=== PATIENT | female | born 1955 | race Caucasian/White ===

== ENCOUNTER 2020-02-08 14:59 | Outpatient (CLI) | payer MEDICARE, SELFPAY ==
--- NOTE | ~2020-02-08 | XR_ITS ---
XR lumbar spine 2-3V 02/08/2020 15:41 Indication: Radiculopathy. Low back pain. Procedure: 3 views lumbar spine Comparison: No prior studies for comparison. Findings: There are facet degenerative changes at L4-5 and L5-S1. There is mild disc narrowing at L5- S1. No acute fracture or traumatic malalignment. There are cholecystectomy clips. Mild osteoarthritis of the hips. Impression: 1: Mild lumbar spondylosis. Reviewed, dictated and finalized at location B. Impression: 1: Mild lumbar spondylosis.
--- NOTE | ~2020-02-08 | XR_ITS ---
EXAMINATION: XR hip RT min 2V DATE: 02/08/2020 15:41 INDICATION: Right hip pain. TECHNIQUE: 3 views of right hip were obtained. COMPARISON: None. FINDINGS: Bone alignment is normal. No fracture. There is mild right hip osteoarthritis. IMPRESSION: 1. Mild right hip osteoarthritis. Reviewed, dictated and finalized at location A.
== END 2020-02-08 15:00 | disposition home or self-care (01) ==
PROVIDERS: PCP Family Medicine; Visit Provider Physician Assistant
DX: M47.26 Other spondylosis with radiculopathy, lumbar region (principal); M16.11 Unilateral primary osteoarthritis, right hip
CPT/HCPCS: 72100; 73502

== ENCOUNTER 2020-02-26 14:51 | Outpatient (CLI) | payer MEDICARE, SELFPAY ==
--- NOTE | ~2020-02-26 | MR_ITS ---
EXAMINATION: MR lumbar spine wo con DATE: 02/26/2020 15:47 INDICATION: Lumbar radiculopathy. TECHNIQUE: Magnetic resonance imaging (MRI) of the lumbar spine was performed without intravenous con trast. Sequences included sagittal T2-weighted FSE, sagittal T2-weighted FS FSE, sagittal T1-weighted FSE, and axial T2-weighted FSE. COMPARISON: Lumbar spine radiographs 02/08/2020 FINDINGS: L5 is a transitional segment. Vertebral body heights are normal. There is a hemangioma in L 4 vertebral body. There is moderately decreased disc height at L4-L5. The distal spinal cord signal i ntensity is normal. The conus medullaris is at T12-L1. The following disc levels are specifically dis cussed: L1-L2: The disc does not extend beyond the endplate margin. There is mild bilateral facet joint osteo arthritis. There is no neural foraminal stenosis. There is no central canal stenosis. L2-L3: The disc does not extend beyond the endplate margin. There is severe right and mild left facet joint osteoarthritis. There is no neural foraminal stenosis. There is no central canal stenosis. L3-L4: The disc does not extend beyond the endplate margin. There is severe bilateral facet joint ost eoarthritis. There is mild bilateral neural foraminal stenosis. There is no central canal stenosis. L4-L5: The disc is bulging. There is moderate right and mild left facet joint osteoarthritis. There i s moderate bilateral neural foraminal stenosis. There is mild central canal stenosis. L5-S1: The disc does not extend beyond the endplate margin. There is mild bilateral facet joint osteo arthritis. There is no neural foraminal stenosis. There is no central canal stenosis. IMPRESSION: 1. Moderate spondylosis at L4-L5 and mild spondylosis at other levels. Reviewed, dictated and finalized at location A.
== END 2020-02-26 14:52 | disposition home or self-care (01) ==
LOC: ANHIMG 14:53
PROVIDERS: PCP Family Medicine; Visit Provider Physician Assistant
DX: M47.26 Other spondylosis with radiculopathy, lumbar region (principal)
CPT/HCPCS: 72148

== ENCOUNTER 2021-10-02 00:43 | Day surgery (SDC) | payer MEDICARE, SELFPAY ==
[2021-09-14 12:01] VITALS: BMI 42.7
[2021-10-02 07:44] VITALS: BP 152/62; PULSE 80; RESP 18; TEMP 36.4; O2SAT 97; BMI 42.1
--- NOTE | 2021-10-02 07:53 | WPDGICN ---
Assessment and Plan Assessment and plan (1) Encounter for screening colonoscopy: Code(s): Z12.11 - Encounter for screening for malignant neoplasm of colon Status: Acute Assessment and Plan: Patient presents today for screening colonoscopy. She appears to be at average risk for colon polyps. Further recommendations will be given after endoscopy. GI Consult Note Consult date/time: 10/02/21 07:53 HPI: Gasper Pierce is a 66 year old female Presents for screening colonoscopy. Patient's current weight appetite and bowel movements are normal. She denies abdominal pain. She has had no bleeding. Family history is noncontributory. Her last colonoscopy tender 15 years ago was unremarkable. She patient does report that her grandmother had colon cancer. There are no first-degree relatives with colon polyps or cancer that she is aware of. Review of Systems Review of Systems: All systems reviewed & are unremarkable except as noted in HPI and below PMFSH Past Medical History Medical History (Updated 10/02/21 @ 07:54 by Matteo Castelan MD) Breast cancer in female Surgical History Surgical History H/O section H/O: hysterectomy History of cholecystectomy History of partial knee replacement Family History Family History Mother Family history of Alzheimer's disease Other Family history of coronary artery disease Family history of gallbladder disease Hypertension Social History Social History Alcohol intake: current Drinks per week: 2 Living arrangements: with family Meds Home Medications and Allergies Home Medications Medication Instructions Recorded Confirmed Type levothyroxine 50 mcg tablet 50 mcg PO DAILY 07/28/19 10/02/21 History cetirizine 10 mg tablet 5 mg PO DAILY 09/23/19 10/02/21 History losartan 100 mg tablet 100 mg PO DAILY #90 tablet 08/09/20 10/02/21 Rx atorvastatin 10 mg tablet 10 mg PO DAILY #90 tablet 08/22/20 10/02/21 Rx montelukast 10 mg tablet See Rx Instructions .ROUTE 06/02/21 10/02/21 Rx .COMPLEX #90 tablet tramadol 50 mg tablet 50 mg PO Q6H PRN 30 Days #60 tablet 06/09/21 10/02/21 Rx hydrochlorothiazide 25 mg tablet See Rx Instructions .ROUTE 06/21/21 10/02/21 Rx .COMPLEX #90 tablet fluoxetine 10 mg capsule See Rx Instructions .ROUTE 06/22/21 10/02/21 Rx .COMPLEX #90 cap omeprazole 40 mg capsule,delayed 40 mg PO DAILY #90 cap 06/22/21 10/02/21 Rx release irbesartan 300 mg tablet 300 mg PO DAILY #90 tablet 06/27/21 10/02/21 Rx duloxetine 60 mg capsule,delayed 60 mg PO DAILY #90 cap 06/28/21 10/02/21 Rx release dulaglutide 3 mg/0.5 mL 3 mg SUBCUT WEEKLY #2 ml 09/05/21 10/02/21 Rx subcutaneous pen injector metformin 500 mg tablet,extended 1,000 mg PO DAILY #180 tablet 09/27/21 10/02/21 Rx release 24 hr Allergies Allergy/AdvReac Type Severity Reaction Status Date / Time No Known Allergies Allergy Verified 10/02/21 07:43 Vital Signs Vital Signs - 24 hr 10/02/21 07:44 Temperature 97.6 F Pulse Rate 80 Respiratory Rate 18 Blood Pressure 152/62 H Pulse Oximetry 97 Exam Narrative: Physical exam reveals patient to be alert. Vital signs stable. HEENT exam is unremarkable. Patient is anicteric. Lungs are clear to auscultation and percussion. Heart is without murmur or extra sounds. Abdominal exam bowel sounds are present soft nontender with no hepatosplenomegaly. Digital external rectal exam is normal.
[2021-10-02] MEDS: LACTATED RINGERS 1,000 ML 150 ML IV CONT (08:02)
[2021-10-02 08:03] LABS: Glucose Point of Care 122 mg/dl (65-105)
--- NOTE | 2021-10-02 08:10 | WPDANESEPPF ---
Anes - Initial Pre Proc Eval Procedure: Operation Date: 10/02/21 08:30 Proposed Procedures p Screening Colonoscopy - Matteo Castelan MD Date/Time: 10/02/21 08:10 Surgeon: Matteo Castelan MD Pre Op Diagnosis: neoplasm screening Patient Data Age: 66 Gender: F Height: 1.63 m Weight: 111.4 kg Last Vital Signs Temp 97.6 F 10/02/21 07:44 Pulse 80 10/02/21 07:44 Resp 18 10/02/21 07:44 BP 152/62 H 10/02/21 07:44 Pulse Ox 97 10/02/21 07:44 Allergies Allergy/AdvReac Type Severity Reaction Status Date / Time No Known Allergies Allergy Verified 10/02/21 07:43 Home Medications Medication Instructions Recorded Confirmed Type levothyroxine 50 mcg tablet 50 mcg PO DAILY 07/28/19 10/02/21 History cetirizine 10 mg tablet 5 mg PO DAILY 09/23/19 10/02/21 History losartan 100 mg tablet 100 mg PO DAILY #90 tablet 08/09/20 10/02/21 Rx atorvastatin 10 mg tablet 10 mg PO DAILY #90 tablet 08/22/20 10/02/21 Rx montelukast 10 mg tablet See Rx Instructions .ROUTE 06/02/21 10/02/21 Rx .COMPLEX #90 tablet tramadol 50 mg tablet 50 mg PO Q6H PRN 30 Days #60 tablet 06/09/21 10/02/21 Rx hydrochlorothiazide 25 mg tablet See Rx Instructions .ROUTE 06/21/21 10/02/21 Rx .COMPLEX #90 tablet fluoxetine 10 mg capsule See Rx Instructions .ROUTE 06/22/21 10/02/21 Rx .COMPLEX #90 cap omeprazole 40 mg capsule,delayed 40 mg PO DAILY #90 cap 06/22/21 10/02/21 Rx release irbesartan 300 mg tablet 300 mg PO DAILY #90 tablet 06/27/21 10/02/21 Rx duloxetine 60 mg capsule,delayed 60 mg PO DAILY #90 cap 06/28/21 10/02/21 Rx release dulaglutide 3 mg/0.5 mL 3 mg SUBCUT WEEKLY #2 ml 09/05/21 10/02/21 Rx subcutaneous pen injector metformin 500 mg tablet,extended 1,000 mg PO DAILY #180 tablet 09/27/21 10/02/21 Rx release 24 hr Laboratory Tests 10/02/21 08:00 POC Capillary Glucose 122 mg/dl H mg/dl (65-105) Patient hx anesthesia problems: none Family hx anesthesia problems: none Results Review: All pre-operative results and documents have been reviewed as part of the pre-operative evaluation. [facility] Past Medical History Medical History (Updated 10/02/21 @ 07:54 by Matteo Castelan MD) Breast cancer in female Surgical History Surgical History H/O section H/O: hysterectomy History of cholecystectomy History of partial knee replacement Family History Family History Mother Family history of Alzheimer's disease Other Family history of coronary artery disease Family history of gallbladder disease Hypertension Social History Social History Alcohol intake: current Drinks per week: 2 Living arrangements: with family Anes - Eval Final PreProcedure Day of Procedure 10/02/21 08:10 Patient weight: morbidly obese Heart: regular rate and rhythm Lungs: clear to auscultation Airway: Mallampati scale class III Neurological: alert and oriented Last oral intake: >/= 8 hours ASA classification: III Emergent: no Anesthetic plan: proceed Anesthesia type and monitoring: general GIVS and standard monitoring Results Review: All pre-operative results and documents have been reviewed as part of the pre-operative evaluation. Informed Consent: The patient's anesthetic plan and its attendant risks and benefits were discussed with the patient/family/POA. Questions were solicited and answers provided to the satisfaction of the patient/family/POA.
[2021-10-02 08:58] VITALS: BP 134/69; PULSE 70; RESP 17; O2SAT 96
[2021-10-02 09:08] VITALS: BP 133/77; PULSE 72; RESP 15; O2SAT 98
[2021-10-02 09:18] VITALS: BP 158/82; PULSE 70; RESP 21; O2SAT 99
== END 2021-10-02 09:30 | disposition home or self-care (01) ==
PROVIDERS: PCP Family Medicine; Visit Provider Internal Medicine Gastroenterology
PROC: 0DJD8ZZ Inspection of Lower Intestinal Tract, Via Natural or Artificial Opening Endoscopic (ICD-10-PCS; CPT 45378; principal; 2021-10-02 08:30)
DX: Z12.11 Encounter for screening for malignant neoplasm of colon (principal); K64.8 Other hemorrhoids; Z80.0 Family history of malignant neoplasm of digestive organs; Z79.899 Other long term (current) drug therapy
CPT/HCPCS: G0105; 82948; J2704; J7120

== ENCOUNTER 2022-03-28 12:18 | Outpatient (CLI) | payer MEDICARE, SELFPAY ==
--- NOTE | ~2022-03-28 | XR_ITS ---
EXAM: XR hand LT 2V, XR hand RT 2V DATE: 03/28/2022 12:37 HISTORY: JOINT PAIN HAND, POSITIVE OLGA LIDIA, SWELLING OF BOTH HANDS . COMPARISON: Left hand x-ray 10/27/2009. FINDINGS: Normal mineralization. No fracture or dislocation. No lytic or blastic lesion. Mild narrow ing and osteophytosis in the DIP joints of multiple fingers in both hands. No erosion or periosteal c hange. Soft tissues within normal limits. IMPRESSION: Mild osteoarthritic change in the fingers bilaterally. Reviewed, dictated and finalized at location K. IMPRESSION: Mild osteoarthritic change in the fingers bilaterally.
== END 2022-03-28 12:19 | disposition home or self-care (01) ==
PROVIDERS: PCP Internal Medicine; Visit Provider Internal Medicine
DX: R76.8 Other specified abnormal immunological findings in serum (principal); M79.89 Other specified soft tissue disorders; M19.042 Primary osteoarthritis, left hand; M19.041 Primary osteoarthritis, right hand
CPT/HCPCS: 73120

== ENCOUNTER 2022-07-10 11:19 | Outpatient (CLI) | payer MEDICARE, SELFPAY ==
--- NOTE | ~2022-07-10 | DEXA_ITS ---
Bone Density Report Name: KLAUDIA VILLAGRAN Age: 67 Sex: Female Ethnicity: White Date of : 1955 Indication: postmenopausal; screening for osteoporosis; cancer; hysterectomy; Referring Provider: THAO CANTOR Study: Bone densitometry was performed. Exam Date: July 10, 2022 Accession number: [id number] Bone Density: Region BMD T-score Z-score Classification AP Spine(L1-L4) 1.052 0.0 2.1 Normal Femoral Neck (Left) 0.745 -0.9 0.8 Normal Total Hip (Left) 1.032 0.7 2.2 Normal Femoral Neck (Right) 0.862 0.1 1.8 Normal Total Hip (Right) 1.089 1.2 2.6 Normal Total Hip Mean 1.061 1.0 2.4 Normal World Health Organization criteria for BMD impression classify patients as: Normal (T-score at or above -1.0), Osteopenia (T-score between -1.0 and -2.5), or Osteoporosis (T-score at or below -2.5). 10-year Fracture Risk: FRAX not reported because: All T-scores for Spine Total, Hip Total, Femoral Neck at or above -1.0 Clinical Information Provided by Patient: Has used the following medications: Vitamin D, Calcium Has the following medical conditions: Cancer, Hysterectomy Patient maximum height was 64 Menopause Age: 36 Drinks caffeinated beverages Onset of menses at age 12 Number of children 3 Impression: The patient has normal bone mass. Discussion: BONE DENSITY IS ABOVE THE MINIMUM DESIRABLE LEVEL AT ALL SKELETAL SITES TESTED. This patient?s bone mineral density is above the minimum desirable level (T-score -1.0 or better) at all sites measured. The patient should follow a healthful lifestyle (good nutrition with adequate calcium and vitamin D, and appropriate weight-bearing exercise). Follow-Up: Consider repeating this study in 5 years or sooner if there is some new clinical indication. Reported by: AISHA on 07/10/2022 11:45:00 AM. Reviewed, dictated and finalized at location AJerry MEDINA
== END 2022-07-10 11:20 | disposition home or self-care (01) ==
LOC: ANHIMG 11:20
PROVIDERS: PCP Internal Medicine; Visit Provider Nurse Practitioner
DX: Z78.0 Asymptomatic menopausal state (principal)
CPT/HCPCS: 77080

== ENCOUNTER 2022-10-05 09:45 | Outpatient (CLI) | payer MEDICARE, SELFPAY ==
[2022-10-05 12:43] LABS: Basophils Percent Auto 0.5 % (0.2-1.2); Eosinophils Absolute Auto 0.2 K/mm3 (0-0.3); Eosinophils Percent Auto 3.2 % (0-4.4); Hematocrit 41.4 % (37.0-47.0); Hemoglobin 13.6 g/dL (12.0-15.0); Immature Granulocyte Absolute 0.01 K/mm3 (0.00-0.031); Immature Granulocyte Percent A 0.2 % (0-0.5); Lymphocytes Absolute Auto 1.64 K/mm3 (0.9-3.2); Lymphocytes Percent Auto 24.7 % (18.3-44.2); Mean Corpuscular HGB Conc 32.9 g/dl (32-36); Mean Corpuscular Volume 85.4 fl (80-100); Mean Platelet Volume 10.5 fl (7.4-10.4); Monocytes Absolute Auto 0.5 K/mm3 (0.1-0.6); Monocytes Percent Auto 6.8 % (2.6-8.5); Neutrophils Absolute Auto 4.3 K/mm3 (1.3-6.7); Neutrophils Percent Auto 64.6 % (45.5-73.1); Platelet Count Result 290 k/mm3 (150-375); Red Blood Count 4.85 M/mm3 (4.2-5.4); White Blood Count 6.7 K/mm3 (4.5-10.0)
[2022-10-05 12:56] LABS: Alanine Aminotransferase 24 U/L (6-35); Albumin Level 4.5 g/dL (3.5-5.1); Alkaline Phosphatase 106 U/L (38-126); Anion Gap 9 mmol/L (8-16); Aspartate Amino Transferase 47 U/L (14-36); Bilirubin,Total 0.5 mg/dL (0.2-1.3); Blood Urea Nitrogen 31 mg/dL (7-17); Calcium 9.4 mg/dL (8.4-10.2); Carbon Dioxide 29 mmol/L (22-30); Chloride 101 mmol/L (98-107); Cholesterol 169 mg/dL (0-200); Estimated Glomerular Filt Rate > 60; Glucose 110 mg/dL (65-110); HDL Direct 79 mg/dL; Potassium 3.8 mmol/L (3.4-5.0); Sodium 139 mmol/L (137-145); Triglycerides 97 mg/dL (<150)
[2022-10-05 13:07] LABS: LDL Cholesterol Direct 60 mg/dL
[2022-10-05 13:10] LABS: Vitamin D 25 Hydroxy 39.1 ng/mL
== END 2022-10-05 09:46 | disposition home or self-care (01) ==
PROVIDERS: PCP Internal Medicine; Visit Provider Nurse Practitioner
DX: E11.9 Type 2 diabetes mellitus without complications (principal); E55.9 Vitamin D deficiency, unspecified
CPT/HCPCS: 36415; 80053; 80061; 82306; 83036; 85025

== ENCOUNTER 2023-04-04 09:06 | Outpatient (CLI) | payer MEDICARE, SELFPAY ==
[2023-04-04 17:01] LABS: Hemoglobin A1C 5.4 % (<5.7)
== END 2023-04-04 09:07 | disposition home or self-care (01) ==
PROVIDERS: PCP Internal Medicine; Visit Provider Nurse Practitioner
DX: E11.9 Type 2 diabetes mellitus without complications (principal)
CPT/HCPCS: 36415; 83036

== ENCOUNTER 2023-08-07 11:36 | Emergency (ER) | payer MEDICARE, SELFPAY ==
--- NOTE | ~2023-08-07 | CT_ITS ---
EXAMINATION: CT brain wo con DATE: 08/07/2023 12:35 INDICATION: Head injury. TECHNIQUE: Computed tomography (CT) of the head was performed without intravenous contrast. The mA wa s adjusted according to patient size. Iterative reconstruction technique was employed. The dose-lengt h product was 756.67 mGy-cm. COMPARISON: Head CT 01/30/2005 FINDINGS: There are scattered areas of low attenuation in the cerebral white matter. There is no intr acranial hemorrhage, acute infarction, or abnormal intracranial mass lesion. The ventricles are cortes l in size. The orbits are normal. There is mild mucosal thickening in the paranasal sinuses. The mast oid air cells are normal. IMPRESSION: 1. Moderate nonspecific cerebral white matter disease, which likely represents chronic small vessel i schemic disease. Reviewed, dictated and finalized at location A. IMPRESSION: 1. Moderate nonspecific cerebral white matter disease, which likely represents chronic small vessel ischemic disease.
--- NOTE | ~2023-08-07 | CT_ITS ---
EXAMINATION: CT cervical spine wo con DATE: 08/07/2023 12:35 INDICATION: Head injury. TECHNIQUE: Computed tomography (CT) of the cervical spine was performed without intravenous contrast. Automated exposure control and iterative reconstruction technique were employed. The dose-length pro duct was 491.35 mGy-cm. COMPARISON: None FINDINGS: There is 10 degrees dextroscoliosis of cervical spine. There is kyphosis of cervical spine. Vertebral body heights are normal. There is mildly decreased disc height at C3-C4, moderately decrea sed disc height at C5-C6, and severely decreased disc height at C6-C7. The following disc levels are specifically discussed: C2-C3: There is no uncovertebral joint osteoarthritis. There is severe right and mild left facet join t osteoarthritis. There is mild right neural foraminal stenosis. There is no central canal stenosis. C3-C4: There is mild bilateral uncovertebral joint osteoarthritis. There is severe right and moderate left facet joint osteoarthritis. There is mild left neural foraminal stenosis. There is mild central canal stenosis. C4-C5: There is mild bilateral uncovertebral joint osteoarthritis. There is severe bilateral facet jean carlos int osteoarthritis. There is mild left neural foraminal stenosis. There is mild central canal stenosi s. C5-C6: There is mild right and severe left uncovertebral joint osteoarthritis. There is mild right an d severe left facet joint osteoarthritis. There is mild left neural foraminal stenosis. There is mild central canal stenosis. C6-C7: There is severe bilateral uncovertebral joint osteoarthritis. There is mild right and moderate left facet joint osteoarthritis. There is mild bilateral neural foraminal stenosis. There is mild ce ntral canal stenosis. C7-T1: There is no uncovertebral joint osteoarthritis. There is mild right and severe left facet join t osteoarthritis. There is mild left neural foraminal stenosis. There is no central canal stenosis. IMPRESSION: 1. No fracture. 2. Severe cervical spondylosis. 3. Cervical dextroscoliosis. Reviewed, dictated and finalized at location A.
--- NOTE | 2023-08-07 11:39 | PC.NURSE ---
Pt placed in C-Collar and wheeled to room
[2023-08-07 11:43] VITALS: BP 152/85; PULSE 87; RESP 18; TEMP 36.5; O2SAT 100
[2023-08-07] MEDS: oxyCODONE HCL (*CRX) 2.5 MG TAB IR PO (12:20)
[2023-08-07] MEDS: TETANUS,DIPHTHERIA,AC PERTUSSIS ADULT (0.5 ML) BOOSTRIX IM (13:06)
--- NOTE | 2023-08-07 13:14 | ED.HEATRA ---
HPI - Head Injury General Chief complaint: Head Injury Stated complaint: head injury Time Seen by Provider: 08/07/23 12:00 History of Present Illness HPI Narrative: Patient here after tripping and falling in the shower. No LOC or n/v, focal numbness or weakness, but feels slightly dazed. Not on blood thinners. Related Data Home Medications Medication Instructions Recorded Confirmed cetirizine 10 mg tablet (Zyrtec) 5 mg PO DAILY 09/23/19 04/11/23 Allergies Allergy/AdvReac Type Severity Reaction Status Date / Time No Known Allergies Allergy Verified 08/07/23 12:55 Review of Systems Review of Systems: CONST: No fever. HEENT: No sore throat C/V: No chest pain RESP: No cough GI: No nausea/vomiting : No dysuria. M/S: No joint pain. SKIN: Some dried blood to back of head NEURO: [No focal numbness or weakness] PSYCH: [No depression] PMFSH Past Medical History Medical History Breast cancer in female Hyperlipidemia Surgical History Surgical History H/O section H/O: hysterectomy History of cholecystectomy History of lumpectomy of right breast (~2006) History of partial knee replacement Family History Family History Mother Family history of Alzheimer's disease Other Family history of coronary artery disease Family history of gallbladder disease Hypertension Social History Social History Smoking status: Former smoker Additional smoking assessment comments: 1/2 pack day for 10 years, stopped when she was 27 years old Alcohol intake: current Drinks per week: 2 Lack of Transportation: No Lack of Food: Never True Current Housing: I Have Housing Concerned About Future Housing: No Difficulty Paying Gas/Electric Bills: No Difficulty Paying for Meds: No Currently Unemployed: No Education: Trade/Vocational Certificate Difficulty w/ Childcare or Family Care: No Living arrangements: with family Exam Narrative: EXAMINATION OF ORGAN SYSTEMS/BODY AREAS: Constitutional: Vital signs per nursing GENERAL: Appears uncomfortable in bed HEAD: Contusion with some dried blood to the back of the head. EYES: EOMI, conjunctiva normal ENT: Hearing grossly intact LUNGS: Nonlabored breathing. HEART: [Regular rate and rhythm] ABD: [Soft], [nontender to palpation] EXT: Normal range of motion SKIN: Contusion with some dried blood to the back of the head. NEURO: [Alert and oriented x 3. No gross focal sensory or strength deficits.] PSYCH: Normal affect Course Vital Signs Vital signs: Vital Signs Temperature 97.7 F 08/07/23 11:43 Pulse Rate 87 08/07/23 11:43 Respiratory Rate 18 08/07/23 11:43 Blood Pressure 152/85 H 08/07/23 11:43 Pulse Oximetry 100 08/07/23 11:43 Oxygen Delivery Room Air 08/07/23 11:43 Temperature 97.7 F 08/07/23 11:43 Pulse Rate 87 08/07/23 11:43 Respiratory Rate 18 08/07/23 11:43 Blood Pressure 152/85 H 08/07/23 11:43 Pulse Oximetry 100 08/07/23 11:43 Oxygen Delivery Room Air 08/07/23 11:43 Procedures Laceration Laceration 1: Date: 08/07/23 Time: 13:34 Site: scalp Side (If applicable): left Size (cm): 3 Description: linear Depth: simple, single layer Local Anesthetic: lidocaine 1% and with epi Amount of anesthesia used (mL): 3 Pre-repair: wound explored and irrigated ====== Skin Level ====== ====== Subcutaneous Layer ====== ====== Muscle Layer ====== ====== Tendon Layer ====== MDM - Head Injury MDM Narrative Medical decision making narrative: 1) Differential diagnosis: fracture, intracranial bleeding 2) Comorbidities: DM, HTN 3) External notes reviewed: PCP notes 4) History sources i
[2023-08-07 13:30] VITALS: BP 150/80; PULSE 80; RESP 16; O2SAT 98
== END 2023-08-07 13:30 | disposition home or self-care (01) ==
PROVIDERS: Emergency Provider Emergency Medicine; PCP Internal Medicine
DX: S01.01XA Laceration without foreign body of scalp, initial encounter (principal); Z23 Encounter for immunization; I10 Essential (primary) hypertension; E11.9 Type 2 diabetes mellitus without complications; E78.5 Hyperlipidemia, unspecified; Z96.659 Presence of unspecified artificial knee joint; Z85.3 Personal history of malignant neoplasm of breast; Z87.891 Personal history of nicotine dependence; Z90.49 Acquired absence of other specified parts of digestive tract; Z90.710 Acquired absence of both cervix and uterus; W18.2XXA Fall in (into) shower or empty bathtub, initial encounter
CPT/HCPCS: 12002; 70450; 72125; 90471; 90715; 99284; A9270

== ENCOUNTER 2023-09-26 09:50 | Outpatient (CLI) | payer MEDICARE, SELFPAY ==
[2023-09-26 19:10] LABS: Alanine Aminotransferase 20 U/L (6-35); Albumin Level 4.8 g/dL (3.5-5.1); Alkaline Phosphatase 106 U/L (38-126); Anion Gap 8 mmol/L (4-12); Aspartate Amino Transferase 36 U/L (14-36); Bilirubin,Total 0.9 mg/dL (0.2-1.3); Blood Urea Nitrogen 34 mg/dL (7-17); Calcium 10.6 mg/dL (8.4-10.2); Carbon Dioxide 29 mmol/L (22-30); Chloride 101 mmol/L (98-107); Cholesterol 176 mg/dL (0-200); Estimated Glomerular Filt Rate 41; Glucose 119 mg/dL (65-110); HDL Direct 82 mg/dL; Potassium 3.5 mmol/L (3.4-5.0); Sodium 138 mmol/L (137-145); Triglycerides 138 mg/dL (<150)
[2023-09-26 19:21] LABS: LDL Cholesterol Direct 71 mg/dL
[2023-09-26 19:26] LABS: Basophils Percent Auto 0.4 % (0.2-1.2); Eosinophils Absolute Auto 0.1 K/mm3 (0-0.3); Eosinophils Percent Auto 1.8 % (0-4.4); Hematocrit 44.1 % (37.0-47.0); Hemoglobin 14.8 g/dL (12.0-15.0); Immature Granulocyte Absolute 0.03 K/mm3 (0.00-0.031); Immature Granulocyte Percent A 0.4 % (0-0.5); Lymphocytes Absolute Auto 2.07 K/mm3 (0.9-3.2); Lymphocytes Percent Auto 29.2 % (18.3-44.2); Mean Corpuscular HGB Conc 33.6 g/dl (32-36); Mean Corpuscular Hemoglobin 29.2 pg (26-34); Mean Platelet Volume 10.8 fl (7.4-10.4); Monocytes Absolute Auto 0.6 K/mm3 (0.1-0.6); Monocytes Percent Auto 8.6 % (2.6-8.5); Neutrophils Absolute Auto 4.2 K/mm3 (1.3-6.7); Neutrophils Percent Auto 59.6 % (45.5-73.1); Platelet Count Result 328 k/mm3 (150-375); Red Blood Count 5.07 M/mm3 (4.2-5.4); Red Cell Distribution Width 13.4 % (11.5-14.5); White Blood Count 7.1 K/mm3 (4.5-10.0)
[2023-09-26 20:33] LABS: Hemoglobin A1C 5.6 % (<5.7)
[2023-10-02 11:13] LABS: Apolipoprotein B 72 mg/dL
== END 2023-09-26 09:51 | disposition home or self-care (01) ==
PROVIDERS: PCP Internal Medicine; Visit Provider Nurse Practitioner
DX: E78.5 Hyperlipidemia, unspecified (principal); E55.9 Vitamin D deficiency, unspecified; E11.69 Type 2 diabetes mellitus with other specified complication
CPT/HCPCS: 36415; 80053; 80061; 82172; 82306; 83036; 84443; 85025

== ENCOUNTER 2024-04-07 09:44 | Outpatient (CLI) | payer MEDICARE, SELFPAY ==
[2024-04-07 15:11] LABS: Alanine Aminotransferase 20 U/L (6-35); Albumin Level 4.3 g/dL (3.5-5.1); Alkaline Phosphatase 108 U/L (38-126); Anion Gap 5 mmol/L (4-12); Aspartate Amino Transferase 34 U/L (14-36); Basophils Percent Auto 0.3 % (0.2-1.2); Bilirubin,Total 0.5 mg/dL (0.2-1.3); Blood Urea Nitrogen 24 mg/dL (7-17); Calcium 9.2 mg/dL (8.4-10.2); Carbon Dioxide 32 mmol/L (22-30); Chloride 101 mmol/L (98-107); Cholesterol 187 mg/dL (0-200); Eosinophils Absolute Auto 0.1 K/mm3 (0-0.3); Eosinophils Percent Auto 2.1 % (0-4.4); Estimated Glomerular Filt Rate 55; Glucose 108 mg/dL (65-110); HDL Direct 69 mg/dL; Hematocrit 41.8 % (37.0-47.0); Hemoglobin 13.9 g/dL (12.0-15.0); Immature Granulocyte Absolute 0.04 K/mm3 (0.00-0.031); Immature Granulocyte Percent A 0.7 % (0-0.5); Lymphocytes Absolute Auto 1.56 K/mm3 (0.9-3.2); Lymphocytes Percent Auto 25.5 % (18.3-44.2); Magnesium 2.1 mg/dL (1.6-2.3); Mean Corpuscular HGB Conc 33.3 g/dl (32-36); Mean Corpuscular Volume 87.3 fl (80-100); Mean Platelet Volume 10.6 fl (7.4-10.4); Monocytes Absolute Auto 0.4 K/mm3 (0.1-0.6); Monocytes Percent Auto 6.5 % (2.6-8.5); Neutrophils Percent Auto 64.9 % (45.5-73.1); Platelet Count Result 275 k/mm3 (150-375); Red Blood Count 4.79 M/mm3 (4.2-5.4); Red Cell Distribution Width 13.1 % (11.5-14.5); Sodium 138 mmol/L (137-145); Triglycerides 127 mg/dL (<150); White Blood Count 6.1 K/mm3 (4.5-10.0)
[2024-04-07 15:13] LABS: LDL Cholesterol Direct 72 mg/dL
[2024-04-07 15:43] LABS: Vitamin D 25 Hydroxy 76.9 ng/mL
== END 2024-04-07 09:45 | disposition home or self-care (01) ==
LOC: ANHGOSHLAB 09:46
PROVIDERS: PCP Internal Medicine; Visit Provider Nurse Practitioner
DX: G89.29 Other chronic pain (principal); I15.2 Hypertension secondary to endocrine disorders; E11.59 Type 2 diabetes mellitus with other circulatory complications; F19.20 Other psychoactive substance dependence, uncomplicated; E11.69 Type 2 diabetes mellitus with other specified complication; E78.5 Hyperlipidemia, unspecified; E55.9 Vitamin D deficiency, unspecified
CPT/HCPCS: 36415; 80053; 80061; 82306; 83036; 83735; 84443; 85025

== ENCOUNTER 2024-05-09 06:13 | Emergency (ER) | payer MEDICARE, SELFPAY ==
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
[2024-05-09] MEDS: HYDROcodone/acetaminophen (*CRX) 5-325 MG TABLET 1 TAB PO (06:47)
--- OUTSIDE RECORDS SUMMARY | 2024-05-12 20:13 | XMS_ITS | Patient Health Record ---
Author Organization [facility] Address [address] [place] [address] Care Team Providers Care Officer Captain Name Role Phone Verito Carter Unavailable [phone] Reason For Referral No Information Plan Of Treatment No Information Insurance Providers Payer Name Payer Address Payer Phone Subscriber Number Group Number Insured Name Patient Relationship to Insured Coverage Start Date Coverage End Date [employer] Attention Claims [address] [facility] [place] [place] [address] [phone] [id number] Gasper Pierce Self - patient is the insured [facility] [address] [address] [place] [address] [id number] Gasper Pierce Self - patient is the insured
--- OUTSIDE RECORDS SUMMARY | 2024-05-12 20:13 | XMS_ITS | Data Portability ---
Author Organization [place] - [facility], Main Office Address [address] [place] [address] Assessment No assessment recorded. Plan of Treatment Reminders Order Date Submit Date Provider Last Modified By Organization Details Last Modified Time Details Appointments None record ed. Lab None record ed. Referral None record ed. Procedures None record ed. Surgeries None record ed. Imaging None record ed. Medication Orders None record ed. Patient TargetsNo targets recorded. Patient Instructions Encounter Date Encounter Id Patient Instructions Last Modified By Organization Details Last Modified Time 04/11/2020 [id number] Lesion resolved. FU 6 mos or before if it comes back. Had been present 6 weeks before last appt. [place] [email or web address] Not available 04/11/2020 10:29:16 Reason for Referral None Reported. Medical Equipment None Reported. Allergies No known drug allergies Medications Name Sig Start Date Stop Date Status Note LastModified by Organization Details LastModified Time prednisone 10 mg tablet active Not Available Not Available Not Available atorvastatin 10 mg tablet TAKE 1 TABLET BY MOUTH EVERY DAY active Not Available Not Available No t Available omeprazole 40 mg capsule,estrella yed release TAKE 1 CAPSULE BY MOUTH DAILY active Not Available Not Available Not Available tramadol 50 mg tablet TAKE 1 TABLET BY MOUTH EVERY 6 HOURS NEEDED FOR PAIN FOR 30 DAYS active Not Available Not Available No t Available triamcinolon e acetonide 0.1 % topical cream APPLY A THIN LAYER AA ON ARM BID. NEVER TO FACE active Not Available Not Available No t Available alprazolam 0.25 mg tablet active Not Available Not Available Not Available dexamethason e 1 mg tablet active Not Available Not Available Not Available baclofen 10 mg tablet active Not Available Not Available No t Available fluoxetine 10 mg capsule TAKE 1 CAPSULE BY MOUTH EVERY DAY active Not Available Not Available No t Available Synthroid 50 mcg tablet TAKE 1 TABLET BY MOUTH EVERY DAY IN THE MORNING active Not Available Not Available No t Available gabapentin 300 mg capsule active Not Available Not Available Not Available montelukast 10 mg tablet TAKE 1 TABLET BY MOUTH DAILY active Not Available Not Available Not Available hydrochlorot hiazide 25 mg tablet TAKE 1 TABLET BY MOUTH DAILY active Not Available Not Available Not Available albuterol sulfate HFA 90 mcg/actuatio n aerosol inhaler INL 2 PFS PO Q 4 H PRN active Not Available Not Available No t Available losartan 100 mg tablet TAKE 1 TABLET BY MOUTH DAILY active Not Available Not Available Not Available metformin ER 500 mg tablet,exten ded release 24 hr TAKE 2 TABLETS BY MOUTH TWICE A DAY WITH MEALS FOR 90 DAYS active Not Available Not Available No t Available naproxen 500 mg tablet active Not Available Not Available No t Available amoxicillin 875 mg-potassium clavulanate 125 mg tablet TAKE 1 TABLET PO Q 12 H active Not Available Not Available No t Available duloxetine 60 mg capsule,estrella yed release TAKE 1 CAPSULE BY MOUTH DAILY active Not Available Not Available Not Available Symbicort 160 mcg-4.5 mcg/actuatio n HFA aerosol inhaler active Not Available Not Available Not Available Novofine 32 32 gauge x 1/4 needle active Not Available Not Available Not Available Trulicity 1.5 mg/0.5 mL subcutaneous pen injector active Not Available Not Available Not Available Trulicity 0.75 mg/0.5 mL subcutaneous pen injector active Not Available Not Available Not Available Incruse Ellipta 62.5 mcg/actuatio n powder for inhalation active Not Available Not Available N ot Available Accu-Chek Guide test strips TEST BID B MEALS active Not Available Not Available No t Available Bydureon BCise 2 mg/0.85 mL subcutaneous auto-injecto r active Not Available Not Available Not Available Accu-Chek Fastclix Lancet Drum USE DIRECTED TO TEST SUGARS TWICE DAILY active Not Available Not Available Not Available ID NOW COVID-19 Test Kit TEST DIRECTED active Not Available Not Available No t Available Trulicity 3 mg/0.5 mL subcutaneous pen injector INJECT 3 MG EVERY WEEK BY SUBCUTANEOU S ROUTE IN THE MORNING FOR 90 DAYS. active Not Available Not Available No t Available Vitals None Recorded Social History None recorded. Functional Status None recorded. Mental Status None recorded. Family History Nothing Reported. Medical History No medical history recorded. Gynecological HistoryNo gynecological history recorded. Obstetrics History GPAL:G 0 P 0 0 0 0 Past Encounters Encounter ID Performer Location Encounter Start Date Encounter Closed Date Diagnosis/Indication Diagnosis SNOMED-CT Code Diagnosis ICD10 Code [id number] Rob Burks MD Main Office [address] [place] [address] 110[address] [id number] 04/11/2020 10:16:11 04/11/2020 10:57:14 Health Concerns Section Related Observation LastModified by Organization Detai ls LastModified Time None Recorded Concern Status LastModified by Organization Details LastModified Time None Recorded Advance Directives Directive None Recorded Payers Encounter Date Sequence Insurance Name Policy Number Policy Wylie Covered Member ID Wylie Member ID Guarantor Name 04/11/2020 1 [place]ICARE [place]: [place] Gasper Pierce [id number] Gasper Pierce 04/11/2020 2 [facility] (MEDICARE SUPPLEMENT) aGsper Pierce [id number] Gasper Pierce OBGyn Episode No OBEpisode recorded.
--- OUTSIDE RECORDS SUMMARY | 2024-05-12 20:13 | XMS_ITS ---
Author Organization Unknown Address [address] [place] [phone] Phone Care Team Providers Care Utility Teller Name Role Phone RIKI Banerjee Attending Unavailable Results RAPID DETECT SARS-CoV-2 - Co llect Date/Time: 04/17/2022 11:25 [facility] ID: [id number] [address] [place] [address], [phone] LOINC: 61340-9 Test Value Unit Reference Range Code Code System Flag RAPID COVID Ag NEGATIVE NORMAL: NEGATIVE FLU A & B;DIRECT OPTICAL+ - Collect Date/Time: 04/17/2022 11:25 [facility] ID: [id number] [address] [place] [address], [phone] LOINC: 49980-9 Test Value Unit Reference Range Code Code System Flag INFLUENZA A NOT DETECTED NORMAL:NOT DETECTED 57088-1 VU NC INFLUENZA B NOT DETECTED NORMAL:NOT DETECTED 34373-5 VU NC SEND TO ? NO STREP A SCREEN - Collect Humphrey e/Time: 04/17/2022 11:25 [facility] ID: [id number] [address] [place] [address], [phone] LOINC: 43194-5 Test Value Unit Reference Range Code Code System Flag STREP A SCREEN NEGATIVE NORMAL: NEGATIVE GROUP A STREP CONFIRMATION C ULTURE - Collect Date/Time: 04/17/2022 11:25 [facility] ID: [id number] [address] [place] [address] [place], [phone] LOINC: 77065-0 Test Value Unit Reference Range Code Code System Flag SEND TO IFC? [place] [address]-0 LOINC SEND TO ? 06502-5 LOINC Beta Strep Gp A Culture Negative 04664-9 LOINC Social History Type Status Start Date End Date Code Code Syst em Smoking History Never smoker (Never Smoked) 562252698 SNOMED CT Sex Female Hospital Discharge Instructions Should you have any questions prior to discharge, please contact a member of your healthcare team. If you have left the hospital and have any questions, please contact your primary care physician. Reason For Referral No Data Found Plan of Treatment No Data Found Encounters Encounter Diagnosis Start Date Code Code Sys tem Acute upper respiratory infection 04/17/2022 6228052 5 SNOMED-CT Personal Care Team Section Performer Name Performer Role Active Date Inactive Da te
--- OUTSIDE RECORDS SUMMARY | 2024-05-12 20:13 | XMS_ITS ---
Author Organization [facility] Address [address] [place] [address] Care Team Providers Care Cable Tool Driller Name Role Phone Verito Carter Unavailable [phone] REASON FOR VISIT BOX FEEDER Asthma Encounters Encounter Location Date Provider Diagnosis [facility] [address] [place] [address] 12/17/2023 Verito Carter Plan Of Treatment No Information Progress Notes * Abigail PIERCEOB:1955 (69 yo F)Acc No.[id number]:12/17/2023 Progress Notes Patient:?Gasper PIERCE Provider:?Verito Carter MD :1955???Age:68 Y???Sex:Female D ate:12/17/2023 Address:[address] [place], [place] [id number] Subjective: * Chief Complaints: * ???1. BOX FEEDER Asthma. * Medical History:? Objective: * Vitals:? Assessment: Plan: * Treatment: * Billing Information: * Visit Code:? * Procedure Codes:? * Electronic signature of Shannon Carter MD on 05/12/2024 at 08:13 PM STORE RECEIVING CLERK Sign off status: Pending * Provider:?Verito Carter MD Date:?11/25 Generated for Eloisa mc/Fadick/eTransmitting on:?05/12/2024 08:13 PM STORE RECEIVING CLERK
--- OUTSIDE RECORDS SUMMARY | 2024-05-12 20:14 | XMS_ITS | Encounter Summary ---
Author Organization [facility] Address [address] [place] [address] Phone Care Team Providers Care Body Mechanic Name Role Phone Kyle Robles MD Primary Care Provider [phone] Encounter Details Date Type Department Care Team (Latest Contact Info) Description 05/02/2020 10:45 AM VARYING EXCEPTIONALITIES TEACHER Telemedicine [facility] Neurosurgery [address] [facility] Advanced Medicine 6th [place] [address] [place] [address] Leonila aWgner, COTY [address] [place] [address] Intervertebral disc disorder with radiculopathy of lumbar region (Primary Dx) Social History Tobacco Use Types Packs/Day Years Used Date Smoking Tobacco: Former Cigarettes 0.3 8 1 972 - 4418 Smokeless Tobacco: Never Alcohol Use Standard Drinks/Week Comments Yes 2 (1 standard drink = 0.6 oz pur e alcohol) Comments No Sex and Gender Information Value Date Recorded Sex Assigned at Not on file Legal Sex Female 1:06 AM VARYING EXCEPTIONALITIES TEACHER Gender Identity Female 01/22/2024 8:47 PM CDT Sexual Orientation Straight 01/22/2024 8: 47 PM CDT documented as of this encounter Progress Notes * Leonila Wagner NP - 05/02/2020 10:45 AM CST Images from the original note were not included. RETURN VISIT Subjective HISTORY OF PRESENT ILLNESS I had the pleasure of speaking with Gasper Pierce for a telemedicine evaluation on May 02, 2020. As you may recall, this is a very pleasant 65-year-old who I saw approximately 8 weeks ago for evaluation of lumbar radiculopathy. She has subsequently undergone 2 steroid injections with our pain management colleagues. She has noted improvement in her pain since undergoing injections. She states that she has been able to walk more. She walked 2 miles yesterday. She has persistent pain in her buttock and numbness in her toes, but feels much better than at our initial visit. VITAL SIGNS LMP (LMP Unknown) ALLERGIES She has No Known Allergies. MEDICATIONS Current Outpatient Medications: ??? Accu-Chek Fastclix Lancet Drum elio, USE DIRECTED TO TEST SUGARS TWICE DAILY, Disp: , Rfl: ??? albuterol sulfate (ProAir RespiClick) 90 mcg/actuation aerosol powdr breath activated, ProAir RespiClick 90 mcg/actuation breath activated, Disp: , Rfl: ??? ALPRAZolam (XANAX) 0.25 mg tablet, TK 1 T PO BID, Disp: , Rfl: ??? atorvastatin (LIPITOR) 10 mg tablet, Take 10 mg by mouth daily , Disp: , Rfl: 1 ??? azelastine (ASTELIN) 137 mcg (0.1 %) nasal spray, , Disp: , Rfl: ??? baclofen (LIORESAL) 10 mg tablet, Take 1 tablet (10 mg total) by mouth 3 (three) times a day, Disp: 90 tablet, Rfl: 2 ??? budesonide-formoteroL (Symbicort) 160-4.5 mcg/actuation inhaler, Symbicort 160 mcg-4.5 mcg/actuation HFA aerosol inhaler, Disp: , Rfl: ??? calcium carbonate/vitamin D3 (CALTRATE 600 PLUS D ORAL), Take 1,000 mg by mouth daily, Disp: , Rfl: ??? cetirizine (ZyrTEC) 10 mg tablet, Take 10 mg by mouth daily, Disp: , Rfl: ??? DULoxetine DR (CYMBALTA) 60 mg capsule, Take 60 mg by mouth daily , Disp: , Rfl: ??? exenatide microspheres (Bydureon BCise) 2 mg/0.85 mL auto-injector, Byjanettrelotus BCise 2 mg/0.85 mLsubcutaneous auto-injector, Disp: , Rfl: ??? FLUoxetine (FLUoxetine) 10 mg tablet/capsule, , Disp: , Rfl: ??? gabapentin (NEURONTIN) 300 mg capsule, Take 1 capsule (300 mg total) by mouth 3 (three) times aday (Patient not taking: Reported on 04/27/2020), Disp: 90 capsule, Rfl: 3 ??? hydroCHLOROthiazide (HYDRODIURIL) 25 mg tablet, Take 25 mg by mouth daily , Disp: , Rfl: ??? lisinopriL (PRINIVIL,ZESTRIL) 20 mg tablet, Take 20 mg by mouth daily, Disp: , Rfl: ??? losartan (COZAAR) 100 mg tablet, Take 100 mg by mouth daily , Disp: , Rfl: ??? losartan-hydrochlorothiazide (HYZAAR) 100-25 mg per tablet, , Disp: , Rfl: ??? metFORMIN (FORTAMET) 1,000 mg 24 hr tablet, Take 1,000 mg by mouth daily with breakfast , Disp:, Rfl: ??? montelukast (SINGULAIR) 10 mg tablet, Take 10 mg by mouth nightly , Disp: , Rfl: ??? multivitamin capsule, Take 1 capsule by mouth daily, Disp: , Rfl: ??? omeprazole (PriLOSEC) 40 mg capsule, Take 40 mg by mouth daily , Disp: , Rfl: ??? pediatric multivitamin-iron tablet,chewable, daily ., Disp: , Rfl: ??? pen needle, diabetic (Novofine 32) 32 gauge x 1/4 needle, Novofine 32 32 gauge x 1/4 needle INJ OZEMPIC ONCE WEEKLY UTD, Disp: , Rfl: ??? semaglutide (Ozempic) 0.25 mg or 0.5 mg(2 mg/1.5 mL) pen injector, 0.5 mg, Disp: , Rfl: ??? SYNTHROID 50 mcg tablet, Take 50 mcg by mouth lead refiner before breakfast , Disp: , Rfl: ??? tamoxifen (NOLVADEX) 10 mg tablet, Take by mouth 2 (two) times a day, Disp: , Rfl: ??? tiotropium bromide (SPIRIVA RESPIMAT) 2.5 mcg/actuation inhaler, Spiriva Respimat 2.5 mcg/actuation solution for inhalation, Disp: , Rfl: ??? traMADoL (ULTRAM) 50 mg tablet, TK 1 T PO Q 6 H FOR 15 DAYS PRF PAIN, Disp: , Rfl: ??? Trulicity 3 mg/0.5 mL pen injector, , Disp: , Rfl: ??? vit B complex 100 combo no.2 100 mg tablet extended release, Take 1 tablet by mouth daily, Disp: , Rfl: Assessment/Plan PLAN I discussed with the patient that as long as she is having improvements in her symptoms with conservative management, I would not recommend any type of surgical intervention. I am hopeful that she will continue to have relief of her symptoms with injections. If she were to have persistent pain despite injections and stretching, then I would be happy to see her back to discuss surgical interventions. She would need to pursue weight loss prior to us discussing surgical options. I discussed with her that for all non emergent lumbar spine surgery require that the BMI be below 40 as it less since the risk of surgery to the patient. At this time, I can plan to see her back on an as-needed basis. I have asked that she call with any questions or concerns I would be happy to discuss further or seeher back at any time. This was a telemedicine visit with Gasper Medrano Stan alone which took place via Telephone. During the visit, I was located in the office and the patient was located at home in the state [facility]. The patient visit started at 10:50 and ended at 10:54. Total encounter time was 10 minutes, which includes time spent today on pre charting, the patient encounter, and post charting. The patient: has been informed that the visit may not be secure and acknowledged the information. The option of participating in a telephone or video visit during the [facility] public health emergencywas explained to them. After being given an opportunity to ask questions about and discuss this type of visit, they verbally consented to proceeding with the telephone/video visit and understand thatthis service replaces an office visit. Leonila Wagner NP ING EXCEPTIONALITIES TEACHER documented in this encounter Plan of Treatment Not on file documented as of this encounter Goals Goal Patient Goal Type Associated Problems Recent Progress Patient-Stated? Author CCM Chronic Pain Care Plan Chronic Care Management No change(04/27 10:31 AM VARYING EXCEPTIONALITIES TEACHER) No Amna Dao RN Note: Problem: Chronic Pain Goals: 1. Minimize further functional decline 2. Maximize quality of life 3. Control pain Strategies: - Activity/exercise program recommendation - Conservative stepwise pain medicine strategy with multi-disciplinary approach - Recommend healthy lifestyle strategies and compensatory methods as needed documented as of this encounter Visit Diagnoses Diagnosis Intervertebral disc disorder with radiculopathy of lumbar region- Primary documented in this encounter Care Teams Body Mechanic Relationship Specialty Start Date End Date Kyle Robles MD [address] [place] [address] PCP - General Family Medicine 07/30/18 03/25/22 documented as of this encounter
--- OUTSIDE RECORDS SUMMARY | 2024-05-12 20:14 | XMS_ITS | Encounter Summary ---
Author Organization [facility] Address [address] [place] [address] Phone Care Team Providers Care Latex Caster Name Role Phone Kyle Robles MD Primary Care Provider [phone] Reason for Visit * Reason Comments Follow-up * Consultation (Routine) - Closed Specialty Diagnoses / Procedures Referred By Trisha corley Referred To Contact Surgical Oncology Diagnoses History of right breast cancer Kyle Robles MD [address] [place] [address] Phone: tel: fax: [facility] (All Locations) Referral ID Status Reason Start Date Expiration Date V isits Requested Visits Authorized [id number] Closed Specialty Services Required 11/14/2021 12/14/2022 1 1 Encounter Details Date Type Department Care Team (Late st Contact Info) Description 12/22/2021 11:15 AM CDT Office Visit [facility] Surgery [address] [facility] Advanced Medicine 5th [place] [address] [place] [address] Kirsty Bal NP [address] [place] [address] History of right breast cancer Social History Tobacco Use Types Packs/Day Years Used Date Smoking Tobacco: Former Cigarettes 0.3 8 1 972 - 1980 Smokeless Tobacco: Never Alcohol Use Standard Drinks/Week Comments Yes 2 (1 standard drink = 0.6 oz pur e alcohol) AUDIT-C Answer Date Recorded Q1: How often do you have a drink containing alc ohol? Never 06/15/2021 Average Number of Drinks Not on file 022 Frequency of Binge Drinking Not on file 05/28 Comments No Sex and Gender Information Value Date Recorded Sex Assigned at Not on file Legal Sex Female 1:06 AM SKIVING MACHINE OPERATOR Gender Identity Female 01/22/2024 8:47 PM CDT Sexual Orientation Straight 01/22/2024 8: 47 PM CDT documented as of this encounter Progress Notes * Kirsty Bal, COTY - 12/22/2021 11:15 AM CDT NAME: Gasper Pierce : 1955 DATE: 12/22/2021 CHIEF COMPLAINT: Follow-up for right breast cancer. HISTORY OF PRESENT ILLNESS: Ms. Pierce is a 66 y.o. woman who had undergone routine imaging in April of 2000 where they noted an abnormality in her right breast. On 05/06/2006 she underwent image guided biopsy demonstrating invasive ductal carcinoma. She was treated with neoadjuvant chemotherapyof FEC followed by Taxotere. 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 She then completed adjuvant radiation therapy and was placed on anastrozole. She had significant side effects and ultimately was converted to tamoxifen. The tamoxifen was then discontinued due to severe hot flashes. She underwent no further treatment. She returns today for her routine visit and states that she is doing well overall. She states that she experiences pain and swelling of both hands as well as hip pain. She states that her primary care physician ordered labs and she was found to have a positive OLGA LIDIA. She has been referred to Dermatology but does not have an appointment until September 2022. However, she is on the waiting list if something sooner opens. She denies any masses in either breast. She denies any change in the appearance of her breasts or the skin of her breasts, outside of that attributed to her previous surgical and radiation therapies. She denies bilateral nippledischarge. She states that she has experienced soreness of the right breast since her treatment. She has no other systemic complaints and otherwise feels well today. Please note that her past medical history, surgical history, medications, allergies, review of systems, family history, and social history were all reviewed with them again today. Past Medical History: Diagnosis Date ??? Asthma ??? Cancer (CMS/HCC) (HCC) ??? Depression ??? Hypertension ??? Hyperthyroidism ??? Infectious viral hepatitis ??? Low back pain ??? Type 2 diabetes mellitus (HCC) Past Surgical History: Procedure Laterality Date ??? BREAST LUMPECTOMY Right Breast Lumpectomy - (Added by TW Conv) ??? SECTION 1980, 1985, 1988 ??? CHOLECYSTECTOMY 2009 ??? HYSTERECTOMY 1989 ??? SD TOTAL ABDOM HYSTERECTOMY Hysterectomy - (Added by DEVORA Conv) ??? REPLACEMENT TOTAL KNEE 2011 Prior to Admission medications Medication Sig Start Date End Date Taking? Authorizing Provider atorvastatin (LIPITOR) 10 mg tablet Take 10 mg by mouth daily 06/25/18 Osmin Atwood MD calcium carbonate/vitamin D3 (CALTRATE 600 PLUS D ORAL) Take 1,000 mg by mouth daily Osmin Atwood MD cetirizine (ZyrTEC) 10 mg tablet Take 10 mg by mouth daily Osmin Atwood MD DULoxetine DR (CYMBALTA) 60 mg capsule Take 60 mg by mouth daily 06/06/18 Osmin Atwood MD FLUoxetine (FLUoxetine) 10 mg tablet/capsule Osmin Atwood MD hydroCHLOROthiazide (HYDRODIURIL) 25 mg tablet Take 25 mg by mouth daily Osmin Atwood MD irbesartan (AVAPRO) 300 mg tablet 12/19/21 Osmin Atwood MD lisinopriL (PRINIVIL,ZESTRIL) 20 mg tablet Take 20 mg by mouth daily Osmin Atwood MD losartan (COZAAR) 100 mg tablet Take 100 mg by mouth daily 06/11/19 Osmin Atwood MD losartan-hydrochlorothiazide (HYZAAR) 100-25 mg per tablet 06/23/18 Osmin Atwood MD metFORMIN (FORTAMET) 1,000 mg 24 hr tablet Take 1,000 mg by mouth daily with breakfast 07/19/18 Osmin Atwood MD montelukast (SINGULAIR) 10 mg tablet Take 10 mg by mouth nightly Osmin Atwood MD omeprazole (PriLOSEC) 40 mg capsule Take 40 mg by mouth daily 07/27/18 Osmin Atwood MD pediatric multivitamin-iron tablet,chewable daily . Osmin Atwood MD SYNTHROID 50 mcg tablet Take 50 mcg by mouth oil extractor before breakfast 06/06/18 Osmin Atwood MD traMADoL (ULTRAM) 50 mg tablet TK 1 T PO Q 6 H FOR 15 DAYS PRF PAIN 04/12/20 Osmin Atwood MD Trulicity 3 mg/0.5 mL pen injector 04/15/20 Osmin Atwood MD vit B complex 100 combo no.2 100 mg tablet extended release Take 1 tablet by mouth daily Osmin Atwood MD No Known Allergies Social History Tobacco Use ??? Smoking status: Former Smoker Packs/day: 0.25 Types: Cigarettes Start date: 1971 Quit date: 1979 Years since quittin.6 ??? Smokeless tobacco: Never Used Substance and Sexual Activity ??? Drug use: Defer ??? Sexual activity: None Alcohol Use: Not At Risk ??? Frequency of Alcohol Consumption: Never ??? Average Number of Drinks: Not on file ??? Frequency of Binge Drinking: Not on file Family History Problem Relation Age of Onset ??? Prostate cancer Father Prostate ca - (Added by TW Conv) ??? Diabetes Father ??? Heart disease Father ??? Hypertension Father ??? Rheumatic fever Father ??? Early Mother ??? Diabetes Brother ??? Heart disease Brother ??? Hypertension Brother ??? Heart disease Maternal Grandfather ??? Hypertension Maternal Grandfather ??? Stroke Maternal Grandfather ??? Heart disease Paternal Grandfather REVIEW OF SYSTEMS: Please see HPI. PHYSICAL EXAMINATION: PHYSICAL EXAMINATION: GENERAL: She is a well-developed, well-nourished woman in no acute distress. HEENT: Within normal limits. NECK: Neck is supple without lymphadenopathy or thyromegaly. LUNGS: Non-labored. HEART: Regular. ABDOMEN: Soft without organomegaly. EXTREMITIES: Warm without edema. NEUROLOGICAL: She is alert and oriented x 3. BREAST EXAMINATION: Bilateral breast examination reveals ptotic breasts bilaterally. The left breast is without any dominant masses, skin changes, nipple discharge, or axillary adenopathy. The right breast has a well-healed incision in the outer quadrant and a well-healed axillary incision. The right breast is without any masses, nodules, skin changes, or evidence of recurrence. There is no rightnipple discharge or right axillary adenopathy. IMAGING: The patient underwent a right screening mammogram today, which I personally reviewed. The final interpretation is pending. IMPRESSION/RECOMMENDATION: Gasper Pierce is a 66 y.o. female with a history of right breast cancertreatment in 2006 who returns today for follow-up. I reassured her that her clinical examination today did not reveal evidence of any recurrent disease or new abnormalities. Today she underwent a bilateral screening mammogram and I will contact her with the imaging results once they are final. She has experienced right breast tenderness since her breast cancer treatment. 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 I encouraged her toresume her breast self examinations on a monthly basis and alert me of any concerns. She plans to co ntinue her yearly screening mammograms at our institution. She will follow-up in our office on an as-needed basis. I answered all of her questions today and she is in agreement with our plan. I encouraged her to contact me in the future if any new questions or concerns arise. Kirsty Bal NP Portions of this note were dictated using [employer]ovari Direct speech recognition software. Please excuse any doper operator errors. documented in this encounter Plan of Treatment Not on file documented as of this encounter Goals Goal Patient Goal Type Associated Problems Recent Progress Patient-Stated? Author CCM Chronic Pain Care Plan Chronic Care Management No change(04/27 10:31 AM SKIVING MACHINE OPERATOR) No Amna Dao RN Note: Problem: Chronic Pain Goals: 1. Minimize further functional decline 2. Maximize quality of life 3. Control pain Strategies: - Activity/exercise program recommendation - Conservative stepwise pain medicine strategy with multi-disciplinary approach - Recommend healthy lifestyle strategies and compensatory methods as needed documented as of this encounter Visit Diagnoses Diagnosis History of right breast cancer documented in this encounter Historical Medications * This list may reflect changes made after this encounter. Medication Sig Dispense Quantity Refills Last Filled Start D ate End Date irbesartan (AVAPRO) 300 mg tablet 12/19/2021 03/26/2022 added in this encounter Orders Outpatient Referral Count Last Ordered Date Fir st Ordered Date AMB REFERRAL TO SURGICAL ONCOLOGY 1 022 documented in this encounter Care Teams Latex Caster Relationship Specialty Start Date End Date Kyle Robles MD [address] [place] [address] PCP - General Family Medicine 07/30/18 03/25/22 documented as of this encounter
--- OUTSIDE RECORDS SUMMARY | 2024-05-12 20:14 | XMS_ITS | Encounter Summary ---
Author Organization [facility] Address [address] [place] [address] Care Team Providers Care Stained Glass Window Designer Name Role Phone Kristopher Pierre DO Primary Care Provider [phone] Encounter Details Date Type Department Care Team (Latest Contact Info) Description 01/21/2024 12:45 PM CDT - 01/21/2024 11:59 PM CDT Hospital Encounter [facility] [address] [place] [address] [place] [address] [place] [address] Mild intermittent asthma, uncomplicated Discharge Disposition: Discharge to home or self care Social History Tobacco Use Types Packs/Day Years Used Date Smoking Tobacco: Former Cigarettes 0.3 8 1 972 - 1980 Smokeless Tobacco: Never Alcohol Use Standard Drinks/Week Comments Yes 2 (1 standard drink = 0.6 oz pur e alcohol) AUDIT-C Answer Date Recorded Q1: How often do you have a drink containing alc ohol? 2-3 times a week 05/01/2022 Q2: How many drinks containi ng alcohol do you have on a typical day when you are drinking? 1 or 2 05/01/2022 Q3: How often do you have si x or more drinks on one occasion? Never 05/01/2022 Comments No Sex and Gender Information Value Date Recorded Sex Assigned at Not on file Legal Sex Female 1:06 AM TRAIN BRAKER Gender Identity Female 01/22/2024 8:47 PM CDT Sexual Orientation Straight 01/22/2024 8: 47 PM CDT documented as of this encounter Medications at Time of Discharge Accu-Chek Fastclix Lancet Drum misc USE STRIP TO CHECK GLUCOSE THREE TIMES DAILY 02/11/2023 Accu-Chek Guide test strips strip USE NEW STRIP ONCE DAILY TO CHECK BLOOD SUGAR 01/04/2023 albuterol HFA (PROVENTIL HFA,VENTOLIN HFA,PROAIR HFA) 90 mcg/actuation inhaler 2 puffs every 4 (four) hours as needed 04/20/2022 atorvastatin (LIPITOR) 10 mg tablet Take 1 tablet (10 mg total) by mouth daily 1 06/25/2018 benzonatate (TESSALON) 200 mg capsule 04/17/2022 calcium carbonate/vitam in D3 (CALTRATE 600 PLUS D ORAL) Take 1,000 mg by mouth daily cetirizine (ZyrTEC) 10 mg tablet Take 1 tablet (10 mg total) by mouth daily DULoxetine DR (CYMBALTA) 60 mg capsule Take 1 capsule (60 mg total) by mouth daily 06/06/2018 FLUoxetine (PROzac) 10 mg tablet/capsule Take 1 tablet/capsule (10 mg total) by mouth daily hydroCHLOROthia zide (HYDRODIURIL) 25 mg tablet Take 1 tablet (25 mg total) by mouth daily Invokana 300 mg tablet 04/30/2022 irbesartan (AVAPRO) 300 mg tablet irbesartan 300 mg tablet TAKE 1 TABLET BY MOUTH DAILY metFORMIN (FORTAMET) 1,000 mg 24 hr tablet Take 1 tablet (1,000 mg total) by mouth daily with breakfast 07/19/2018 Mounjaro 12.5 mg/0.5 mL pen injector INJECT SUBCUTANEOUSLY 12.5 MG WEEKLY 01/22/2023 multivitamin capsule Take 1 capsule by mouth daily omeprazole (PriLOSEC) 40 mg capsule Take 1 capsule (40 mg total) by mouth daily 07/27/2018 SYNTHROID 50 mcg tablet Take 1 tablet (50 mcg total) by mouth national opelint analyst before breakfast 06/06/2018 traMADoL (ULTRAM) 50 mg tablet TK 1 T PO Q 6 H FOR 15 DAYS PRF PAIN 04/12/2020 vit B complex 100 combo no.2 100 mg tablet extended release Take 1 tablet by mouth daily documented as of this encounter Discharge Disposition Disposition Code Departure Means Destination Discharge to home or self care documented in this encounter Plan of Treatment Not on file documented as of this encounter Goals Goal Patient Goal Type Associated Problems Recent Progress Patient-Stated? Author CCM Chronic Pain Care Plan Chronic Care Management No change(04/27 10:31 AM TRAIN BRAKER) No Amna Dao RN Note: Problem: Chronic Pain Goals: 1. Minimize further functional decline 2. Maximize quality of life 3. Control pain Strategies: - Activity/exercise program recommendation - Conservative stepwise pain medicine strategy with multi-disciplinary approach - Recommend healthy lifestyle strategies and compensatory methods as needed documented as of this encounter Procedures Procedure Name Priority Date/Time Associated Diagnosis Comments XR CHEST PA LATERAL 2 VIEWS Schedule Routine, Read Routine (OP Routine) 01/21/2024 1:15 PM CDT Mild intermittent asthma, uncomplicated documented in this encounter Results * XR Chest PA Lateral 2 Views (01/21/2024 1:15 PM CDT) Anatomical Region Laterality Modality Body, Chest N/A Computed Radiogr aphy 01/21/2024 1:17 PM CDT Impressions 01/21/2024 1:17 PM CDT No active disease. Electronically signed by: Madi Chappell M.D. Narrative 01/21/2024 1:17 PM CDT EXAMINATION: XR CHEST PA LATERAL 2 VIEWS HISTORY: The patient is a 69-year-old female who presents with asthma. Comparison made with the previous study dated 12/07/2016. TECHNIQUE: PA and lateral view of the chest. FINDINGS: Lungs clear. ??Cardiovascular structures unremarkable. Procedure Note Madi Chappell MD - 01/21/2024 EXAMINATION: XR CHEST PA LATERAL 2 VIEWS HISTORY: The patient is a 69-year-old female who presents with asthma. Comparison made with the previous study dated 12/07/2016. TECHNIQUE: PA and lateral view of the chest. FINDINGS: Lungs clear. Cardiovascular structures unremarkable. IMPRESSION: No active disease. Electronically signed by: Madi Chappell M.D. Moreno Ramírez MD IMG XR PROCEDURES Final Result documented in this encounter Visit Diagnoses Diagnosis Mild intermittent asthma, uncomplicated documented in this encounter Care Teams Stained Glass Window Designer Relationship Specialty Start Date End Date Kristopher Pierre DO PCP - General Internal Medicine 03/26/22 documented as of this encounter
--- OUTSIDE RECORDS SUMMARY | 2024-05-12 20:14 | XMS_ITS | Clinical Summary ---
Author Organization [facility] Address [address] [place] [address] Care Team Providers Care Medical Office Technology Instructor Name Role Phone Kristopher Pierre DO Primary Care Provider [phone] Allergies No known active allergies Medications atorvastatin (LIPITOR) 10 mg tablet Take 1 tablet (10 mg total) by mouth daily [address] (CYMBALTA) 60 mg capsule Take 1 capsule (60 mg total) by mouth daily 9 Active SYNTHROID 50 mcg tablet Take 1 tablet (50 mcg total) by mouth early childhood services coordinator before breakfast 9 Active metFORMIN (FORTAMET) 1,000 mg 24 hr tablet Take 1 tablet (1,000 mg total) by mouth daily with breakfast 9 Active omeprazole (PriLOSEC) 40 mg capsule Take 1 capsule (40 mg total) by mouth daily 9 Active hydroCHLOROthi azide (HYDRODIURIL) 25 mg tablet Take 1 tablet (25 mg total) by mouth daily Active cetirizine (ZyrTEC) 10 mg tablet Take 1 tablet (10 mg total) by mouth daily Active vit B complex 100 combo no.2 100 mg tablet extended release Take 1 tablet by mouth daily Active calcium carbonate/hilario min D3 (CALTRATE 600 PLUS D ORAL) Take 1,000 mg by mouth daily Active traMADoL (ULTRAM) 50 mg tablet TK 1 T PO Q 6 H FOR 15 DAYS PRF PAIN 0 Active multivitamin capsule Take 1 capsule by mouth daily Active irbesartan (AVAPRO) 300 mg tablet irbesartan 300 mg tablet TAKE 1 TABLET BY MOUTH DAILY Active Invokana 300 mg tablet 2 Active benzonatate (TESSALON) 200 mg capsule 2 Active albuterol HFA (PROVENTIL HFA,VENTOLIN HFA,PROAIR HFA) 90 mcg/actuation inhaler 2 puffs every 4 (four) hours as needed 2 Active FLUoxetine (PROzac) 10 mg tablet/capsule Take 1 tablet/capsule (10 mg total) by mouth daily Active Accu-Chek Guide test strips strip USE NEW STRIP ONCE DAILY TO CHECK BLOOD SUGAR 3 Active Accu-Chek Fastclix Lancet Drum misc USE STRIP TO CHECK GLUCOSE THREE TIMES DAILY 3 Active Mounjaro 12.5 mg/0.5 mL pen injector INJECT SUBCUTANEOUSLY 12.5 MG WEEKLY 3 Active Active Problems Problem Noted Date Diagnosed Date Osteoarthritis of knee 02/19/2023 Seronegative inflammatory arthritis 05/01/2022 Assessment & Plan (05/01/2022 8:56 AM CHILI POWDER MIXER): Patient presents for 1st follow-up of likely new diagnosis of seronegative arthritis. X-rays were completed but results were not received prior to appointment today. We have called [facility] to have records faxed over. We discussed that based on inflammation of fingers, elevated sed rate, we can make a diagnosis of seronegative inflammatory arthritis. We will await x-ray findings for complete diagnosis. We discussed careful monitoring off medication versus initiation of medication like hydroxychloroquine. We discussed hydroxychloroquine in detail. Her preference would be to wait for now. I will let her know once we have her x-ray results. We will follow-up in 4 months for repeat physical exam. Trigger middle finger of right hand 05/01/2022 Assessment & Plan (05/01/2022 8:56 AM CHILI POWDER MIXER): Advised stretching exercises and range of motion of bilateral hands. Elevated sed rate 05/01/2022 Assessment & Plan (05/01/2022 8:56 AM CHILI POWDER MIXER): Suspect related to inflammatory arthritis as above. We will trend this with disease/treatment over time. 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 Fatigue 04/13/2019 Weight gain 04/13/2019 History of right breast cancer 07/30/2018 Encounters Date Type Department Care Team Description 02/18/2024 9:30 PM CDT - 02/18/2024 11:59 PM CDT Hospital Encounter [facility] [address] [place] [address] Obstructive sleep apnea (adult) (pediatric) Discharge Disposition: Discharge to home or self care from Last 3 Months Immunizations Name Administration Dates Next Due Influenza, Quadrivalent, Hig h Dose, Preservative Free, Intrr 04/11/2022,03/10/2021 Influenza, Quadrivalent, Rec ombinant, Egg Free, Preservative Free, Intramuscular 03/14/2020,03/05/2019 Influenza, Quadrivalent, Spl it, Pediatric, Preservative Free, Intramuscular 03/12/2018 Influenza, Trivalent, Preservative Free, Intramu scular 03/15/2016,05/02/2015 Pneumococcal Polysaccharide PPV23 07/31/2019 Tdap 10/20/2018 ZOSTER Recombinant 02/27/2022 Surgical History Surgery Date Site/Laterality Comments BREAST LUMPECTOMY Right Breast Lumpectomy - (Added by TW Conv) NE TOTAL ABDOMINAL HYSTERECT W/WO RMVL TUBE OVARY Hysterectomy - (Added by TW Conv) SECTION 1980, 1985, 1988 HYSTERECTOMY 05/27/1989 - 05/26/1990 CHOLECYSTECTOMY 05/27/2009 - 05/26/2010 REPLACEMENT TOTAL KNEE 05/27/2011 - 05/26/2012 Medical History Medical History Date Comments Asthma Cancer (CMS/HCC) (HCC) Depression Type 2 diabetes mellitus (HCC) Infectious viral hepatitis Hypertension Hyperthyroidism Low back pain Family History Medical History Relation Name Comments Diabetes Brother Heart disease Brother Hypertension Brother Diabetes Father Heart disease Father Hypertension Father Prostate cancer Father Prostate ca - (Added by TW Conv) Rheumatic fever Father Heart disease Maternal Grandfather Hypertension Maternal Grandfather Stroke Maternal Grandfather Early Mother Heart disease Paternal Grandfather Relation Name Status Comments Brother Father Maternal Grandfather Mother Paternal Grandfather Social History Tobacco Use Types Packs/Day Years Used Date Smoking Tobacco: Former Cigarettes 0.3 8 1 972 - 1979 Smokeless Tobacco: Never Tobacco Cessation:Counseling Given: No Alcohol Use Standard Drinks/Week Comments Yes 2 [...] on file Legal Sex Female 1:06 AM CHILI POWDER MIXER Gender Identity Female 01/22/2024 8:47 PM CDT Sexual Orientation Straight 01/22/2024 8: 47 PM CDT Obstetrics History Last Filed Vital Signs Vital Sign Reading Time Taken Comments Blood Pressure 110/68 02/19/2023 4:07 PM CDT Pulse 91 02/19/2023 4:07 PM CDT Temperature 37 ??C (98.6 ??F) 02/19/2023 4:07 PM CDT Respiratory Rate 16 02/19/2023 4:07 PM CDT Oxygen Saturation 97% 02/19/2023 4:07 PM CDT Inhaled Oxygen Concentration - - Weight 103 kg (227 lb) 02/19/2023 4:07 PM CDT Height 162.6 cm (5' 4 ) 02/19/2023 4:07 PM CDT Body Mass Index 38.96 02/19/2023 4:07 PM CDT Plan of Treatment Health Maintenance Due Date Last Done Comments Albumin Creatinine Ratio, Urine 1954 Colon Cancer Screening-Colonoscopy 1954 Depression Screening 1954 Fall Risk Assessment 1954 Hemoglobin A1C 1954 Hepatitis C Screening 1954 Osteoporosis Screening-Bone Density Scan 1954 eGFR 1954 Dilated Eye Exam 1954 Foot Exam 1954 Lipid Panel 1954 Hepatitis B Screening 01/15/1972 Well Visit 65+ 2019 Pneumococcal vaccine 65+ (2 of 2 - PCV) 07/30/2020 07/31/2019 Zoster Vaccine (2 of 2) 04/24/2022 02/27/2022 Covid-19 Vaccine (5 - 2023-2 5 season) 2024 10/09/2021, 04/11/2021, 08/17/2020, Additional history exists Influenza Vaccine (#1) 2024 , 03/10/2021, 03/14/2020, Additional history exists Breast Cancer Screening-Mammogram 07/28/2024 07/29/2023, 12/22/2021, 10/17/2020, Additional history exists DTaP/Tdap/Td Vaccine (2 - Td or Tdap) 10/20/2028 10/20/2018 Goals Goal Patient Goal Type Associated Problems Recent Progress Patient-Stated? Author CCM Chronic Pain Care Plan Chronic Care Management No change(04/27 10:31 AM CHILI POWDER MIXER) No Amna Dao, RN Note: Problem: Chronic Pain Goals: 1. Minimize further functional decline 2. Maximize quality of life 3. Control pain Strategies: - Activity/exercise program recommendation - Conservative stepwise pain medicine strategy with multi-disciplinary approach - Recommend healthy lifestyle strategies and compensatory methods as needed Procedures Procedure Name Priority Date/Time Associated Diagnosis Comments PSG (SIMPLE) Routine 02/18/2024 12:00 AM CDT Obstructive sleep apnea (adult) (pediatric) SCREENING MAMMOGRAM BILATERAL W JAMES Schedule Routine, Read Routine (OP Routine) 07/29/2023 2:06 PM CHILI POWDER MIXER Screening mammogram for breast cancer from Last 3 Months or Most Recently Relevant to Health Maintenance Results * PSG (02/18/2024 12:00 AM CDT) Narrative Procedure Note Moreno Ramírez MD - 02/18/2024 12:00 AM CDT Overnight hardware technician attended polysomnography was carried out utilizingdigital monitoring with the standard physiologic parameters recordedincluding EEG, EOG, EMG, EKG, oronasal airflow (PTAF and Thermistor).Respiratory parameters of chest and abdominal movements were recorded withRIPFLOW BELTS. Oxygen saturation, snoring, body position, limb movement(both leg and arms) were also recorded. Patient was monitored throughvideo for the duration of the night. All data was visually scored andanalyzed by standard criteria. Every epoch was evaluated by thisinterpreting physician. Respiratory events were scored according the AASMscoring manual version 3. Demographics: age: 69, gender: Female, height: 63? , weight: 242 lbs, necksize: 16.5? , BMI: 42.9 Hx: Pt is a 69 yo female with PMH of severe ARA, asthma, Class 3 obesity,and breast cancer(s/p chemoradiation and lumpectomy) who was referred fora in lab split night sleep study for evaluation and treatment of possiblesleep apnea. PSG lab findings: Total recording time: 371.5 min Total sleep time: 242.5 min Sleep latency: 46.2 min REM latency: 121.5 min Sleep efficiency: 58.1% Sleep staging percentage: N1: 47.2% N2: 45.8% N3: 0% REM: 7% Respiratory data including: Diagnostic AHI: 9.5 Obstructive apneas: 0 Central apneas: 0 Mixed apneas: 2 Hypopneas: 15 Whole night including treatment AHI: 15.3 Obstructive apneas: 1 with OAI 0.2 Central apneas: 25 with OMID 6.2 Mixed apneas: 15 with CHARLES 3.7 Hypopneas: 41 with an index 5.2 Lowest desaturation: 81% Amount of time less than 88%: 1.4 min Adequate pressure was achieved with BiPAP IPAP 13 cmH2O and EPAP 9 cmH2O EKG findings: Rhythm: Normal sinus rhythm with rare PACs Max HR: 98 Min HR: 48 EMG findings: Periodic Limb movement index: 81.4 Periodic Limb movement with arousal index: 18.6 EEG findings: Poor sleep stage progression and poor sleep efficiency Impression: Mild obstructive sleep apnea with Treatment Emergent Central Sleep Apnea Poor sleep efficiency Poor sleep stage progression Elevated periodic limb movement index with a significant arousal index Diagnosis: Mild obstructive sleep apnea with treatment emergent central sleep apnea Recommendations: Recommend starting patient on BiPAP with IPAP 13 cmH2O and EPAP 9 cmH2O Recommend monitoring patients symptoms for restfulness. If patient stillhas complaints of having unrestful sleep then patient may have PLMD andwill possibly require medical treatment If patient is CPAP intolerant then patient may need to undergo a fullnight sleep study to evaluate central and mixed apneic events further tosee if patient has a higher severity of sleep apnea and to see if they area candidate for hypoglossal nerve stimulator. Avoid alcohol, sedatives and other OPHTHALMIC NURSE depressants that may worsen sleepapnea and disrupt normal sleep architecture. Sleep hygiene should be reviewed to assess factors that may improve sleepquality. Safe driving precautions must be discussed with the patient. Weight management and regular exercise should be initiated or continued. Job ID/Internal Job ID: [id number] us Moreno Ramírez MD [facility] ORDERABLES Final Result * Screening Mammogram Bilateral W James (07/29/2023 2:06 PM CHILI POWDER MIXER) Anatomical Region Laterality Modality Breast Bilateral Mammography Narrative 07/31/2023 1:11 PM CHILI POWDER MIXER Mammogram Technique: Bilateral Digital Breast Tomosynthesis, Bilateral C-view 2D Screening mammogram. ??Views obtained: ??bilateral craniocaudal and bilateral mediolateral oblique. ??Computer Aided Detection was performed. Mammogram Findings: The present examination has been compared to prior imaging studies performed at [facility] on 08/05/2019, 10/17/2020 and 12/22/2021. There are scattered areas of fibroglandular density. There is no suspicious abnormality in either breast. There are no significant changes from the prior study. Impression: There is no mammographic evidence of malignancy. Annual screening mammography is recommended. OVERALL FINAL ASSESSMENT: BI-RADS CATEGORY 1: ??Negative. Procedure Note Kay Hayward MD - 07/31/2023 Mammogram Technique: Bilateral Digital Breast Tomosynthesis, Bilateral C-view 2D Screening mammogram. Views obtained: bilateral craniocaudal and bilateral mediolateral oblique. Computer Aided Detection was performed. Mammogram Findings: The present examination has been compared to prior imaging studies performed at [facility] on 08/05/2019, 10/17/2020 and 12/22/2021. There are scattered areas of fibroglandular density. There is no suspicious abnormality in either breast. There are no significant changes from the prior study. Impression: There is no mammographic evidence of malignancy. Annual screening mammography is recommended. OVERALL FINAL ASSESSMENT: BI-RADS CATEGORY 1: Negative. us Self Screening Mammogram IMG MAMMO PROCEDURES Fi nal Result from Last 3 Months or Most Recently Relevant to Health Maintenance Insurance MEDICARE COMMERCIAL GENERIC MEDICARE COMMERCIAL GENERIC MEDICARE COMMERCIAL GENERIC Care Teams Medical Office Technology Instructor Relationship Specialty Start Date End Date Kristopher Pierre DO PCP - General Internal Medicine 03/26/22
--- OUTSIDE RECORDS SUMMARY | 2024-05-12 20:14 | XMS_ITS | Encounter Summary ---
Author Organization [facility] Address [address] [place] [address] Phone Care Team Providers Care Audit Analyst Name Role Phone Kyle Robles MD Primary Care Provider [phone] Reason for Visit * Consultation (Routine) - Closed Specialty Diagnoses / Procedures Referred By Trisha corley Referred To Contact Neurosurgery Diagnoses Intervertebral disc disorder with radiculopathy of lumbar region Leonila Wagner NP Phone: tel: fax: [facility] (All Locations) Referral ID Status Reason Start Date Expiration Date V isits Requested Visits Authorized [id number] Closed Specialty Services Required 06/08/2021 07/08/2022 1 1 Encounter Details Date Type Department Care Team (Latest Contact Info) Description 06/15/2021 1:15 PM WAREHOUSE SHIPPING CLERK Office Visit [facility] Neurosurgery [address] [place] [address] [place] [address] Leonila Wagner NP [address] [place] [address] Intervertebral disc disorder with radiculopathy of lumbar region Social History Tobacco Use Types Packs/Day Years Used Date Smoking Tobacco: Former Cigarettes 0.3 8 1 972 - 1980 Smokeless Tobacco: Never Tobacco Cessation:Counseling Given: No [...] on file Legal Sex Female 1:06 AM WAREHOUSE SHIPPING CLERK Gender Identity Female 01/22/2024 8:47 PM CDT Sexual Orientation Straight 01/22/2024 8: 47 PM CDT documented as of this encounter Progress Notes * Leonila Wagner, COTY - 06/15/2021 1:15 PM CST Images from the original note were not included. RETURN VISIT Subjective HISTORY OF PRESENT ILLNESS I had the pleasure of seeing Gasper Pierce in my clinic on June 15, 2021. As you may recall, this is a very pleasant 66-year-old who I saw last year for a disc herniation. She had resolution of her pain with steroid injection. She comes in today to discuss persistent numbness. She notes numbness in the last 3 digits of her foot on the right. This is not improved, but also has not worsened. She will occasionally have a shock-like sensation in her posterior thigh and calf that happens over the course of one second. This is not occurring on a daily or weekly basis. She is not having any significant back or leg pain. She comes in for a routine follow-up evaluation today. VITAL SIGNS LMP (LMP Unknown) ALLERGIES She has No Known Allergies. MEDICATIONS Current Outpatient Medications: ??? atorvastatin (LIPITOR) 10 mg tablet, Take 10 mg by mouth daily , Disp: , Rfl: 1 ??? calcium carbonate/vitamin D3 (CALTRATE 600 PLUS D ORAL), Take 1,000 mg by mouth daily, Disp: , Rfl: ??? cetirizine (ZyrTEC) 10 mg tablet, Take 10 mg by mouth daily, Disp: , Rfl: ??? DULoxetine DR (CYMBALTA) 60 mg capsule, Take 60 mg by mouth daily , Disp: , Rfl: ??? FLUoxetine (FLUoxetine) 10 mg tablet/capsule, , Disp: , Rfl: ??? hydroCHLOROthiazide (HYDRODIURIL) 25 mg tablet, Take [...] mouth nightly , Disp: , Rfl: ??? omeprazole (PriLOSEC) 40 mg capsule, Take 40 mg by mouth daily , Disp: , Rfl: ??? pediatric multivitamin-iron tablet,chewable, daily ., Disp: , Rfl: ??? SYNTHROID 50 mcg tablet, Take 50 mcg by mouth drywall stripper before breakfast , Disp: , Rfl: ??? traMADoL (ULTRAM) 50 mg tablet, TK 1 T PO Q 6 H FOR 15 DAYS PRF PAIN, Disp: , Rfl: ??? Trulicity 3 mg/0.5 mL pen injector, , Disp: , Rfl: ??? vit B complex 100 combo no.2 100 mg tablet extended release, Take 1 tablet by mouth daily, Disp: , Rfl: Objective PHYSICAL EXAM On exam, she is awake, alert, and fully oriented. Cranial nerves 2-12 are intact. She has full strength to her bilateral lower extremities with normal bulk and tone. Straight leg raise is negative bilaterally. She is able to stand on her heels and toes without difficulty. Her gait and station are normal. Assessment/Plan PLAN I discussed with the patient that since her numbness has not progressed and is staying the same I would not recommend any type of further intervention at this time. I do think she should continue with stretching exercises for her back. If she were to have more consistent radiating pain or worseningnumbness I would like for her to follow-up and we can discuss options for management. At this time,I recommended that she continue to monitor her symptoms. She states understanding and agreed with plan that we discussed. I can plan to see her back on an as-needed basis. Leonila Wagner PLUMBING ENGINEERING DRAFTSPERSON HOUSE SHIPPING CLERK documented in this encounter Plan of Treatment Not on file documented as of this encounter Goals Goal Patient Goal Type Associated Problems Recent Progress Patient-Stated? Author CCM Chronic Pain Care Plan Chronic Care Management No change(04/27 10:31 AM WAREHOUSE SHIPPING CLERK) No Amna Dao RN Note: Problem: Chronic Pain Goals: 1. Minimize further functional decline 2. Maximize quality of life 3. Control pain Strategies: - Activity/exercise program recommendation - Conservative stepwise pain medicine strategy with multi-disciplinary approach - Recommend healthy lifestyle strategies and compensatory methods as needed documented as of this encounter Visit Diagnoses Diagnosis Intervertebral disc disorder with radiculopathy of lumbar region documented in this encounter Discontinued Medications Medication Sig Discontinue Reason Start Date End Da te Accu-Chek Fastclix Lancet Drum misc USE DIRECTED TO TEST SUGARS TWICE DAILY 06/10/2019 06/15/2021 albuterol sulfate (ProAir RespiClick) 90 mcg/actuation aerosol powdr breath activated ProAir RespiClick 90 mcg/actuation breath activated 06/15/2021 ALPRAZolam (XANAX) 0.25 mg tablet TK 1 T PO BID 07/16/2019 06/15/2021 azelastine (ASTELIN) 137 mcg (0.1 %) nasal spray 05/21/2018 06/15/2021 baclofen (LIORESAL) 10 mg tablet Take 1 tablet (10 mg total) by mouth 3 (three) times a day 03/24/2020 06/15/2021 budesonide-formoteroL (Symbicort) 160-4.5 mcg/actuation inhaler Symbicort 160 mcg-4.5 mcg/actuation HFA aerosol inhaler 06/15/2021 exenatide microspheres (Bydureon BCise) 2 mg/0.85 mL auto-injector Bydureon BCise 2 mg/0.85 mL subcutaneous auto-injector 06/15/2021 gabapentin (NEURONTIN) 300 mg capsule Take 1 capsule (300 mg total) by mouth 3 (three) times a day 03/07/2020 06/15/2021 multivitamin capsule Take 1 capsule by mouth daily 06/15/2021 naproxen (NAPROSYN) 500 mg tablet naproxen 500 mg tablet 2 pen needle, diabetic (Novofine 32) 32 gauge x 1/4 needle Novofine 32 32 gauge x 1/4 needle INJ OZEMPIC ONCE WEEKLY UTD 06/15/2021 semaglutide (Ozempic) 0.25 mg or 0.5 mg(2 mg/1.5 mL) pen injector 0.5 mg 06/15/2021 tamoxifen (NOLVADEX) 10 mg tablet Take by mouth 2 (two) times a day 06/15/2021 tiotropium bromide (SPIRIVA RESPIMAT) 2.5 mcg/actuation inhaler Spiriva Respimat 2.5 mcg/actuation solution for inhalation 06/15/2021 triamcinolone (KENALOG) 0.1 % cream triamcinolone acetonide 0.1 % topical cream APPLY A THIN LAYER AA ON ARM BID. NEVER TO FACE 06/15/2021 umeclidinium (INCRUSE ELLIPTA) 62.5 mcg/actuation blister with device Incruse Ellipta 62.5 mcg/actuation powder for inhalation 06/15/2021 documented as of this encounter Orders Outpatient Referral Count Last Ordered Date Fir st Ordered Date AMB REFERRAL TO NEUROSURGERY 1 06/15/2021 documented in this encounter Care Teams Audit Analyst Relationship Specialty Start Date End Date Kyle Robles MD [address] [place] [address] PCP - General Family Medicine 07/30/18 03/25/22 documented as of this encounter
--- OUTSIDE RECORDS SUMMARY | 2024-05-12 20:14 | XMS_ITS | Encounter Summary ---
Author Organization [facility] Address [address] [place] [address] Phone Care Team Providers Care Elastic Attacher Overlock Name Role Phone Kyle Robles MD Primary Care Provider [phone] Encounter Details Date Type Department Care Team (Late st Contact Info) Description 08/23/2020 Orders Only [facility] Surgery [address] [facility] [address] [place] [address] [place] [address] Ila Can, [facility] [address] [address] History of right breast cancer (Primary Dx); Encounter for screening mammogram for malignant neoplasm of breast Social History Tobacco Use Types Packs/Day Years Used Date Smoking Tobacco: Former Cigarettes 0.3 8 1 972 - 1980 Smokeless Tobacco: Never Alcohol Use Standard Drinks/Week Comments Yes 2 (1 standard drink = 0.6 oz pur e alcohol) Comments No Sex and Gender Information Value Date Recorded Sex Assigned at Not on file Legal Sex Female 1:06 AM ADMINISTRATIVE TECHNICIAN Gender Identity Female 01/22/2024 8:47 PM CDT Sexual Orientation Straight 01/22/2024 8: 47 PM CDT documented as of this encounter Plan of Treatment Not on file documented as of this encounter Goals Goal Patient Goal Type Associated Problems Recent Progress Patient-Stated? Author CCM Chronic Pain Care Plan Chronic Care Management No change(04/27 10:31 AM ADMINISTRATIVE TECHNICIAN) No Amna Dao, RN Note: Problem: Chronic Pain Goals: 1. Minimize further functional decline 2. Maximize quality of life 3. Control pain Strategies: - Activity/exercise program recommendation - Conservative stepwise pain medicine strategy with multi-disciplinary approach - Recommend healthy lifestyle strategies and compensatory methods as needed documented as of this encounter Visit Diagnoses Diagnosis History of right breast cancer- Primary Encounter for screening mammogram for malignant neoplasm of breast documented in this encounter Care Teams Elastic Attacher Overlock Relationship Specialty Start Date End Date Kyle Robles MD [address] [place] [address] PCP - General Family Medicine 07/30/18 03/25/22 documented as of this encounter
--- OUTSIDE RECORDS SUMMARY | 2024-05-12 20:14 | XMS_ITS | Encounter Summary ---
Author Organization [facility] Address [address] [place] [address] Phone Care Team Providers Care Broadcast Journalist Name Role Phone Kyle Robles MD Primary Care Provider Reason for Referral * Diagnostic Imaging (Routine) - Closed Specialty Diagnoses / Procedures Referred By Trisha corley Referred To Contact Diagnoses History of right breast cancer Encounter for screening mammogram for malignant neoplasm of breast Procedures Screening Mammogram Bilateral W Kirsty Chung NP Phone: tel: fax: [address] [phone] Referral ID Status Reason Start Date Expiration Date Visits Re quested Visits Authorized [id number] Closed 11/14/2021 12/14/2022 1 1 Encounter Details Date Type Department Care Team (Late st Contact Info) Description 11/14/2021 Orders Only [facility] [address] [facility] 5th [place] [address] [place] [address] Kirsty Bal NP [address] [place] [address] History of right breast cancer (Primary Dx); [...] on file Legal Sex Female 1:06 AM [employer] Gender Identity Female 01/22/2024 8:47 PM CDT Sexual Orientation Straight 01/22/2024 8: 47 PM CDT documented as of this encounter Plan of Treatment Not on file documented as of this encounter Goals Goal Patient Goal Type Associated Problems Recent Progress Patient-Stated? Author CCM Chronic Pain Care Plan Chronic Care Management No change(04/27 10:31 AM [employer]) No Amna Dao RN Note: Problem: Chronic Pain Goals: 1. Minimize further functional decline 2. Maximize quality of life 3. Control pain Strategies: - Activity/exercise program recommendation - Conservative stepwise pain medicine strategy with multi-disciplinary approach - Recommend healthy lifestyle strategies and compensatory methods as needed documented as of this encounter Results * Screening Mammogram Bilateral W James (12/22/2021 12:13 PM CDT) Anatomical Region Laterality Modality Breast Bilateral Mammography Narrative 12/25/2021 1:18 PM CDT Mammogram Technique: Bilateral Digital Breast Tomosynthesis, Bilateral C-view 2D Screening mammogram. ??Views obtained: ??bilateral craniocaudal and bilateral mediolateral oblique. ??Computer Aided Detection was performed. Mammogram Findings: The present examination has been compared to prior imaging studies performed at [facility] on 07/30/2018, 08/05/2019 and 10/17/2020. There are scattered areas of fibroglandular density. There are post breast conservation therapy changes in the right breast. There is no suspicious abnormality in the left breast. Impression: Post breast conservation therapy changes in the right breast are benign. Annual screening mammography is recommended. OVERALL FINAL ASSESSMENT: BI-RADS CATEGORY 2: ??Benign. Procedure Note Kay Hayward MD - 12/25/2021 Mammogram Technique: Bilateral Digital Breast Tomosynthesis, Bilateral C-view 2D Screening mammogram. Views obtained: bilateral craniocaudal and bilateral mediolateral oblique. Computer Aided Detection was performed. Mammogram Findings: The present examination has been compared to prior imaging studies performed at [facility] on 07/30/2018, 08/05/2019 and 10/17/2020. There are scattered areas of fibroglandular density. There are post breast conservation therapy changes in the right breast. There is no suspicious abnormality in the left breast. Impression: Post breast conservation therapy changes in the right breast are benign. Annual screening mammography is recommended. OVERALL FINAL ASSESSMENT: BI-RADS CATEGORY 2: Benign. Kirsty Bal NP IMG MAMMO PROCEDURES Fin al Result documented in this encounter Visit Diagnoses Diagnosis History of right breast cancer- Primary Encounter for screening mammogram for malignant neoplasm of breast History of right breast cancer Encounter for screening mammogram for malignant neoplasm of breast documented in this encounter Care Teams Broadcast Journalist Relationship Specialty Start Date End Date Kyle Robles MD [address] [place] [address] PCP - General Family Medicine 07/30/18 03/25/22 documented as of this encounter
--- OUTSIDE RECORDS SUMMARY | 2024-05-12 20:14 | XMS_ITS | Encounter Summary ---
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 Name Role Phone Kyle Robles MD Primary Care Provider [phone] Reason for Referral * Consultation (Routine) - Closed Specialty Diagnoses / Procedures Referred By Contac t Referred To Contact Pain Management Diagnoses Intervertebral disc disorder with radiculopathy of lumbar region Leonila Wagner NP Phone: tel: fax: [address] [phone] Referral ID Status Reason Start Date Expiration Date V isits Requested Visits Authorized [id number] Closed Specialty Services Required 03/07/2020 04/06/2021 1 1 Question Answer Please select the performing region: [facility] [152] # of visits: 1 Comments L4/5 ELVIN Reason for Visit * Reason Comments Back Pain Initial Consult * Consultation (Routine) - Closed Specialty Diagnoses / Procedures Referred By Contac t Referred To Contact Pain Management Diagnoses Intervertebral disc disorder with radiculopathy of lumbar region Leonila Wagner NP Phone: tel: fax: [address] [phone] Referral ID Status Reason Start Date Expiration Date V isits Requested Visits Authorized [id number] Closed Specialty Services Required 03/07/2020 04/06/2021 1 1 Encounter Details Date Type Department Care Team (Late st Contact Info) Description 03/24/2020 7:04 AM CDT - 03/24/2020 8:15 AM CDT Hospital Encounter [facility] at the [facility] Advanced [facility] [address] [facility] [place] [facility] [address] [place] [address] Luda Arevalo MD PhD [address] [place] [address] Lumbar radiculopathy - Right (Primary Dx); Intervertebral disc disorder with radiculopathy of lumbar region; Degenerative disc disease, cervical Discharge Disposition: Discharge to home or self care Social History Tobacco Use Types Packs/Day Years Used Date Smoking Tobacco: Former Cigarettes 0.3 8 1 972 - 1979 Smokeless Tobacco: Never Alcohol Use Standard Drinks/Week Comments Yes 2 (1 standard drink = 0.6 oz pur e alcohol) Comments No Sex and Gender Information Value Date Recorded Sex Assigned at Not on file 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 Gender Identity Female 01/22/2024 8:47 PM CDT Sexual Orientation Straight 01/22/2024 8: 47 PM CDT documented as of this encounter Last Filed Vital Signs Vital Sign Reading Time Taken Comments Blood Pressure 132/64 03/24/2020 3:08 PM CDT Pulse 87 03/24/2020 3:08 PM CDT Temperature 36.7 ??C (98 ??F) 03/24/2020 1:25 PM CDT Respiratory Rate 20 03/24/2020 3:08 PM CDT Oxygen Saturation 94% 03/24/2020 3:08 PM CDT Inhaled Oxygen Concentration - - Weight 113.4 kg (250 lb) 03/24/2020 1:25 PM CDT Height 162.6 cm (5' 4 ) 03/24/2020 1:25 PM CDT Body Mass Index 42.91 03/24/2020 1:25 PM CDT documented in this encounter Discharge Instructions * Discharge Instructions* Halima Rayo RN - 03/24/2020 2:38 PM CDT [facility] PATIENT EDUCATION POST-PROCEDURE INFORMATION SHEET After this procedure you may have: ??? Dizziness ??? Numbness in extremities ??? Weakness in extremities These symptoms generally wear off in 6-8 hours, but are almost always gone by the next morning. ??? A small amount of bruising, bleeding, swelling at the injection site(s). It is recommended you apply ice packs for 20 minutes every 1-2 hours for the first 24 hours. ??? After 24 hours, if you still have discomfort, you may use a heating pad. Do not sit or lie on top of heating pad. Do not leave ice or heat on for more than 20 minutes at a time. ??? Stand up slowly from a sitting or lying position today to prevent feeling dizzy or lightheaded. ??? Limit activity today, which includes no driving. You may resume your normal activity and driving the next day after your procedure. ??? You may take a shower. No tub bath, swimming pool, hot tub, etc., for 24 hours. ??? You have received two (2) medications in your injection today. The first is a numbing medicine. This medicine may give you quick pain relief that may wear off before tomorrow. The second medicine is a steroid which may take 2-7 days to start working. You may also have some extra soreness at the injection site. ??? After the numbing medicine wears off, your pain may return until the steroid starts working. If you have any questions or problems, please call the Pain Management Center at ??? For emergencies after 4:00 p.m., you should call the hospital snack foods mixer operator at and ask to speak with the Pain Service doctor education department registrar. [facility]ENTER ([facility]) DISCHARGE INSTRUCTIONS MEDICATIONS: [] Continue your current home medications Start: Baclofen 10 mg three times daily (end goal). Dosing Schedule For: 1 tablet 3 times a day Week Morning Noon Bedtime 1 1 tablet 2 1 tablet 1 tablet 3 1tablet 1 tablet 1 tablet [] Notify your pharmacy for refill(s) 7 days before you are out of your medication. [] Opioid (Narcotic) Agreement signed and patient received copy. [] Side Effects of Opioid Medications given to patient Resume blood thinner: On Discontinue: PROCEDURE at today's visit: Lumbar Epidural Steroid Injection DIET: [x] Resume normal diet [] See [facility] Post Discharge Procedure Information Sheet ACTIVITY: [] Resume normal activity [x] See [facility] Post Discharge Procedure Information Sheet REFERRALS: Physical Therapy [] [facility] ([phone]) [] [facility]) [] [facility] ([phone]) [] [facility] ([employer]) [] Other: Behavior Medicine [] Pain Psychologist, [facility] Psychology Please call to schedule appointment [phone] or [phone] Diagnostic Test(s): EDUCATION provided on the following: [] Spinal Cord Stimulator Education and DVD. Vendor: FOLLOW UP APPOINTMENTS: [] Return as needed [] Follow up appointment: in 4-6 weeks We will contact you the next business day to obtain: [] An update on your condition [] Your Pain diary scores [x] Procedure at your next visit : Lumbar Epidural Steroid Injection INSTRUCTIONS before your next procedure: [] See [facility] Pre-Procedure Information Sheet [] Do not eat or drink for six (6) hours before the time/date of the procedure. [] Inquire with your prescribing provider if ok to hold blood thinner for ( ) days before procedure. [] Blood work required 2 hours before procedure: [] Real Estate Paralegal needed for next procedure [] Pre Procedure instructions will be sent through [employer]) or by phone two working days prior to procedure. *Need help with [employer])? Call [phone]. Patient provided information and repeated back with understanding. If you need to reach us: For any questions about your procedure, please call the Pain Management Center [phone] (M-F) (8am-4pm) If you need urgent attention after 5 pm and weekends: Call the [facility] Herpetology Teacher at [phone] and ask for the Pain Service doctor education department registrar. documented in this encounter Medications at Time of Discharge atorvastatin (LIPITOR) 10 mg tablet Take 1 tablet (10 mg total) by mouth daily 1 06/25/2018 calcium carbonate/vitamin D3 (CALTRATE 600 PLUS D ORAL) Take 1,000 mg by mouth daily cetirizine (ZyrTEC) 10 mg tablet Take 1 tablet (10 mg total) by mouth daily DULoxetine DR (CYMBALTA) 60 mg capsule Take 1 capsule (60 mg total) by mouth daily 06/06/2018 hydroCHLOROthiazi de (HYDRODIURIL) 25 mg tablet Take 1 tablet (25 mg total) by mouth daily metFORMIN (FORTAMET) 1,000 mg 24 hr tablet Take 1 tablet (1,000 mg total) by mouth daily with breakfast 07/19/2018 omeprazole (PriLOSEC) 40 mg capsule Take 1 capsule (40 mg total) by mouth daily 07/27/2018 SYNTHROID 50 mcg tablet Take 1 tablet (50 mcg total) by mouth manager personal before breakfast 06/06/2018 vit B complex 100 combo no.2 100 mg tablet extended release Take 1 tablet by mouth daily Accu-Chek Fastclix Lancet Drum misc USE DIRECTED TO TEST SUGARS TWICE DAILY 06/10/2019 2 albuterol sulfate (ProAir RespiClick) 90 mcg/actuation aerosol powdr breath activated ProAir RespiClick 90 mcg/actuation breath activated 2 ALPRAZolam (XANAX) 0.25 mg tablet TK 1 T PO BID 07/16/2019 2 azelastine (ASTELIN) 137 mcg (0.1 %) nasal spray 05/21/2018 2 budesonide-formot Mario (Symbicort) 160-4.5 mcg/actuation inhaler Symbicort 160 mcg-4.5 mcg/actuation HFA aerosol inhaler 2 exenatide microspheres (Bydureon BCise) 2 mg/0.85 mL auto-injector Bydureon BCise 2 mg/0.85 mL subcutaneous auto-injector 2 FLUoxetine (FLUoxetine) 10 mg tablet/capsule 02 2 gabapentin (NEURONTIN) 300 mg capsule Take 1 capsule (300 mg total) by mouth 3 (three) times a day 90 capsule 3 03/07/2020 2 lisinopril-hydroC HLOROthiazide (PRINZIDE,ZESTORE TIC) 20-12.5 mg per tablet daily . 0 losartan (COZAAR) 100 mg tablet Take 100 mg by mouth daily 06/11/2019 2 losartan-hydrochl orothiazide (HYZAAR) 100-25 mg per tablet 06/23/2018 2 montelukast (SINGULAIR) 10 mg tablet Take 10 mg by mouth nightly 2 multivitamin capsule Take 1 capsule by mouth daily 2 pediatric multivitamin-iron tablet,chewable daily . 2 pen needle, diabetic (Novofine 32) 32 gauge x 1/4 needle Novofine 32 32 gauge x 1/4 needle INJ OZEMPIC ONCE WEEKLY UTD 2 semaglutide (Ozempic) 0.25 mg or 0.5 mg(2 mg/1.5 mL) pen injector 0.5 mg 2 tamoxifen (NOLVADEX) 10 mg tablet Take by mouth 2 (two) times a day 2 tiotropium bromide (SPIRIVA RESPIMAT) 2.5 mcg/actuation inhaler Spiriva Respimat 2.5 mcg/actuation solution for inhalation 2 Trulicity 1.5 mg/0.5 mL pen injector Inject 1.5 mg under the skin once a week 02/09/2020 0 documented as of this encounter Ordered Prescriptions Prescription Sig Dispense Quantity Refills Last Filled Start Date End Date baclofen (LIORESAL) 10 mg tablet Take 1 tablet (10 mg total) by mouth 3 (three) times a day 90 tablet 2 03/24/2020 06/15/2021 documented in this encounter Discharge Disposition Disposition Code Departure Means Destination Discharge to home or self care documented in this encounter Progress Notes * Luda Arevalo MD PhD - 03/24/2020 1:45 PM CDT Patient Name: Gasper Pierce : 1955 Today's Date: 03/24/2020 PCP: Kyle Robles MD Referring: Leonila Wagner NP CC: low back pain HPI: Ms. Gasper Pierce was referred by Leonila Wagner NP for consultation regarding treatment recommendations for management of low back pain. Ms. Gasper Pierce is a 65 y.o. female with a PMH significant for breast cancer, hysterectomy, cholecystectomy, and L knee replacement who presents with low back paion for the last two months. She states the pain started on 01/21/2020 when she sat down in the car and then endorsed shooting pains down her right leg. She was treated by her PCP, first with naprosyn and then with steroid dose pack. These provided minimal benefit. She was referred to PT and does continue with PT with some benefit. Her buttock and posterior thigh pain has improved significantly. However, her lateral lower leg and foot pain/numbness/tingling and leg weakness has not improved, so she saw neurosurgery for evaluation.She had an MRI which showed disc herniation at L4-L5 with mild canal stenosis, moderate bilateral foraminal stenosis. She also received a gabapentin prescription; it provides some benefit but she is only able to take 300mg BID. She has not tried any muscle relaxers. She was referred to [facility] for evaluation and treatment. Currently, the pain is constant and described as shooting and stabbing. She rates her pain at 3/10 on average, ranging from 2-6/10. The pain increases with walking, bending, and prolonged standing and decreases with rest and medications. She feels numbness/tingling/creepy-crawly feeling in her lateral lower leg. Her leg feels weak and like it might collapse when she is shaving the other leg. She does have pain in her toes that is exacerbated by covers at night badly enough to wake her from sleep. Sometiems she has severe thigh/calf cramping pain. She reports no bowel/bladder incontinence. HerADLs are difficult, but manageable without assistance. Pain Assessment Pain Score: 0 - No pain Pain Location: Back (Lumbar) Pain Radiating Towards: right leg, weakness in right leg Pain Descriptors: Aching, Burning, Cramping, Other (Comment)(gnawing) Pain Frequency: Constant/continuous Therapeutic modalities to date include: Physical therapy: Yes, current - (mild benefit) Home exercise program: Never Injections: Surgery: Other: Current Pain Medications: Pain Medications DULoxetine DR (CYMBALTA) 60 mg capsule Take 60 mg by mouth daily FLUoxetine (FLUoxetine) 10 mg tablet/capsule gabapentin (NEURONTIN) 300 mg capsule Take 1 capsule (300 mg total) by mouth 3 (three) times a day baclofen (LIORESAL) 10 mg tablet Take 1 tablet (10 mg total) by mouth 3 (three) times a day Pain Medication History: Gabapentinoids Y Comments Anticonvulsants Y Comments Opioids Y Comments Gabapentin (Neurontin) [x] over 300mg BID = fatigue, mild benefit Carbamazepine (Tegretol) [] Tramadol (Ultram) [] Pregabalin (Lyrica) [] Oxcarbazepine (Trileptal) [] Tapentadol (Nucynta) [] TCA: Topiramate (Topamax) [] Buprenorphine (Belbuca, Butrans) [] Nortriptyline (Pamelor) [] Lamotrigine (Lamictal) [] Oxycodone/APAP (Percocet) [] Amitriptyline (Elavil) [] Levetiracetam (Keppra) [] Hydrocodone/APAP ([place]) [] Desipramine (Norpramin) [] Valproate (Depakote) [] Codeine/APAP (Tylenol#3/4) [] Imipramine (Tofranil) [] Mexiletine (Mexitil) [] Methadone [] SNRI: Muscle Relaxants: Morphine (MSIR, MSER) [] Duloxetine (Cymbalta) [] Cyclobenzaprine (Flexeril) [] NSAIDS: Venlafaxine (Effexor) [] Methocarbamol (Robaxin) [] Ibuprofen (Advil, Motrin) [] Milnacipran (Savella) [] Tizanidine (Zanaflex) [] Naproxen (Aleve) [x] slight benefit Others: Baclofen (Lioresal) [] Meloxicam (Mobic) [] Acetaminophen (Tylenol) [] Metaxalone (Skelaxin) [] Diclofenac (Voltaren) [] Low-dose naltrexone [] Carisoprodol (Soma) [] Indomethacin (Tivorbex) [] Topical lidocaine [] Diazepam (Valium) [] Nabumetone (Relafen) [] Diclofenac gel (Voltaren) [] Etodolac (Lodine) [] Other [x] dexamethasone some benefit Other [] PAIN MANAGEMENT PROCEDURE HISTORY: N/a IMAGING/RESULTS: 02/2020 - OSH MRI, images and radiologist read personally reviewed today. Shows L4-L5 disc bulge, slightly eccentric to right, with mild-moderate canal stenosis by my read. Per radiology read, mild canal stenosis and moderate bilateral foraminal stenosis. She does have considerable facet arthropathy at L3-4. PAST SURGERIES: Past Surgical History: Procedure Laterality Date ??? BREAST LUMPECTOMY Right Breast Lumpectomy - (Added by TW Conv) ??? SECTION 1980, 1985, 1988 ??? CHOLECYSTECTOMY 2009 ??? HYSTERECTOMY 1989 ??? HI TOTAL ABDOM HYSTERECTOMY Hysterectomy - (Added by TW Conv) ??? REPLACEMENT TOTAL KNEE 2011 Patient's Medications New Prescriptions BACLOFEN (LIORESAL) 10 MG TABLET Take 1 tablet (10 mg total) by mouth 3 (three) times a day Authorizing Provider: Indra Dexter MD Notes: -- Previous Medications ACCU-CHEK FASTCLIX LANCET DRUM MISC USE DIRECTED TO TEST SUGARS TWICE DAILY Authorizing Provider: Osmin Atwood MD Notes: -- ALBUTEROL SULFATE (PROAIR RESPICLICK) 90 MCG/ACTUATION AEROSOL POWDR BREATH ACTIVATED ProAir RespiClick 90 mcg/actuation breath activated Authorizing Provider: Osmin Atwood MD Notes: -- ALPRAZOLAM (XANAX) 0.25 MG TABLET TK 1 T PO BID Authorizing Provider: Osmin Atwood MD Notes: -- ATORVASTATIN (LIPITOR) 10 MG TABLET Take 10 mg by mouth daily Authorizing Provider: Osmin Atwood MD Notes: -- AZELASTINE (ASTELIN) 137 MCG (0.1 %) NASAL SPRAY Authorizing Provider: Osmin Atwood MD Notes: -- BUDESONIDE-FORMOTEROL (SYMBICORT) 160-4.5 MCG/ACTUATION INHALER Symbicort 160 mcg-4.5 mcg/actuationHFA aerosol inhaler Authorizing Provider: Osmin Atwood MD Notes: -- CALCIUM CARBONATE/VITAMIN D3 (CALTRATE 600 PLUS D ORAL) Take 1,000 mg by mouth daily Authorizing Provider: Osmin Atwood MD Notes: -- CETIRIZINE (ZYRTEC) 10 MG TABLET Take 10 mg by mouth daily Authorizing Provider: Osmin Atwood MD Notes: -- DULOXETINE DR (CYMBALTA) 60 MG CAPSULE Take 60 mg by mouth daily Authorizing Provider: Osmin Atwood MD Notes: -- EXENATIDE MICROSPHERES (BYDUREON BCISE) 2 MG/0.85 ML AUTO-INJECTOR Bydureon BCise 2 mg/0.85 mL subcutaneous auto-injector Authorizing Provider: Osmin Atwood MD Notes: -- FLUOXETINE (FLUOXETINE) 10 MG TABLET/CAPSULE Authorizing Provider: Osmin Atwood MD Notes: -- GABAPENTIN (NEURONTIN) 300 MG CAPSULE Take 1 capsule (300 mg total) by mouth 3 (three) times a day Authorizing Provider: Leonila Wagner NP Notes: -- HYDROCHLOROTHIAZIDE (HYDRODIURIL) 25 MG TABLET Take 25 mg by mouth daily Authorizing Provider: Osmin Atwood MD Notes: -- LISINOPRIL-HYDROCHLOROTHIAZIDE (PRINZIDE,ZESTORETIC) 20-12.5 MG PER TABLET daily . Authorizing Provider: Osmin Atwood MD Notes: -- LOSARTAN (COZAAR) 100 MG TABLET Take 100 mg by mouth daily Authorizing Provider: Osmin Atwood MD Notes: -- LOSARTAN-HYDROCHLOROTHIAZIDE (HYZAAR) 100-25 MG PER TABLET Authorizing Provider: Osmin Atwood MD Notes: -- METFORMIN (FORTAMET) 1,000 MG 24 HR TABLET Take 1,000 mg by mouth daily with breakfast Authorizing Provider: Osmin Atwood MD Notes: -- MONTELUKAST (SINGULAIR) 10 MG TABLET Take 10 mg by mouth nightly Authorizing Provider: Osmin Atwood MD Notes: -- MULTIVITAMIN CAPSULE Take 1 capsule by mouth daily Authorizing Provider: Osmin Atwood MD Notes: -- OMEPRAZOLE (PRILOSEC) 40 MG CAPSULE Take 40 mg by mouth daily Authorizing Provider: Osmin Atwood MD Notes: -- PEDIATRIC MULTIVITAMIN-IRON TABLET,CHEWABLE daily . Authorizing Provider: Osmin Atwood MD Notes: -- PEN NEEDLE, DIABETIC (NOVOFINE 32) 32 GAUGE X 1/4 NEEDLE Novofine 32 32 gauge x 1/4 needle INJ OZEMPIC ONCE WEEKLY UTD Authorizing Provider: Osmin Atwood MD Notes: -- SEMAGLUTIDE (OZEMPIC) 0.25 MG OR 0.5 MG(2 MG/1.5 ML) PEN INJECTOR 0.5 mg Authorizing Provider: Osmin Atwood MD Notes: -- SYNTHROID 50 MCG TABLET Take 50 mcg by mouth manager personal before breakfast Authorizing Provider: Osmin Atwood MD Notes: -- TAMOXIFEN (NOLVADEX) 10 MG TABLET Take by mouth 2 (two) times a day Authorizing Provider: sOmin Atwood MD Notes: -- TIOTROPIUM BROMIDE (SPIRIVA RESPIMAT) 2.5 MCG/ACTUATION INHALER Spiriva Respimat 2.5 mcg/actuation solution for inhalation Authorizing Provider: Osmin Atwood MD Notes: -- TRULICITY 1.5 MG/0.5 ML PEN INJECTOR Inject 1.5 mg under the skin once a week Authorizing Provider: Osmin Atwood MD Notes: -- VIT B COMPLEX 100 COMBO NO.2 100 MG TABLET EXTENDED RELEASE Take 1 tablet by mouth daily Authorizing Provider: Osmin Atwood MD Notes: -- Modified Medications No medications on file Discontinued Medications DEXAMETHASONE (DECADRON) 1 MG TABLET dexamethasone 1 mg tablet TK 1 T PO HS FOR 1 DAY PRN Authorizing Provider: Osmin Atwood MD Notes: -- No Known Allergies Past Medical History: Diagnosis Date ??? Asthma ??? Cancer (CMS/HCC) ??? Depression ??? Hypertension ??? Hyperthyroidism ??? Infectious viral hepatitis ??? Low back pain ??? Type 2 diabetes mellitus (CMS/HCC) Family History Problem Relation Age of Onset ??? Prostate cancer Father Prostate ca - (Added by TW Conv) ??? Diabetes Father ??? Heart disease Father ??? Hypertension Father ??? Rheumatic fever Father ??? Early Mother ??? Diabetes Brother ??? Heart disease Brother ??? Hypertension Brother ??? Heart disease Maternal Grandfather ??? Hypertension Maternal Grandfather ??? Stroke Maternal Grandfather ??? Heart disease Paternal Grandfather Social History Socioeconomic History ??? Marital status: Spouse name: Not on file ??? Number of children: Not on file ??? Years of education: Not on file ??? Highest education level: Not on file Occupational History ??? Not on file Social Needs ??? Financial resource strain: Not on file ??? Food insecurity Worry: Not on file Inability: Not on file ??? Transportation needs Medical: Not on file Non-medical: Not on file Tobacco Use ??? Smoking status: Former Smoker Packs/day: 0.25 Types: Cigarettes Start date: 1971 Quit date: 1979 Years since quittin.8 ??? Smokeless tobacco: Never Used Substance and Sexual Activity ??? Alcohol use: Yes Alcohol/week: 2.0 standard drinks Types: 1 Glasses of wine, 1 Cans of beer per week ??? Drug use: Defer ??? Sexual activity: Not on file Lifestyle ??? Physical activity Days per week: Not on file Minutes per session: Not on file ??? Stress: Not on file Relationships ??? Social connections Talks on phone: Not on file Gets together: Not on file Attends restoration service: Not on file Active member of club or organization: Not on file Attends meetings of clubs or organizations: Not on file Relationship status: Not on file ??? Intimate partner violence Fear of current or ex partner: Not on file Emotionally abused: Not on file Physically abused: Not on file Forced sexual activity: Not on file Other Topics Concern ??? Not on file Social History Narrative ??? Not on file REVIEW OF SYSTEMS: Review of Systems Constitutional: Negative. HENT: Negative. Eyes: Negative. Respiratory: Positive for shortness of breath. Cardiovascular: Negative. Gastrointestinal: Negative. Genitourinary: Negative. Musculoskeletal: Positive for back pain and myalgias. Skin: Negative. Neurological: Positive for tingling and weakness. Endo/Heme/Allergies: Negative. Psychiatric/Behavioral: Negative. LABS: Lab Results Component Value Date HGB 12.5 08/28/2012 HCT 36.6 08/28/2012 MCV 85.9 08/28/2012 LABPLAT 184 08/28/2012 Lab Results Component Value Date CREATININE 0.93 08/28/2012 PHYSICAL EXAM: Vitals: 03/24/20 1435 03/24/20 1445 03/24/20 1454 03/24/20 1508 BP: 144/69 151/68 135/73 132/64 Pulse: 91 90 93 87 Resp: 17 17 15 20 Temp: SpO2: 94% 91% 94% 94% Weight: Height: Body mass index is 42.91 kg/m??. CONSTITUTIONAL: General appearance normal, nutrition - obese, no deformities, & good grooming. EYES: Normal conjunctivae/lids NECK:Normal inspection and palpation. CARDIOVASCULAR: No extremity edema or varicosities. RESPIRATORY:Normal effort CHEST:Symmetric. GASTROINTESTINAL: Normal abdomen SKIN: No rashes or lesions in the four extremities and back. PSYCHIATRIC: Oriented X3, memory intact, and alert. Normal mood and affect. Normal insight and judgement. MUSCULOSKELETAL EXAMINATION: Gait: Antalgic Full ROM in b/l UE and LE Paraspinal muscular tenderness: moderate on right at lumbar region. Facet tenderness: absent bilaterally at cervical, thoracic and lumbar region. Facet loading: negative bilaterally at cervical and lumbar region. SLR positive on right SI joint tenderness: absent bilaterally. NEUROLOGIC: CN III-XII intact Upper Ext Power: C5 elbow flex 5/5 bilaterally C6 wrist ext 5/5 bilaterally C7 elbow ext 5/5 bilaterally C8 finger ext 5/5 bilaterally T1 finger abduction 5/5 bilaterally Lower Ext Power: L2 hip flex 5/5 bilaterally L3 knee ext 5/5 bilaterally L4 foot dorsiflex 4+/5 bilaterally L5 hallux dorsiflex 4+/5 bilaterally S1 hallux plantar flex 5/5 bilaterally Sensation to light touch: normal bilaterally ASSESSMENT: The above note documents my personal evaluation of this patient. In addition, I have reviewed and confirmed with the patient and nurse the supportive information documented in today's scanned PatientHealth Questionnaire and Office Note. Encounter Diagnoses Name Primary? Intervertebral disc disorder with radiculopathy of lumbar region ??? Lumbar radiculopathy - Right Yes ??? Degenerative disc disease, cervical PLAN: 1. Interventions: Given signs and symptoms of lumbar radiculopathy, we will do LESI L4-5 at today'isit. 2. Medications: ?? Opioids: Opioids are not indicated ?? Adjuvants: Given the spastic component of the pain, we will start the patient on a titration of baclofen to a goal of 10mg TID. Encouraged her to consider restarting naproxen or other NSAID. 3. Imaging: No further imaging needed at this current time. 4. Referral: No referrals needed at this current time. We encouraged her to continue her current PTand HEP 5. Follow-up: In 4-6 weeks for re-evaluation of the above regimen. Repeat LESI if beneficial but waning. Indra Dexter M.D. Attending Radiologist Luda Arevalo M.D., Ph.D. [facility] Department of Anesthesiology, Division of Pain Management [facility], [facility] 03/24/2020 3:20 PM documented in this encounter Miscellaneous Notes * Op Note - Luda Arevalo MD PhD - 03/24/2020 1:45 PM CDT OPERATIVE NOTE: Name: Gasper Pierce : 1955 Date of Surgery: 03/24/2020 PCP: Kyle Robles MD Attending Surgeon: Luda Arevalo MD PhD Surgical Assistants: Indra Dexter MD Procedure: Lumbar Epidural Steroid Injection at L4-L5, under fluoroscopy. Pre-procedural Diagnosis: Lumbago with right sided sciatica, Lumbar spinal stenosis and Lumbar radiculopathy Post-procedural Diagnosis: Same Indication for Procedure: Same Informed Consent: After reviewing the procedure with the patient, informed consent to proceed with the injection was obtained. A procedural permit was also signed. Description of Procedure: The patient was placed in the prone position, and fluoroscopy was used toidentify the L4-L5. The lumbar area was prepped with chlorhexidine solution and draped with steriledrape (prep and drape materials from the epidural kit). Sterile technique was used throughout. At the needle entry point, the skin and subcutaneous tissues were infiltrated with 1% lidocaine. An 18-gauge Tuohy needle was advanced to the epidural space, using the loss of resistance technique (HALINA at8.5cm). Omnipaque 300 X 1 ml was injected, resulting in distribution of contrast in the epidural space from L4 to S1. No paresthesias were encountered during needle placement. With the needle in the epidural space, aspiration was negative for blood or other fluid. Methylprednisolone, 80 mg., lidocaine, 20 mg., (total volume 4 ml.) were injected through the Tuohy needle. The injected local anesthetic and steroid resulted in dispersion of the previously injected contrast. The procedure was well tolerated, and there were no apparent complications. Dr. Arevalo was present and participated the entire procedure DISPOSITION: Discharged home in stable condition. Operative Findings: None Estimated Blood Loss: None Intraoperative Fluids: None Specimens: None Blood/Blood Products Transfused: None TEACHING ATTESTATION : I was present and directly participated in the entire procedure (including opening and closing). Sonia Arevalo MD PhD 03/24/2020 3:21 PM documented in this encounter Plan of Treatment Pending Results Name Type Priority Associated Diagnoses Date /Time Ambulatory referral to Pain Management Outpatient Referral Routine Intervertebral disc disorder with radiculopathy of lumbar region 03/24/2020 2:57 PM CDT Scheduled Referrals Name Type Priority Associated Diagnoses Orde r Schedule Ambulatory referral to Pain Management Outpatient Referral Routine Intervertebral disc disorder with radiculopathy of lumbar region Once for 1 Occurrences starting 03/24/2020 until 03/24/2020 documented as of this encounter Visit Diagnoses Diagnosis Lumbar radiculopathy - Right- Primary Thoracic or lumbosacral neuritis or radiculitis, unspecified Intervertebral disc disorder with radiculopathy of lumbar region Degenerative disc disease, cervical documented in this encounter Administered Medications Inactive Administered Medications - up to 3 most recent administrations Medication Order MAR Action Action Date Dose Rate Site iohexoL (OMNIPAQUE) 300 mg iodine/mL injection solution As needed, Starting on Steff 03/24/20 at 1455, Intra-Op Given 03/24/2020 2:55 PM CDT 1 mL lidocaine PF (XYLOCAINE) 10 mg/mL (1 %) preservative free injection As needed, Starting on Steff 03/24/20 at 1455, Intra-Op Given 03/24/2020 2:55 PM CDT 5 mL methylPREDNISolone acetate (DEPO-medrol) injection As needed, Starting on Steff 03/24/20 at 1442, Intra-Op Given 03/24/2020 2:42 PM CDT 80 mg sodium chloride 0.9% solution As needed, Starting on Steff 03/24/20 at 1455, Intra-Op Given 03/24/2020 2:55 PM CDT 1 mL documented in this encounter Discontinued Medications Medication Sig Discontinue Reason Start Date End Da te dexAMETHasone (DECADRON) 1 mg tablet dexamethasone 1 mg tablet TK 1 T PO HS FOR 1 DAY PRN Therapy completed 03/24/2020 documented as of this encounter Care Teams [employer] Supervisor Relationship Specialty Start Date End Date Kyle Robles MD [address] [place] [address] PCP - General Family Medicine 07/30/18 03/25/22 documented as of this encounter
--- OUTSIDE RECORDS SUMMARY | 2024-05-12 20:14 | XMS_ITS | Encounter Summary ---
Author Organization [facility] Address [address] [place] [address] Care Team Providers Care Poultry Hanger Name Role Phone Kristopher Pierre DO Primary Care Provider [phone] Reason for Visit * Reason Comments initial consult Other specified abno rmal immunological findings in serum * Consultation (Routine) - Closed Specialty Diagnoses / Procedures Referred By Trisha corley Referred To Contact Rheumatology Diagnoses Other specified abnormal immunological findings in serum Weston Andrews PA [address] [place] [address] Phone: tel: fax: Kay Vargas MD [address] [place] [address] Phone: tel: fax: Referral ID Status Reason Start Date Expiration Date V isits Requested Visits Authorized [id number] Closed Specialty Services Required 12/14/2021 01/13/2023 4 4 Encounter Details Date Type Department Care Team (Late st Contact Info) Description 03/26/2022 2:15 PM CDT Office Visit [facility] at [address] [id number] Ana Gorman DO [address] [place] [address] Positive OLGA LIDIA (antinuclear antibody); Swelling of both hands; History of breast cancer; Other fatigue Social History Tobacco Use Types Packs/Day Years Used Date Smoking Tobacco: Former Cigarettes 0.3 8 1 972 - 1979 Smokeless Tobacco: Never Alcohol Use Standard Drinks/Week Comments Yes 2 (1 standard drink = 0.6 oz pur e alcohol) AUDIT-C Answer Date Recorded Q1: How often do you have a drink containing alc ohol? 2-3 times a week 03/26/2022 Q2: How many drinks containi ng alcohol do you have on a typical day when you are drinking? 1 or 2 03/26/2022 Q3: How often do you have si x or more drinks on one occasion? 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 Gender Identity Female 01/22/2024 8:47 PM CDT Sexual Orientation Straight 01/22/2024 8: 47 PM CDT documented as of this encounter Last Filed Vital Signs Vital Sign Reading Time Taken Comments Blood Pressure 118/82 03/26/2022 1:52 PM CDT Pulse 88 03/26/2022 1:52 PM CDT Temperature 36 ??C (96.8 ??F) 03/26/2022 1:52 PM CDT Respiratory Rate 16 03/26/2022 1:52 PM CDT Oxygen Saturation 96% 03/26/2022 1:52 PM CDT Inhaled Oxygen Concentration - - Weight 117.9 kg (260 lb) 03/26/2022 1:52 PM CDT Height 162.6 cm (5' 4 ) 03/26/2022 1:52 PM CDT Body Mass Index 44.63 03/26/2022 1:52 PM CDT documented in this encounter Progress Notes * Ana Gorman DO - 03/26/2022 2:15 PM CDT Images from the original note were not included. Rheumatology New Patient Clinic Note 03/26/22 Referring Provider: BEAN Olivia PCP: Kristopher Pierre DO CHIEF COMPLAINT: initial consult ( Other specified abnormal immunological findings in serum) HPI: I am seeing this 67 y.o. female patient in consult requested by BEAN Olivia for evaluation of positive OLGA LIDIA, hand pain. Hands are the worst. Index, ring, and 5th digit just ache and are stiff in the morning. Hands do swell, this is new for her. She is stiff in the morning for about 90 minutes. She did try Aleve. She is taking Tramadol at night occasionally. She does feel like it helps with some of the discomfort. Right shoulder has been bothering her more recently. She has not been able to sleep on that side. She has not had any xrays of her hands. Low back bothers her. She gets injections in her back (last one probably last year). It is pretty helpful for her. Breast cancer was diagnosed in 2006. It was ER+. She had right-sided lumpectomy, chemo, radiation. She did take Arimidex (Anastrozole). REVIEW OF SYSTEMS: Review of Systems Constitutional: Positive for diaphoresis and fatigue. Negative for fever and unexpected weight change (30 pound weight loss due to Trulicity). HENT: Positive for voice change. Negative for mouth sores, nosebleeds and sinus pain. + for dry mouth Eyes: Negative for pain and redness. Negative for dry eyes Respiratory: Negative for shortness of breath. Cardiovascular: Negative for chest pain. Gastrointestinal: Negative for abdominal pain. Musculoskeletal: Positive for arthralgias, back pain, joint swelling and myalgias. Skin: Negative for rash. Neurological: Positive for numbness (right foot). Hematological: Negative for adenopathy. MEDICATIONS: Current Outpatient Medications Medication Sig Dispense Refill atorvastatin (LIPITOR) 10 mg tablet Take 10 mg by mouth daily 1 calcium carbonate/vitamin D3 (CALTRATE 600 PLUS D ORAL) Take 1,000 mg by mouth daily cetirizine (ZyrTEC) 10 mg tablet Take 10 mg by mouth daily DULoxetine DR (CYMBALTA) 60 mg capsule Take 60 mg by mouth daily hydroCHLOROthiazide (HYDRODIURIL) 25 mg tablet Take 25 mg by mouth daily metFORMIN (FORTAMET) 1,000 mg 24 hr tablet Take 1,000 mg by mouth daily with breakfast omeprazole (PriLOSEC) 40 mg capsule Take 40 mg by mouth daily SYNTHROID 50 mcg tablet Take 50 mcg by mouth technical programs manager before breakfast traMADoL (ULTRAM) 50 mg tablet TK 1 T PO Q 6 H FOR 15 DAYS PRF PAIN Trulicity 3 mg/0.5 mL pen injector vit B complex 100 combo no.2 100 mg tablet extended release Take 1 tablet by mouth daily irbesartan (AVAPRO) 300 mg tablet irbesartan 300 mg tablet TAKE 1 TABLET BY MOUTH DAILY multivitamin capsule Take 1 capsule by mouth daily No current facility-administered medications for this visit. ALLERGIES: Patient has no known allergies. Past Medical History: Diagnosis Date Asthma Cancer (CMS/HCC) (HCC) Depression Hypertension Hyperthyroidism Infectious viral hepatitis Low back pain Type 2 diabetes mellitus (HCC) Family History Problem Relation Age of Onset Prostate cancer Father Prostate ca - (Added by TW Conv) Diabetes Father Heart disease Father Hypertension Father Rheumatic fever Father Early Mother Diabetes Brother Heart disease Brother Hypertension Brother Heart disease Maternal Grandfather Hypertension Maternal Grandfather Stroke Maternal Grandfather Heart disease Paternal Grandfather Past Surgical History: Procedure Laterality Date BREAST LUMPECTOMY Right Breast Lumpectomy - (Added by TW Conv) SECTION 1980, 1985, 1988 CHOLECYSTECTOMY 2009 HYSTERECTOMY 1989 [place] TOTAL ABDOM HYSTERECTOMY Hysterectomy - (Added by TW Conv) REPLACEMENT TOTAL KNEE 2011 Social History Tobacco Use Smoking status: Former Packs/day: 0.25 Types: Cigarettes Start date: 1971 Quit date: 1979 Years since quittin.8 Smokeless tobacco: Never Substance and Sexual Activity Drug use: Defer Sexual activity: None Alcohol Use: Not At Risk Frequency of Alcohol Consumption: 2-3 times a week Average Number of Drinks: 1 or 2 Frequency of Binge Drinking: Never Vitals BP 118/82 (BP Location: Left arm, Patient Position: Sitting) Pulse 88 Temp 36 ??C (96.8 ??F) (Tympanic) Resp 16 Ht 162.6 cm (5' 4 ) Wt 117.9 kg (260 lb) LMP (LMP Unknown) SpO2 96% BMI 44.63 kg/m?? Body mass index is 44.63 kg/m??. PHYSICAL EXAM: Physical Exam Constitutional: General: She is not in acute distress. Eyes: Conjunctiva/sclera: Conjunctivae normal. Cardiovascular: Rate and Rhythm: Normal rate and regular rhythm. Pulmonary: Effort: Pulmonary effort is normal. Breath sounds: Normal breath sounds. Lymphadenopathy: Cervical: No cervical adenopathy. Skin: Findings: No rash. Neurological: General: No focal deficit present. Musculoskeletal Exam Shoulders Full ROM, no pain through ROM Elbows Full ROM, no swelling, no tenderness Wrists Normal Flexion/Extension, no swelling, no tenderness MCPs No swelling, no tenderness PIPs Swelling of 2nd and 3rd PIPs on right DIPs No deformities, no tenderness Hips Full ROM, no tenderness Knees Full ROM, no swelling, no tenderness Ankles Full ROM, no swelling, no tenderness MTPs No swelling, no tenderness Spine No tenderness on palpation LABS: 10/2021: WBC: 6.5, hemoglobin: 12.8, platelets: 286, CRP: 4, uric acid: 5.6, TSH: 0.84, rheumatoid factor: 10.3 ESR: 22 (personally reviewed and interpreted). IMAGING/PROCEDURES: pertinent imaging reviewed. ASSESSMENT/PLAN: Diagnoses and all orders for this visit: Patient presents for rheumatology evaluation of positive OLGA LIDIA in the setting of joint pains, centered mostly around her hands. Her hands do appear swollen and I am fairly suspicious for an inflammatory arthritis, possibly rheumatoid arthritis, CPPD, or an erosive osteoarthritis. We discussed completing workup for positive OLGA LIDIA as listed below. We discussed that OLGA LIDIA is very nonspecific, and can be related to autoimmune disease, medication, thyroid disease, history of cancer/hormonal blockers used for treatment of breast cancer. We will obtain blood work and x-rays listed below. We will advise further once labs result. Positive OLGA LIDIA (antinuclear antibody) - Ambulatory referral to Rheumatology - OLGA LIDIA reflex to quantitative; Future - Erythrocyte sedimentation rate; Future - Creatine kinase (CK), total; Future - Sjogrens syndrome-B antibody; Future - Sjogrens syndrome-A antibody; Future - CANDY CUTTER MACHINE antibody; Future - Rheumatoid factor; Future - CRP (acute phase); Future - Antiscleroderma-70 Antibodies; Future - dsDNA Antibody by IFA, Crithidia luciliae, with Reflex to Titer - Miscellaneous Test; Future - CCP Antibodies IgG/IgA; Future - XR Hand Left 2 Views; Future - XR Hand Right 2 Views; Future Swelling of both hands - OLGA LIDIA reflex to quantitative; Future - Erythrocyte sedimentation rate; Future - Creatine kinase (CK), total; Future - Sjogrens syndrome-B antibody; Future - Sjogrens syndrome-A antibody; Future - CANDY CUTTER MACHINE antibody; Future - Rheumatoid factor; Future - CRP (acute phase); Future - Antiscleroderma-70 Antibodies; Future - dsDNA Antibody by IFA, Crithidia luciliae, with Reflex to Titer - Miscellaneous Test; Future - CCP Antibodies IgG/IgA; Future - XR Hand Left 2 Views; Future - XR Hand Right 2 Views; Future History of breast cancer - OLGA LIDIA reflex to quantitative; Future - Erythrocyte sedimentation rate; Future - Creatine kinase (CK), total; Future - Sjogrens syndrome-B antibody; Future - Sjogrens syndrome-A antibody; Future - CANDY CUTTER MACHINE antibody; Future - Rheumatoid factor; Future - CRP (acute phase); Future Other fatigue - OLGA LIDIA reflex to quantitative; Future - Erythrocyte sedimentation rate; Future - Creatine kinase (CK), total; Future - Sjogrens syndrome-B antibody; Future - Sjogrens syndrome-A antibody; Future - CANDY CUTTER MACHINE antibody; Future - Rheumatoid factor; Future - CRP (acute phase); Future - Antiscleroderma-70 Antibodies; Future - dsDNA Antibody by IFA, Rowena katz, with Reflex to Titer - Miscellaneous Test; Future - CCP Antibodies IgG/IgA; Future - XR Hand Left 2 Views; Future - XR Hand Right 2 Views; Future Ana Gorman DO [facility] [place] [address] documented in this encounter Plan of Treatment Scheduled Orders Name Type Priority Associated Diagnoses Orde r Schedule Sjogrens syndrome-B antibody Lab Routine Positive OLGA LIDIA (antinuclear antibody) Swelling of both hands History of breast cancer Other fatigue Expected: 03/26/2022, Expires: 03/26/2023 dsDNA Antibody by IFA, Rowena katz, with Reflex to Titer - Miscellaneous Test Lab Routine Positive OLGA LIDIA (antinuclear antibody) Swelling of both hands Other fatigue Expected: 03/26/2022, Expires: 03/26/2023 documented as of this encounter Goals Goal Patient Goal Type Associated Problems Recent Progress Patient-Stated? 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 Minimize further functional decline 2. Maximize quality of life 3. Control pain Strategies: - Activity/exercise program recommendation - Conservative stepwise pain medicine strategy with multi-disciplinary approach - Recommend healthy lifestyle strategies and compensatory methods as needed documented as of this encounter Procedures Procedure Name Priority Date/Time Associated Diagnosis Comments DSDNA ANTIBODY BY IFA, ROWENA KATZ, WITH REF TO TITER Routine 03/28/2022 1:05 PM CDT CANDY CUTTER MACHINE ANTIBODY Routine 03/28/2022 1:05 PM CDT Positive OLGA LIDIA (antinuclear antibody) Swelling of both hands History of breast cancer Other fatigue CCP ANTIBODIES IGG/IGA Routine 1:05 PM CDT Positive OLGA LIDIA (antinuclear antibody) Swelling of both hands Other fatigue ANTISCLERODERMA-70 ANTIBODIES Routine 03/28/2022 1:05 PM CDT Positive OLGA LIDIA (antinuclear antibody) Swelling of both hands Other fatigue OLGA LIDIA REFLEX TO QUANTITATIVE Routine 03/28/2022 1:05 PM CDT Positive OLGA LIDIA (antinuclear antibody) Swelling of both hands History of breast cancer Other fatigue SJOGRENS SYNDROME-A ANTIBODY Routine 03/28/2022 1:05 PM CDT Positive OLGA LIDIA (antinuclear antibody) Swelling of both hands History of breast cancer Other fatigue ERYTHROCYTE SEDIMENTATION RATE Routine 03/28/2022 1:05 PM CDT Positive OLGA LIDIA (antinuclear antibody) Swelling of both hands History of breast cancer Other fatigue RHEUMATOID FACTOR Routine 03/28/2022 1:0 5 PM CDT Positive OLGA LIDIA (antinuclear antibody) Swelling of both hands History of breast cancer Other fatigue CRP (ACUTE PHASE) Routine 03/28/2022 1:0 5 PM CDT Positive OLGA LIDIA (antinuclear antibody) Swelling of both hands History of breast cancer Other fatigue CREATINE KINASE (CK), TOTAL Routine 03/28/2022 1:05 PM CDT Positive OLGA LIDIA (antinuclear antibody) Swelling of both hands History of breast cancer Other fatigue documented in this encounter Results * dsDNA Antibody by IFA, Crithidia luciliae, with Reflex to Titer (03/28/2022 1:05 PM CDT) dsDNA Bisia xine IFA Negative Negative [facility] - 03/28/2022 1:05 PM CDT 03/28/2022 Narrative [facility] - 03/30/2022 9:11 AM CDT Performed at: ??01 - [facility] ??[id number] Certified Flight Instructor: Christopher Leach PhD, Phone: ??[phone] Ana Gorman DO LAB BLOOD ORDERABLES Final Result Performing Organization Address [facility] Co de Phone Number [facility] - 01 * CCP Antibodies IgG/IgA (03/28/2022 1:05 PM CDT) Pathologist [facility] CCP Antibodies IgG/IgA 2 0 - 19 units [facility] - 01 Comment: ?Negative ? <20 ?Weak positive ?20 - 39 ?Moderate positive ??40 - 59 ?Strong positive ?>59 Blood 03/28/2022 1:05 PM CDT 03/28/2022 Narrative [facility] - 03/30/2022 12:06 AM CDT Performed at: ??01 - [facility] ??[id number] Certified Flight Instructor: Gali Carlos MD, Phone: ??[phone] Ana Gorman DO LAB BLOOD ORDERABLES Final Result Performing Organization Address [facility] Co de Phone Number [facility] - 01 * Antiscleroderma-70 Antibodies (03/28/2022 1:05 PM CDT) Antiscleroderma- 70 Antibodies 0.5 0.0 - 0.9 AI [facility] - 01 Blood 03/28/2022 1:05 PM CDT 03/28/2022 Narrative [facility] - 03/29/2022 2:10 PM CDT Performed at: ?? - [facility] ??[id number] Certified Flight Instructor: Christopher Leach PhD, Phone: ??[phone] Ana Gorman DO LAB BLOOD ORDERABLES Final Result Performing Organization Address [facility] de Phone Number [facility] - 01 * CRP (acute phase) (03/28/2022 1:05 PM CDT) Pathologist [facility] CRP 5 0 - 10 mg/L [facility] - 01 Blood 03/28/2022 1:05 PM CDT 03/28/2022 Narrative [facility] - 03/29/2022 7:36 AM CDT Performed at: ?? - [facility] ??[id number] Certified Flight Instructor: Christopher Leach PhD, Phone: ??[phone] Ana Gorman DO LAB BLOOD ORDERABLES Final Result Performing Organization Address [facility] de Phone Number [facility] - 01 * Rheumatoid factor (03/28/2022 1:05 PM CDT) RA Latex Turbid. 11.0 <14.0 IU/mL [facility] - 01 Blood 03/28/2022 1:05 PM CDT 03/28/2022 Narrative [facility] - 03/29/2022 7:36 AM CDT Performed at: ??01 - [facility] [address] ??[id number] Certified Flight Instructor: hCristopher Leach PhD, Phone: ??[phone] Ana Gorman DO LAB BLOOD ORDERABLES Final Result Performing Organization Address [facility] Co de Phone Number [facility] - 01 * CANDY CUTTER MACHINE antibody (03/28/2022 1:05 PM CDT) CANDY CUTTER MACHINE Antibodies 0.2 0.0 - 0.9 [facility] - 01 Blood 03/28/2022 1:05 PM CDT 03/28/2022 Narrative [facility] - 03/29/2022 2:10 PM CDT Performed at: ??01 - [facility] ??[id number] Certified Flight Instructor: Christopher Leach PhD, Phone: ??[phone] us Ana Gorman DO LAB BLOOD ORDERABLES Final Result Performing Organization Address [facility] de Phone Number [facility] - 01 * Sjogrens syndrome-A antibody (03/28/2022 1:05 PM CDT) Sjogren's Anti-SS-A 0.2 0.0 - 0.9 [facility] - 01 Sjogren's Anti-SS-B <0.2 0.0 - 0.9 [facility] - 01 Blood 03/28/2022 1:05 PM CDT 03/28/2022 Narrative [facility] - 03/29/2022 2:10 PM CDT Performed at: ??01 - [facility] ??[id number] Certified Flight Instructor: Christopher Leach PhD, Phone: ??[phone] Ana Gorman DO LAB BLOOD ORDERABLES Final Result Performing Organization Address City/[facility]/ZIP Co de Phone Number [facility] - * Creatine kinase (CK), total (03/28/2022 1:05 PM CDT) CK 66 32 - 182 U/L [facility] - Blood 03/28/2022 1:05 PM CDT 03/28/2022 Narrative [facility] - 03/29/2022 8:13 AM CDT Performed at: ??01 - [facility] ??[id number] Certified Flight Instructor: Christopher Leach PhD, Phone: ??[phone] Ana Gorman DO LAB BLOOD ORDERABLES Final Result Performing Organization Address [facility]/ZIP Co de Phone Number [facility] * (ABNORMAL) Erythrocyte sedimentation rate (03/28/2022 1:05 PM CDT) Pathologist [facility] Erythrocyte sedimentation rate 44(H) 0 - 40 mm/hr [facility] - 01 Blood 03/28/2022 1:05 PM CDT 03/28/2022 Narrative [facility] - 03/29/2022 4:35 AM CDT Performed at: ??[address] ??[id number] Certified Flight Instructor: Christopher Leach PhD, Phone: ??[phone] us Ana Gorman DO LAB BLOOD ORDERABLES Final Result Performing Organization Address City/[facility]/ZIP Co de Phone Number [facility] - * OLGA LIDIA reflex to quantitative (03/28/2022 1:05 PM CDT) Pathologist [facility] OLGA LIDIA, direct Negative Negative [facility] - Blood 03/28/2022 1:05 PM CDT 03/28/2022 Narrative [facility] - 03/29/2022 2:10 PM CDT Performed at: ??[address] ??[id number] Certified Flight Instructor: Christopher Leahc PhD, Phone: ??[phone] Ana Gorman DO LAB BLOOD ORDERABLES Final Result [facility] - 01 documented in this encounter Visit Diagnoses Diagnosis Positive OLGA LIDIA (antinuclear antibody) Other and unspecified nonspecific immunological findings Swelling of both hands History of breast cancer Personal history of malignant neoplasm of breast Other fatigue documented in this encounter Discontinued Medications Medication Sig Discontinue Reason Start Date End Da te losartan (COZAAR) 100 mg tablet Take 100 mg by mouth daily 06/11/2019 03/26/2022 montelukast (SINGULAIR) 10 mg tablet Take 10 mg by mouth nightly 03/26/2022 pediatric multivitamin-iron tablet,chewable daily . 03/26/2022 FLUoxetine (FLUoxetine) 10 mg tablet/capsule 03/26/2022 irbesartan (AVAPRO) 300 mg tablet 12/19/2021 03/26/2022 lisinopriL (PRINIVIL,ZESTRIL) 20 mg tablet Take 20 mg by mouth daily 03/26/2022 losartan-hydrochlorothia zide (HYZAAR) 100-25 mg per tablet 06/23/2018 03/26/2022 documented as of this encounter Historical Medications * This list may reflect changes made after this encounter. irbesartan (AVAPRO) 300 mg tablet irbesartan 300 mg tablet TAKE 1 TABLET BY MOUTH DAILY multivitamin capsule Take 1 capsule by mouth daily added in this encounter Orders Outpatient Referral Count Last Ordered Date Fir st Ordered Date AMB REFERRAL TO RHEUMATOLOGY 1 03/26/2022 documented in this encounter Care Teams Poultry Hanger Relationship Specialty Start Date End Date Kristopher Pierre DO PCP - General Internal Medicine 03/26/22 documented as of this encounter
--- OUTSIDE RECORDS SUMMARY | 2024-05-12 20:14 | XMS_ITS | Encounter Summary ---
Author Organization [facility] Healthcare Address [address] [place] [address] Care Team Providers Care Skip Miner Blasting Name Role Phone Kristopher Pierre DO Primary Care Provider [phone] Reason for Referral * Diagnostic Imaging (Routine) - Closed Specialty Diagnoses / Procedures Referred By Trisha corley Referred To Contact Diagnoses Screening mammogram for breast cancer Procedures Screening Mammogram Bilateral W James Screening Mammogram, Self [address] [address] Referral ID Status Reason Start Date Expiration Date Visits Re quested Visits Authorized [id number] Closed 06/19/2023 07/18/2024 1 1 COLLECTOR Reason for Visit * Diagnostic Imaging (Routine) - Closed Specialty Diagnoses / Procedures Referred By Trisha t Referred To Contact Diagnoses Screening mammogram for breast cancer Procedures Screening Mammogram Bilateral W James Screening Mammogram, Self [address] [address] Referral ID Status Reason Start Date Expiration Date Visits Re quested Visits Authorized [id number] Closed 06/19/2023 07/18/2024 1 1 Encounter Details Date Type Department Care Team (Latest Contact Info) Description 07/29/2023 1:48 PM TOLL COLLECTOR - 07/29/2023 11:59 PM TOLL COLLECTOR Hospital Encounter [facility] [address] [place] [address] Screening mammogram for breast cancer Discharge Disposition: Discharge to home or self [...] on file Legal Sex Female 1:06 AM TOLL COLLECTOR Gender Identity Female 01/22/2024 8:47 PM CDT [...] 1 tablet (50 mcg total) by mouth music intern before breakfast 06/06/2018 traMADoL (ULTRAM) 50 mg [...] Chronic Care Management No change(04/27 10:31 AM TOLL COLLECTOR) No Amna Dao RN Note: Problem: Chronic Pain Goals: 1. Minimize further functional decline 2. Maximize quality of life 3. Control pain Strategies: - Activity/exercise program recommendation - Conservative stepwise pain medicine strategy with multi-disciplinary approach - Recommend healthy lifestyle strategies and compensatory methods as needed documented as of this encounter Procedures Procedure Name Priority Date/Time Associated Diagnosis Comments SCREENING MAMMOGRAM BILATERAL W JAMES Schedule Routine, Read Routine (OP Routine) 07/29/2023 2:06 PM TOLL COLLECTOR Screening mammogram for breast cancer documented in this encounter Results * Screening Mammogram Bilateral W James (07/29/2023 2:06 PM TOLL COLLECTOR) Anatomical Region Laterality Modality Breast Bilateral Mammography Narrative 07/31/2023 1:11 PM TOLL COLLECTOR Mammogram Technique: Bilateral Digital Breast Tomosynthesis, Bilateral C-view 2D Screening mammogram. ??Views obtained: ??bilateral craniocaudal and bilateral mediolateral oblique. ??Computer Aided Detection was performed. Mammogram Findings: The present examination has been compared to prior imaging studies performed at [facility] on 08/05/2019, 10/17/2020 and 12/22/2021. There are [...] compared to prior imaging studies performed at [facility] on 08/05/2019, 10/17/2020 and 12/22/2021. There are scattered areas of fibroglandular density. There is no suspicious abnormality in either breast. There are no significant changes from the prior study. Impression: There is no mammographic evidence of malignancy. Annual screening mammography is recommended. OVERALL FINAL ASSESSMENT: BI-RADS CATEGORY 1: Negative. us Self Screening Mammogram IMG MAMMO PROCEDURES Fi nal Result documented in this encounter Visit Diagnoses Diagnosis Screening mammogram for breast cancer documented in this encounter Care Teams Skip Miner Blasting Relationship Specialty Start Date End Date Kristopher Pierre DO PCP - General Internal Medicine 03/26/22 documented as of this encounter
--- OUTSIDE RECORDS SUMMARY | 2024-05-12 20:14 | XMS_ITS | Encounter Summary ---
Author Organization [facility] Address [address] [place] [address] Care Team Providers Care Delicatessen Goods Stock Clerk Name Role Phone Kyle Robles MD Primary Care Provider [phone] Reason for Referral * Diagnostic Imaging (Routine) - Closed Specialty Diagnoses / Procedures Referred By Contac t Referred To Contact Diagnoses Pain management Procedures FL Fluoroscopy < 1 Hour (Statistical Only) Luda Arevalo MD PhD Phone: tel: fax: [address] [address] Referral ID Status Reason Start Date Expiration Date Visits Re quested Visits Authorized [id number] Closed 04/27/2020 05/27/2021 1 1 NDER MACHINE OPERATOR PULP DRIER Reason for Visit * Diagnostic Imaging (Routine) - Closed Specialty Diagnoses / Procedures Referred By Contac t Referred To Contact Diagnoses Pain management Procedures FL Fluoroscopy < 1 Hour (Statistical Only) Luda Arevalo MD PhD Phone: tel: fax: [address] [address] Referral ID Status Reason Start Date Expiration Date Visits Re quested Visits Authorized [id number] Closed 04/27/2020 05/27/2021 1 1 Encounter Details Date Type Department Care Team (Latest Contact Info) Description 04/27/2020 7:38 AM CYLINDER MACHINE OPERATOR PULP DRIER - 04/27/2020 11:59 PM CYLINDER MACHINE OPERATOR PULP DRIER Hospital Encounter [facility] Pain Management Imaging [facility] ([facility]) [address] [place] [address] Pain management Discharge Disposition: Discharge to home or self [...] on file Legal Sex Female 1:06 AM CYLINDER MACHINE OPERATOR PULP DRIER Gender Identity Female 01/22/2024 8:47 PM CDT [...] 1 tablet (50 mcg total) by mouth capacity planning engineer before breakfast 06/06/2018 traMADoL (ULTRAM) 50 mg [...] mcg (0.1 %) nasal spray 05/21/2018 2 baclofen (LIORESAL) 10 mg tablet Take 1 tablet (10 mg total) by mouth 3 (three) times a day 90 tablet 2 03/24/2020 2 budesonide-formot Mario (Symbicort) 160-4.5 mcg/actuation inhaler Symbicort 160 mcg-4.5 mcg/actuation HFA aerosol inhaler 2 exenatide microspheres (Bydureon BCise) 2 mg/0.85 mL auto-injector Bydureon BCise 2 mg/0.85 mL subcutaneous auto-injector 2 FLUoxetine (FLUoxetine) 10 mg tablet/capsule 02 2 gabapentin (NEURONTIN) 300 mg capsule Take 1 capsule (300 mg total) by mouth 3 (three) times a day 90 capsule 3 03/07/2020 2 lisinopriL (PRINIVIL,ZESTRIL ) 20 mg tablet Take 20 mg by mouth daily 2 losartan (COZAAR) 100 mg tablet Take 100 [...] 2.5 mcg/actuation solution for inhalation 2 Trulicity 3 mg/0.5 mL pen injector 04/15/2020 2 documented as of this encounter Discharge Disposition Disposition Code Departure Means Destination Discharge to home or self care documented in this encounter Plan of Treatment Not on file documented as of this encounter Goals Goal Patient Goal Type Associated Problems Recent Progress Patient-Stated? Author CCM Chronic Pain Care Plan Chronic Care Management No change(04/27 10:31 AM CYLINDER MACHINE OPERATOR PULP DRIER) No Amna Dao RN Note: Problem: Chronic Pain Goals: 1. Minimize further functional decline 2. Maximize quality of life 3. Control pain Strategies: - Activity/exercise program recommendation - Conservative stepwise pain medicine strategy with multi-disciplinary approach - Recommend healthy lifestyle strategies and compensatory methods as needed documented as of this encounter Procedures Procedure Name Priority Date/Time Associated Diagnosis Comments FL FLUOROSCOPY < 1 HOUR (STATISTICAL ONLY) Schedule Routine, Read Routine (OP Routine) 04/27/2020 12:02 PM CYLINDER MACHINE OPERATOR PULP DRIER Pain management documented in this encounter Results * FL Fluoroscopy < 1 Hour (Statistical Only) (04/27/2020 12:02 PM CYLINDER MACHINE OPERATOR PULP DRIER) Narrative [facility] - 04/27/2020 12:03 PM CYLINDER MACHINE OPERATOR PULP DRIER The images from this study are not interpreted by Radiology. ??Please refer to the physician's procedure / OR operative note. us Luda Arevalo MD PhD IMG FLUOROSCOPY PROCED URES Final Result [facility] documented in this encounter Visit Diagnoses Diagnosis Pain management documented in this encounter Care Teams Delicatessen Goods Stock Clerk Relationship Specialty Start Date End Date Kyle Robles MD [address] [place] [address] PCP - General Family Medicine 07/30/18 03/25/22 documented as of this encounter
--- OUTSIDE RECORDS SUMMARY | 2024-05-12 20:14 | XMS_ITS | Encounter Summary ---
Author Organization [facility] Address [address] [place] [address] Phone Care Team Providers Care Inventory Control Specialist Name Role Phone Kyle Robles MD Primary Care Provider [phone] Reason for Visit * Consultation (Routine) - Closed Specialty Diagnoses / Procedures Referred By Trisha corley Referred To Contact Surgical Oncology Diagnoses History of right breast cancer Kyle Robles MD [address] [place] [address] Phone: tel: fax: [facility] (All Locations) Referral ID Status Reason Start Date Expiration Date V isits Requested Visits Authorized [id number] Closed Specialty Services Required 08/18/2020 09/17/2021 1 1 Encounter Details Date Type Department Care Team (Late st Contact Info) Description 10/17/2020 1:10 PM CDT Office Visit [facility] Surgery [address] [facility] [address] [place] [address] [place] [id number] Ila Can, [facility] [address] [id number] History of right breast cancer Social History Tobacco Use Types Packs/Day Years Used Date Smoking Tobacco: Former Cigarettes 0.3 8 1 972 - 1980 Smokeless Tobacco: Never Alcohol Use Standard Drinks/Week Comments Yes 2 (1 standard drink = 0.6 oz pur e alcohol) Comments No Sex and Gender Information Value Date Recorded Sex Assigned at Not on file Legal Sex Female 1:06 AM TURKEY FARMER Gender Identity Female 01/22/2024 8:47 PM CDT Sexual Orientation Straight 01/22/2024 8: 47 PM CDT documented as of this encounter Progress Notes * Ila Can, VEGETABLE INSPECTOR - 10/17/2020 1:10 PM CDT DEPARTMENT OF SURG[facility] [address] [place] [phone] ??(PHONE)???[phone] (FAX) NAME:?Gasper Pierce :?1955 DATE:?10/17/20 ?? CHIEF COMPLAINT: Follow-up for right breast cancer. ?? HISTORY OF ??PRESENT ILLNESS: ??I saw Gasper Pierce for follow-up. She had undergone routine imaging in April of 2000 where they noted an abnormality in her right breast. On 05/06/2006 she underwent image guided biopsy demonstrating invasive ductal carcinoma. She was treated with neoadjuvant chemotherapy of FEC followed by Taxotere. 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 She then completed adjuvant radiation therapy and was placed on anastrozole. She hadsignificant side effects and ultimately was converted to tamoxifen. The tamoxifen was then discontinued due to severe hot flashes. She underwent no further treatment. Currently she is doing well and notes no palpable findings in her breast self-examination. Past Medical History: Diagnosis Date ??? Asthma ??? Cancer (CMS/HCC) ??? Depression ??? Hypertension ??? Hyperthyroidism ??? Infectious viral hepatitis ??? Low back pain ??? Type 2 diabetes mellitus (CMS/HCC) Past Surgical History: Procedure Laterality Date ??? BREAST LUMPECTOMY Right Breast Lumpectomy - (Added by TW Devon) ??? SECTION 1980, 1986, 1989 ??? CHOLECYSTECTOMY 2009 ??? HYSTERECTOMY 1989 ??? NV TOTAL ABDOM HYSTERECTOMY Hysterectomy - (Added by DEVORA Conv) ??? REPLACEMENT TOTAL KNEE 2011 Social History Socioeconomic History ??? Marital status: Spouse name: None ??? Number of children: None ??? Years of education: None ??? Highest education level: None Occupational History ??? None Tobacco Use ??? Smoking status: Former Smoker Packs/day: 0.25 Types: Cigarettes Start date: 1971 Quit date: 1979 Years since quittin.4 ??? Smokeless tobacco: Never Used Substance and Sexual Activity ??? Alcohol use: Yes Alcohol/week: 2.0 standard drinks Types: 1 Glasses of wine, 1 Cans of beer per week ??? Drug use: Defer ??? Sexual activity: None Other Topics Concern ??? None Social History Narrative ??? None Social Determinants of Health Financial Resource Strain: ??? Difficulty of Paying Living Expenses: Food Insecurity: ??? Worried About Running Out of Food in the Last Year: ??? Ran Out of Food in the Last Year: Transportation Needs: ??? Lack of Transportation (Medical): ??? Lack of Transportation (Non-Medical): Physical Activity: ??? Days of Exercise per Week: ??? Minutes of Exercise per Session: Stress: ??? Feeling of Stress : Social Connections: ??? Frequency of Communication with Friends and Family: ??? Frequency of Social Gatherings with Friends and Family: ??? Attends [employer] Services: ??? Active Member of Clubs or Organizations: ??? Attends Club or Organization Meetings: ??? Marital Status: Intimate Partner Violence: ??? Fear of Current or Ex-Partner: ??? Emotionally Abused: ??? Physically Abused: ??? Sexually Abused: Family History Problem Relation Age of Onset ??? Prostate cancer Father Prostate ca - (Added by DEVORA Conv) ??? Diabetes Father ??? Heart disease Father ??? Hypertension Father ??? Rheumatic fever Father ??? Early Mother ??? Diabetes Brother ??? Heart disease Brother ??? Hypertension Brother ??? Heart disease Maternal Grandfather ??? Hypertension Maternal Grandfather ??? Stroke Maternal Grandfather ??? Heart disease Paternal Grandfather Prior to Admission medications Medication Sig Start Date End Date Taking? Authorizing Provider atorvastatin (LIPITOR) 10 mg tablet TK 1 T PO QD 06/25/18 Yes Historical Provider, azelastine (ASTELIN) 137 mcg (0.1 %) nasal spray 05/21/18 Yes Historical Provider, DULoxetine DR (CYMBALTA) 60 mg capsule 06/06/18 Yes Historical Provider, lisinopril-hydroCHLOROthiazide (PRINZIDE,ZESTORETIC) 20-12.5 mg per tablet daily . Yes Historical Provider, losartan-hydrochlorothiazide (HYZAAR) 100-25 mg per tablet 06/23/18 Yes Historical Provider, metFORMIN (FORTAMET) 1,000 mg 24 hr tablet 07/19/18 Yes Historical Provider, montelukast (SINGULAIR) 10 mg tablet Yes Historical Provider, omeprazole (PriLOSEC) 40 mg capsule 07/27/18 Yes Historical Provider, pediatric multivitamin-iron tablet,chewable daily . Yes Historical Provider, SYNTHROID 50 mcg tablet 06/06/18 Yes Historical Provider, No Known Allergies ?? PHYSICAL EXAMINATION: GENERAL: ??Well-developed, well-nourished 65 y.o. female in no apparent distress. EYES: Pupil equal and reactive. ??Sclerae - no jaundice. NOSE AND THROAT: Mucosal membranes pink and intact. SKIN: No concerning lesions ??or skin changes noted on face, neck or trunk. NECK: No palpable neck masses. HEART: Regular rate. No JVD noted. LUNGS: No shortness of breath noted. LYMPHATIC SYSTEM: No concerning cervical, supraclavicular or ??axillary lymphadenopathy. BILATERAL BREAST EXAM: Her left breast has no mass, no nipple discharge, no palpable axillary mass,and no skin changes. She has a well-healed incision in the upper portion of her breast from her prior port. Her right breast has a well-healed incision in the outer quadrant and a well-healed axillary incision. She has no evidence of local recurrence, no mass, and no palpable axillary mass. She hassignificant size asymmetry. MUSCULOSKELETAL: No evidence of rib, long bone, or spine pain. ??No complaints ??of joint pain. EXTREMITIES: Full range of motion in all extremeties. No lymphedema. NEUROLOGICAL: No focal neurologic signs; normal gait. ?? IMAGING: ??She underwent bilateral screening mammograms today, results pending. ?? IMPRESSION/RECOMMENDATIONS: ??I will personally review her bilateral screening mammograms and document the results on the radiology report. The patient will then be notified. She will follow up in 1 year when she is due for screening mammograms. I have encouraged her to continue her breast self-examination to notify us if she identifies any changes or problems. ? Ila Can, JENNIFER, ACNS-BC ? Endocrine &??Oncologic Surgery ? I have reviewed the history, physical, assessment and plan and concur with the findings. ? Scott ??Rosanne Allen M.D. pitching coach Cosigned by Scott Allen MD at 10/20/2020 6:50 AM CDT documented in this encounter Plan of Treatment Not on file documented as of this encounter Goals Goal Patient Goal Type Associated Problems Recent Progress Patient-Stated? Author CCM Chronic Pain Care Plan Chronic Care Management No change(04/27 10:31 AM TURKEY FARMER) No Amna Dao RN Note: Problem: Chronic [...] may reflect changes made after this encounter. umeclidinium (INCRUSE ELLIPTA) 62.5 mcg/actuation blister with device Incruse Ellipta 62.5 mcg/actuation powder for inhalation 2 triamcinolone (KENALOG) 0.1 % cream triamcinolone acetonide 0.1 % topical cream APPLY A THIN LAYER AA ON ARM BID. NEVER TO FACE 2 naproxen (NAPROSYN) 500 mg tablet naproxen 500 mg tablet 2 added in this encounter Orders Outpatient Referral Count Last Ordered Date Fir st Ordered Date AMB REFERRAL TO SURGICAL ONCOLOGY 1 021 documented in this encounter Care Teams Inventory Control Specialist Relationship Specialty Start Date End Date Kyle Robles MD [address] [place] [id number] PCP - General Family Medicine 07/30/18 03/25/22 documented as of this encounter
--- OUTSIDE RECORDS SUMMARY | 2024-05-12 20:14 | XMS_ITS | Encounter Summary ---
Author Organization [facility] Healthcare Address [address] [place] [address] Care Team Providers Care Corporate Buyer Name Role Phone Kyle Robles MD Primary Care Provider [phone] Encounter Details Date Type Department Care Team (Latest Contact Info) Description 03/07/2020 11:22 AM CDT - 03/07/2020 11:59 PM CDT Hospital Encounter [facility] [address] [place] [id number] Discharge Disposition: Discharge to home or self [...] on file Legal Sex Female 1:06 AM OFFICE MACHINES TEACHER Gender Identity Female 01/22/2024 8:47 PM [...] (50 mcg total) by mouth early childhood lead teacher before breakfast 06/06/2018 vit B complex 100 combo no.2 100 mg tablet extended release Take 1 tablet by mouth daily Accu-Chek Fastclix Lancet Drum misc USE DIRECTED TO TEST SUGARS TWICE DAILY 06/10/2019 06/15/19 22 albuterol sulfate (ProAir RespiClick) 90 mcg/actuation aerosol powdr breath activated ProAir RespiClick 90 mcg/actuation breath activated 06/15/19 22 ALPRAZolam (XANAX) 0.25 mg tablet TK 1 T PO BID 07/16/2019 06/15/19 22 azelastine (ASTELIN) 137 mcg (0.1 %) nasal spray 05/21/2018 06/15/19 22 budesonide-formot Mario (Symbicort) 160-4.5 mcg/actuation inhaler Symbicort 160 mcg-4.5 mcg/actuation HFA aerosol inhaler 06/15/19 22 dexAMETHasone (DECADRON) 1 mg tablet dexamethasone 1 mg tablet TK 1 T PO HS FOR 1 DAY PRN 03/24/20 20 exenatide microspheres (Bydureon BCise) 2 mg/0.85 mL auto-injector Bydureon BCise 2 mg/0.85 mL subcutaneous auto-injector 06/15/19 22 FLUoxetine (FLUoxetine) 10 mg tablet/capsule 0 22 gabapentin (NEURONTIN) 300 mg capsule Take 1 capsule (300 mg total) by mouth 3 (three) times a day 90 capsule 3 03/07/2020 06/15/19 22 lisinopril-hydroC HLOROthiazide (PRINZIDE,ZESTORE TIC) 20-12.5 mg per tablet daily . 04/27/20 20 losartan (COZAAR) 100 mg tablet Take 100 mg by mouth daily 06/11/2019 03/26/20 22 losartan-hydrochl orothiazide (HYZAAR) 100-25 mg per tablet 06/23/2018 03/26/20 22 montelukast (SINGULAIR) 10 mg tablet Take 10 mg by mouth nightly 03/26/20 22 multivitamin capsule Take 1 capsule by mouth daily 06/15/19 22 pediatric multivitamin-iron tablet,chewable daily . 03/26/20 22 pen needle, diabetic (Novofine 32) 32 gauge x 1/4 needle Novofine 32 32 gauge x 1/4 needle INJ OZEMPIC ONCE WEEKLY UTD 06/15/19 22 semaglutide (Ozempic) 0.25 mg or 0.5 mg(2 mg/1.5 mL) pen injector 0.5 mg 06/15/19 22 tamoxifen (NOLVADEX) 10 mg tablet Take by mouth 2 (two) times a day 06/15/19 22 tiotropium bromide (SPIRIVA RESPIMAT) 2.5 mcg/actuation inhaler Spiriva Respimat 2.5 mcg/actuation solution for inhalation 06/15/19 22 Trulicity 1.5 mg/0.5 mL pen injector Inject 1.5 mg under the skin once a week 02/09/2020 04/27/20 documented as of this encounter Discharge Disposition Disposition Code Departure Means Destination Discharge to home or self care documented in this encounter Plan of Treatment Not on file documented as of this encounter Procedures Procedure Name Priority Date/Time Associated Diagnosis Comments NEURO CT MR OUTSIDE REFERENCE Routine 03/07/2020 11:22 AM CDT Diagnosis unknown documented in this encounter Results * Neuro CT MR Outside Reference (03/07/2020 11:22 AM CDT) Impressions [facility] - 03/07/2020 11:22 AM CDT These images are for Reference purposes only and have not been reviewed by [facility] Radiology. ??There will be no report generated by a [facility] Radiologist. Narrative [facility] - 03/07/2020 11:22 AM CDT EXAMINATION: ??Images For Reference Purposes Only Link Harley MD IMG CT PROCEDURES Final Re sult [facility] documented in this encounter Visit Diagnoses Not on filedocumented in this encounter Care Teams Corporate Buyer Relationship Specialty Start Date End Date Kyle Robles MD [address] [place] [address] PCP - General Family Medicine 07/30/18 03/25/22 documented as of this encounter
--- OUTSIDE RECORDS SUMMARY | 2024-05-12 20:14 | XMS_ITS | Encounter Summary ---
Author Organization [facility] Address [address] [place] [address] Care Team Providers Care Semiconductor Wafers Saw Operator Name Role Phone Kyle Robles MD Primary Care Provider [phone] Reason for Referral * Diagnostic Imaging (Routine) - Closed Specialty Diagnoses / Procedures Referred By Contac t Referred To Contact Diagnoses Pain management Procedures FL Fluoroscopy < 1 Hour (Statistical Only) Luda Arevalo MD PhD Phone: tel: fax: [address] [phone] Referral ID Status Reason Start Date Expiration Date Visits Re quested Visits Authorized [id number] Closed 03/24/2020 04/23/2021 1 1 Reason for Visit * Diagnostic Imaging (Routine) - Closed Specialty Diagnoses / Procedures Referred By Contac t Referred To Contact Diagnoses Pain management Procedures FL Fluoroscopy < 1 Hour (Statistical Only) Luda Arevalo MD PhD Phone: tel: fax: [address] [phone] Referral ID Status Reason Start Date Expiration Date Visits Re quested Visits Authorized [id number] Closed 03/24/2020 04/23/2021 1 1 Encounter Details Date Type Department Care Team (Latest Contact Info) Description 03/24/2020 8:16 AM CDT - 03/24/2020 11:59 PM CDT Hospital Encounter [facility] [place] [facility] Pain Management Imaging [facility] ([facility]) [address] [place] [address] Pain management Discharge Disposition: Discharge to home [...] on file Legal Sex Female 1:06 AM HUMAN SERVICES MANAGER Gender Identity Female 01/22/2024 8:47 PM [...] 1 tablet (50 mcg total) by mouth loom fixer before breakfast 06/06/2018 vit B complex 100 [...] 02/09/2020 0 documented as of this encounter Discharge Disposition Disposition Code Departure Means Destination Discharge to home or self care documented in this encounter Plan of Treatment Not on file documented as of this encounter Procedures Procedure Name Priority Date/Time Associated Diagnosis Comments FL FLUOROSCOPY < 1 HOUR (STATISTICAL ONLY) Schedule Routine, Read Routine (OP Routine) 03/24/2020 2:58 PM CDT Pain management documented in this encounter Results * FL Fluoroscopy < 1 Hour (Statistical Only) (03/24/2020 2:58 PM CDT) Narrative [facility] - 03/24/2020 2:58 PM CDT The images from this study are not interpreted by Radiology. ??Please refer to the physician's procedure / OR operative note. us Luda Arevalo MD PhD IMG FLUOROSCOPY PROCED URES Final Result [facility] documented in this encounter Visit Diagnoses Diagnosis Pain management documented in this encounter Care Teams Semiconductor Wafers Saw Operator Relationship Specialty Start Date End Date Kyle Robles MD [address] [place] [address] PCP - General Family Medicine 07/30/18 03/25/22 documented as of this encounter
--- OUTSIDE RECORDS SUMMARY | 2024-05-12 20:14 | XMS_ITS | Encounter Summary ---
Author Organization [facility] Address [address] [place] [address] Phone Care Team Providers Care Chief Accountant Name Role Phone Kyle Robles MD Primary Care Provider [phone] Encounter Details Date Type Department Care Team (Late st Contact Info) Description 03/19/2022 Orders Only [facility] [address] [place] [address] Maikel Ball MD [address] [place] [address] Social History Tobacco Use Types Packs/Day Years [...] on file Legal Sex Female 1:06 AM SOURCING ANALYST Gender Identity Female 01/22/2024 8:47 PM CDT Sexual Orientation Straight 01/22/2024 8: 47 PM CDT documented as of this encounter Plan of Treatment Not on file documented as of this encounter Goals Goal Patient Goal Type Associated Problems Recent Progress Patient-Stated? Author CCM Chronic Pain Care Plan Chronic Care Management No change(04/27 10:31 AM SOURCING ANALYST) No Amna Dao RN Note: Problem: Chronic Pain Goals: 1. Minimize further functional decline 2. Maximize quality of life 3. Control pain Strategies: - Activity/exercise program recommendation - Conservative stepwise pain medicine strategy with multi-disciplinary approach - Recommend healthy lifestyle strategies and compensatory methods as needed documented as of this encounter Procedures Procedure Name Priority Date/Time Associated Diagnosis Comments SURGICAL PATHOLOGY Routine 03/19/2022 12 :00 AM CDT documented in this encounter Results * Surgical pathology (03/19/2022 12:00 AM CDT) Skin, shave biopsy 03/19/2022 03/20/2022 6:45 AM CDT Narrative 03/21/2022 2:27 PM CDT EPIC results best viewed via link to PDF [facility] [address] [place], [place] [address] ??[place] [address] ? [email or web address] Note to Patients: ??This report may contain a detailed description of human tissue sent by a health care provider to the laboratory for pathologic evaluation. ??The content of this report is essential for diagnosis and may provide important critical findings. ??This information may be unfamiliar to patients to review without a medical professional present. ?? It is advised that the patient review this report in the presence of a health care provider who can answer questions and explain the details. FINAL REPORT Patient Information: PATIENT NAME: ??KLAUDIA PIERCE ? SEX: ??F ? : ??1955 (Age: 67) ? Specimen Information: COLLECTED: ??03/19/2022 ? RECEIVED: ??03/20/2022 ? REPORTED: ??03/21/2022 ? Submitting Physician Information: Maikel Ball M.D. [facility], [address] [place] [address], [place] ??[address], ? DERMATOPATHOLOGY REPORT RESULTS ?? DIAGNOSIS: SKIN, RIGHT DORSAL NOSE, SHAVE BIOPSY: ? ACTINIC KERATOSIS, EXCORIATED klp/ajrr By this signature, I attest that the above diagnosis is based upon my personal examination of the slides(and/or other material indicated in the diagnosis). Clayton Winslow M.D. ?? Report Electronically Reviewed and Signed Out By ??Clayton Winslow M.D. 03/21/2022 14:27:15 CLINICAL INFORMATION 3 MM PINK THIN PAPULE WITH OVERLYING TELANGIECTASIA; AK VS. BCC. SPECIMEN DATA MICROSCOPIC DESCRIPTION: Buds of atypical keratinocytes emanate from the undersurface of the epidermis. ??There is orthokeratotic and/or parakeratotic scale. (L57.0) GROSS DESCRIPTION: Received in a formalin-containing bottle is a superficial fragment of pale mak, finely scaling and semi-translucent skin measuring 0.4 by 0.3 by 0.1 cm. The surgical margin is inked blue. The specimen is sectioned into 2 pieces and submitted entirely in a single cassette. Due to shrinkage, measurements may be different than those at time of procedure. rnc/dxv Clerical Data A; 56194 The Characteristics of some immunohistochemical and immunofluorescence stains as well as in-situ hybridization tests were determined by the [facility] in ongoing assistant quality manager and in compliance with regulations drawn from the Clinical Laboratory Improvement Act of 1988 (CLIA '88). These tests may rely on the use of analyte specific reagents that are subject to specific labeling requirements by the US FDA, and may only be performed in a facility that is certified by the [facility] as a high-complexity laboratory under CLIA '88. ??These tests are used for clinical purposes and are not investigational. ??For lab developed tests, the validation has been reviewed; the performance is considered acceptable for patient testing. Maikel Ball MD LAB PATHOLOGY ORDERAB LES Final Result documented in this encounter Visit Diagnoses Not on filedocumented in this encounter Care Teams Chief Accountant Relationship Specialty Start Date End Date Kyle Robles MD [address] [place] [address] PCP - General Family Medicine 07/30/18 03/25/22 documented as of this encounter
--- OUTSIDE RECORDS SUMMARY | 2024-05-12 20:14 | XMS_ITS | Encounter Summary ---
Author Organization [facility] Address [address] [place] [address] Care Team Providers Care Bottle Caser Name Role Phone Kristopher Pierre DO Primary Care Provider [phone] Reason for Visit * Reason Comments Positive OLGA LIDIA Encounter Details Date Type Department Care Team (Late st Contact Info) Description 05/01/2022 8:30 AM SUPERVISOR COOLER SERVICE Office Visit [facility] [address] [address] Ana Gorman DO [address] [place] [address] Seronegative inflammatory arthritis (Primary Dx); Trigger middle finger of right hand; Elevated sed rate Social History Tobacco Use Types Packs/Day Years [...] on file Legal Sex Female 1:06 AM SUPERVISOR COOLER SERVICE Gender Identity Female 01/22/2024 8:47 PM CDT Sexual Orientation Straight 01/22/2024 8: 47 PM CDT documented as of this encounter Last Filed Vital Signs Vital Sign Reading Time Taken Comments Blood Pressure 140/76 05/01/2022 8:23 AM SUPERVISOR COOLER SERVICE Pulse 90 05/01/2022 8:23 AM SUPERVISOR COOLER SERVICE Temperature 36.1 ??C (96.9 ??F) 05/01/2022 8:23 AM CS T Respiratory Rate 20 05/01/2022 8:23 AM SUPERVISOR COOLER SERVICE Oxygen Saturation 97% 05/01/2022 8:23 AM SUPERVISOR COOLER SERVICE Inhaled Oxygen Concentration - - Weight 115.6 kg (254 lb 12.8 oz) 05/01/2022 8:23 AM SUPERVISOR COOLER SERVICE Height 162.6 cm (5' 4 ) 05/01/2022 8:23 AM SUPERVISOR COOLER SERVICE Body Mass Index 43.74 05/01/2022 8:23 AM SUPERVISOR COOLER SERVICE documented in this encounter Patient Instructions * Patient Instructions* Ana Gorman DO - 05/01/2022 8:30 AM SUPERVISOR COOLER SERVICE It has been our pleasure to care for you today. We want to provide you EXCELLENT care! Let us know if we can do anything else to make your care excellent! You may reach our office by calling or by using MuteButton. Ana Gorman DO [facility] [place] [address] RVISOR COOLER SERVICE * Attachments The following attachments cannot be sent through Care Everywhere. * Hydroxychloroquine (By mouth) (Senegalese) documented in this encounter Progress Notes * Ana Gorman DO - 05/01/2022 8:30 AM CST Images from the original note were not included. Rheumatology Follow up Clinic Note 05/02/22 PCP: Kristopher Pierre DO CHIEF COMPLAINT: Positive OLGA LIDIA HPI: Patient presents for first follow up of +OLGA LIDIA and hand pain. Since she was last seen, she has been to the ER. She was diagnosed with bronchitis. Flu/COVID/etc was all negative. She took a round of antibiotics and steroids. Joints have been doing okay. Steroids seemed to help some of the triggering. Hands are the most problematic for her. Hips and shoulders will bother her too. Breast cancer was diagnosed in 2006. It was ER+. She had right-sided lumpectomy, chemo, radiation. She did take Arimidex (Anastrozole). She took Tamoxifen for a long time. Past therapies: Aleve MEDICATIONS: Current Outpatient Medications Medication Sig Dispense Refill albuterol HFA (PROVENTIL HFA,VENTOLIN HFA,PROAIR HFA) 90 mcg/actuation inhaler 2 puffs every 4 (four) hours as needed atorvastatin (LIPITOR) 10 mg tablet Take 10 mg by mouth daily 1 benzonatate (TESSALON) 200 mg capsule calcium carbonate/vitamin D3 (CALTRATE 600 PLUS D ORAL) Take 1,000 mg by mouth daily cetirizine (ZyrTEC) 10 mg tablet Take 10 mg by mouth daily DULoxetine DR (CYMBALTA) 60 mg capsule Take 60 mg by mouth daily FLUoxetine (PROzac) 10 mg tablet/capsule Take 10 mg by mouth daily hydroCHLOROthiazide (HYDRODIURIL) 25 mg tablet Take 25 mg by mouth daily Invokana 300 mg tablet irbesartan (AVAPRO) 300 mg tablet irbesartan 300 mg tablet TAKE 1 TABLET BY MOUTH DAILY metFORMIN (FORTAMET) 1,000 mg 24 hr tablet Take 1,000 mg by mouth daily with breakfast multivitamin capsule Take 1 capsule by mouth daily omeprazole (PriLOSEC) 40 mg capsule Take 40 mg by mouth daily SYNTHROID 50 mcg tablet Take 50 mcg by mouth analytical lead before breakfast traMADoL (ULTRAM) 50 mg tablet TK 1 T PO Q 6 H FOR 15 DAYS PRF PAIN vit B complex 100 combo no.2 100 mg tablet extended release Take 1 tablet by mouth daily No current facility-administered medications for this visit. ALLERGIES: Patient has no known allergies. Vitals BP 140/76 (BP Location: Left arm, Patient Position: Sitting) Pulse 90 Temp 36.1 ??C (96.9 ??F) (Tympanic) Resp 20 Ht 162.6 cm (5' 4 ) Wt 115.6 kg (254 lb 12.8 oz) LMP (LMP Unknown) SpO2 97% BMI 43.74 kg/m?? Body mass index is 43.74 kg/m??. PHYSICAL EXAM: Physical Exam Constitutional: General: [...] tenderness Spine No tenderness on palpation LABS: 03/2022: CCP: 2, CRP: 5, RF: 11, CPK: 66, ESR: 44, OLGA LIDIA: neg, OLGA LIDIA profile: negative 10/2021: WBC: 6.5, hemoglobin: 12.8, platelets: 286, CRP: 4, uric acid: 5.6, TSH: 0.84, rheumatoid factor: 10.3 ESR: 22 IMAGING/PROCEDURES: Xray hands 02/2022: Completed. Having records faxed over. ASSESSMENT/PLAN: Diagnoses and all orders for this visit: Seronegative inflammatory arthritis (Primary) Assessment & Plan: Patient presents for 1st follow-up of likely new diagnosis of seronegative arthritis. X-rays were completed but results were not received prior to appointment today. We have called [facility] to have records faxed over. We discussed [...] exam. Trigger middle finger of right hand Assessment & Plan: Advised stretching exercises and range of motion of bilateral hands. Elevated sed rate Assessment & Plan: Suspect related to inflammatory arthritis as above. We will trend this with disease/treatment over time. Ana Gorman, DO [facility] [place] [address] RVISOR COOLER SERVICE RVISOR COOLER SERVICE documented in this encounter Miscellaneous Notes * Assessment & Plan Note - Ana Gorman DO - 05/01/2022 8:56 AM SUPERVISOR COOLER SERVICE Associated Problem(s): Elevated sed rate Suspect related to inflammatory arthritis as above. We will trend this with disease/treatment over time. RVISOR COOLER SERVICE * Assessment & Plan Note - Ana Gorman DO - 05/01/2022 8:56 AM SUPERVISOR COOLER SERVICE Associated Problem(s): Trigger middle finger of right hand Advised stretching exercises and range of motion of bilateral hands. RVISOR COOLER SERVICE * Assessment & Plan Note - Ana Gorman DO - 05/01/2022 8:55 AM SUPERVISOR COOLER SERVICE Associated Problem(s): Seronegative inflammatory arthritis Patient presents for 1st follow-up of likely new diagnosis of seronegative arthritis. X-rays were completed but results were not received prior to appointment today. We have called [facility] to have records faxed over. We discussed [...] in 4 months for repeat physical exam. RVISOR COOLER SERVICE documented in this encounter Plan of Treatment Not on file documented as of this encounter Goals Goal Patient Goal Type Associated Problems Recent Progress Patient-Stated? Author CCM Chronic Pain Care Plan Chronic Care Management No change(04/27 10:31 AM SUPERVISOR COOLER SERVICE) No Amna Dao, RN Note: Problem: Chronic Pain Goals: 1. Minimize further functional decline 2. Maximize quality of life 3. Control pain Strategies: - Activity/exercise program recommendation - Conservative stepwise pain medicine strategy with multi-disciplinary approach - Recommend healthy lifestyle strategies and compensatory methods as needed documented as of this encounter Visit Diagnoses Diagnosis Seronegative inflammatory arthritis- Primary Trigger middle finger of right hand Elevated sed rate Elevated sedimentation rate documented in this encounter Discontinued Medications Medication Sig Discontinue Reason Start Date End Da te Trulicity 3 mg/0.5 mL pen injector 04/15/2020 05/01/2022 documented as of this encounter Historical Medications * This list may reflect changes made after this encounter. FLUoxetine (PROzac) 10 mg tablet/capsule Take 1 tablet/capsul e (10 mg total) by mouth daily albuterol HFA (PROVENTIL HFA,VENTOLIN HFA,PROAIR HFA) 90 mcg/actuation inhaler 2 puffs every 4 (four) hours as needed 04/20/2022 benzonatate (TESSALON) 200 mg capsule 04/17/2022 Invokana 300 mg tablet 04/30/2022 added in this encounter Care Teams Bottle Caser Relationship Specialty Start Date End Date Kristopher Pierre DO PCP - General Internal Medicine 03/26/22 documented as of this encounter
--- OUTSIDE RECORDS SUMMARY | 2024-05-12 20:14 | XMS_ITS | Encounter Summary ---
Author Organization [facility] Address [address] [place] [address] Phone Care Team Providers Care Wetlands Conservation Laborer Name Role Phone Kyle Robles MD Primary Care Provider [phone] Encounter Details Date Type Department Care Team (Late st Contact Info) Description 04/29/2020 Telephone [facility] Neurosurgery [address] [facility] 6th [place] [address] [place] [address] Leonila Wagner, COTY [address] [place] [address] Social History Tobacco Use Types Packs/Day Years Used Date Smoking Tobacco: Former Cigarettes 0.3 8 1 972 - 1980 Smokeless Tobacco: Never Alcohol Use Standard Drinks/Week Comments Yes 2 (1 standard drink = 0.6 oz pur e alcohol) Comments No Sex and Gender Information Value Date Recorded Sex Assigned at Not on file Legal Sex Female 1:06 AM SUPERVISOR PRODUCTION MANAGING Gender Identity Female 01/22/2024 8:47 PM CDT Sexual Orientation Straight 01/22/2024 8: 47 PM CDT documented as of this encounter Miscellaneous Notes * Telephone Encounter - Olga Imelda Cathy, A - 04/29/2020 1:43 PM CST Called patient because per automated reminder system she wanted to cancel apt on Saturday. Spoke withher and she just had injections with Dr Morales and is feeling better. She states she slept through the night. Patient requested apt be telemed since she has no complaints. Apt was changed accordingly. RVISOR PRODUCTION MANAGING documented in this encounter Plan of Treatment Not on file documented as of this encounter Goals Goal Patient Goal Type Associated Problems Recent Progress Patient-Stated? Author CCM Chronic Pain Care Plan Chronic Care Management No change(04/27 10:31 AM SUPERVISOR PRODUCTION MANAGING) No Amna Dao RN Note: Problem: Chronic Pain Goals: 1. Minimize further functional decline 2. Maximize quality of life 3. Control pain Strategies: - Activity/exercise program recommendation - Conservative stepwise pain medicine strategy with multi-disciplinary approach - Recommend healthy lifestyle strategies and compensatory methods as needed documented as of this encounter Visit Diagnoses Not on filedocumented in this encounter Care Teams Wetlands Conservation Laborer Relationship Specialty Start Date End Date Kyle Robles MD [address] [place] [address] PCP - General Family Medicine 07/30/18 03/25/22 documented as of this encounter
--- OUTSIDE RECORDS SUMMARY | 2024-05-12 20:14 | XMS_ITS | Encounter Summary ---
Author Organization [facility] Address [address] [place] [address] Phone Care Team Providers Care Human Resources Manager Manufacturing Name Role Phone Kyle Robles MD Primary Care Provider [phone] Reason for Referral * Diagnostic Imaging (Routine) - Closed Specialty Diagnoses / Procedures Referred By Trisha corley Referred To Contact Diagnoses History of right breast cancer Encounter for screening mammogram for malignant neoplasm of breast Procedures Screening Mammogram Bilateral W Ila Araujo CNS Phone: tel: fax: [address] [address] Referral ID Status Reason Start Date Expiration Date Visits Re quested Visits Authorized [id number] Closed 10/11/2020 11/10/2021 1 1 Encounter Details Date Type Department Care Team (Late st Contact Info) Description 10/11/2020 Orders Only [facility] Surgery [facility] 5th [place] [address] [place] [address] Ila Can CNS [facility] [address] [id number] History of right breast cancer (Primary Dx); [...] on file Legal Sex Female 1:06 AM FIGHTING VEHICLE SYSTEMS MAINTAINER Gender Identity Female 01/22/2024 8:47 PM CDT Sexual Orientation Straight 01/22/2024 8: 47 PM CDT documented as of this encounter Plan of Treatment Not on file documented as of this encounter Goals Goal Patient Goal Type Associated Problems Recent Progress Patient-Stated? Author CCM Chronic Pain Care Plan Chronic Care Management No change(04/27 10:31 AM FIGHTING VEHICLE SYSTEMS MAINTAINER) No Amna Dao RN Note: Problem: Chronic Pain Goals: 1. Minimize further functional decline 2. Maximize quality of life 3. Control pain Strategies: - Activity/exercise program recommendation - Conservative stepwise pain medicine strategy with multi-disciplinary approach - Recommend healthy lifestyle strategies and compensatory methods as needed documented as of this encounter Results * Screening Mammogram Bilateral W James (10/17/2020 1:50 PM CDT) Anatomical Region Laterality Modality Breast Bilateral Mammography Narrative 10/18/2020 8:46 AM CDT Mammogram Technique: Bilateral Digital Breast Tomosynthesis, Bilateral C-view 2D Screening mammogram. ??Views obtained: ??bilateral craniocaudal and bilateral mediolateral oblique. ??Computer Aided Detection was performed. Mammogram Findings: The present examination has been compared to prior imaging studies performed at [facility] on 07/04/2017, 07/30/2018 and 08/05/2019. There are scattered areas of fibroglandular density. There are post breast conservation therapy changes in the right breast. There is no suspicious abnormality in the left breast. Impression: Post breast conservation therapy changes in the right breast are benign. Annual screening mammography is recommended. OVERALL FINAL ASSESSMENT: BI-RADS CATEGORY 2: ??Benign. Procedure Note Alma Cesar MD - 10/18/2020 Mammogram Technique: Bilateral Digital Breast Tomosynthesis, Bilateral C-view 2D Screening mammogram. Views obtained: bilateral craniocaudal and bilateral mediolateral oblique. Computer Aided Detection was performed. Mammogram Findings: The present examination has been compared to prior imaging studies performed at [facility] on 07/04/2017, 07/30/2018 and 08/05/2019. There are scattered areas of fibroglandular density. There are post breast conservation therapy changes in the right breast. There is no suspicious abnormality in the left breast. Impression: Post breast conservation therapy changes in the right breast are benign. Annual screening mammography is recommended. OVERALL FINAL ASSESSMENT: BI-RADS CATEGORY 2: Benign. us Ila Can TUBULAR SPLITTING MACHINE TENDER IMG MAMMO PROCEDURES Final R esult documented in this encounter Visit Diagnoses Diagnosis History of right breast cancer- Primary Encounter for screening mammogram for malignant neoplasm of breast History of right breast cancer Encounter for screening mammogram for malignant neoplasm of breast documented in this encounter Care Teams Human Resources Manager Manufacturing Relationship Specialty Start Date End Date Kyle Robles MD [address] [place] [address] PCP - General Family Medicine 07/30/18 03/25/22 documented as of this encounter
--- OUTSIDE RECORDS SUMMARY | 2024-05-12 20:14 | XMS_ITS | Encounter Summary ---
Author Organization [facility] Address [address] [address] Care Team Providers Care Sample Maker Name Role Phone Kristopher Pierer DO Primary Care Provider [phone] Reason for Visit * Diagnostic Imaging (Routine) - Closed Specialty Diagnoses / Procedures Referred By Trisha corley Referred To Contact Diagnoses Pain in finger of left hand Procedures XR Finger 4Th Ring Left Tone Calderón, COTY [address] [place] [address] Phone: tel: fax: [facility] Referral ID Status Reason Start Date Expiration Date Visits Re quested Visits Authorized [id number] Closed 02/19/2023 03/20/2024 1 1 Encounter Details Date Type Department Care Team (Latest Contact Info) Description 02/19/2023 4:20 PM CDT Ancillary Procedure [facility] Imaging at [address] [id number] Pain in finger of left hand Social History Tobacco Use Types Packs/Day Years [...] on file Legal Sex Female 1:06 AM ELECTRONICS SCALE TESTER Gender Identity Female 01/22/2024 8:47 PM CDT Sexual Orientation Straight 01/22/2024 8: 47 PM CDT documented as of this encounter Plan of Treatment Not on file documented as of this encounter Goals Goal Patient Goal Type Associated Problems Recent Progress Patient-Stated? Author CCM Chronic Pain Care Plan Chronic Care Management No change(04/27 10:31 AM ELECTRONICS SCALE TESTER) No Amna Dao RN Note: Problem: Chronic Pain Goals: 1. Minimize further functional decline 2. Maximize quality of life 3. Control pain Strategies: - Activity/exercise program recommendation - Conservative stepwise pain medicine strategy with multi-disciplinary approach - Recommend healthy lifestyle strategies and compensatory methods as needed documented as of this encounter Procedures Procedure Name Priority Date/Time Associated Diagnosis Comments XR FINGER 4TH RING LEFT Schedule RANDELL, Read RANDELL (Appt Today, Awaiting Results) 02/19/2023 4:18 PM CDT Pain in finger of left hand documented in this encounter Results * XR Finger 4Th Ring Left (02/19/2023 4:18 PM CDT) Anatomical Region Laterality Modality Upper Extremities, Hand, Fingers Left Digital Radiography 02/19/2023 6:32 PM CDT Narrative 02/19/2023 6:35 PM CDT EXAM DESCRIPTION: XR FINGER 4TH RING LEFT REASON FOR STUDY: Other (type), smashed last night with 15 lb weight. ?? Pt dropped heavy weight on ring finger x 1 day ago. Pain swelling and bruising to distal phalanx. ? TECHNIQUE: Frontal view of the left hand, coned-down lateral and oblique views of the 4th digit were obtained. ?? COMPARISON: None available. FINDINGS: Nondisplaced fracture about the apical tuft of 4th digit. ??There is soft tissue swelling. ??There are scattered degenerative changes throughout the left hand. IMPRESSION: Nondisplaced 4th apical tuft fracture. THIS IS AN ELECTRONICALLY VERIFIED FINAL REPORT 02/19/2023 6:35 PM - Electronically signed by ??Sandoval Simpson D.O. Sandoval Simpson D.O. AP D: ??02/19/2023 6:35 PM T: Report ID: [id number] Reading Location: ??[id number] Procedure Note Sandoval Simpson DO - 02/19/2023 EXAM DESCRIPTION: XR FINGER 4TH RING LEFT REASON FOR STUDY: Other (type), smashed last night with 15 lb weight. Pt dropped heavy weight on ring finger x 1 day ago. Pain swelling andbruising to distal phalanx. TECHNIQUE: Frontal view of the left hand, coned-down lateral and obliqueviews of the 4th digit were obtained. COMPARISON: None available. FINDINGS: Nondisplaced fracture about the apical tuft of 4th digit. Thereis soft tissue swelling. There are scattered degenerative changes throughoutthe left hand. IMPRESSION: Nondisplaced 4th apical tuft fracture. THIS IS AN ELECTRONICALLY VERIFIED FINAL REPORT 02/19/2023 6:35 PM - Electronically signed by Sandoval Simpson D.O. AP T: Report ID: [id number] Reading Location: [id number] Tone Calderón PILE DRIVING SUPERINTENDENT IMG XR PROCEDURES Final Result documented in this encounter Visit Diagnoses Diagnosis Pain in finger of left hand Pain in soft tissues of limb documented in this encounter Care Teams Sample Maker Relationship Specialty Start Date End Date Kristopher Pierre DO PCP - General Internal Medicine 03/26/22 documented as of this encounter
--- OUTSIDE RECORDS SUMMARY | 2024-05-12 20:14 | XMS_ITS | Encounter Summary ---
Author Organization [facility] Address [address] [place] [address] Care Team Providers Care Boatswain Mate Name Role Phone Kyle Robles MD Primary Care Provider [phone] Reason for Referral * Diagnostic Imaging (Routine) - Closed Specialty Diagnoses / Procedures Referred By Trisha corley Referred To Contact Diagnoses History of right breast cancer Encounter for screening mammogram for malignant neoplasm of breast Procedures Screening Mammogram Bilateral W Kirsty Chung NP Phone: tel: fax: [address] [phone] Referral ID Status Reason Start Date Expiration Date Visits Re quested Visits Authorized [id number] Closed 11/14/2021 12/14/2022 1 1 Reason for Visit * Diagnostic Imaging (Routine) - Closed Specialty Diagnoses / Procedures Referred By Trisha corley Referred To Contact Diagnoses History of right breast cancer Encounter for screening mammogram for malignant neoplasm of breast Procedures Screening Mammogram Bilateral W Kirsty Chung NP Phone: tel: fax: [address] [phone] Referral ID Status Reason Start Date Expiration Date Visits Re quested Visits Authorized [id number] Closed 11/14/2021 12/14/2022 1 1 Encounter Details Date Type Department Care Team (Latest Contact Info) Description 12/22/2021 11:34 AM CDT - 12/22/2021 11:59 PM CDT Hospital Encounter [facility] Breast Imaging [facility] [address] [place] [address] History of right breast cancer; Encounter for screening mammogram for malignant neoplasm of breast Discharge Disposition: Discharge to home or self [...] on file 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 Gender Identity Female 01/22/2024 8:47 PM CDT Sexual Orientation Straight 01/22/2024 8: 47 PM CDT documented as of this encounter Medications at Time of Discharge atorvastatin (LIPITOR) 10 mg tablet Take 1 tablet (10 mg total) by mouth daily 1 06/25/2018 calcium carbonate/vitami n D3 (CALTRATE 600 PLUS D ORAL) Take 1,000 mg by mouth daily cetirizine (ZyrTEC) 10 mg tablet Take 1 tablet (10 mg total) by mouth daily DULoxetine DR (CYMBALTA) 60 mg capsule Take 1 capsule (60 mg total) by mouth daily 06/06/2018 hydroCHLOROthiaz richard (HYDRODIURIL) 25 mg tablet Take 1 tablet (25 mg total) by mouth daily metFORMIN (FORTAMET) 1,000 mg 24 hr tablet Take 1 tablet (1,000 mg total) by mouth daily with breakfast 07/19/2018 omeprazole (PriLOSEC) 40 mg capsule Take 1 capsule (40 mg total) by mouth daily 07/27/2018 SYNTHROID 50 mcg tablet Take 1 tablet (50 mcg total) by mouth adjunct professor of 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 before breakfast 06/06/2018 traMADoL (ULTRAM) 50 mg tablet TK 1 T PO Q 6 H FOR 15 DAYS PRF PAIN 04/12/2020 vit B complex 100 combo no.2 100 mg tablet extended release Take 1 tablet by mouth daily FLUoxetine (FLUoxetine) 10 mg tablet/capsule 2 irbesartan (AVAPRO) 300 mg tablet 12/19/2021 2 lisinopriL (PRINIVIL,ZESTRI L) 20 mg tablet Take 20 mg by mouth daily 2 losartan (COZAAR) 100 mg tablet Take 100 mg by mouth daily 06/11/2019 2 losartan-hydroch lorothiazide (HYZAAR) 100-25 mg per tablet 06/23/2018 2 montelukast (SINGULAIR) 10 mg tablet Take 10 mg by mouth nightly 2 pediatric multivitamin-iro n tablet,chewable daily . 2 Trulicity 3 mg/0.5 mL pen injector [...] Chronic Care Management No change(04/27 10:31 AM MEAL TEMPERER) No Amna Dao, RN Note: Problem: Chronic [...] JAMES Schedule Routine, Read Routine (OP Routine) 12/22/2021 12:13 PM CDT History of right breast cancer Encounter for screening mammogram for malignant neoplasm of breast documented in this encounter Results * Screening [...] compared to prior imaging studies performed at [facility] on 07/30/2018, 08/05/2019 and 10/17/2020. There are [...] compared to prior imaging studies performed at [facility] on 07/30/2018, 08/05/2019 and 10/17/2020. There are scattered areas of fibroglandular density. There are post breast conservation therapy changes in the right breast. There is no suspicious abnormality in the left breast. Impression: Post breast conservation therapy changes in the right breast are benign. Annual screening mammography is recommended. OVERALL FINAL ASSESSMENT: BI-RADS CATEGORY 2: Benign. Kirsty Bal PREPARATORY TECHNICIAN IMG MAMMO PROCEDURES Fin al Result documented in this encounter Visit Diagnoses Diagnosis History of right breast cancer Encounter for screening mammogram for malignant neoplasm of breast documented in this encounter Care Teams Boatswain Mate Relationship Specialty Start Date End Date Kyle Robles MD [address] [place] [address] PCP - General Family Medicine 07/30/18 03/25/22 documented as of this encounter
--- OUTSIDE RECORDS SUMMARY | 2024-05-12 20:14 | XMS_ITS | Encounter Summary ---
Author Organization [facility] Address [address] [place] [address] Care Team Providers Care Wood Heel Attacher Name Role Phone Kristopher Pierre DO Primary Care Provider [phone] Reason for Referral * Sleep Medicine (Routine) - Closed Specialty Diagnoses / Procedures Referred By Trisha t Referred To Contact Diagnoses Obstructive sleep apnea (adult) (pediatric) Procedures PSG Moreno Ramírez [place] [id number] [place] [address] Phone: tel: fax: [address] [phone] Referral ID Status Reason Start Date Expiration Date Visits Re quested Visits Authorized [id number] Closed 01/23/2024 02/21/2025 1 1 Reason for Visit * Sleep Medicine (Routine) - Closed Specialty Diagnoses / Procedures Referred By Contac t Referred To Contact Diagnoses Obstructive sleep apnea (adult) (pediatric) Procedures PSG Moreno Ramírez MD [id number] [place], [place] [id number] Phone: tel: fax: [address] [phone] Referral ID Status Reason Start Date Expiration Date Visits Re quested Visits Authorized [id number] Closed 01/23/2024 02/21/2025 1 1 Encounter Details Date Type Department Care Team (Latest Contact Info) Description 02/18/2024 9:30 PM CDT - 02/18/2024 11:59 PM CDT Hospital Encounter [facility] [address] [place] [phone] Obstructive sleep apnea (adult) (pediatric) Discharge Disposition: Discharge to home or self care Social History Tobacco Use Types Packs/Day Years Used Date Smoking Tobacco: Former Cigarettes 0.3 8 1 092 - 2429 Smokeless Tobacco: Never Alcohol Use Standard Drinks/Week [...] on file 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 Gender Identity Female 01/22/2024 8:47 PM CDT [...] 1 tablet (50 mcg total) by mouth car repossessor before breakfast 06/06/2018 traMADoL (ULTRAM) 50 mg tablet TK 1 T PO Q 6 H FOR 15 DAYS PRF PAIN 04/12/2020 vit B complex 100 combo no.2 100 mg tablet extended release Take 1 tablet by mouth daily documented as of this encounter Discharge Disposition Disposition Code Departure Means Destination Discharge to home or self care documented in this encounter Procedure Notes * Moreno Ramírez MD - 02/18/2024 12:00 AM CDTAssociated Order(s): PSG Overnight cardiac cath technician attended polysomnography was carried out utilizing digital monitoring with thestandard physiologic parameters recorded including EEG, EOG, EMG, EKG, oronasal airflow (PTAF and Thermistor). Respiratory parameters of chest and abdominal movements were recorded with RIPFLOW BELTS. Oxygen saturation, snoring, body position, limb movement (both leg and arms) were also recorded. Patient was monitored through video for the duration of the night. All data was visually scored and analyzed by standard criteria. Every epoch was evaluated by this interpreting physician. Respiratory events were scored according the AASM scoring manual version 3. Demographics: age: 69, gender: Female, height: 63?? , weight: 242 lbs, neck size: 16.5?? , BMI: 42.9 Hx: Pt is a 69 yo female with PMH of severe ARA, asthma, Class 3 obesity, and breast cancer(s/p chemoradiation and lumpectomy) who was referred for a in lab split night sleep study for evaluation andtreatment of possible sleep apnea. PSG lab findings: Total recording time: [...] monitoring patients symptoms for restfulness. If patient still has complaints of having unrestful sleep then patient may have PLMD and will possibly require medical treatment If patient is CPAP intolerant then patient may need to undergo a full night sleep study to evaluatecentral and mixed apneic events further to see if patient has a higher severity of sleep apnea and to see if they are a candidate for hypoglossal nerve stimulator. Avoid alcohol, sedatives and other ROAD GRADER depressants that may worsen sleep apnea and disrupt normal sleep architecture. Sleep hygiene should be reviewed to assess factors that may improve sleep quality. Safe driving precautions must be discussed with the patient. Weight management and regular exercise should be initiated or continued. Job ID/Internal Job ID: [id number] documented in this encounter Plan of Treatment Not on file documented as of this encounter Goals Goal Patient Goal Type Associated Problems Recent Progress Patient-Stated? Author CCM Chronic Pain Care Plan Chronic Care Management No change(04/27 10:31 AM MECHANICAL EQUIPMENT SALES ENGINEER) No Amna Dao RN Note: Problem: Chronic [...] AM CDT Obstructive sleep apnea (adult) (pediatric) documented in this encounter Results * PSG (02/18/2024 12:00 AM CDT) Narrative Procedure Note Moreno Ramírez MD - 02/18/2024 12:00 AM CDT Overnight cardiac cath technician attended polysomnography was carried out utilizingdigital [...] nerve stimulator. Avoid alcohol, sedatives and other ROAD GRADER depressants that may worsen sleepapnea and disrupt normal sleep architecture. Sleep hygiene should be reviewed to assess factors that may improve sleepquality. Safe driving precautions must be discussed with the patient. Weight management and regular exercise should be initiated or continued. Job ID/Internal Job ID: [id number] Moreno Ramírez MD [facility] ORDERABLES Final Result documented in this encounter Visit Diagnoses Diagnosis Obstructive sleep apnea (adult) (pediatric) documented in this encounter Care Teams Wood Heel Attacher Relationship Specialty Start Date End Date Kristopher Pierre DO PCP - General Internal Medicine 03/26/22 documented as of this encounter
--- OUTSIDE RECORDS SUMMARY | 2024-05-12 20:14 | XMS_ITS | Encounter Summary ---
Author Organization [facility] Address [address] [id number] Care Team Providers Care Orthopaedic Technologist Name Role Phone Kristopher Pierre DO Primary Care Provider [phone]- [phone] Reason for Referral * Procedure (Routine) - Closed Specialty Diagnoses / Procedures Referred By Contac t Referred To Contact Diagnoses Pain in finger of left hand Procedures Splint Application Isaura Calderón NP [address] [facility] [address] [place] [address] Phone: tel: fax: [facility] Referral ID Status Reason Start Date Expiration Date Visits Re quested Visits Authorized [id number] Closed 02/19/2023 03/20/2024 1 1 * Diagnostic Imaging (Routine) - Closed Specialty Diagnoses / Procedures Referred By Contac t Referred To Contact Diagnoses Pain in finger of left hand Procedures XR Finger 4Th Ring Left Isaura Calderón NP [address] [facility] [address] [place] [address] Phone: tel: fax: [facility] Referral ID Status Reason Start Date Expiration Date Visits Re quested Visits Authorized [id number] Closed 02/19/2023 03/20/2024 1 1 Reason for Visit * Reason Comments Hand Pain Pt c/o smashed ring finger on left hand. Bruising, swelling, throbbing pain (located on finger).Pt states last night they were lifting weights and the bar (15lbs) landed on finger. Pt has self medicated with allve for pain. And has used some ice for swelling. Encounter Details Date Type Department Care Team (Late st Contact Info) Description 02/19/2023 4:00 PM CDT Office Visit [facility] [address] [address] Isaura Calderón NP [address] 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 I strive to provide you with EXCELLENT service. You may receive a survey after your visit today. If you cannot rate your experience as EXCELLENT, please let us know how we can improve and better meet your needs. Thank you for choosing [facility]! It was my pleasure to see you today, I hope you feel better soon! Isaura Calderón FAMILY PRACTITIONER * Attachments The following attachments cannot be sent through Care Everywhere. * Finger Sprain (AfterCare(R) Instructions(ER/ED)) (Belizean) documented in this encounter Progress Notes * Isaura Calderón NP - 02/19/2023 4:00 PM CDTAssociated Order(s): Splint Application Post-Procedure Diagnose(s): Pain in finger of left hand Images from the original note were not included. Subjective/Objective Patient ID: Gasper Pierce is a 68 y.o. female. Chief Complaint Hand Pain (Pt c/o smashed ring finger on left hand. Bruising, swelling, throbbing pain (located on finger)./Pt states last night they were lifting weights and the bar (15lbs) landed on finger. /Pt has self medicated with allve for pain. And has used some ice for swelling.) Pt presents to [facility] The incident occurred 12 to 24 hours ago. The incident occurred at the gym. The injury mechanism was a direct blow (dropped 15 lbs weight on finger last night). The pain is present in the left fingers. The quality of the pain is described as aching. The pain does not radiate. The pain is moderate. The pain has been Fluctuating since the incident. Pertinent negatives include no chest pain, muscle weakness, numbness or tingling. The symptoms are aggravated by movement and palpation. She has triedNSAIDs for the symptoms. The treatment provided moderate relief. Review of Systems Constitutional: Negative for chills, diaphoresis, fatigue and fever. Respiratory: Negative. Negative for cough and shortness of breath. Cardiovascular: Negative. Negative for chest pain. Gastrointestinal: Negative for vomiting. Musculoskeletal: Left ring finger Skin: Positive for color change. Negative for pallor, rash and wound. Neurological: Negative for dizziness, tingling, numbness and headaches. Psychiatric/Behavioral: Negative for self-injury. Physical Exam Vitals and nursing note reviewed. Constitutional: General: She is not in acute distress. Appearance: Normal appearance. She is not ill-appearing. Cardiovascular: Rate and Rhythm: Normal rate. Pulses: Normal pulses. Pulmonary: Effort: Pulmonary effort is normal. Musculoskeletal: Left hand: Swelling (4th (ring) finger), tenderness and bony tenderness (DIP joint to distal 4th finger) present. No deformity or lacerations. Normal range of motion (pain with ROM). Normal sensation. Normal pulse. Skin: General: Skin is warm and dry. Capillary Refill: Capillary refill takes less than 2 seconds. Neurological: Mental Status: She is alert and oriented to person, place, and time. Splint Application Date/Time: 02/19/2023 4:42 PM Performed by: Isaura Calderón NP Authorized by: Isaura Calderón NP Consent given by: patient Site marked: site marked Injury Location details: left ring finger Dislocation type: distal interphalangeal finger dislocation Fracture type: distal phalanx fracture Pre-procedure assessment Distal perfusion: normal Distal sensation: normal Range of motion: normal Procedure Manipulation performed? no manipulation performed Immobilization: splint Supplies used: aluminum splint Post-procedure assessment Distal perfusion: normal Distal sensation: normal Range of motion: unchanged Patient tolerance: patient tolerated the procedure well with no immediate complications Vitals: 02/19/23 1607 BP: 110/68 BP Location: Left arm Patient Position: Sitting Pulse: 91 Resp: 16 Temp: 37 ??C (98.6 ??F) TempSrc: Oral SpO2: 97% Weight: 103 kg (227 lb) Height: 162.6 cm (5' 4 ) No results found. Past Medical History: Diagnosis Date Asthma Cancer (CMS/HCC) (HCC) Depression Hypertension Hyperthyroidism Infectious viral hepatitis Low back pain Type 2 diabetes mellitus (HCC) Current Outpatient Medications: Accu-Chek Fastclix Lancet Drum [facility] [place], USE STRIP TO CHECK GLUCOSE THREE TIMES DAILY, Disp: , Rfl: Accu-Chek Guide test strips strip, USE NEW STRIP ONCE DAILY TO CHECK BLOOD SUGAR, Disp: , Rfl: albuterol HFA (PROVENTIL HFA,VENTOLIN HFA,PROAIR HFA) 90 mcg/actuation inhaler, 2 puffs every 4 (four) hours as needed, Disp: , Rfl: atorvastatin (LIPITOR) 10 mg tablet, Take 1 tablet (10 mg total) by mouth daily, Disp: , Rfl: 1 calcium carbonate/vitamin D3 (CALTRATE 600 PLUS D ORAL), Take 1,000 mg by mouth daily, Disp: , Rfl: cetirizine (ZyrTEC) 10 mg tablet, Take 1 tablet (10 mg total) by mouth daily, Disp: , Rfl: DULoxetine DR (CYMBALTA) 60 mg capsule, Take 1 capsule (60 mg total) by mouth daily, Disp: , Rfl: FLUoxetine (PROzac) 10 mg tablet/capsule, Take 1 tablet/capsule (10 mg total) by mouth daily, Disp:, Rfl: hydroCHLOROthiazide (HYDRODIURIL) 25 mg tablet, Take 1 tablet (25 mg total) by mouth daily, Disp: ,Rfl: irbesartan (AVAPRO) 300 mg tablet, irbesartan 300 mg tablet TAKE 1 TABLET BY MOUTH DAILY, Disp: , Rfl: metFORMIN (FORTAMET) 1,000 mg 24 hr tablet, Take 1 tablet (1,000 mg total) by mouth daily with breakfast, Disp: , Rfl: Mounjaro 12.5 mg/0.5 mL pen injector, INJECT SUBCUTANEOUSLY 12.5 MG WEEKLY, Disp: , Rfl: multivitamin capsule, Take 1 capsule by mouth daily, Disp: , Rfl: omeprazole (PriLOSEC) 40 mg capsule, Take 1 capsule (40 mg total) by mouth daily, Disp: , Rfl: SYNTHROID 50 mcg tablet, Take 1 tablet (50 mcg total) by mouth tour consultant before breakfast, Disp: , Rfl: traMADoL (ULTRAM) 50 mg tablet, TK 1 T PO Q 6 H FOR 15 DAYS PRF PAIN, Disp: , Rfl: vit B complex 100 combo no.2 100 mg tablet extended release, Take 1 tablet by mouth daily, Disp: , Rfl: benzonatate (TESSALON) 200 mg capsule, , Disp: , Rfl: Invokana 300 mg tablet, , Disp: , Rfl: No Known Allergies Social History Tobacco Use Smoking status: Former Packs/day: .25 Types: Cigarettes Start date: 1971 Quit date: 1979 Years since quittin.7 Smokeless tobacco: Never Substance and Sexual Activity Drug use: Never Sexual activity: Defer Alcohol Use: Not At Risk (05/01/2022) AUDIT-C Frequency of Alcohol Consumption: 2-3 times a week Average Number of Drinks: 1 or 2 Frequency of Binge Drinking: Never Past Surgical History: Procedure Laterality Date BREAST LUMPECTOMY Right Breast Lumpectomy - (Added by TW Conv) SECTION 1980, 1985, 1988 CHOLECYSTECTOMY 2009 HYSTERECTOMY 1989 AR TOTAL ABDOMINAL HYSTERECT W/WO RMVL TUBE OVARY Hysterectomy - (Added by TW Conv) REPLACEMENT TOTAL KNEE 2011 Assessment/Plan Diagnoses and all orders for this visit: Pain in finger of left hand (Primary) - XR Finger 4Th Ring Left; Future - Splint Application - Ambulatory referral to Orthopedic Hand; Future IMPRESSION: Nondisplaced 4th apical tuft fracture. Patient Education: -you may take Tylenol or ibuprofen as needed for pain per package directions -RICE -splint until follow up with orthopedics Disposition Treatment plan including expectations, follow up, and return precautions discussed with patient/parent, verbalizes understanding. Medication dosage, use, and potential adverse reactions discussed with patient/parent. Advised to follow up with PCP if symptoms do not resolve as expected or sooner if condition worsens. Signs/symptoms warranting ER evaluation reviewed. Patient and/or guardian was given an opportunity to ask questions, questions answered. Isaura Calderón NP This office note has been partially dictated using Jumbas software, and as a result portions of the record may have been created with this software. Occasional wrong-word or '[id number]' substitutions may have occurred due to the inherent limitations of voice recognition software. Read the chartcarefully and recognize, using context, where substitutions have occurred. Cosigned by Kristopher Marmolejo MD at 02/19/2023 9:43 PM CDT documented in this encounter Miscellaneous Notes * Addendum Note - Isaura Calderón NP - 02/19/2023 4:00 PM CDTAddended by: ISAURA CALDERÓN on: 02/19/2023 06:56 PM Modules accepted: Orders documented in this encounter Plan of Treatment Not on file documented as of this encounter Goals Goal Patient Goal Type Associated Problems Recent Progress Patient-Stated? Author CCM Chronic Pain Care Plan Chronic Care Management No change(04/27 10:31 AM CABLE OPERATOR) No Amna Dao RN Note: Problem: Chronic Pain Goals: 1. Minimize further functional decline 2. Maximize quality of life 3. Control pain Strategies: - Activity/exercise program recommendation - Conservative stepwise pain medicine strategy with multi-disciplinary approach - Recommend healthy lifestyle strategies and compensatory methods as needed documented as of this encounter Procedures Procedure Name Priority Date/Time Associated Diagnosis Comments AR CLTX DSTL PHLNGL FX FNGR/THMB W/O MANJ EA Routine 02/19/2023 4:42 PM CDT Pain in finger of left hand AR APPLICATION FINGER SPLINT STATIC Routine 02/19/2023 4:42 PM CDT Pain in finger of left hand documented in this encounter Results * AR APPLICATION FINGER SPLINT STATIC, AR CLTX DSTL PHLNGL FX FNGR/THMB W/O MANJ EA (02/19/2023 4:42 PM CDT) Narrative Kristopher Marmolejo MD - 02/19/2023 4:42 PM CDT Isaura Calderón NP ? 02/19/2023 ??4:55 PM Splint Application Date/Time: 02/19/2023 4:42 PM Performed by: Isaura Calderón NP Authorized by: Isaura Calderón NP Consent given by: patient Site marked: site marked Injury Location details: left ring finger Dislocation type: distal interphalangeal finger dislocation ?? Fracture type: distal phalanx fracture ?? Pre-procedure assessment Distal perfusion: normal ?? Distal sensation: normal ?? Range of motion: normal ?? Procedure Manipulation performed? no manipulation performed Immobilization: splint Supplies used: aluminum splint Post-procedure assessment Distal perfusion: normal Distal sensation: normal Range of motion: unchanged Patient tolerance: patient tolerated the procedure well with no immediate complications us Isaura Calderón NP IN CLINIC/BEDSIDE ORDERABLES Fi nal Result * XR Finger 4Th Ring Left (02/19/2023 [...] - Electronically signed by ??Sandoval Simpson D.O. AP D: ??02/19/2023 6:35 PM T: Report ID: [id number] Reading Location: ??[id number] Procedure Note Sandoval Simpson, DO - 02/19/2023 EXAM DESCRIPTION: XR FINGER [...] 6:35 PM - Electronically signed by Sandoval PARIS T: Report ID: [id number] Reading Location: [place] [address] Isaura Calderón FLASH WELDING MACHINE OPERATOR IMG XR PROCEDURES Final Result documented in this encounter Visit Diagnoses Diagnosis Pain in finger of left hand- Primary Pain in soft tissues of limb Pain in finger of left hand Pain in soft tissues of limb documented in this encounter Historical Medications * This list may reflect changes made after this encounter. Mounjaro 12.5 mg/0.5 mL pen injector INJECT SUBCUTANEOUSLY 12.5 MG WEEKLY 01/22/2023 Accu-Chek Fastclix Lancet Drum misc USE STRIP TO CHECK GLUCOSE THREE TIMES DAILY 02/11/2023 Accu-Chek Guide test strips strip USE NEW STRIP ONCE DAILY TO CHECK BLOOD SUGAR 01/04/2023 added in this encounter Care Teams Orthopaedic Technologist Relationship Specialty Start Date End Date Kristopehr Pierre DO PCP - General Internal Medicine 03/26/22 documented as of this encounter
--- OUTSIDE RECORDS SUMMARY | 2024-05-12 20:14 | XMS_ITS | Referral Summary ---
Author Organization [facility] Address [address] [place] [id number] Care Team Providers Care Legal Consultant Name Role Phone Kristopher Pierre DO Primary Care Provider [phone]- [phone] Encounters Date Type Department Care Team Description 02/18/2024 9:30 PM CDT - 02/18/2024 11:59 PM CDT Hospital Encounter [facility] [address] [place] [id number] Obstructive sleep apnea (adult) (pediatric) Discharge Disposition: Discharge to home or self care from Last 3 Months Allergies No known active allergies Medications atorvastatin (LIPITOR) 10 mg tablet Take 1 tablet (10 mg total) by mouth daily [address] (CYMBALTA) 60 mg capsule Take 1 capsule (60 mg total) by mouth daily 9 Active SYNTHROID 50 mcg tablet Take 1 tablet (50 mcg total) 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 X-rays were completed but results were not received prior to appointment today. We have called [facility] to have records faxed over. We discussed [...] 05/01/2022 Assessment & Plan (05/01/2022 8:56 AM SPLIT LEATHER MOSSER): Advised stretching exercises and range of motion of bilateral hands. Elevated sed rate 05/01/2022 Assessment & Plan (05/01/2022 8:56 AM SPLIT LEATHER MOSSER): Suspect related to inflammatory arthritis as above. We will trend this with disease/treatment over time. 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 Fatigue 04/13/2019 Weight gain 04/13/2019 History of right breast cancer 07/30/2018 Immunizations Name Administration Dates Next Due Influenza, Quadrivalent, Hig h Dose, Preservative Free, Intrr 04/11/2022,03/10/2021 Influenza, Quadrivalent, Rec ombinant, Egg Free, Preservative Free, Intramuscular 03/14/2020,03/05/2019 Influenza, Quadrivalent, Spl it, Pediatric, Preservative Free, Intramuscular 03/12/2018 Influenza, Trivalent, Preservative Free, Intramu scular 03/15/2016,05/02/2015 Pneumococcal Polysaccharide PPV23 07/31/2019 Tdap 10/20/2018 ZOSTER Recombinant 02/27/2022 Social History Tobacco Use Types Packs/Day Years [...] on file Legal Sex Female 1:06 AM SPLIT LEATHER MOSSER Gender Identity Female 01/22/2024 8:47 PM CDT Sexual Orientation Straight 01/22/2024 8: 47 PM CDT Last Filed Vital Signs Vital Sign Reading [...] 02/19/2023 4:07 PM CDT Plan of Treatment Not on file Goals Goal Patient Goal Type Associated Problems Recent Progress Patient-Stated? Author CCM Chronic Pain Care Plan Chronic Care Management No change(04/27 10:31 AM SPLIT LEATHER MOSSER) No Amna Dao RN Note: Problem: Chronic [...] Read Routine (OP Routine) 07/29/2023 2:06 PM SPLIT LEATHER MOSSER Screening mammogram for breast cancer from Last 3 Months or Most Recently Relevant to Health Maintenance Results * PSG (02/18/2024 12:00 AM CDT) Narrative Procedure Note Moreno Ramírez MD - 02/18/2024 12:00 AM CDT Overnight broadcast technician attended polysomnography was carried out utilizingdigital [...] nerve stimulator. Avoid alcohol, sedatives and other CLINICAL ACCOUNT SPECIALIST depressants that may worsen sleepapnea and disrupt normal sleep architecture. Sleep hygiene should be reviewed to assess factors that may improve sleepquality. Safe driving precautions must be discussed with the patient. Weight management and regular exercise should be initiated or continued. Job ID/Internal Job ID: [id number] us Moreno Ramírez MD [facility] ORDERABLES Final Result * Screening Mammogram Bilateral W James (07/29/2023 2:06 PM SPLIT LEATHER MOSSER) Anatomical Region Laterality Modality Breast Bilateral Mammography Narrative 07/31/2023 1:11 PM SPLIT LEATHER MOSSER Mammogram Technique: Bilateral Digital Breast Tomosynthesis, Bilateral C-view 2D Screening mammogram. ??Views obtained: ??bilateral craniocaudal and bilateral mediolateral oblique. ??Computer Aided Detection was performed. Mammogram Findings: The present examination has been compared to prior imaging studies performed at [facility] on 08/05/2019, 10/17/2020 and 12/22/2021. There are [...] compared to prior imaging studies performed at [facility] on 08/05/2019, 10/17/2020 and 12/22/2021. There are [...] COMMERCIAL GENERIC MEDICARE COMMERCIAL GENERIC Care Teams Legal Consultant Relationship Specialty Start Date End Date Kristopher Pierre DO PCP - General Internal Medicine 03/26/22
--- OUTSIDE RECORDS SUMMARY | 2024-05-12 20:14 | XMS_ITS | Encounter Summary ---
Author Organization [facility] Address [address] [facility] [place] [address] Care Team Providers Care Tool Pusher Name Role Phone Kristopher Pierre DO Primary Care Provider +1- [phone] Encounter Details Date Type Department Care Team (Late st Contact Info) Description 03/28/2022 Orders Only [facility] Health Information Management [address] [place] [address] Ana Gorman DO [address] [place] [address] Social History Tobacco Use Types Packs/Day Years [...] on file Legal Sex Female 1:06 AM PHARMACY ANALYST Gender Identity Female 01/22/2024 8:47 PM CDT Sexual Orientation Straight 01/22/2024 8: 47 PM CDT documented as of this encounter Plan of Treatment Not on file documented as of this encounter Goals Goal Patient Goal Type Associated Problems Recent Progress Patient-Stated? Author CCM Chronic Pain Care Plan Chronic Care Management No change(04/27 10:31 AM PHARMACY ANALYST) No Amna Dao RN Note: Problem: Chronic Pain Goals: 1. Minimize further functional decline 2. Maximize quality of life 3. Control pain Strategies: - Activity/exercise program recommendation - Conservative stepwise pain medicine strategy with multi-disciplinary approach - Recommend healthy lifestyle strategies and compensatory methods as needed documented as of this encounter Procedures Procedure Name Priority Date/Time Associated Diagnosis Comments SCAN - RADIOLOGY/IMAGING 03/28/2022 documented in this encounter Results * SCAN - RADIOLOGY/IMAGING (03/28/2022) Anatomical Region Laterality Modality Other Ana Gorman DO Final Resul t documented in this encounter Visit Diagnoses Not on filedocumented in this encounter Care Teams Tool Pusher Relationship Specialty Start Date End Date Kristopher Pierre DO PCP - General Internal Medicine 03/26/22 documented as of this encounter
--- OUTSIDE RECORDS SUMMARY | 2024-05-12 20:14 | XMS_ITS | Encounter Summary ---
Author Organization [facility] Address [address] [place] [address] Phone Care Team Providers Care Peoplesoft Taleo Manager Name Role Phone Kyle Robles MD Primary Care Provider Encounter Details Date Type Department Care Team (Late st Contact Info) Description 10/17/2020 Orders Only [facility] [address] [facility] Advanced Medicine 5th [place] [address] [place] [address] Ila Can, [facility] [address] [address] History of right breast cancer (Primary Dx); [...] on file Legal Sex Female 1:06 AM RN X RAY Gender Identity Female 01/22/2024 8:47 PM CDT Sexual Orientation Straight 01/22/2024 8: 47 PM CDT documented as of this encounter Plan of Treatment Not on file documented as of this encounter Goals Goal Patient Goal Type Associated Problems Recent Progress Patient-Stated? Author CCM Chronic Pain Care Plan Chronic Care Management No change(04/27 10:31 AM RN X RAY) No Amna Dao, RN Note: Problem: Chronic [...] breast documented in this encounter Care Teams Peoplesoft Taleo Manager Relationship Specialty Start Date End Date Kyle Robles MD [address] [place] [address] PCP - General Family Medicine 07/30/18 03/25/22 documented as of this encounter
--- OUTSIDE RECORDS SUMMARY | 2024-05-12 20:14 | XMS_ITS | Encounter Summary ---
Author Organization [facility] Healthcare Address [address] [place] [address] Care Team Providers Care Sports Leadership Instructor Name Role Phone Kyle Robles MD Primary Care Provider [phone] Reason for Visit * Reason Comments Back Pain Encounter Details Date Type Department Care Team (Late st Contact Info) Description 04/27/2020 6:57 AM SLIDE MAKER - 04/27/2020 7:37 AM SLIDE MAKER Hospital Encounter [facility] [address] [place] [address] Luda Arevalo MD PhD [address] [facility] [address] [place], [place] [id number] Lumbar radiculopathy - Right (Primary Dx); Sciatica of right side Discharge Disposition: Discharge to home or self [...] on file Legal Sex Female 1:06 AM SLIDE MAKER Gender Identity Female 01/22/2024 8:47 PM CDT Sexual Orientation Straight 01/22/2024 8: 47 PM CDT documented as of this encounter Last Filed Vital Signs Vital Sign Reading Time Taken Comments Blood Pressure 155/88 04/27/2020 12:22 PM SLIDE MAKER Pulse 103 04/27/2020 12:22 PM SLIDE MAKER Temperature 36 ??C (96.8 ??F) 04/27/2020 10:38 AM SLIDE MAKER Respiratory Rate 16 04/27/2020 12:22 PM SLIDE MAKER Oxygen Saturation 86% 04/27/2020 11:57 AM SLIDE MAKER Inhaled Oxygen Concentration - - Weight 113.4 kg (250 lb) 04/27/2020 10:38 AM SLIDE MAKER Height 162.6 cm (5' 4 ) 04/27/2020 10:38 AM SLIDE MAKER Body Mass Index 42.91 04/27/2020 10:38 AM SLIDE MAKER documented in this encounter Discharge Instructions * Discharge Instructions* Amna Dao RN - 04/27/2020 11:28 AM SLIDE MAKER [facility] PATIENT EDUCATION POST-PROCEDURE INFORMATION [...] 4:00 p.m., you should call the hospital clicker operator at and ask to speak with the Pain Service doctor personal lines insurance agent. [facility] ([facility]) DISCHARGE INSTRUCTIONS MEDICATIONS: [x] Continue your current home medications Start: [x] Notify your pharmacy for refill(s) 7 days before you are out of your medication. [] Opioid (Narcotic) Agreement signed and patient received copy. [] Side Effects of Opioid Medications given to patient Resume blood thinner: On Discontinue: PROCEDURE at today's visit: Lumbar select nerve root injection DIET: [x] Resume normal diet [] See [facility] Post Discharge Procedure Information Sheet ACTIVITY: [] Resume normal activity [x] See [facility] Post Discharge Procedure Information Sheet REFERRALS: Physical Therapy [] [facility] ([phone]) [] [facility] ([employer]) [] [facility] ([phone]) [] [facility] ([employer]) [] Other: Behavior Medicine [] Pain Psychologist, [facility] Please call to schedule appointment [phone] or [phone] Diagnostic Test(s): EDUCATION provided on the following: [] Spinal Cord Stimulator Education and DVD. Vendor: FOLLOW UP APPOINTMENTS: [] Return as needed [x] Follow up appointment: 3 months We will contact you the next business day to obtain: [] An update on your condition [] Your Pain diary scores [x] Procedure at your next visit : right L4-L5 & L5 -S1 LSNR INSTRUCTIONS before your next procedure: [] See [facility] Pre-Procedure Information Sheet [] Do not eat or drink for six (6) hours before the time/date of the procedure. [] Inquire with your prescribing provider if ok to hold blood thinner for ( ) days before procedure. 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 *Need help with Wikidata? Call [phone]. Patient provided information and repeated back with understanding. If you need to reach us: For any questions about your procedure, please call the Pain Management Center [phone] (M-F) (8am-4pm) If you need urgent attention after 5 pm and weekends: Call the [facility] Short Order Cook at [phone] and ask for the Pain Service doctor personal lines insurance agent. E MAKER documented in this encounter Medications at Time [...] 1 tablet (50 mcg total) by mouth honest john rocket crew member before breakfast 06/06/2018 traMADoL (ULTRAM) 50 mg [...] a day 90 capsule 3 03/07/2020 2 losartan (COZAAR) 100 mg tablet Take [...] documented in this encounter Progress Notes * Rosemarie Almonte, DO - 04/27/2020 10:15 AM CST Patient Name: Gasper Pierce : 1955 Today's Date: 04/27/2020 PCP: Kyle Robles MD Referring: No ref. provider found HPI Ms. Gasper Pierce was referred by Leonila Wagner NP for consultation regarding treatment recommendations for management of low back pain. ?? Ms. Gasper Pierce is a 65 y.o. [...] any muscle relaxers. She was referred to [facility] for evaluation and treatment. ?? Currently, the pain is constant and described [...] incontinence. HerADLs are difficult, but manageable without assistance INTERVAL HISTORY (04/27/2020): Ms. Gasper Pierce returns to care for her lower back pain. Last visit (03/24): L4-5 LESI - Procedures: L4-5 LESI - Medications: Baclofen 10mg TID, Naproxen PRN - Imaging: none - Referrals: none Since the last visit, the pain is unchanged. She is taking Baclofen 10mg QHS instead of TID (sedation). The pain is constant and described as intermittent, sharp and shooting down posterior thigh to right dorsum of foot. She rates her pain at 6/10 at present, 5/10 on average, ranging from 6-8/10. The pain increases with lying flat and ambulation and decreases with sitting. She reports no new numbness, weakness, bowel/bladder incontinence. Her ADLs are difficult, but manageable without assistance. Pain Assessment Pain Score: 1 Pain Location: Back (Lumbar) Pain Radiating Towards: right thigh, calf, toes Pain Descriptors: Aching, Burning, Numbness Pain Frequency: With movement/cough Pain Onset: Ongoing Current Pain Medications: Pain Medications baclofen (LIORESAL) 10 mg tablet Take 1 tablet (10 mg total) by mouth 3 (three) times a day DULoxetine DR (CYMBALTA) 60 mg capsule Take 60 mg by mouth daily FLUoxetine (FLUoxetine) 10 mg tablet/capsule traMADoL (ULTRAM) 50 mg tablet TK 1 T PO Q 6 H FOR 15 DAYS PRF PAIN gabapentin (NEURONTIN) 300 mg capsule Take 1 capsule (300 mg total) by mouth 3 (three) times a day Pain Medication History: Gabapentinoids Y Comments Anticonvulsants Y Comments Opioids Y Comments Gabapentin (Neurontin) [] Carbamazepine (Tegretol) [] Tramadol (Ultram) [] Pregabalin (Lyrica) [] Oxcarbazepine (Trileptal) [] Tapentadol (Nucynta) [] TCA: Topiramate (Topamax) [] Buprenorphine (Belbuca, Butrans) [] Nortriptyline (Pamelor) [] Lamotrigine (Lamictal) [] Oxycodone/APAP (Percocet) [] Amitriptyline (Elavil) [] Levetiracetam (Keppra) [] Hydrocodone/APAP ([place]) [] Desipramine (Norpramin) [] Valproate (Depakote) [] Codeine/APAP (Tylenol#3/4) [] Imipramine (Tofranil) [] Mexiletine (Mexitil) [] Methadone [] SNRI: Muscle Relaxants: Fentanyl Patch (Duragesic) [] Duloxetine (Cymbalta) [] Cyclobenzaprine (Flexeril) [] NSAIDS: Venlafaxine (Effexor) [] Methocarbamol (Robaxin) [] Ibuprofen (Advil, Motrin) [] Milnacipran (Savella) [] Tizanidine (Zanaflex) [] Naproxen (Aleve) [] Others: Baclofen (Lioresal) [x] 10mg TID Meloxicam (Mobic) [] Acetaminophen (Tylenol) [] Metaxalone (Skelaxin) [] Diclofenac (Voltaren) [] Low-dose naltrexone [] Carisoprodol (Soma) [] Indomethacin (Tivorbex) [] Topical lidocaine [] Diazepam (Valium) [] Celebrex (Celecoxib) [] Diclofenac gel (Voltaren) [] Nabumetone (Relafen) [] Other [] Etodolac (Lodine) [] PROCEDURE HISTORY: 03/24 L4-L5 LESI REVIEW OF SYSTEMS: ROS Patient's Medications New Prescriptions No medications on file Previous Medications ACCU-CHEK FASTCLIX LANCET DRUM MISC [...] Authorizing Provider: Osmin Atwood MD Notes: -- BACLOFEN (LIORESAL) 10 MG TABLET Take 1 tablet (10 mg total) by mouth 3 (three) times a day Authorizing Provider: Indra Dexter MD Notes: -- BUDESONIDE-FORMOTEROL (SYMBICORT) 160-4.5 MCG/ACTUATION [...] Authorizing Provider: Osmin Atwood MD Notes: -- LISINOPRIL (PRINIVIL,ZESTRIL) 20 MG TABLET Take 20 mg by mouth daily Authorizing Provider: Osmin [...] MCG TABLET Take 50 mcg by mouth honest john rocket crew member before breakfast Authorizing Provider: Osmin Atwood MD Notes: -- TAMOXIFEN (NOLVADEX) 10 MG TABLET Take by mouth 2 (two) times a day Authorizing Provider: Osmin Atwood MD Notes: -- TIOTROPIUM BROMIDE (SPIRIVA RESPIMAT) 2.5 MCG/ACTUATION INHALER Spiriva Respimat 2.5 mcg/actuation solution for inhalation Authorizing Provider: Osmin Atwood MD Notes: -- TRAMADOL (ULTRAM) 50 MG TABLET TK 1 T PO Q 6 H FOR 15 DAYS PRF PAIN Authorizing Provider: Osmin Atwood MD Notes: -- TRULICITY 3 MG/0.5 ML PEN INJECTOR Authorizing Provider: Osmin Atwood MD Notes: -- VIT B COMPLEX 100 COMBO NO.2 100 MG TABLET EXTENDED RELEASE Take 1 tablet by mouth daily Authorizing Provider: Osmin Atwood MD Notes: -- Modified Medications No medications on file Discontinued Medications LISINOPRIL-HYDROCHLOROTHIAZIDE (PRINZIDE,ZESTORETIC) 20-12.5 MG PER TABLET daily . Authorizing Provider: Osmin Atwood MD Notes: -- TRULICITY 1.5 MG/0.5 ML PEN INJECTOR Inject 1.5 mg under the skin once a week Authorizing Provider: Osmin Atwood MD Notes: -- No Known Allergies PHYSICAL EXAM: Vitals: 04/27/20 1142 04/27/20 1152 04/27/20 1157 04/27/20 1222 BP: 168/98 (!) 166/101 163/99 155/88 BP Location: Right arm Right arm Right arm Patient Position: Standing Pulse: 91 87 87 103 Resp: 19 23 19 16 Temp: SpO2: 93% 92% (!) 86% Weight: Height: Body mass index is 42.91 kg/m??. CONSTITUTIONAL: General appearance normal, nutrition - obese, no deformities, & good grooming. EYES: Normal conjunctivae/lids NECK:Normal inspection and palpation. CARDIOVASCULAR: No extremity edema or varicosities. RESPIRATORY:Normal effort CHEST:Symmetric. SKIN: No rashes or lesions in the four extremities and back. PSYCHIATRIC: Oriented X 3. MUSCULOSKELETAL EXAMINATION: Gait: Normal Limited ROM of RLE internal rotation at hip compared to LLE SLR positive on right SI joint tenderness: moderate on right. SEAN test: positive on right Gaenslen's test: positive on right Irina finger sign positive right NEUROLOGIC: Lower Ext Power: L2 hip flex 5/5 bilaterally L3 knee ext 5/5 bilaterally L4 foot dorsiflex 5/5 bilaterally L5 hallux dorsiflex 4/5 on RLE, 5/5 LLE S1 hallux plantar flex 5/5 bilaterally ASSESSMENT: The above note documents my personal evaluation of this patient. In addition, I have reviewed and confirmed with the patient and nurse the supportive information documented in today's scanned PatientHealth Questionnaire and Office Note. Encounter Diagnoses Name Primary? Lumbar radiculopathy - Right Yes ??? Sciatica of right side PLAN: 1. Interventions: Given signs and symptoms of lumbar radiculopathy, we will proceed with right L4-5and L5-S1 transfemoral epidural steroid injection at today's visit. 2. Medications: ?? Opioids: Opioids are not indicated ?? Adjuvants: No changes to regimen listed above. 3. Imaging: No further imaging needed at this current time. 4. Referral: No referrals needed at this current time. 5. Follow-up: In 3 months for re-evaluation of the above regimen and repeat of above procedure if beneficial. Luda Arevalo M.D., Ph.D. Ferry Engineer Department of Anesthesiology, Division of Pain Management [facility], [facility] 04/27/2020 4:21 PM Cosigned by Luda Arevalo MD PhD at 04/27/2020 6:08 PM SLIDE MAKER E MAKER Associated attestation - Luda Arevalo MD PhD - 04/27/2020 6:08 PM SLIDE MAKER I have seen and examined the patient on 04/27/20. I agree with the findings and plan of care as documented in the resident's/fellow's note.. documented in this encounter Miscellaneous Notes * Op Note - Luda Arevalo MD PhD - 04/27/2020 10:15 AM CST Procedure Note: Patient Name: Gasper Pierce : 1955 DOS: 04/27/2020 SURGEON: Luda Arevalo MD PhD BUTTER WRAPPER SURGEON: Rosemarie Almonte DO NAME OF PROCEDURE: Lumbar Transforaminal Epidural Steroid Injection (Selective Nerve Root Injection) at Right L4-5 and L5-S1 PREPROCEDURAL DIAGNOSES: Other Chronic Pain. Lumbago Lumbar stenosis Lumbar radiculopathy POSTPROCEDURAL DIAGNOSES: Other Chronic Pain. Lumbago Lumbar stenosis Lumbar radiculopathy INDICATION FOR PROCEDURE: Low back pain radiating to the right LE. INFORMED CONSENT: After reviewing the procedure with the patient, informed consent to proceed with the injection was obtained. A procedural permit was also signed. DESCRIPTION OF PROCEDURE: The patient was placed in the prone position on the fluoroscopy table. Fluoroscopy was used to identify the right L4-5 level. The lumbar area was prepped with chlorhexidine solution and draped with sterile towels. Sterile technique was used throughout. At the needle entry point for the injection at lumbar level left L4-5, the skin and subcutaneous tissues were infiltrated with 1% lidocaine. 22-gauge B - bevel spinal needle was introduced and positioned with fluoroscopic imaging. The needle was advanced to the posterior margin of the neural foramen. Needle positioning was verified with AP and lateral fluoroscopic images under live fluoroscopy. Radiographic contrast (Omnipaque 300) was injected via extension tubing (volume 0.5 ml.), with injected contrast being spread in the anticipated path of the nerve root. There was no spread of contrast into the spinal canal. There was no intra-vascular spread of contrast. Radiographic contrast was seen to spread into theepidural space. Bupivacaine, 2.5 mg., with dexamethasone, 2 mg, (for a total volume of 2 ml) were injected, resulting in dispersion of the previously injected contrast. No paresthesias were encountered during needleplacement or injection of the solution. After completing the procedure at right L4-5, attention was turned to the right L5-S1. Similar technique was used to bring the needle down to the posterior margin of the right L5-S1 neural foramen. Needle positioning was verified with AP and lateral fluoroscopic images under live fluoroscopy. Radiographic contrast was injected via extension tubing (volume 0.5 ml.) with injected contrast being spread in the anticipated path of the nerve root. There was no spread of contrast into the spinal canal. There was no intra-vascular spread of contrast. Radiographic contrast was seen to spread into the epidural space. Bupivacaine, 2.5 mg., with dexamethasone, 2 mg., (total volume 2 ml.) were injected, with dispersion of the previously injected contrast. No paresthesias were encountered during needle placement or injection of the solution. Dr. Arevalo was present for, and participated in, the entire procedure. Operative Findings: None Estimated Blood Loss: None Intraoperative Fluids: None Specimens: None Blood/Blood Products Transfused: None Complications: None DISPOSITION: Patient was discharged home in stable condition. TEACHING ATTESTATION : I was present and directly participated in the entire procedure (including opening and closing). Sonia Arevalo MD PhD 04/27/2020 11:19 AM E MAKER documented in this encounter Plan of Treatment Not on file documented as of this encounter Goals Goal Patient Goal Type Associated Problems Recent Progress Patient-Stated? Author CCM Chronic Pain Care Plan Chronic Care Management No change(04/27 10:31 AM SLIDE MAKER) No Amna Dao RN Note: Problem: [...] Thoracic or lumbosacral neuritis or radiculitis, unspecified Sciatica of right side documented in this encounter Administered Medications Inactive Administered Medications - up to 3 most recent administrations Medication Order MAR Action Action Date Dose Rate Site bupivacaine (MARCAINE) 0.25 % (2.5 mg/mL) preservative free injection As needed, Starting on Sat04/27/20 at 1157, Intra-Op Given 04/27/2020 11:57 AM SLIDE MAKER 4 mL dexAMETHasone (DECADRON) 4 mg/mL injection Administer over 2 Minutes, As needed, Starting on Sat04/27/20 at 1135, Intra-Op Given 04/27/2020 11:35 AM SLIDE MAKER 8 mg iohexoL (OMNIPAQUE) 300 mg iodine/mL injection solution As needed, Starting on Sat04/27/20 at 1157, Intra-Op Given 04/27/2020 11:57 AM SLIDE MAKER 2.5 mL lidocaine PF (XYLOCAINE) 10 mg/mL (1 %) preservative free injection As needed, Starting on Sat04/27/20 at 1157, Intra-Op Given 04/27/2020 11:57 AM SLIDE MAKER 14 mL documented in this encounter Discontinued Medications Medication Sig Discontinue Reason Start Date End Da te Trulicity 1.5 mg/0.5 mL pen injector Inject 1.5 mg under the skin once a week Duplicate order 02/09/2020 04/27/2020 lisinopril-hydroCHLOROth iazide (PRINZIDE,ZESTORETIC) 20-12.5 mg per tablet daily . Alternate therapy 04/27/20 documented as of this encounter Historical Medications * This list may reflect changes made after this encounter. traMADoL (ULTRAM) 50 mg tablet TK 1 T PO Q 6 H FOR 15 DAYS PRF PAIN 04/12/2020 lisinopriL (PRINIVIL,ZESTRIL ) 20 mg tablet Take 20 mg by mouth daily 03/26/2022 Trulicity 3 mg/0.5 mL pen injector 04/15/2020 05/01/2022 added in this encounter Care Teams Sports Leadership Instructor Relationship Specialty Start Date End Date Kyle Robles MD [address] [place] [address] PCP - General Family Medicine 07/30/18 03/25/22 documented as of this encounter
--- OUTSIDE RECORDS SUMMARY | 2024-05-12 20:14 | XMS_ITS | Encounter Summary ---
Author Organization [facility] Address [address] [place] [address] Phone Care Team Providers Care Resaw Machine Operator Name Role Phone Kyle Robles MD Primary Care Provider [phone] Encounter Details Date Type Department Care Team (Late st Contact Info) Description 06/08/2021 Telephone [facility] Scheduling [address] [place] [address] Leonila Wagner, COTY [address] [place] [address] Social History Tobacco Use Types Packs/Day Years [...] on file Legal Sex Female 1:06 AM SCHOOL COORDINATOR Gender Identity Female 01/22/2024 8:47 PM CDT Sexual Orientation Straight 01/22/2024 8 :47 PM CDT documented as of this encounter Miscellaneous Notes * Telephone Encounter - Brett Atkinson BS - 06/08/2021 12:43 PM SCHOOL COORDINATOR Previous EC pt calling to make return, last EC notes states pt can come back cartridge filler. Pt stating her neuropathy is getting worse and she would like to have another discussion. Scheduled with EC on 06/15, will arrive early in case xrays are needed. OL COORDINATOR documented in this encounter Plan of Treatment Not on file documented as of this encounter Goals Goal Patient Goal Type Associated Problems Recent Progress Patient-Stated? Author CCM Chronic Pain Care Plan Chronic Care Management No change(04/27 10:31 AM SCHOOL COORDINATOR) No Amna Dao RN Note: Problem: Chronic Pain Goals: 1. Minimize further functional decline 2. Maximize quality of life 3. Control pain Strategies: - Activity/exercise program recommendation - Conservative stepwise pain medicine strategy with multi-disciplinary approach - Recommend healthy lifestyle strategies and compensatory methods as needed documented as of this encounter Visit Diagnoses Not on filedocumented in this encounter Care Teams Resaw Machine Operator Relationship Specialty Start Date End Date Kyle Robles MD [address] [place] [address] PCP - General Family Medicine 07/30/18 03/25/22 documented as of this encounter
--- OUTSIDE RECORDS SUMMARY | 2024-05-12 20:14 | XMS_ITS | Encounter Summary ---
Author Organization [facility] Address [address] [place] [address] Care Team Providers Care Die Stamper Name Role Phone Kyle Robles MD Primary Care Provider [phone] Reason for Referral * Diagnostic Imaging (Routine) - Closed Specialty Diagnoses / Procedures Referred By Trisha corley Referred To Contact Diagnoses History of right breast cancer Encounter for screening mammogram for malignant neoplasm of breast Procedures Screening Mammogram Bilateral W Ila Araujo CNS Phone: tel: fax: [address] [address] Referral ID Status Reason Start Date Expiration Date Visits Re quested Visits Authorized [id number] Closed 10/11/2020 11/10/2021 1 1 Reason for Visit * Diagnostic Imaging (Routine) - Closed Specialty Diagnoses / Procedures Referred By Trisha corley Referred To Contact Diagnoses History of right breast cancer Encounter for screening mammogram for malignant neoplasm of breast Procedures Screening Mammogram Bilateral W Ila Araujo CNS Phone: tel: fax: [address] [address] Referral ID Status Reason Start Date Expiration Date Visits Re quested Visits Authorized [id number] Closed 10/11/2020 11/10/2021 1 1 Encounter Details Date Type Department Care Team (Latest Contact Info) Description 10/17/2020 1:15 PM CDT - 10/17/2020 11:59 PM CDT Hospital Encounter [facility] [address] [place] [address] Linda, Imelda Bennett MD PhD [address] [place] [address] Ila Can CNS [address] [address] History of right breast cancer; Encounter for screening mammogram for malignant neoplasm of breast Discharge Disposition: Discharge to home or self care Social History Tobacco Use Types Packs/Day Years Used Date Smoking Tobacco: Former Cigarettes 0.3 8 1 882 - 8247 Smokeless Tobacco: Never Alcohol Use Standard Drinks/Week Comments Yes 2 (1 standard drink = 0.6 oz pur e alcohol) Comments No Sex and Gender Information Value Date Recorded Sex Assigned at Not on file Legal Sex Female 1:06 AM DIRECTORY OPERATOR Gender Identity Female 01/22/2024 8:47 PM [...] 1 tablet (50 mcg total) by mouth library consultant before breakfast 06/06/2018 traMADoL (ULTRAM) 50 mg [...] (0.1 %) nasal spray 05/21/2018 06/15/19 22 baclofen (LIORESAL) 10 mg tablet Take 1 tablet (10 mg total) by mouth 3 (three) times a day 90 tablet 2 03/24/2020 06/15/19 22 budesonide-formot Mario (Symbicort) 160-4.5 mcg/actuation inhaler Symbicort 160 mcg-4.5 mcg/actuation HFA aerosol inhaler 06/15/19 22 exenatide microspheres (Bydureon BCise) 2 mg/0.85 mL auto-injector Bydureon BCise 2 mg/0.85 mL subcutaneous auto-injector 06/15/19 22 FLUoxetine (FLUoxetine) 10 mg tablet/capsule 0 22 gabapentin (NEURONTIN) 300 mg capsule Take 1 capsule (300 mg total) by mouth 3 (three) times a day 90 capsule 3 03/07/2020 06/15/19 22 lisinopriL (PRINIVIL,ZESTRIL ) 20 mg tablet Take 20 mg by mouth daily 03/26/20 22 losartan (COZAAR) 100 mg tablet Take 100 mg by mouth daily 06/11/2019 03/26/20 22 losartan-hydrochl orothiazide (HYZAAR) 100-25 mg per tablet 06/23/2018 03/26/20 22 montelukast (SINGULAIR) 10 mg tablet Take 10 mg by mouth nightly 03/26/20 multivitamin capsule Take 1 capsule by mouth daily 06/15/19 22 naproxen (NAPROSYN) 500 mg tablet naproxen 500 mg tablet 06/15/19 22 pediatric multivitamin-iron tablet,chewable daily . 03/26/20 22 pen needle, diabetic (Novofine 32) 32 gauge x 1/4 needle Novofine 32 32 gauge x 1/4 needle INJ OZEMPIC ONCE WEEKLY UTD 06/15/19 22 semaglutide (Ozempic) 0.25 mg or 0.5 mg(2 mg/1.5 mL) pen injector 0.5 mg 06/15/19 tamoxifen (NOLVADEX) 10 mg tablet Take by mouth 2 (two) times a day 06/15/19 22 tiotropium bromide (SPIRIVA RESPIMAT) 2.5 mcg/actuation inhaler Spiriva Respimat 2.5 mcg/actuation solution for inhalation 06/15/19 22 triamcinolone (KENALOG) 0.1 % cream triamcinolone acetonide 0.1 % topical cream APPLY A THIN LAYER AA ON ARM BID. NEVER TO FACE 06/15/19 22 Trulicity 3 mg/0.5 mL pen injector 04/15/2020 05/01/20 umeclidinium (INCRUSE ELLIPTA) 62.5 mcg/actuation blister with device Incruse Ellipta 62.5 mcg/actuation powder for inhalation 06/15/19 22 documented as of this encounter Discharge Disposition Disposition Code Departure Means Destination Discharge to home or self care documented in this encounter Plan of Treatment Not on file documented as of this encounter Goals Goal Patient Goal Type Associated Problems Recent Progress Patient-Stated? Author CCM Chronic Pain Care Plan Chronic Care Management No change(04/27 10:31 AM DIRECTORY OPERATOR) No Amna Dao RN Note: Problem: [...] JAMES Schedule Routine, Read Routine (OP Routine) 10/17/2020 1:50 PM CDT History of right breast cancer [...] to prior imaging studies performed at [facility] on 07/04/2017, 07/30/2018 and 08/05/2019. [...] to prior imaging studies performed at [facility] on 07/04/2017, 07/30/2018 and 08/05/2019. There are scattered areas of fibroglandular density. There are post breast conservation therapy changes in the right breast. There is no suspicious abnormality in the left breast. Impression: Post breast conservation therapy changes in the right breast are benign. Annual screening mammography is recommended. OVERALL FINAL ASSESSMENT: BI-RADS CATEGORY 2: Benign. Ila Can CONSTRUCTION SITE CROSSING GUARD IMG MAMMO PROCEDURES Final R esult documented in this encounter Visit Diagnoses Diagnosis History of right breast cancer Encounter for screening mammogram for malignant neoplasm of breast documented in this encounter Care Teams Die Stamper Relationship Specialty Start Date End Date Kyle Robles MD [address] [place] [address] PCP - General Family Medicine 07/30/18 03/25/22 documented as of this encounter
--- OUTSIDE RECORDS SUMMARY | 2024-05-12 20:14 | XMS_ITS | Encounter Summary ---
Author Organization [facility] Address [address] [place] [address] Care Team Providers Care Access Control Officer Name Role Phone Kristopher Pierre DO Primary Care Provider [phone] Reason for Visit * Reason Onset Date Comments Xrays of hands 05/01/2022 Encounter Details Date Type Department Care Team (Late st Contact Info) Description 05/01/2022 Telephone [facility] at [address] [address] Ana Gorman DO [address] [place] [address] Xrays of hands Social History Tobacco Use Types Packs/Day Years [...] on file Legal Sex Female 1:06 AM MARKETING INTERN Gender Identity Female 01/22/2024 8:47 PM CDT Sexual Orientation Straight 01/22/2024 8: 47 PM CDT documented as of this encounter Miscellaneous Notes * Telephone Encounter - Angela Tolbert MA - 05/01/2022 8:51 AM CST Received staff message from Dr. Gorman to get xrays that she ordered on the pt. Called [facility] and spoke with Myra in HIM. Will be faxing over RANDELL ETING INTERN documented in this encounter Plan of Treatment Not on file documented as of this encounter Goals Goal Patient Goal Type Associated Problems Recent Progress Patient-Stated? Author CCM Chronic Pain Care Plan Chronic Care Management No change(04/27 10:31 AM MARKETING INTERN) No Amna Dao RN Note: Problem: Chronic Pain Goals: 1. Minimize further functional decline 2. Maximize quality of life 3. Control pain Strategies: - Activity/exercise program recommendation - Conservative stepwise pain medicine strategy with multi-disciplinary approach - Recommend healthy lifestyle strategies and compensatory methods as needed documented as of this encounter Visit Diagnoses Not on filedocumented in this encounter Care Teams Access Control Officer Relationship Specialty Start Date End Date Kristopher Pierre DO PCP - General Internal Medicine 03/26/22 documented as of this encounter
--- OUTSIDE RECORDS SUMMARY | 2024-05-12 20:15 | XMS_ITS | Encounter Summary ---
Author Organization [facility] Facility Care Team Providers Care Business Banking Sales Assistant Name Role Phone Unavailable Primary Care Provider Unavailabl e Encounter Details Date Type Department Care Team (Late st Contact Info) Description 05/23/2010 - 05/23/2010 11:59 PM CRM CONSULTANT Hospital Encounter [facility] Lucas Dumont MD [address] [place] [address] Ila Can CNS [address] [address] Personal history of malignant neoplasm of breast Social History Tobacco Use Types Packs/Day Years Used Date Smoking Tobacco: Never Assessed Comments Unknown Sex and Gender Information Value Date Recorded Sex Assigned at Not on file Legal Sex Female 1:06 AM CRM CONSULTANT Gender Identity Female 01/22/2024 8:47 PM CDT Sexual Orientation Straight 01/22/2024 8: 47 PM CDT documented as of this encounter Plan of Treatment Not on file documented as of this encounter Visit Diagnoses Diagnosis Personal history of malignant neoplasm of breast documented in this encounter
--- OUTSIDE RECORDS SUMMARY | 2024-05-12 20:15 | XMS_ITS | Encounter Summary ---
Author Organization [facility] Address [address] [place] [address] Phone Care Team Providers Care Cardiovascular Surgeon Name Role Phone Kyle Robles MD Primary Care Provider [phone] Reason for Referral * Diagnostic Imaging (Routine) - Closed Specialty Diagnoses / Procedures Referred By Trisha corley Referred To Contact Diagnoses History of right breast cancer Procedures Screening Mammogram Bilateral W Ila Araujo CNS Phone: tel: fax: [address] [address] Referral ID Status Reason Start Date Expiration Date Visits Re quested Visits Authorized [id number] Closed 03/31/2018 10/10/2019 1 1 CTOR VALIDATION Reason for Visit * Reason Comments Follow-up yearly visit Encounter Details Date Type Department Care Team (Late st Contact Info) Description 07/30/2018 10:30 AM DIRECTOR VALIDATION Office Visit [facility] Advanced Medicine 5th [place] [address] [place] [id number] Ila Can CNS [address] [place] [phone] History of right breast cancer (Primary Dx) Social History Tobacco Use Types Packs/Day Years Used Date Smoking Tobacco: Former Comments No Sex and Gender Information Value Date Recorded Sex Assigned at Not on file Legal Sex Female 1:06 AM DIRECTOR VALIDATION Gender Identity Female 01/22/2024 8:47 PM CDT Sexual Orientation Straight 01/22/2024 8: 47 PM CDT documented as of this encounter Last Filed Vital Signs Vital Sign Reading Time Taken Comments Blood Pressure - - Pulse - - Temperature - - Respiratory Rate - - Oxygen Saturation - - Inhaled Oxygen Concentration - - Weight 119.7 kg (264 lb) 07/30/2018 10:32 AM DIRECTOR VALIDATION Height 162.6 cm (5' 4 ) 07/30/2018 10:32 AM DIRECTOR VALIDATION Body Mass Index 45.32 07/30/2018 10:32 AM DIRECTOR VALIDATION documented in this encounter Progress Notes * Ila Can, HIM MANAGER - 07/30/2018 10:30 AM CST DEPARTMENT OF [facility] [address] [place] [address] ??(PHONE)???[phone] (FAX) NAME:?Gasper Pierce :?1955 DATE:?07/30/18 ?? CHIEF COMPLAINT: Follow-up for right breast cancer. ?? HISTORY OF ??PRESENT ILLNESS: ??I saw Gapser Pierce in the [facility] today. She had been diagnosed with a locally advanced right breast cancer and underwent neoadjuvant chemotherapy of FEC followed by Taxotere. 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 She then completed adjuvant radiation therapy was placed on anastrozole and ultimately was convertedto tamoxifen. The tamoxifen was then discontinued due to severe hot flashes. Currently she notes nopalpable findings in her breast self-examination. History reviewed. No pertinent past medical history. Past Surgical History: Procedure Laterality Date ??? BREAST LUMPECTOMY Right Breast Lumpectomy - (Added by TW Conv) ??? NE TOTAL ABDOM HYSTERECTOMY Hysterectomy - (Added by TW Conv) Social History Socioeconomic History ??? Marital status: Spouse name: None ??? Number of children: None ??? Years of education: None ??? Highest education level: None Occupational History ??? None Social Needs ??? Financial resource strain: None ??? Food insecurity: Worry: None Inability: None ??? Transportation needs: Medical: None Non-medical: None Tobacco Use ??? Smoking status: Former Smoker Substance and Sexual Activity ??? Alcohol use: None ??? Drug use: None ??? Sexual activity: None Lifestyle ??? Physical activity: Days per week: None Minutes per session: None ??? Stress: None Relationships ??? Social connections: Talks on phone: None Gets together: None Attends rastafarian service: None Active member of club or organization: None Attends meetings of clubs or organizations: None Relationship status: None ??? Intimate partner violence: Fear of current or ex partner: None Emotionally abused: None Physically abused: None Forced sexual activity: None Other Topics Concern ??? None Social History Narrative ??? None Family History Problem Relation Age of Onset ??? Prostate cancer Father Prostate ca - (Added by Conv) Prior to Admission medications Medication Sig Start [...] Allergies ?? PHYSICAL EXAMINATION: GENERAL: ??Well-developed, well-nourished 63 y.o. female in no apparent distress. EYES: [...] no mass, and no palpable axillary mass. MUSCULOSKELETAL: No evidence of rib, long bone, [...] she identifies any changes or problems. ? JENNIFER Lopez, ACNS-BC ? Endocrine &??Oncologic Surgery ? I have reviewed the history, physical, assessment and plan and concur with the findings. ? Scott ??Rosanne Allen M.D. patent searcher Cosigned by Scott Allen MD at 07/31/2018 11:31 AM DIRECTOR VALIDATION CTOR VALIDATION CTOR VALIDATION documented in this encounter Plan of Treatment Not on file documented as of this encounter Results * Screening Mammogram Bilateral W James (07/30/2018 11:24 AM DIRECTOR VALIDATION) Anatomical Region Laterality Modality Breast Bilateral Mammography Narrative 07/31/2018 9:39 AM DIRECTOR VALIDATION Mammogram Technique: Bilateral Digital Breast Tomosynthesis, Bilateral C-view 2D Screening mammogram. ??Views obtained: ??bilateral craniocaudal and bilateral mediolateral oblique. ??Computer Aided Detection was performed. Mammogram Findings: The present examination has been compared to prior imaging studies performed at [facility] on 06/16/2015, 06/28/2016 and 07/04/2017. There are scattered areas of fibroglandular density. There is no suspicious abnormality in either breast. Findings compatible with prior right breast conservation therapy are noted. Impression: Annual screening mammography is recommended. OVERALL FINAL ASSESSMENT: BI-RADS CATEGORY 1: ??Negative. Procedure Note Kay Hayward MD - 07/31/2018 Mammogram Technique: Bilateral Digital Breast Tomosynthesis, Bilateral C-view 2D Screening mammogram. Views obtained: bilateral craniocaudal and bilateral mediolateral oblique. Computer Aided Detection was performed. Mammogram Findings: The present examination has been compared to prior imaging studies performed at [facility] on 06/16/2015, 06/28/2016 and 07/04/2017. There are scattered areas of fibroglandular density. There is no suspicious abnormality in either breast. Findings compatible with prior right breast conservation therapy arenoted. Impression: Annual screening mammography is recommended. OVERALL FINAL ASSESSMENT: BI-RADS CATEGORY 1: Negative. Ila Can HIM MANAGER IMG MAMMO PROCEDURES Final R esult documented in this encounter Visit Diagnoses Diagnosis History of right breast cancer- Primary History of right breast cancer documented in this encounter Historical Medications * This list may reflect changes made after this encounter. omeprazole (PriLOSEC) 40 mg capsule Take 1 capsule (40 mg total) by mouth daily 07/27/2018 metFORMIN (FORTAMET) 1,000 mg 24 hr tablet Take 1 tablet (1,000 mg total) by mouth daily with breakfast 07/19/2018 SYNTHROID 50 mcg tablet Take 1 tablet (50 mcg total) by mouth research worker encyclopedia before breakfast 06/06/[address] (CYMBALTA) 60 mg capsule Take 1 capsule (60 mg total) by mouth daily 06/06/2018 atorvastatin (LIPITOR) 10 mg tablet Take 1 tablet (10 mg total) by mouth daily 1 06/25/2018 montelukast (SINGULAIR) 10 mg tablet Take 10 mg by mouth nightly 2 losartan-hydroch lorothiazide (HYZAAR) 100-25 mg per tablet 06/23/2018 2 lisinopril-hydro CHLOROthiazide (PRINZIDE,ZESTOR ETIC) 20-12.5 mg per tablet daily . 0 azelastine (ASTELIN) 137 mcg (0.1 %) nasal spray 05/21/2018 2 pediatric multivitamin-iro n tablet,chewable daily . 2 added in this encounter Care Teams Cardiovascular Surgeon Relationship Specialty Start Date End Date Kyle Robles MD [address] [place] [address] PCP - General Family Medicine 07/30/18 03/25/22 documented as of this encounter
--- OUTSIDE RECORDS SUMMARY | 2024-05-12 20:15 | XMS_ITS | Encounter Summary ---
Author Organization [facility] Facility Care Team Providers Care President Commercial Bank Name Role Phone Kyle Robles MD Primary Care Provider [phone] Encounter Details Date Type Department Care Team (Latest Contact Info) Description 08/05/2019 Travel Social History Tobacco Use Types Packs/Day Years Used Date Smoking Tobacco: Former Comments No Sex and Gender Information Value Date Recorded Sex Assigned at Not on file Legal Sex Female 1:06 AM BOAT CARPENTER Gender Identity Female 01/22/2024 8:47 PM CDT Sexual Orientation Straight 01/22/2024 8: 47 PM CDT documented as of this encounter Plan of Treatment Not on file documented as of this encounter Visit Diagnoses Not on filedocumented in this encounter Care Teams President Commercial Bank Relationship Specialty Start Date End Date Kyle Robles MD [address] [place] [address] PCP - General Family Medicine 07/30/18 03/25/22 documented as of this encounter
--- OUTSIDE RECORDS SUMMARY | 2024-05-12 20:15 | XMS_ITS | Encounter Summary ---
Author Organization [facility] Facility Care Team Providers Care Security Public Safety Officer Name Role Phone Unavailable Primary Care Provider Unavailabl e Encounter Details Date Type Department Care Team (Late st Contact Info) Description 05/08/2012 - 05/08/2012 11:59 PM TELEVISION MAINTENANCE WORKER Hospital Encounter [facility] Social History Tobacco Use Types Packs/Day Years Used Date Smoking Tobacco: Never Assessed Comments Unknown Sex and Gender Information Value Date Recorded Sex Assigned at Not on file Legal Sex Female 1:06 AM TELEVISION MAINTENANCE WORKER Gender Identity Female 01/22/2024 8:47 PM CDT Sexual Orientation Straight 01/22/2024 8: 47 PM CDT documented as of this encounter Plan of Treatment Not on file documented as of this encounter Visit Diagnoses Not on filedocumented in this encounter
--- OUTSIDE RECORDS SUMMARY | 2024-05-12 20:15 | XMS_ITS | Encounter Summary ---
Author Organization [facility] Address [address] [place] [address] Care Team Providers Care Fruit Grader Name Role Phone Ila Can Primary Care Provider [phone] Encounter Details Date Type Department Care Team (Latest Contact Info) Description 12/07/2016 9:08 AM CDT - 12/07/2016 11:59 PM CDT Hospital Encounter [place] [address] [facility] [address] [place], [place] [id number] Discharge Disposition: Discharge to home or self care Social History Tobacco Use Types Packs/Day Years Used Date Smoking Tobacco: Former Comments Unknown Sex and Gender Information Value Date Recorded Sex Assigned at Not on file Legal Sex Female 1:06 AM CLOTH NEUTRALIZER Gender Identity Female 01/22/2024 8:47 PM CDT Sexual Orientation Straight 01/22/2024 8: 47 PM CDT documented as of this encounter Discharge Disposition Disposition Code Departure Means Destination Discharge to home or self care documented in this encounter Plan of Treatment Not on file documented as of this encounter Procedures Procedure Name Priority Date/Time Associated Diagnosis Comments XR CHEST PA LATERAL 2 VIEWS Routine 12/07/2016 3:10 PM CDT TRANSTHORACIC ECHO (TTE) COMPLETE W DOPPLER/CF WO CONTRAST 12/07/2016 12:00 AM CDT documented in this encounter Results * XR Chest Pa Lateral 2 Views (12/07/2016 3:10 PM CDT) Anatomical Region Laterality Modality Body, Chest N/A Radiographic Dea ging 12/07/2016 3:10 PM CDT Narrative 12/07/2016 3:10 PM CDT DATE OF EXAM: ??Dec 07 2016 10:10AM Acc#: ??[id number] ??EDX [id number] - XR Chest 2 Views ?? DIAGNOSIS: ??MILD INTERMITTENT ASTHMA, UNCOMPLICATED CLINICAL HISTORY: ?? DYSPNEA RESULT: EXAMINATION: XR Chest 2 Views HISTORY: Dyspnea. FINDINGS: Lungs are well expanded and clear. No pleural effusion or pneumothorax. The heart size and mediastinal contour are normal. Surgical clips project over the right axillary region, and right lower chest wall. IMPRESSION: No acute findings. Electronically signed by: Nahid Sousa M.D. ? JOURNEYMAN ELECTRICIAN PV INSTALLER: ??PSC TRANSCRIBE DATE/TIME: ??Dec 07 2016 10:17A RADIOLOGIST: ??NAHID SOUSA M.D. ??READ ON: ??Dec 07 2016 10:21A ORDERING DR: VELMA ROLLINS ([facility]) Kayla ? THIS DOCUMENT HAS BEEN ELECTRONICALLY SIGNED BY: ??JENNIFFER Garza, NAHID ??ON: ??Dec 07 2016 10:17A Attending: ??AYO ([facility]), ??VELMA Requesting: ??AYO ([facility]), ??VELMA Requesting Fax: ??[phone] Attending Fax: ??[phone] Attending ID: ??[id number] Requesting ID: ??[id number] Report To 1 ID: ?? Report To 1 Name: ??, ?? Report To 1 FAX: ??-- Report To 2 ID: ?? Report To 2 Name: ??, ?? Report To 2 FAX: ??-- NextGen Order #: ?? Procedure Note Miscellaneous, Not In File / Provider, MD Osmin - 12/07/2016 DATE OF EXAM: Dec 07 2016 10:10AM Acc#: [id number] EDX [id number] - XR Chest 2 Views DIAGNOSIS: MILD INTERMITTENT ASTHMA, UNCOMPLICATED CLINICAL HISTORY: DYSPNEA RESULT: EXAMINATION: XR Chest 2 Views HISTORY: Dyspnea. FINDINGS: Lungs are well expanded and clear. No pleural effusion or pneumothorax. The heart size and mediastinal contour are normal. Surgical clips project over the right axillary region, and right lower chest wall. IMPRESSION: No acute findings. Electronically signed by: Nahid Sousa M.D. JOURNEYMAN ELECTRICIAN PV INSTALLER: MARTIN TRANSCRIBE DATE/TIME: Dec 07 2016 10:17A RADIOLOGIST: NAHID SOUSA M.D. READ ON: Dec 07 2016 10:21A ORDERING DR: VELMA ROLLINS ([facility]) Kayla THIS DOCUMENT HAS BEEN ELECTRONICALLY SIGNED BY: NAHID SOUSA M.D. ON: Dec 07 2016 10:17A Attending: AYO ([facility])VELMA Requesting: AYO ([facility])VELMA Requesting Attending Attending ID: [id number] Requesting ID: [id number] Report To 1 ID: Report To 1 Name: , Report To 1 FAX: -- Report To 2 ID: Report To 2 Name: , Report To 2 FAX: -- NextGen Order #: us Velma Rollins MD IMG XR PROCEDURES Final Resul t * Transthoracic Echo Complete W Doppler/CF WO Contrast (12/07/2016 12:00 AM CDT) Anatomical Region Laterality Modality Ultrasound us Provider Scanning CV ECHO PROCEDURES Edited Resu lt - Final documented in this encounter Visit Diagnoses Not on filedocumented in this encounter Care Teams Fruit Grader Relationship Specialty Start Date End Date Ila Can CNS PCP - General 11/22/16 07/03/17 documented as of this encounter
--- OUTSIDE RECORDS SUMMARY | 2024-05-12 20:15 | XMS_ITS | Encounter Summary ---
Author Organization [facility] Facility Care Team Providers Care Statuary Painter Name Role Phone Unavailable Primary Care Provider Unavailabl e Encounter Details Date Type Department Care Team (Late st Contact Info) Description 06/03/2014 - 06/03/2014 11:59 PM RASCHEL KNITTING MACHINE OPERATOR Hospital Encounter [facility] CLINCONV Ila Can, [facility] [address] [address] Personal history of malignant neoplasm of breast Social History Tobacco Use Types Packs/Day Years Used Date Smoking Tobacco: Former Comments Unknown Sex and Gender Information Value Date Recorded Sex Assigned at Not on file Legal Sex Female 1:06 AM RASCHEL KNITTING MACHINE OPERATOR Gender Identity Female 01/22/2024 8:47 PM CDT Sexual Orientation Straight 01/22/2024 8: 47 PM CDT documented as of this encounter Plan of Treatment Not on file documented as of this encounter Procedures Procedure Name Priority Date/Time Associated Diagnosis Comments DIAGNOSTIC MAMMOGRAM BILATERAL W JAMES Routine 06/03/2014 11:46 AM RASCHEL KNITTING MACHINE OPERATOR DIAGNOSTIC MAMMOGRAM 2D BILATERAL Routine 06/03/2014 11:46 AM RASCHEL KNITTING MACHINE OPERATOR documented in this encounter Results * DIAGNOSTIC MAMMOGRAM BILATERAL W JAMES (06/03/2014 11:46 AM RASCHEL KNITTING MACHINE OPERATOR) Anatomical Region Laterality Modality Breast Bilateral Mammography 06/03/2014 11:4 6 AM RASCHEL KNITTING MACHINE OPERATOR Narrative 06/03/2014 12:40 PM RASCHEL KNITTING MACHINE OPERATOR ARYAN FRANCISCO M.D. IRASEMA OHARA, FINAL REPORT The radiology attending physician has personally reviewed this study, and has reviewed and/or edited this written report and agrees with it. ACC# ??Date Time ??Exam [id number] Jun 03, 2014 11:46:00 [facility] [address] Diag Mammogram Bilateral ?? Technologist(s): Mago Moore; ; [id number] Jun 03, 2014 11:46:00 [facility] [address] Dig Breast James Zay EXAMINATION: ?? BILATERAL FULL FIELD DIGITAL DIAGNOSTIC MAMMOGRAM WITH CAD AND BILATERAL DIGITAL BREAST TOMOSYNTHESIS HISTORY: Personal history of right breast cancer with prior breast conservation therapy. TECHNIQUE: Full field digital craniocaudal and mediolateral oblique views of both breasts were obtained. Computer Aided Detection was performed with [employer]3 version 9.3. ??Bilateral digital breast tomosynthesis was also performed and reviewed as a part of this examination. COMPARISON: 06/02/2013, 05/29/2012, 05/29/2011, 05/23/2010, and 05/12/2009 BREAST PARENCHYMAL COMPOSITION: ??There are scattered areas of fibroglandular density. FINDINGS: Findings compatible with prior right breast conservation therapy are noted. No new suspicious abnormality is identified within either breast. IMPRESSION: ?? OVERALL FINAL ASSESSMENT: ??BI-RADS Category 2: Benign finding. RECOMMENDATION: ??Bilateral diagnostic mammogram is recommended in one year. Requested By: Dictated By: ?? IRASEMA OHARA, ?? on May ??2014 12:00P This document has been electronically signed by: ARYAN FRANCISCO M.D. on May ??2014 12:40P Procedure Note Provider, MD Osmin - 09/25/2016 ARYAN FRANCISCO M.D. IRASEMA OHARA, FINAL REPORT The radiology attending physician has personally reviewed this study, and has reviewed and/or edited this written report and agrees with it. ACC# Date Time Exam [id number] Jun 03, 2014 11:46:00 [facility] [address] Diag Mammogram Bilateral Technologist(s): Mago Moore; ; [id number] Jun 03, 2014 11:46:00 [facility] [address] Dig Breast James Zay EXAMINATION: BILATERAL FULL FIELD DIGITAL DIAGNOSTIC MAMMOGRAM WITH CAD AND BILATERAL DIGITAL BREAST TOMOSYNTHESIS HISTORY: Personal history of right breast cancer with prior breast conservation therapy. TECHNIQUE: Full field digital craniocaudal and mediolateral oblique views of both breasts were obtained. Computer Aided Detection was performed with VTM[employer]3 version 9.3. Bilateral digital breast tomosynthesis was also performed and reviewed as a part of this examination. COMPARISON: 06/02/2013, 05/29/2012, 05/29/2011, 05/23/2010, and 05/12/2009 BREAST PARENCHYMAL COMPOSITION: There are scattered areas of fibroglandular density. FINDINGS: Findings compatible with prior right breast conservation therapy are noted. No new suspicious abnormality is identified within either breast. IMPRESSION: OVERALL FINAL ASSESSMENT: BI-RADS Category 2: Benign finding. RECOMMENDATION: Bilateral diagnostic mammogram is recommended in one year. Requested By: Dictated By: IRASEMA OHARA, on Jun 03 2014 12:00P This document has been electronically signed by: ARYAN FRANCISCO M.D. on Jun 03 2014 12:40P [facility] Provider MD PIERCE MAMMO PROCEDURES Kemi l Result * DIAGNOSTIC MAMMOGRAM 2D BILATERAL (06/03/2014 11:46 AM RASCHEL KNITTING MACHINE OPERATOR) Anatomical Region Laterality Modality Breast Bilateral Mammography 06/03/2014 11:4 6 AM RASCHEL KNITTING MACHINE OPERATOR Narrative 06/03/2014 12:40 PM RASCHEL KNITTING MACHINE OPERATOR ARYAN FRANCISCO M.D. IRASEMA OHARA, FINAL REPORT The radiology attending physician has personally reviewed this study, and has reviewed and/or edited this written report and agrees with it. ACC# ??Date Time ??Exam [id number] Jun 03, 2014 11:46:00 [facility] [address] Diag Mammogram Bilateral ?? Technologist(s): Mago Moore; ; [id number] Jun 03, 2014 11:46:00 [facility] [address] Dig Breast James Zay EXAMINATION: ?? BILATERAL FULL FIELD DIGITAL DIAGNOSTIC MAMMOGRAM WITH CAD AND BILATERAL DIGITAL BREAST TOMOSYNTHESIS HISTORY: Personal history of right breast cancer with prior breast conservation therapy. TECHNIQUE: Full field digital craniocaudal and mediolateral oblique views of both breasts were obtained. Computer Aided Detection was performed with [employer]Context 1.3 version 9.3. ??Bilateral digital breast tomosynthesis was also performed and reviewed as a part of this examination. COMPARISON: 06/02/2013, 05/29/2012, 05/29/2011, 05/23/2010, and 05/12/2009 BREAST PARENCHYMAL COMPOSITION: ??There are scattered areas of fibroglandular density. FINDINGS: Findings compatible with prior right breast conservation therapy are noted. No new suspicious abnormality is identified within either breast. IMPRESSION: ?? OVERALL FINAL ASSESSMENT: ??BI-RADS Category 2: Benign finding. RECOMMENDATION: ??Bilateral diagnostic mammogram is recommended in one year. Requested By: Dictated By: ?? IRASEMA OHARA, ?? on May ??2014 12:00P This document has been electronically signed by: ARYAN FRANCISCO M.D. on May ??2014 12:40P Procedure Note Provider, MD Osmin - 09/25/2016 ARYAN FRANCISCO M.D. IRASEMA OHARA, FINAL REPORT The radiology attending physician has personally reviewed this study, and has reviewed and/or edited this written report and agrees with it. ACC# Date Time Exam [id number] Jun 03, 2014 11:46:00 [facility] [address] Diag Mammogram Bilateral Technologist(s): Mago Moore; ; [id number] Jun 03, 2014 11:46:00 [facility] [address] Dig Breast James Zay EXAMINATION: BILATERAL FULL FIELD DIGITAL DIAGNOSTIC MAMMOGRAM WITH CAD AND BILATERAL DIGITAL BREAST TOMOSYNTHESIS HISTORY: Personal history of right breast cancer with prior breast conservation therapy. TECHNIQUE: Full field digital craniocaudal and mediolateral oblique views of both breasts were obtained. Computer Aided Detection was performed with VTM.3 version 9.3. Bilateral digital breast tomosynthesis was also performed and reviewed as a part of this examination. COMPARISON: 06/02/2013, 05/29/2012, 05/29/2011, 05/23/2010, and 05/12/2009 BREAST PARENCHYMAL COMPOSITION: There are scattered areas of fibroglandular density. FINDINGS: Findings compatible with prior right breast conservation therapy are noted. No new suspicious abnormality is identified within either breast. IMPRESSION: OVERALL FINAL ASSESSMENT: BI-RADS Category 2: Benign finding. RECOMMENDATION: Bilateral diagnostic mammogram is recommended in one year. Requested By: Dictated By: IRASEMA OHARA on Jun 03 2014 12:00P This document has been electronically signed by: ARYAN FRANCISCO M.D. on Jun 03 2014 12:40P us Historical Provider MD PIERCE MAMMO PROCEDURES Kemi l Result documented in this encounter Visit Diagnoses Diagnosis Personal history of malignant neoplasm of breast documented in this encounter
--- OUTSIDE RECORDS SUMMARY | 2024-05-12 20:15 | XMS_ITS | Encounter Summary ---
Author Organization 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 AND SERVICE CLERKS Gender Identity Female 01/22/2024 8:47 PM CDT Sexual Orientation Straight 01/22/2024 8: 47 PM CDT documented as of this encounter Medications at Time of Discharge atorvastatin (LIPITOR) 10 mg tablet Take 1 tablet (10 mg total) by mouth daily 1 06/25/[address] (CYMBALTA) 60 mg capsule Take [...] 1 tablet (50 mcg total) by mouth magnetic grinder operator before breakfast 06/06/2018 Accu-Chek Fastclix Lancet Drum misc USE DIRECTED [...] FLUoxetine (FLUoxetine) 10 mg tablet/capsule 0 22 lisinopril-hydroC HLOROthiazide (PRINZIDE,ZESTORE TIC) 20-12.5 mg per tablet daily . 04/27/20 20 losartan (COZAAR) 100 mg tablet Take 100 mg by mouth daily 06/11/2019 03/26/20 22 losartan-hydrochl orothiazide (HYZAAR) 100-25 mg per tablet 06/23/2018 03/26/20 22 montelukast (SINGULAIR) 10 mg tablet Take 10 mg by mouth nightly 03/26/20 22 pediatric multivitamin-iron tablet,chewable daily . 03/26/20 22 pen needle, diabetic (Novofine 32) 32 gauge x 1/4 needle Novofine 32 32 gauge x 1/4 needle INJ OZEMPIC ONCE WEEKLY UTD 06/15/19 semaglutide (Ozempic) 0.25 mg or 0.5 mg(2 mg/1.5 mL) pen injector 0.5 mg 06/15/19 tamoxifen (NOLVADEX) 10 mg tablet Take by mouth 2 (two) times a day 06/15/19 tiotropium bromide (SPIRIVA RESPIMAT) 2.5 mcg/actuation inhaler Spiriva Respimat 2.5 mcg/actuation solution for inhalation 06/15/19 Trulicity 1.5 mg/0.5 mL pen injector Inject 1.5 mg under the skin once a week 02/09/2020 04/27/20 documented as of this encounter Discharge Disposition Disposition Code Departure Means Destination Discharge to home or self care documented in this encounter Plan of Treatment Not on file documented as of this encounter Procedures Procedure Name Priority Date/Time Associated Diagnosis Comments XR TRANSFER OF OUTSIDE FILMS Routine 03/07/2020 11:20 AM CDT Diagnosis unknown documented in this encounter Results * XR Outside Reference (03/07/2020 11:20 AM CDT) Impressions [facility] - 03/07/2020 11:20 AM CDT These images are for Reference purposes only and have not been reviewed by [facility] Radiology. ??There will be no report generated by a [facility] Radiologist. Narrative [facility] - 03/07/2020 11:20 AM CDT EXAMINATION: ??Images For Reference Purposes Only Link Harley MD IMG XR PROCEDURES Final Re sult [facility] documented in this encounter Visit Diagnoses Not on filedocumented in this encounter Care Teams Comb Setter Relationship Specialty Start Date End Date Kyle Robles MD [address] [place] [address] PCP - General Family Medicine 07/30/18 03/25/22 documented as of this encounter
--- OUTSIDE RECORDS SUMMARY | 2024-05-12 20:15 | XMS_ITS | Encounter Summary ---
Author Organization [facility] Address [address] [place] [address] Care Team Providers Care Retail Account Specialist Name Role Phone Kyle Robles MD Primary Care Provider [phone] Reason for Referral * Diagnostic Imaging (Routine) - Closed Specialty Diagnoses / Procedures Referred By Contac t Referred To Contact Diagnoses Low back pain, non-specific Procedures XR Scoliosis 6 or More Views Leonila Wagner NP Phone: tel: fax: [address] [phone] Referral ID Status Reason Start Date Expiration Date Visits Re quested Visits Authorized [id number] Closed 03/03/2020 04/02/2021 1 1 Reason for Visit * Diagnostic Imaging (Routine) - Closed Specialty Diagnoses / Procedures Referred By Contac t Referred To Contact Diagnoses Low back pain, non-specific Procedures XR Scoliosis 6 or More Views Leonila Wagner NP Phone: tel: fax: [address] [phone] Referral ID Status Reason Start Date Expiration Date Visits Re quested Visits Authorized [id number] Closed 03/03/2020 04/02/2021 1 1 Encounter Details Date Type Department Care Team (Latest Contact Info) Description 03/07/2020 10:36 AM CDT - 03/07/2020 11:19 AM CDT Hospital Encounter [facility] Radiology [facility] [address] [place] [address] Kyle Robles MD [address] [place] [address] Leonila Wagner, COTY [address] [place] [address] Low back pain, non-specific Discharge Disposition: Discharge to home or self [...] on file Legal Sex Female 1:06 AM CRUMB PACKER Gender Identity Female 01/22/2024 8:47 PM CDT [...] 1 tablet (50 mcg total) by mouth associate professor of biblical studies before breakfast 06/06/2018 Accu-Chek Fastclix Lancet Drum [...] PO HS FOR 1 DAY PRN 03/24/20 exenatide microspheres (Bydureon BCise) 2 mg/0.85 mL [...] the skin once a week 02/09/2020 04/27/20 20 documented as of this encounter Discharge Disposition Disposition Code Departure Means Destination Discharge to home or self care documented in this encounter Plan of Treatment Not on file documented as of this encounter Procedures Procedure Name Priority Date/Time Associated Diagnosis Comments XR SCOLIOSIS 6 OR MORE VIEWS Schedule Routine, Read Routine (OP Routine) 03/07/2020 10:51 AM CDT Low back pain, non-specific documented in this encounter Results * XR Scoliosis 6 or More Views (03/07/2020 10:51 AM CDT) Anatomical Region Laterality Modality Spine N/A Computed Radiogr aphy 03/07/2020 11:1 9 AM CDT Impressions 03/07/2020 11:19 AM CDT 1. No scoliosis. Normal truncal balance. 2. Mild T11-T12 and L4-L5 degenerative disc disease. Electronically signed by: Keyur Spence M.D. Narrative 03/07/2020 11:19 AM CDT EXAMINATION: XR SCOLIOSIS ??6 OR MORE VIEWS HISTORY: Low back pain FINDINGS: Standing, digitally acquired AP and lateral views of the entire spine and lower extremities and 4 dedicated views of the lumbar spine are submitted without comparison radiographs. Coronal alignment is normal. There is no scoliosis. There is mild retrolisthesis of L4 on L5 which does not change with bending. No lumbar compression fracture. There is mild T11-T12 and L4-L5 degenerative disc disease. Cholecystectomy clips are noted. There is normal truncal balance. No pelvic obliquity. Procedure Note Keyur Spence MD - 03/07/2020 EXAMINATION: XR SCOLIOSIS 6 OR MORE VIEWS HISTORY: Low back pain FINDINGS: Standing, digitally acquired AP and lateral views of the entire spine and lower extremities and 4 dedicated views of the lumbar spine are submitted without comparison radiographs. Coronal alignment is normal. There is no scoliosis. There is mild retrolisthesis of L4 on L5 which does not change with bending. No lumbar compression fracture. There is mild T11-T12 and L4-L5 degenerative disc disease. Cholecystectomy clips are noted. There is normal truncal balance. No pelvic obliquity. IMPRESSION: 1. No scoliosis. Normal truncal balance. 2. Mild T11-T12 and L4-L5 degenerative disc disease. Electronically signed by: Keyur Spence M.D. Leonila Wagner PADDER CUSHION IMG XR PROCEDURES Final Result documented in this encounter Visit Diagnoses Diagnosis Low back pain, non-specific documented in this encounter Care Teams Retail Account Specialist Relationship Specialty Start Date End Date Kyle Robles MD [address] [place] [address] PCP - General Family Medicine 07/30/18 03/25/22 documented as of this encounter
--- OUTSIDE RECORDS SUMMARY | 2024-05-12 20:15 | XMS_ITS | Encounter Summary ---
Author Organization [facility] Facility Care Team Providers Care Project Admin Name Role Phone Unavailable Primary Care Provider Unavailabl e Encounter Details Date Type Department Care Team (Late st Contact Info) Description 08/29/2011 - 05/26/2012 11:59 PM REGULATORY PROCESS MANAGER Hospital Encounter [facility] Kei Pedraza MD [address] [address] Malignant neoplasm of other specified sites of female breast Social History Tobacco Use Types Packs/Day Years Used Date Smoking Tobacco: Never Assessed Comments Unknown Sex and Gender Information Value Date Recorded Sex Assigned at Not on file Legal Sex Female 1:06 AM REGULATORY PROCESS MANAGER Gender Identity Female 01/22/2024 8:47 PM CDT Sexual Orientation Straight 01/22/2024 8: 47 PM CDT documented as of this encounter Plan of Treatment Not on file documented as of this encounter Visit Diagnoses Diagnosis Malignant neoplasm of other specified sites of female breast documented in this encounter
--- OUTSIDE RECORDS SUMMARY | 2024-05-12 20:15 | XMS_ITS | Encounter Summary ---
Author Organization [facility] Facility Care Team Providers Care Mask Layout Designer Name Role Phone Unavailable Primary Care Provider Unavailabl e Encounter Details Date Type Department Care Team (Late st Contact Info) Description 05/29/2011 - 05/29/2011 11:59 PM ENGINE ROOM HELPER Hospital Encounter [facility] Lucas Dumont MD [address] [place] [address] Ila Can CNS [address] [address] Other follow-up examination; Personal history of malignant neoplasm of breast Social History Tobacco Use Types Packs/Day Years Used Date Smoking Tobacco: Never Assessed Comments Unknown Sex and Gender Information Value Date Recorded Sex Assigned at Not on file Legal Sex Female 1:06 AM ENGINE ROOM HELPER Gender Identity Female 01/22/2024 8:47 PM CDT Sexual Orientation Straight 01/22/2024 8: 47 PM CDT documented as of this encounter Plan of Treatment Not on file documented as of this encounter Visit Diagnoses Diagnosis Other follow-up examination Personal history of malignant neoplasm of breast documented in this encounter
--- OUTSIDE RECORDS SUMMARY | 2024-05-12 20:15 | XMS_ITS | Encounter Summary ---
Author Organization [facility] Address [address] [place] [address] Phone Care Team Providers Care Boiler House Supervisor Name Role Phone Kyle Robles MD Primary Care Provider [phone] Encounter Details Date Type Department Care Team (Late st Contact Info) Description 03/01/2020 Telephone [facility] Care Scheduling [address] [place] [address] Lilliam Bliss BS Social History Tobacco Use Types Packs/Day Years Used Date Smoking Tobacco: Former Comments No Sex and Gender Information Value Date Recorded Sex Assigned at Not on file Legal Sex Female 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 Reg/intake updated. Apt 03/07 pt to bring cd and arrive 45 mins early * Telephone Encounter - Lilliam Bliss BS - 03/01/2020 3:31 PM CDT Department of Neurological Surgery at [facility] Care Spine Intake 03/01/20 Gasper Pierce 1955 [id number] Kyle Robles MD Referring physician PCP Caller Name: PATIENT Referred to: First Available: Assigned to: First Available: Consult: Yes Second Opinion: No Diagnosis: Spondylosis, Spondylolithesis Requested Timeframe: NA Location (Spinal Area): Lumbar Incontinence: No Weakness: Yes right leg Numbness: Yes right leg/toes Pain: Yes low back down right hip Duration of symptoms: 5 weeks HT: 5'4 WT: 250 BMI: 42.91 Prior spine surgery: NO Physical therapy YES Injections NO Are you a current smoker: No Other surgeons seen: No Litigation: No MVA: No W/C: No Insurance: MEDICARE Imaging Done: Yes MRI: 02/26/2020 Imaging Location: [facility] Does the patient have any metal in their body? Yes KNEE Comments: NA Appointment scheduled: Yes Appointment Date & Time: PT TO BRING CD AND ARRIVE 45 MINS EARLY * Telephone Encounter - Lisseth Peña - 03/01/2020 2:26 PM CDT [facility] records received from 03/01/20 In media tab. * Telephone Encounter - Lilliam Bliss BS - 03/01/2020 1:18 PM CDT PCP ref to [facility] for [facility]. -they will fax records. Patient phone : [phone]. documented in this encounter Plan of Treatment Not on file documented as of this encounter Visit Diagnoses Not on filedocumented in this encounter Care Teams Boiler House Supervisor Relationship Specialty Start Date End Date Kyle Robles MD [address] [place] [address] PCP - General Family Medicine 07/30/18 03/25/22 documented as of this encounter
--- OUTSIDE RECORDS SUMMARY | 2024-05-12 20:15 | XMS_ITS | Encounter Summary ---
Author Organization [facility] Facility Care Team Providers Care Prize Fighter Name Role Phone Unavailable Primary Care Provider Unavailabl e Encounter Details Date Type Department Care Team (Latest Contact Info) Description 06/28/2016 10:30 AM INTAKE SPECIALIST - 06/28/2016 11:59 PM INTAKE SPECIALIST Hospital Encounter [facility] Val Rice MD [address] [place], [place] [id number] Encounter for screening mammogram for malignant neoplasm of breast; Other specified postprocedural states Social History Tobacco Use Types Packs/Day Years Used Date Smoking Tobacco: Former Comments Unknown Sex and Gender Information Value Date Recorded Sex Assigned at Not on file Legal Sex Female 1:06 AM INTAKE SPECIALIST Gender Identity Female 01/22/2024 8:47 PM CDT Sexual Orientation Straight 01/22/2024 8: 47 PM CDT documented as of this encounter Plan of Treatment Not on file documented as of this encounter Procedures Procedure Name Priority Date/Time Associated Diagnosis Comments SCREENING MAMMOGRAM Routine 06/28/2016 1 1:21 AM INTAKE SPECIALIST documented in this encounter Results * Screening Mammogram (06/28/2016 11:21 AM INTAKE SPECIALIST) Anatomical Region Laterality Modality Breast N/A Mammography 06/28/2016 11:2 1 AM INTAKE SPECIALIST Narrative 06/28/2016 11:43 AM INTAKE SPECIALIST CHRISTINE LOPEZ M.D. FINAL REPORT ACC# ??Date Time ??Exam [id number] Jun 28, 2016 11:21:00 [facility] [id number] Scr Mamm yane 2v w/MICHELLE ?? Technologist(s): Mago Moore; ; EXAMINATION: ??Mammogram Technique: Bilateral Digital Breast Tomosynthesis, Bilateral C-view 2D Screening mammogram. ??Views obtained: ??bilateral craniocaudal and bilateral mediolateral oblique. ??Computer Aided Detection was performed. Mammogram Findings: The present examination has been compared to prior imaging studies performed at [facility] on 06/03/2014 and 06/16/2015. There are scattered areas of fibroglandular density. There is no suspicious abnormality in either breast. There are no significant changes from the prior study. Findings compatible with prior right breast conservation therapy are noted. IMPRESSION: ??Finding is benign. Annual screening mammography is recommended. OVERALL FINAL ASSESSMENT: BI-RADS CATEGORY 2: ??Benign. Requested By: Dictated By: ?? CHRISTINE LOPEZ M.D. ??on Jun ??2016 11:43A This document has been electronically signed by: CHRISTINE LOPEZ M.D. on Jun ??2016 11:43A [id number] Procedure Note Provider, MD Osmin - 10/01/2016 CHRISTINE LOPEZ M.D. FINAL REPORT ACC# Date Time Exam [id number] Jun 28, 2016 11:21:00 [facility] [id number] [facility] Mamm yane 2v w/MICHELLE Technologist(s): Mago Moore; ; EXAMINATION: Mammogram Technique: Bilateral Digital Breast Tomosynthesis, Bilateral C-view 2D Screening mammogram. Views obtained: bilateral craniocaudal and bilateral mediolateral oblique. Computer Aided Detection was performed. Mammogram Findings: The present examination has been compared to prior imaging studies performed at [facility] on 06/03/2014 and 06/16/2015. There are scattered areas of fibroglandular density. There is no suspicious abnormality in either breast. There are no significant changes from the prior study. Findings compatible with prior right breast conservation therapy are noted. IMPRESSION: Finding is benign. Annual screening mammography is recommended. OVERALL FINAL ASSESSMENT: BI-RADS CATEGORY 2: Benign. Requested By: Dictated By: CHRISTINE LOPEZ M.D. on Jun 28 2016 11:43A This document has been electronically signed by: CHRISTINE LOPEZ M.D. on Jun 28 2016 11:43A [id number] Historical Provider MD [facility] MAMMO PROCEDURES Kemi l Result documented in this encounter Visit Diagnoses Diagnosis Encounter for screening mammogram for malignant neoplasm of breast Other specified postprocedural states documented in this encounter
--- OUTSIDE RECORDS SUMMARY | 2024-05-12 20:15 | XMS_ITS | Encounter Summary ---
Author Organization [facility] Facility Care Team Providers Care Clinical Dietetic Technician Name Role Phone Unavailable Primary Care Provider Unavailabl e Encounter Details Date Type Department Care Team (Late st Contact Info) Description 05/12/2009 6:00 PM SHAPE HAND - 05/12/2009 11:59 PM SHAPE HAND Hospital Encounter [facility] Scott Allen MD [address] [place] [address] Personal history of malignant neoplasm of breast Social History Tobacco Use Types Packs/Day Years Used Date Smoking Tobacco: Never Assessed Comments Unknown Sex and Gender Information Value Date Recorded Sex Assigned at Not on file Legal Sex Female 1:06 AM SHAPE HAND Gender Identity Female 01/22/2024 8:47 PM CDT Sexual Orientation Straight 01/22/2024 8: 47 PM CDT documented as of this encounter Plan of Treatment Not on file documented as of this encounter Visit Diagnoses Diagnosis Personal history of malignant neoplasm of breast documented in this encounter
--- OUTSIDE RECORDS SUMMARY | 2024-05-12 20:15 | XMS_ITS | Encounter Summary ---
Author Organization [facility] Facility Care Team Providers Care 8Th Grade Teacher Name Role Phone Unavailable Primary Care Provider Unavailabl e Encounter Details Date Type Department Care Team (Late st Contact Info) Description 05/29/2012 - 05/29/2012 11:59 PM LASER BEAM COLOR SCANNER OPERATOR Hospital Encounter [facility] Ila Can, [facility] [address] [address] Personal history of malignant neoplasm of breast Social History Tobacco Use Types Packs/Day Years Used Date Smoking Tobacco: Never Assessed Comments Unknown Sex and Gender Information Value Date Recorded Sex Assigned at Not on file Legal Sex Female 1:06 AM LASER BEAM COLOR SCANNER OPERATOR Gender Identity Female 01/22/2024 8:47 PM CDT Sexual Orientation Straight 01/22/2024 8: 47 PM CDT documented as of this encounter Plan of Treatment Not on file documented as of this encounter Procedures Procedure Name Priority Date/Time Associated Diagnosis Comments DIAGNOSTIC MAMMOGRAM 2D BILATERAL Routine 05/29/2012 10:46 AM LASER BEAM COLOR SCANNER OPERATOR documented in this encounter Results * DIAGNOSTIC MAMMOGRAM 2D BILATERAL (05/29/2012 10:46 AM LASER BEAM COLOR SCANNER OPERATOR) Anatomical Region Laterality Modality Breast Bilateral Mammography 05/29/2012 10:4 6 AM LASER BEAM COLOR SCANNER OPERATOR Narrative 05/29/2012 2:18 PM LASER BEAM COLOR SCANNER OPERATOR ARYAN FRANCISCO M.D. IRASEMA OHARA, FINAL REPORT The radiology attending physician has personally reviewed this study, and has reviewed and/or edited this written report and agrees with it. ACC# ??Date Time ??Exam [id number] May 29, 2012 10:46:00 [facility] [id number] Diag Mammogram Bilateral ?? Technologist(s): Viv Ramos; ; EXAMINATION: ?? BILATERAL FULL FIELD DIGITAL DIAGNOSTIC MAMMOGRAM WITH CAD HISTORY: Personal history of right breast cancer with prior breast conservation therapy. TECHNIQUE: Full field digital craniocaudal and mediolateral oblique views of both breasts were obtained. Computer Aided Detection was performed with R2, version 9.2. COMPARISON: 05/29/2011, 05/23/2010 and 05/12/2009, 05/11/2008, 05/08/2007, and 10/03/2006. BREAST PARENCHYMAL COMPOSITION: ??There are scattered fibroglandular densities. FINDINGS: Findings compatible with prior right breast conservation therapy are noted. No new suspicious abnormality is identified within either breast. ?? IMPRESSION: OVERALL FINAL ASSESSMENT: ??BI-RADS Category 2: Benign finding. RECOMMENDATION: ??Bilateral diagnostic mammogram is recommended in one year. ?? Requested By: Ila Can ??ASSISTANT FINANCE DIRECTOR Dictated By: ?? IRASEMA OHARA, ?? on May ??2012 11:15A This document has been electronically signed by: ARYAN FRANCISCO M.D. on May ??2012 ??2:18P Procedure Note Provider, MD Osmin - 09/25/2016 ARYAN FRANCISCO M.D. IRASEMA OHARA, FINAL REPORT The radiology attending physician has personally reviewed this study, and has reviewed and/or edited this written report and agrees with it. ACC# Date Time Exam [id number] May 29, 2012 10:46:00 [facility] [id number] Diag Mammogram Bilateral Technologist(s): Viv Ramos; ; EXAMINATION: BILATERAL FULL FIELD DIGITAL DIAGNOSTIC MAMMOGRAM WITHCAD HISTORY: Personal history of right breast cancer with prior breast conservation therapy. TECHNIQUE: Full field digital craniocaudal and mediolateral oblique views of both breasts were obtained. Computer Aided Detection was performed with R2, version 9.2. COMPARISON: 05/29/2011, 05/23/2010 and 05/12/2009, 05/11/2008, 05/08/2007, and 10/03/2006. BREAST PARENCHYMAL COMPOSITION: There are scattered fibroglandular densities. FINDINGS: Findings compatible with prior right breast conservation therapy are noted. No new suspicious abnormality is identified within either breast. IMPRESSION: OVERALL FINAL ASSESSMENT: BI-RADS Category 2: Benign finding. RECOMMENDATION: Bilateral diagnostic mammogram is recommended in one year. Requested By: Ila Can [facility] Dictated By: IRASEMA OHARA on May 29 2012 11:15A This document has been electronically signed by: ARYAN FRANCISCO M.D. on May 29 2012 2:18P us Historical Provider MD [facility]ER[facility] MAMMO PROCEDURES Kemi l Result documented in this encounter Visit Diagnoses Diagnosis Personal history of malignant neoplasm of breast documented in this encounter
--- OUTSIDE RECORDS SUMMARY | 2024-05-12 20:15 | XMS_ITS | Encounter Summary ---
Author Organization [facility] Address [address] [place] [address] Phone Care Team Providers Care Bituminous Distributor Operator Name Role Phone Kyle Robles MD Primary Care Provider [phone] Reason for Referral * Diagnostic Imaging (Routine) - Closed Specialty Diagnoses / Procedures Referred By Trisha corley Referred To Contact Diagnoses Low back pain, non-specific Procedures XR Scoliosis 6 or More Views Leonila Wagner NP Phone: tel: fax: [address] [address] Referral ID Status Reason Start Date Expiration Date Visits Re quested Visits Authorized [id number] Closed 03/03/2020 04/02/2021 1 1 Encounter Details Date Type Department Care Team (Late st Contact Info) Description 03/03/2020 Orders Only [facility] Neurosurgery [address] [facility] [address]th [place] [address] [place] [address] Leonila Wagner NP [address] [place] [address] Low back pain, non-specific (Primary Dx) Social History Tobacco Use Types Packs/Day Years Used Date Smoking Tobacco: Former Comments No Sex and Gender Information Value Date Recorded Sex Assigned at Not on file Legal Sex Female 1:06 AM ENVIRONMENTAL SERVICES PROJECT MANAGER Gender Identity Female 01/22/2024 8:47 PM CDT Sexual Orientation Straight 01/22/2024 8: 47 PM CDT documented as of this encounter Plan of Treatment Not on file documented as of this encounter Results * XR Scoliosis 6 [...] signed by: Keyur Spence M.D. Leonila Wagner AUTO RESEARCH ENGINEER IMG XR PROCEDURES Final Result documented in this encounter Visit Diagnoses Diagnosis Low back pain, non-specific- Primary Low back pain, non-specific documented in this encounter Care Teams Bituminous Distributor Operator Relationship Specialty Start Date End Date Kyle Robles MD [address] [place] [address] PCP - General Family Medicine 07/30/18 03/25/22 documented as of this encounter
--- OUTSIDE RECORDS SUMMARY | 2024-05-12 20:15 | XMS_ITS | Encounter Summary ---
Author Organization [facility] Healthcare Address [address] [place] [address] Care Team Providers Care Hot Air Furnace Installer Repairer Name Role Phone Kei Ortega MD Primary Care Provider [phone] Encounter Details Date Type Department Care Team (Latest Contact Info) Description 07/04/2017 9:55 AM AT RISK PARAPROFESSIONAL - 07/04/2017 11:59 PM AT RISK PARAPROFESSIONAL Hospital Encounter [facility] [phone] Chandrakant Can, [facility] [address] [address] Discharge Disposition: Discharge to home or self care Social History Tobacco Use Types Packs/Day Years Used Date Smoking Tobacco: Former Comments Unknown Sex and Gender Information Value Date Recorded Sex Assigned at Not on file Legal Sex Female 1:06 AM AT RISK PARAPROFESSIONAL Gender Identity Female 01/22/2024 8:47 PM CDT Sexual Orientation Straight 01/22/2024 8: 47 PM CDT documented as of this encounter Discharge Disposition Disposition Code Departure Means Destination Discharge to home or self care documented in this encounter Plan of Treatment Not on file documented as of this encounter Procedures Procedure Name Priority Date/Time Associated Diagnosis Comments MAMMOGRAPHY, TOMOGRAPHY, BILATERAL Routine 07/04/2017 4:39 PM AT RISK PARAPROFESSIONAL documented in this encounter Results * MAMMOGRAPHY, TOMOGRAPHY, BILATERAL (07/04/2017 4:39 PM AT RISK PARAPROFESSIONAL) Anatomical Region Laterality Modality Breast Bilateral Mammography 07/04/2017 4:39 PM AT RISK PARAPROFESSIONAL Narrative 07/04/2017 4:46 PM AT RISK PARAPROFESSIONAL OZZIE VARGAS M.D. FINAL REPORT ACC# ??Date Time ??Exam [id number] Jul 04, 2017 10:39:00 [facility] [id number] Scr Mamm yane 2v w/MICHELLE ?? Technologist(s): Malinda Yost; ; EXAMINATION: ??Mammogram Technique: Bilateral Digital Breast Tomosynthesis, Bilateral C-view 2D Screening mammogram. ??Views obtained: ??bilateral craniocaudal and bilateral mediolateral oblique. ??Computer Aided Detection was performed. Mammogram Findings: The present examination has been compared to prior imaging studies performed at [facility] on 06/16/2015 and 06/28/2016. There are scattered areas of fibroglandular density. There is no suspicious abnormality in either breast. Findings compatible with prior right breast conservation therapy are noted. IMPRESSION: ??Annual screening mammography is recommended. OVERALL FINAL ASSESSMENT: BI-RADS CATEGORY 1: ??Negative. Requested By: Chandrakant Can ??POWER SAW OPERATOR ? Dictated By: ?? OZZIE VARGAS M.D. ??on Jun ??2017 10:46A This document has been electronically signed by: OZZIE VARGAS M.D. on Jun ??2017 10:46A [id number] VARGAS M.D. FINAL REPORT Attending: ??PAMELLA, ??CHANDRAKANT Requesting: ??Pamella, ??Chandrakant Requesting Fax: ?? Attending Fax: ?? Attending ID: ??[id number] Requesting ID: ??[id number] Report To 1 ID: ??[id number] ? Report To 1 Name: ??, ?? Report To 1 FAX: ?? NextGen Order #: ?? Procedure Note Miscellaneous, Not In File - 07/04/2017 OZZIE VARGAS M.D. FINAL REPORT ACC# Date Time Exam [id number] Jul 04, 2017 10:39:00 [facility] [id number] Scr Mamm yane 2v w/MICHELLE Technologist(s): Malinda Yost; ; EXAMINATION: Mammogram Technique: Bilateral Digital Breast Tomosynthesis, Bilateral C-view 2D Screening mammogram. Views obtained: bilateral craniocaudal and bilateral mediolateral oblique. Computer Aided Detection was performed. Mammogram Findings: The present examination has been compared to prior imaging studies performed at [facility] on 06/16/2015 and 06/28/2016. There are scattered areas of fibroglandular density. There is no suspicious abnormality in either breast. Findings compatible with prior right breast conservation therapy are noted. IMPRESSION: Annual screening mammography is recommended. OVERALL FINAL ASSESSMENT: BI-RADS CATEGORY 1: Negative. Requested By: Chandrakant Can Dictated By: OZZIE VARGAS M.D. on Jul 04 2017 10:46A This document has been electronically signed by: OZZIE VARGAS M.D. on Jul 04 2017 10:46A [id number] VARGAS M.D. FINAL REPORT Attending: CHANDRAKANT CAN Requesting: Chandrakant Can Requesting Fax: Attending Fax: Attending ID: [id number] Requesting ID: [id number] Report To 1 ID: [id number] Report To 1 Name: , Report To 1 FAX: NextGen Order #: [id number] MAJANO IMG MAMMO PROCEDURES Final R esult documented in this encounter Visit Diagnoses Not on filedocumented in this encounter Care Teams Hot Air Furnace Installer Repairer Relationship Specialty Start Date End Date Kei Ortega MD [address] [place] [address] [place] [address] PCP - General 07/04/17 07/29/18 documented as of this encounter
--- OUTSIDE RECORDS SUMMARY | 2024-05-12 20:15 | XMS_ITS | Encounter Summary ---
Author Organization [facility] Healthcare Address [address] [place] [address] Care Team Providers Care Keel Press Operator Name Role Phone Kyle Robles MD Primary Care Provider Reason for Referral * Diagnostic Imaging (Routine) - Closed Specialty Diagnoses / Procedures Referred By Trisha corley Referred To Contact Diagnoses Encounter for screening mammogram for malignant neoplasm of breast History of breast cancer Procedures Screening Mammogram Bilateral W Ila Araujo CNS Phone: tel: fax: [address] [phone] Referral ID Status Reason Start Date Expiration Date Visits Re quested Visits Authorized [id number] Closed 07/27/2019 02/04/2021 1 1 Reason for Visit * Diagnostic Imaging (Routine) - Closed Specialty Diagnoses / Procedures Referred By Trisha corley Referred To Contact Diagnoses Encounter for screening mammogram for malignant neoplasm of breast History of breast cancer Procedures Screening Mammogram Bilateral W Ila Araujo CNS Phone: tel: fax: [address] [address] Referral ID Status Reason Start Date Expiration Date Visits Re quested Visits Authorized [id number] Closed 07/27/2019 02/04/2021 1 1 Encounter Details Date Type Department Care Team (Latest Contact Info) Description 08/05/2019 11:00 AM CDT - 08/05/2019 11:59 PM CDT Hospital Encounter [facility] [address] [place] [address] [address], Imelda Bennett MD PhD [address] [place] [address] Ila Can CNS [address] [address] Encounter for screening mammogram for malignant neoplasm of breast ; History of breast cancer Discharge Disposition: Discharge to home or self care Social History Tobacco Use Types Packs/Day Years Used Date Smoking Tobacco: Former Comments No Sex and Gender Information Value Date Recorded Sex Assigned at Not on file Legal Sex Female 1: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 WASHING MACHINE 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 Gender Identity Female 01/22/2024 8:47 PM CDT [...] 1 tablet (50 mcg total) by mouth cigarette packing machine operator before breakfast 06/06/2018 Accu-Chek Fastclix Lancet [...] BCise 2 mg/0.85 mL subcutaneous auto-injector 06/15/19 FLUoxetine (FLUoxetine) 10 mg tablet/capsule 0 22 [...] Respimat 2.5 mcg/actuation solution for inhalation 06/15/19 documented as of this encounter Discharge Disposition Disposition Code Departure Means Destination Discharge to home or self care documented in this encounter Miscellaneous Notes * Result Encounter Note - Ila Can CNS - 08/05/2019 11:59 PM CDT I personally reviewed her bilateral screening mammograms read as benign by Dr. Goldstein. She will follow up in 1 year when she is due for screening mammograms. documented in this encounter Plan of Treatment Not on file documented as of this encounter Procedures Procedure Name Priority Date/Time Associated Diagnosis Comments SCREENING MAMMOGRAM BILATERAL W JAMES Schedule Routine, Read Routine (OP Routine) 08/05/2019 11:24 AM CDT Encounter for screening mammogram for malignant neoplasm of breast History of breast cancer documented in this encounter Results * Screening Mammogram Bilateral W James (08/05/2019 11:24 AM CDT) Anatomical Region Laterality Modality Breast Bilateral Mammography Narrative 08/06/2019 2:45 PM CDT Mammogram Technique: Bilateral Digital Breast Tomosynthesis, Bilateral C-view 2D Screening mammogram. ??Views obtained: ??bilateral craniocaudal and bilateral mediolateral oblique. ??Computer Aided Detection was performed. Mammogram Findings: The present examination has been compared to prior imaging studies performed at [facility] on 06/28/2016, 07/04/2017 and 07/30/2018. There are scattered areas of fibroglandular density. There is no suspicious abnormality in either breast. Findings compatible with prior right breast conservation therapy are noted. Impression: Finding is benign. Annual screening mammography is recommended. OVERALL FINAL ASSESSMENT: BI-RADS CATEGORY 2: ??Benign. Procedure Note Lula Goldstein MD - 08/06/2019 Mammogram Technique: Bilateral Digital Breast Tomosynthesis, Bilateral C-view 2D Screening mammogram. Views obtained: bilateral craniocaudal and bilateral mediolateral oblique. Computer Aided Detection was performed. Mammogram Findings: The present examination has been compared to prior imaging studies performed at [facility] on 06/28/2016, 07/04/2017 and 07/30/2018. There are scattered areas of fibroglandular density. There is no suspicious abnormality in either breast. Findings compatible with prior right breast conservation therapy arenoted. Impression: Finding is benign. Annual screening mammography is recommended. OVERALL FINAL ASSESSMENT: BI-RADS CATEGORY 2: Benign. us Ila Can HOSPICE SOCIAL WORKER IMG MAMMO PROCEDURES Final R esult documented in this encounter Visit Diagnoses Diagnosis Encounter for screening mammogram for malignant neoplasm of breast History of breast cancer Personal history of malignant neoplasm of breast documented in this encounter Care Teams Keel Press Operator Relationship Specialty Start Date End Date Kyle Robles MD [address] [place] [address] PCP - General Family Medicine 07/30/18 03/25/22 documented as of this encounter
--- OUTSIDE RECORDS SUMMARY | 2024-05-12 20:15 | XMS_ITS | Encounter Summary ---
Author Organization [facility] Facility Care Team Providers Care Manager Wind Name Role Phone Kyle Robles MD Primary Care Provider [phone] Encounter Details Date Type Department Care Team (Latest Contact Info) Description 07/30/2018 Travel Social History Tobacco Use Types Packs/Day Years Used Date Smoking Tobacco: Former Comments No Sex and Gender Information Value Date Recorded Sex Assigned at Not on file Legal Sex Female 1:06 AM MEDICAL RECORD SPECIALIST Gender Identity Female 01/22/2024 8:47 PM CDT Sexual Orientation Straight 01/22/2024 8: 47 PM CDT documented as of this encounter Plan of Treatment Not on file documented as of this encounter Visit Diagnoses Not on filedocumented in this encounter Care Teams Manager Wind Relationship Specialty Start Date End Date Kyle Robles MD [address] [place] [address] PCP - General Family Medicine 07/30/18 03/25/22 documented as of this encounter
--- OUTSIDE RECORDS SUMMARY | 2024-05-12 20:15 | XMS_ITS | Encounter Summary ---
Author Organization [facility] Facility Care Team Providers Care Animal Cytologist Name Role Phone Unavailable Primary Care Provider Unavailabl e Encounter Details Date Type Department Care Team (Late st Contact Info) Description 06/16/2015 - 06/16/2015 11:59 PM DIRECT MARKETING REPRESENTATIVE Hospital Encounter [facility] Lucas Dumont MD [facility] [place] [address] Encounter for screening mammogram for malignant neoplasm of breast Social History Tobacco Use Types Packs/Day Years Used Date Smoking Tobacco: Former Comments Unknown Sex and Gender Information Value Date Recorded Sex Assigned at Not on file Legal Sex Female 1:06 AM DIRECT MARKETING REPRESENTATIVE Gender Identity Female 01/22/2024 8:47 PM CDT Sexual Orientation Straight 01/22/2024 8: 47 PM CDT documented as of this encounter Plan of Treatment Not on file documented as of this encounter Procedures Procedure Name Priority Date/Time Associated Diagnosis Comments SCREENING MAMMOGRAM W JAMES Routine 06/16/2015 10:48 AM DIRECT MARKETING REPRESENTATIVE documented in this encounter Results * Screening Mammogram W James (06/16/2015 10:48 AM DIRECT MARKETING REPRESENTATIVE) Anatomical Region Laterality Modality Breast N/A Mammography 06/16/2015 10:4 8 AM DIRECT MARKETING REPRESENTATIVE Narrative 06/16/2015 10:55 AM DIRECT MARKETING REPRESENTATIVE NAEEM WALTERS M.D. FINAL REPORT ACC# ??Date Time ??Exam [id number] Jun 16, 2015 10:48:00 [facility] [id number] Bilateral screen w james ?? Technologist(s): Theresa Duncan; ; EXAMINATION: ??Mammogram Technique: Bilateral Full-Field Digital Screening Mammogram and Digital Breast Tomosynthesis were performed. ??Views obtained: ??bilateral craniocaudal and bilateral mediolateral oblique. ??Computer Aided Detection of the 2D images was performed with [employer]3 version 9.3. Mammogram Findings: The present examination has been compared to prior imaging studies performed at [facility] on 06/03/2014 and 06/02/2013. The breasts are heterogeneously dense, which may obscure small masses. There is no suspicious abnormality in either breast. Findings compatible with prior right breast conservation therapy are noted. IMPRESSION: ??Annual screening mammography is recommended. OVERALL FINAL ASSESSMENT: BI-RADS CATEGORY 1: ??Negative. Requested By: Dictated By: ?? NAEEM WALTERS M.D. ??on Jun 16 2015 10:55A This document has been electronically signed by: NAEEM WALTERS M.D. on Jun 16 2015 10:54A [id number] Procedure Note Provider, MD Osmin - 09/25/2016 NAEEM WALTERS M.D. FINAL REPORT ACC# Date Time Exam [id number] Jun 16, 2015 10:48:00 [facility] [id number] Bilateral screen w james Technologist(s): Theresa Duncan; ; EXAMINATION: Mammogram Technique: Bilateral Full-Field Digital Screening Mammogram and Digital Breast Tomosynthesis were performed. Views obtained: bilateral craniocaudaland bilateral mediolateral oblique. Computer Aided Detection of the 2Dimages was performed with [employer] 1.3 version 9.3. Mammogram Findings: The present examination has been compared to prior imaging studies performed at [facility] on 06/03/2014 and 06/02/2013. The breasts are heterogeneously dense, which may obscure small masses. There is no suspicious abnormality in either breast. Findings compatible with prior right breast conservation therapy are noted. IMPRESSION: Annual screening mammography is recommended. OVERALL FINAL ASSESSMENT: BI-RADS CATEGORY 1: Negative. Requested By: Dictated By: NAEEM WALTERS M.D. on Jun 16 2015 10:55A This document has been electronically signed by: NAEEM WALTERS M.D. on Jun 16 2015 10:54A [id number] Historical Provider MD [facility] MAMMO PROCEDURES Kemi l Result documented in this encounter Visit Diagnoses Diagnosis Encounter for screening mammogram for malignant neoplasm of breast documented in this encounter
--- OUTSIDE RECORDS SUMMARY | 2024-05-12 20:15 | XMS_ITS | Encounter Summary ---
Author Organization [facility] Facility Care Team Providers Care Returned Goods Inspector Name Role Phone Unavailable Primary Care Provider Unavailabl e Encounter Details Date Type Department Care Team (Late st Contact Info) Description 06/02/2013 - 06/02/2013 11:59 PM PRIVACY ATTORNEY Hospital [facility] [address] [address] Scott Allen MD [address] [address] Other screening mammogram Social History Tobacco Use Types Packs/Day Years Used Date Smoking Tobacco: Former Comments Unknown Sex and Gender Information Value Date Recorded Sex Assigned at Not on file Legal Sex Female 1:06 AM PRIVACY ATTORNEY Gender Identity Female 01/22/2024 8:47 PM CDT Sexual Orientation Straight 01/22/2024 8: 47 PM CDT documented as of this encounter Plan of Treatment Not on file documented as of this encounter Procedures Procedure Name Priority Date/Time Associated Diagnosis Comments SCREENING MAMMOGRAM W JAMES Routine 06/02/2013 11:35 AM PRIVACY ATTORNEY DIAGNOSTIC MAMMOGRAM 2D BILATERAL Routine 06/02/2013 11:35 AM PRIVACY ATTORNEY documented in this encounter Results * DIAGNOSTIC MAMMOGRAM 2D BILATERAL (06/02/2013 11:35 AM PRIVACY ATTORNEY) Anatomical Region Laterality Modality Breast Bilateral Mammography 06/02/2013 11:3 5 AM PRIVACY ATTORNEY Narrative 06/02/2013 12:27 PM PRIVACY ATTORNEY EDDIE GUZMÁN M.D. DONNA FALL M.D. FINAL REPORT The radiology attending physician has personally reviewed this study, and has reviewed and/or edited this written report and agrees with it. ACC# ??Date Time ??Exam [id number] Jun 02, 2013 11:35:00 [facility] [id number] Diag Mammogram Bilateral ?? Technologist(s): Lilly Lin; ; [id number] Jun 02, 2013 11:35:00 [facility] [id number] Bilateral Tomosynthesis ?? Technologist(s): Lilly Lin; ; EXAMINATION: ?? BILATERAL FULL FIELD DIGITAL DIAGNOSTIC MAMMOGRAM WITH CAD AND BILATERAL DIGITAL BREAST TOMOSYNTHESIS HISTORY: Personal history of right breast cancer with prior breast conservation therapy. TECHNIQUE: Full field digital craniocaudal and mediolateral oblique views of both breasts were obtained. Computer Aided Detection was performed with [employer]3 version 9.3. ??Bilateral digital breast tomosynthesis was also performed and reviewed as a part of this examination. COMPARISON: 05/29/2012, 05/29/2011, 05/23/2010. BREAST PARENCHYMAL COMPOSITION: ??There are scattered fibroglandular densities. FINDINGS: Findings compatible with prior right breast conservation therapy are noted. No new suspicious abnormality is identified within either breast. ?? IMPRESSION: OVERALL FINAL ASSESSMENT: ??BI-RADS Category 2: Benign finding. RECOMMENDATION: ??Bilateral diagnostic mammogram is recommended in one year. ?? Requested By: Ila Can ??CAD DESIGNER DRAFTER Dictated By: ?? DONNA FALL M.D. ??on May?2013 12:08P This document has been electronically signed by: EDDIE GUZMÁN M.D. on May 12:27P Procedure Note Provider, MD Osmin - 09/25/2016 EDDIE GUZMÁN M.D. DONNA FALL M.D. FINAL REPORT The radiology attending physician has personally reviewed this study, and has reviewed and/or edited this written report and agrees with it. ACC# Date Time Exam [id number] Jun 02, 2013 11:35:00 [facility] [id number] Diag Mammogram Bilateral Technologist(s): Lilly Lin; ; [id number] Jun 02, 2013 11:35:00 [facility] [id number] Bilateral Tomosynthesis Technologist(s): Lilly Lin; ; EXAMINATION: BILATERAL FULL FIELD DIGITAL DIAGNOSTIC MAMMOGRAM WITH CAD AND BILATERAL DIGITAL BREAST TOMOSYNTHESIS HISTORY: Personal history of right breast cancer with prior breast conservation therapy. TECHNIQUE: Full field digital craniocaudal and mediolateral oblique views of both breasts were obtained. Computer Aided Detection was performed with [employer]3 version 9.3. Bilateral digital breast tomosynthesis was also performed and reviewed as a part of this examination. COMPARISON: 05/29/2012, 05/29/2011, 05/23/2010. BREAST PARENCHYMAL COMPOSITION: There are scattered fibroglandular densities. FINDINGS: Findings compatible with prior right breast conservation therapy are noted. No new suspicious abnormality is identified within either breast. IMPRESSION: OVERALL FINAL ASSESSMENT: BI-RADS Category 2: Benign finding. RECOMMENDATION: Bilateral diagnostic mammogram is recommended in one year. Requested By: Ila Can CAD DESIGNER DRAFTER Dictated By: DONNA FALL M.D. on Jun 02 2013 12:08P This document has been electronically signed by: EDDIE GUZMÁN M.D. on Jun 02 2013 12:27P us Historical Provider [facility] MAMMO PROCEDURES Kemi l Result * Screening Mammogram W James (06/02/2013 11:35 AM PRIVACY ATTORNEY) Anatomical Region Laterality Modality Breast N/A Mammography 06/02/2013 11:3 5 AM PRIVACY ATTORNEY Narrative 06/02/2013 12:27 PM PRIVACY ATTORNEY Kayla ALBERTS M.D. FINAL REPORT The radiology attending physician has personally reviewed this study, and has reviewed and/or edited this written report and agrees with it. ACC# ??Date Time ??Exam [id number] Jun 02, 2013 11:35:00 [facility] [id number] Diag Mammogram Bilateral ?? Technologist(s): Lilly Lin; ; [id number] Jun 02, 2013 11:35:00 [facility] [id number] Bilateral Tomosynthesis ?? Technologist(s): Lilly Lin; ; EXAMINATION: ?? BILATERAL FULL FIELD DIGITAL DIAGNOSTIC MAMMOGRAM WITH CAD AND BILATERAL DIGITAL BREAST TOMOSYNTHESIS HISTORY: Personal history of right breast cancer with prior breast conservation therapy. TECHNIQUE: Full field digital craniocaudal and mediolateral oblique views of both breasts were obtained. Computer Aided Detection was performed with [employer] version 9.3. ??Bilateral digital breast tomosynthesis was also performed and reviewed as a part of this examination. COMPARISON: 05/29/2012, 05/29/2011, 05/23/2010. BREAST PARENCHYMAL COMPOSITION: ??There are scattered fibroglandular densities. FINDINGS: Findings compatible with prior right breast conservation therapy are noted. No new suspicious abnormality is identified within either breast. ?? IMPRESSION: OVERALL FINAL ASSESSMENT: ??BI-RADS Category 2: Benign finding. RECOMMENDATION: ??Bilateral diagnostic mammogram is recommended in one year. ?? Requested By: Ila Can ??CAD DESIGNER DRAFTER Dictated By: ?? DONNA FALL M.D. ??on May?2013 12:08P This document has been electronically signed by: EDDIE GUZMÁN M.D. on May ??2013 12:27P Procedure Note Provider, MD Osmin - 09/25/2016 EDDIE GUZMÁN M.D. DONNA FALL M.D. FINAL REPORT The radiology attending physician has personally reviewed this study, and has reviewed and/or edited this written report and agrees with it. ACC# Date Time Exam [id number] Jun 02, 2013 11:35:00 [facility] [id number] Diag Mammogram Bilateral Technologist(s): Lilly Lni; ; [id number] Jun 02, 2013 11:35:00 [facility] [id number] Bilateral Tomosynthesis Technologist(s): Lilly Lin; ; EXAMINATION: BILATERAL FULL FIELD DIGITAL DIAGNOSTIC MAMMOGRAM WITH CAD AND BILATERAL DIGITAL BREAST TOMOSYNTHESIS HISTORY: Personal history of right breast cancer with prior breast conservation therapy. TECHNIQUE: Full field digital craniocaudal and mediolateral oblique views of both breasts were obtained. Computer Aided Detection was performed with [employer]3 version 9.3. Bilateral digital breast tomosynthesis was also performed and reviewed as a part of this examination. COMPARISON: 05/29/2012, 05/29/2011, 05/23/2010. BREAST PARENCHYMAL COMPOSITION: There are scattered fibroglandular densities. FINDINGS: Findings compatible with prior right breast conservation therapy are noted. No new suspicious abnormality is identified within either breast. IMPRESSION: OVERALL FINAL ASSESSMENT: BI-RADS Category 2: Benign finding. RECOMMENDATION: Bilateral diagnostic mammogram is recommended in one year. Requested By: Ila Can [facility] Dictated By: DONNA FALL M.D. on Jun 02 2013 12:08P This document has been electronically signed by: EDDIE GUZMÁN M.D. on Jun 02 2013 12:27P us Historical Provider MD [facility] MAMMO PROCEDURES Kemi l Result documented in this encounter Visit Diagnoses Diagnosis Other screening mammogram documented in this encounter
--- OUTSIDE RECORDS SUMMARY | 2024-05-12 20:15 | XMS_ITS | Encounter Summary ---
Author Organization [facility] Facility Care Team Providers Care Supervisor Lathing Name Role Phone Unavailable Primary Care Provider Unavailabl e Encounter Details Date Type Department Care Team (Late st Contact Info) Description 10/24/2009 - 05/26/2010 11:59 PM SPEEDOMETER MECHANIC Hospital Encounter [facility] Kei Pedraza MD [address] [place] [address] Malignant neoplasm of other specified sites of female breast Social History Tobacco Use Types Packs/Day Years Used Date Smoking Tobacco: Never Assessed Comments Unknown Sex and Gender Information Value Date Recorded Sex Assigned at Not on file Legal Sex Female 1:06 AM SPEEDOMETER MECHANIC Gender Identity Female 01/22/2024 8:47 PM CDT Sexual Orientation Straight 01/22/2024 8: 47 PM CDT documented as of this encounter Plan of Treatment Not on file documented as of this encounter Visit Diagnoses Diagnosis Malignant neoplasm of other specified sites of female breast documented in this encounter
--- OUTSIDE RECORDS SUMMARY | 2024-05-12 20:15 | XMS_ITS | Encounter Summary ---
Author Organization [facility] Facility Care Team Providers Care Traditional Chinese Herbalist Name Role Phone Unavailable Primary Care Provider Unavailabl e Encounter Details Date Type Department Care Team (Late st Contact Info) Description 08/26/2013 - 05/26/2014 11:59 PM FINANCIAL PLANNING ADVISOR Hospital Encounter [facility] Kei Pedraza MD [address] [address] Social History Tobacco Use Types Packs/Day Years Used Date Smoking Tobacco: Former Comments Unknown Sex and Gender Information Value Date Recorded Sex Assigned at Not on file Legal Sex Female 1:06 AM FINANCIAL PLANNING ADVISOR Gender Identity Female 01/22/2024 8:47 PM CDT Sexual Orientation Straight 01/22/2024 8: 47 PM CDT documented as of this encounter Plan of Treatment Not on file documented as of this encounter Visit Diagnoses Not on filedocumented in this encounter
--- OUTSIDE RECORDS SUMMARY | 2024-05-12 20:15 | XMS_ITS | Encounter Summary ---
Author Organization [facility] Address [address] [place] [address] Care Team Providers Care Preschool Special Education Teacher Name Role Phone Kyle Robles MD Primary Care Provider [phone] Reason for Referral * Diagnostic Imaging (Routine) - Closed Specialty Diagnoses / Procedures Referred By Trisha corley Referred To Contact Diagnoses History of right breast cancer Procedures Screening Mammogram Bilateral W Ila Araujo CNS Phone: tel: fax: [address] [phone] Referral ID Status Reason Start Date Expiration Date Visits Re quested Visits Authorized [id number] Closed 03/31/2018 10/10/2019 1 1 LATORY LEADER Reason for Visit * Diagnostic Imaging (Routine) - Closed Specialty Diagnoses / Procedures Referred By Trisha corley Referred To Contact Diagnoses History of right breast cancer Procedures Screening Mammogram Bilateral W Ila Araujo CNS Phone: tel: fax: [address] [phone] Referral ID Status Reason Start Date Expiration Date Visits Re quested Visits Authorized [id number] Closed 03/31/2018 10/10/2019 1 1 Encounter Details Date Type Department Care Team (Latest Contact Info) Description 07/30/2018 10:52 AM REGULATORY LEADER - 07/30/2018 11:59 PM REGULATORY LEADER Hospital Encounter [facility] [address] [place] [address] Ila Can, [facility] [address] [address] History of right breast cancer Discharge Disposition: Discharge to home or self care Social History Tobacco Use Types Packs/Day Years Used Date Smoking Tobacco: Former Comments No Sex and Gender Information Value Date Recorded Sex Assigned at Not on file Legal Sex Female 1:06 AM REGULATORY LEADER Gender Identity Female 01/22/2024 8:47 PM CDT Sexual Orientation Straight 01/22/2024 8: 47 PM CDT documented as of this encounter Medications at Time of Discharge atorvastatin (LIPITOR) 10 mg tablet Take 1 tablet (10 mg total) by mouth daily 1 06/25/[address] (CYMBALTA) 60 mg capsule Take 1 capsule (60 mg total) by mouth daily 06/06/2018 metFORMIN (FORTAMET) 1,000 mg 24 hr tablet Take 1 tablet (1,000 mg total) by mouth daily with breakfast 07/19/2018 omeprazole (PriLOSEC) 40 mg capsule Take 1 capsule (40 mg total) by mouth daily 07/27/2018 SYNTHROID 50 mcg tablet Take 1 tablet (50 mcg total) by mouth malt house operator before breakfast 06/06/2018 azelastine (ASTELIN) 137 mcg (0.1 %) nasal spray 05/21/2018 2 lisinopril-hydro CHLOROthiazide (PRINZIDE,ZESTOR ETIC) 20-12.5 mg per tablet daily . 0 losartan-hydroch lorothiazide (HYZAAR) 100-25 mg per tablet 06/23/2018 2 montelukast (SINGULAIR) 10 mg tablet Take 10 mg by mouth nightly 2 pediatric multivitamin-iro n tablet,chewable daily . 2 documented as of this encounter Discharge Disposition Disposition Code Departure Means Destination Discharge to home or self care documented in this encounter Progress Notes * Ila Can CNS - 07/30/2018 11:59 PM CST I personally reviewed her bilateral screening mammograms read as negative by Dr. Hayward. She will follow up in 1 year when she is due for screening mammograms. LATORY LEADER documented in this encounter Plan of Treatment Not on file documented as of this encounter Procedures Procedure Name Priority Date/Time Associated Diagnosis Comments SCREENING MAMMOGRAM BILATERAL W JAMES Schedule Routine, Read Routine (OP Routine) 07/30/2018 11:24 AM REGULATORY LEADER History of right breast cancer documented in this encounter Results * Screening Mammogram Bilateral W James (07/30/2018 11:24 AM REGULATORY LEADER) Anatomical Region Laterality Modality Breast Bilateral Mammography Narrative 07/31/2018 9:39 AM REGULATORY LEADER Mammogram Technique: Bilateral Digital Breast Tomosynthesis, Bilateral C-view 2D Screening mammogram. ??Views obtained: ??bilateral craniocaudal and bilateral mediolateral oblique. ??Computer Aided Detection was performed. Mammogram Findings: The present examination has been compared to prior imaging studies performed at [facility] on 06/16/2015, 06/28/2016 and [...] compared to prior imaging studies performed at [facility] on 06/16/2015, 06/28/2016 and 07/04/2017. There are scattered areas of fibroglandular density. There is no suspicious abnormality in either breast. Findings compatible with prior right breast conservation therapy arenoted. Impression: Annual screening mammography is recommended. OVERALL FINAL ASSESSMENT: BI-RADS CATEGORY 1: Negative. us Ila Can FELT PAD CUTTER IMG MAMMO PROCEDURES Final R esult documented in this encounter Visit Diagnoses Diagnosis History of right breast cancer documented in this encounter Care Teams Preschool Special Education Teacher Relationship Specialty Start Date End Date Kyle Robles MD [address] [place] [address] PCP - General Family Medicine 07/30/18 03/25/22 documented as of this encounter
--- OUTSIDE RECORDS SUMMARY | 2024-05-12 20:15 | XMS_ITS | Encounter Summary ---
Author Organization [facility] Address [address] [place] [address] Phone Care Team Providers Care Montessori Toddler Teacher Name Role Phone Kyle Robles MD Primary Care Provider [phone] Reason for Referral * Diagnostic Imaging (Routine) - Closed Specialty Diagnoses / Procedures Referred By Trisha corley Referred To Contact Diagnoses Encounter for screening mammogram for malignant neoplasm of breast History of breast cancer Procedures Screening Mammogram Bilateral W Ila Araujo CNS Phone: tel: fax: [address] [phone] Referral ID Status Reason Start Date Expiration Date Visits Re quested Visits Authorized [id number] Closed 07/27/2019 02/04/2021 1 1 D CARE CENTER ADMINISTRATOR Encounter Details Date Type Department Care Team (Late st Contact Info) Description 07/27/2019 Orders Only [facility] [address] [facility] 5[address] [place] [address] [place] [id number] Ila Can CNS [address] [id number] History of breast cancer (Primary Dx); Encounter for screening mammogram for malignant neoplasm of breast Social History Tobacco Use Types Packs/Day Years Used Date Smoking Tobacco: Former Comments No Sex and Gender Information Value Date Recorded Sex Assigned at Not on file Legal Sex Female 1:06 AM CHILD CARE CENTER ADMINISTRATOR Gender Identity Female 01/22/2024 8:47 PM CDT [...] compared to prior imaging studies performed at [facility] on 06/28/2016, 07/04/2017 and 07/30/2018. [...] compared to prior imaging studies performed at [facility] on 06/28/2016, 07/04/2017 and 07/30/2018. There are scattered areas of fibroglandular density. There is no suspicious abnormality in either breast. Findings compatible with prior right breast conservation therapy arenoted. Impression: Finding is benign. Annual screening mammography is recommended. OVERALL FINAL ASSESSMENT: BI-RADS CATEGORY 2: Benign. us Ila Can CENTRAL SUPPLY MANAGER IMG MAMMO PROCEDURES Final R esult documented in this encounter Visit Diagnoses Diagnosis History of breast cancer- Primary Personal history of malignant neoplasm of breast Encounter for screening mammogram for malignant neoplasm of breast Encounter for screening mammogram for malignant neoplasm of breast History of breast cancer Personal history of malignant neoplasm of breast documented in this encounter Care Teams Montessori Toddler Teacher Relationship Specialty Start Date End Date Kyle Robles MD [address] [place] [address] PCP - General Family Medicine 07/30/18 03/25/22 documented as of this encounter
--- OUTSIDE RECORDS SUMMARY | 2024-05-12 20:15 | XMS_ITS | Encounter Summary ---
Author Organization [facility] Facility Care Team Providers Care Strategic Debriefing Specialist Name Role Phone Unavailable Primary Care Provider Unavailabl e Encounter Details Date Type Department Care Team (Late st Contact Info) Description 10/15/2007 - 05/26/2008 11:59 PM GEOPHYSICAL PROSPECTING SURVEYOR Hospital Encounter [facility] Kei Pedraza MD [address] [place] [address] [address] Malignant neoplasm of other specified sites of female breast Social History Tobacco Use Types Packs/Day Years Used Date Smoking Tobacco: Never Assessed Comments Unknown Sex and Gender Information Value Date Recorded Sex Assigned at Not on file Legal Sex Female 1:06 AM GEOPHYSICAL PROSPECTING SURVEYOR Gender Identity Female 01/22/2024 8:47 PM CDT Sexual Orientation Straight 01/22/2024 8: 47 PM CDT documented as of this encounter Plan of Treatment Not on file documented as of this encounter Visit Diagnoses Diagnosis Malignant neoplasm of other specified sites of female breast documented in this encounter
--- OUTSIDE RECORDS SUMMARY | 2024-05-12 20:15 | XMS_ITS | Encounter Summary ---
Author Organization [facility] Care Team Providers Care Fagoter Name Role Phone Unavailable Primary Care Provider Unavailabl e Encounter Details Date Type Department Care Team (Late st Contact Info) Description 03/01/2009 - 05/26/2009 11:59 PM DRUM PULLER Hospital Encounter [facility] Naida Barrow MD [address] [facility] [address] [place] [address] Social History Tobacco Use Types Packs/Day Years Used Date Smoking Tobacco: Never Assessed Comments Unknown Sex and Gender Information Value Date Recorded Sex Assigned at Not on file Legal Sex Female 1:06 AM DRUM PULLER Gender Identity Female 01/22/2024 8:47 PM CDT Sexual Orientation Straight 01/22/2024 8: 47 PM CDT documented as of this encounter Plan of Treatment Not on file documented as of this encounter Visit Diagnoses Not on filedocumented in this encounter
--- OUTSIDE RECORDS SUMMARY | 2024-05-12 20:15 | XMS_ITS | Encounter Summary ---
Author Organization [facility] Address [address] [place] [address] Phone Care Team Providers Care Pediatrics Teacher Name Role Phone Kyle Robles MD Primary Care Provider Encounter Details Date Type Department Care Team (Late st Contact Info) Description 08/05/2019 Orders Only [facility] Surgery [address] [facility] 5th [place] [address] [place] [address] Ila Can, 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
--- OUTSIDE RECORDS SUMMARY | 2024-05-12 20:15 | XMS_ITS | Encounter Summary ---
Author Organization [facility] Address [address] [place] [address] Phone Care Team Providers Care Alteration Worker Name Role Phone Kyle Robles MD Primary Care Provider [phone] Reason for Referral * Consultation (Routine) - Closed Specialty Diagnoses / Procedures Referred By Trisha corley Referred To Contact Pain Management Diagnoses Intervertebral disc disorder with radiculopathy of lumbar region Leonila Wagner NP Phone: tel: fax: [address] [address] Referral ID Status Reason Start Date Expiration Date V isits Requested Visits Authorized [id number] Closed Specialty Services Required 03/07/2020 04/06/2021 1 1 Question Answer Please select the performing region: [facility] [152] # of visits: 1 Comments L4/5 ELVIN Encounter Details Date Type Department Care Team (Latest Contact Info) Description 03/07/2020 11:15 AM CDT Office Visit [facility] Neurosurgery [address] 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 Gender Identity Female 01/22/2024 8:47 PM CDT Sexual Orientation Straight 01/22/2024 8: 47 PM CDT documented as of this encounter Last Filed Vital Signs Vital Sign Reading Time Taken Comments Blood Pressure 153/89 03/07/2020 11:13 AM CDT Pulse 82 03/07/2020 11:13 AM CDT Temperature - - Respiratory Rate - - Oxygen Saturation - - Inhaled Oxygen Concentration - - Weight 113.4 kg (250 lb) 03/07/2020 11:13 AM CDT Height 162.6 cm (5' 4 ) 03/07/2020 11:13 AM CDT Body Mass Index 42.91 03/07/2020 11:13 AM CDT documented in this encounter Ordered Prescriptions Prescription Sig Dispense Quantity Refills Last Filled Start Date End Date gabapentin (NEURONTIN) 300 mg capsule Take 1 capsule (300 mg total) by mouth 3 (three) times a day 90 capsule 3 03/07/2020 2 documented in this encounter Progress Notes * Leonila Wagner, COTY - 03/07/2020 11:15 AM CDT Images from the original note were not included. NEW PATIENT VISIT CHIEF COMPLAINT Right-sided low back pain, sciatica, numbness in foot and calf HISTORY OF PRESENT ILLINESS I had the pleasure of seeing Gasper Pierce in my clinic on March 07, 2020. As you may recall, this is a very pleasant 65 y[address] referred by Dr. Margaret Che for evaluation of lumbar radiculopathy. She states that 6 weeks ago she sat in her 's car which rides lower than her car. She had sudden onset shooting radiating pain into her right buttock and down the posterior aspect of her leg to thelateral aspect of her calf and into the 1st 3 digits. The pain is worse with sitting and walking. The pain wakes her up at night. She describes burning, numbness, and tingling. It improves with use of ice and naproxen. She denies any significant back pain. She underwent 2 weeks of physical therapy without any significant improvement. She then underwent an MRI and presents today for further evaluation and management. Her SELENA today is 13. PAST MEDICAL HISTORY She has no past medical history on file. PAST SURGICAL HISTORY She has a past surgical history that includes Breast lumpectomy and pr total abdom hysterectomy. FAMILY HISTORY Her family history includes Prostate cancer in her father. MEDICATIONS Current Outpatient Medications: ??? Accu-Chek Fastclix Lancet [facility] [place] [place], USE DIRECTED TO TEST SUGARS TWICE DAILY, Disp: , Rfl: ??? albuterol sulfate (ProAir RespiClick) 90 mcg/actuation aerosol powdr breath activated, ProAir RespiClick 90 mcg/actuation breath activated, Disp: , Rfl: ??? ALPRAZolam (XANAX) 0.25 mg tablet, TK 1 T PO BID, Disp: , Rfl: ??? atorvastatin (LIPITOR) 10 mg tablet, TK 1 T PO QD, Disp: , Rfl: 1 ??? azelastine (ASTELIN) 137 mcg (0.1 %) nasal spray, , Disp: , Rfl: ??? budesonide-formoteroL (Symbicort) 160-4.5 mcg/actuation inhaler, Symbicort 160 mcg-4.5 mcg/actuation HFA aerosol inhaler, Disp: , Rfl: ??? dexAMETHasone (DECADRON) 1 mg tablet, dexamethasone 1 mg tablet TK 1 T PO HS FOR 1 DAY PRN, Disp: , Rfl: ??? DULoxetine DR (CYMBALTA) 60 mg capsule, , Disp: , Rfl: ??? exenatide microspheres (Bydureon BCise) 2 mg/0.85 mL auto-injector, Bydureon BCise 2 mg/0.85 mLsubcutaneous auto-injector, Disp: , Rfl: ??? FLUoxetine (FLUoxetine) 10 mg tablet/capsule, fluoxetine 10 mg capsule TK 1 C PO D, Disp: , Rfl: ??? gabapentin (NEURONTIN) 300 mg capsule, Take 1 capsule (300 mg total) by mouth 3 (three) times aday, Disp: 90 capsule, Rfl: 3 ??? hydroCHLOROthiazide (HYDRODIURIL) 25 mg tablet, hydrochlorothiazide 25 mg tablet TK 1 T PO D, Disp: , Rfl: ??? lisinopril-hydroCHLOROthiazide (PRINZIDE,ZESTORETIC) 20-12.5 mg per tablet, daily ., Disp: , Rfl: ??? losartan (COZAAR) 100 mg tablet, TK 1 T PO D, Disp: , Rfl: ??? losartan-hydrochlorothiazide (HYZAAR) 100-25 mg per tablet, , Disp: , Rfl: ??? metFORMIN (FORTAMET) 1,000 mg 24 hr tablet, , Disp: , Rfl: ??? montelukast (SINGULAIR) 10 mg tablet, , Disp: , Rfl: ??? omeprazole (PriLOSEC) 40 mg capsule, , Disp: , Rfl: ??? pediatric multivitamin-iron tablet,chewable, daily ., Disp: , Rfl: ??? pen needle, diabetic (Novofine 32) 32 gauge x 1/4 needle, Novofine 32 32 gauge x 1/4 needle INJ OZEMPIC ONCE WEEKLY UTD, Disp: , Rfl: ??? semaglutide (Ozempic) 0.25 mg or 0.5 mg(2 mg/1.5 mL) pen injector, 0.5 mg, Disp: , Rfl: ??? SYNTHROID 50 mcg tablet, , Disp: , Rfl: ??? tamoxifen (NOLVADEX) 10 mg tablet, Take by mouth 2 (two) times a day, Disp: , Rfl: ??? tiotropium bromide (SPIRIVA RESPIMAT) 2.5 mcg/actuation inhaler, Spiriva Respimat 2.5 mcg/actuation solution for inhalation, Disp: , Rfl: ALLERGIES She has No Known Allergies. SOCIAL HISTORY She reports that she has quit smoking. Her smoking use included cigarettes. She has never used smokeless tobacco. REVIEW OF SYSTEMS ROS Overall, she states she feels healthy. Her review of systems is positive for dental problems, hearing loss, heat intolerance, back pain, environmental allergies, and depression. A 10 point review of systems was completed and is otherwise negative. Objective VITAL SIGNS BP 153/89 Pulse 82 Ht 162.6 cm (5' 4 ) Wt 113.4 kg (250 lb) LMP (LMP Unknown) BMI 42.91 kg/m?? PHYSICAL EXAM On exam, she is awake, alert, and fully oriented. Cranial nerves 2-12 are intact. She has full strength to her bilateral lower extremities with normal bulk and tone. His reflexes are 2+ and symmetricin her bilateral lower extremities. Straight leg raise is negative bilaterally. Her gait and station are normal. She has a little stand on her heels and toes without difficulty. REVIEW OF IMAGES Her x-rays performed today demonstrate mild T11-12 and mild L4-5 degenerative disc disease. Her lumbar spine MRI without contrast performed on February 26, 2020 demonstrates a disc herniation at L4-5 eccentric to the right that abuts the L5 nerve root. Plan I reviewed the x-rays and MRI with the patient today. She appears to have a new disc herniation at L4-5. Her lumbar spine MRI is otherwise within normal limits. We discussed that in most cases symptoms will resolve without surgical intervention. I would recommend that she undergo a steroid injection at L4-5. I will plan to refer her to our pain management group. I also have sent in a prescriptionfor gabapentin to help with her radiating pain. One she has had some improvement in her pain with the gabapentin or injection, I would like for her restart physical therapy for 6-8 weeks. I will planto see her back in a week's time for a routine follow-up evaluation to ensure that she is having improvement in her symptoms. She stated understanding and agreed with the plan that we discussed. Cosigned by Dorian Cavanaugh MD at 03/08/2020 1:16 PM CDT documented in this encounter Plan of Treatment Pending Results Name Type Priority Associated Diagnoses Date /Time Ambulatory referral to Pain Management Outpatient Referral Routine Intervertebral disc disorder with radiculopathy of lumbar region 03/24/2020 2:57 PM CDT Scheduled Referrals Name Type Priority Associated Diagnoses Orde r Schedule Ambulatory referral to Pain Management Outpatient Referral Routine Intervertebral disc disorder with radiculopathy of lumbar region Expected: 03/21/2020 (Approximate), Expires: 03/07/2021 documented as of this encounter Visit Diagnoses Diagnosis Intervertebral disc disorder with radiculopathy of lumbar region- Primary documented in this encounter Historical Medications * This list may reflect changes made after this encounter. calcium carbonate/vitamin D3 (CALTRATE 600 PLUS D ORAL) Take 1,000 mg by mouth daily vit B complex 100 combo no.2 100 mg tablet extended release Take 1 tablet by mouth daily cetirizine (ZyrTEC) 10 mg tablet Take 1 tablet (10 mg total) by mouth daily multivitamin capsule Take 1 capsule by mouth daily 06/15/2021 Trulicity 1.5 mg/0.5 mL pen injector Inject 1.5 mg under the skin once a week 02/09/2020 04/27/2020 added in this encounter Care Teams Alteration Worker Relationship Specialty Start Date End Date Kyle Robles MD [address] [place] [address] PCP - General Family Medicine 07/30/18 03/25/22 documented as of this encounter
--- OUTSIDE RECORDS SUMMARY | 2024-05-12 20:15 | XMS_ITS | Encounter Summary ---
Author Organization [facility] Address [address] [place] [address] Care Team Providers Care Senior Clinical Data Analyst Name Role Phone Kyle Robles MD Primary Care Provider [phone] Reason for Visit * Cardiology (Routine) - Closed Specialty Diagnoses / Procedures Referred By Contac t Referred To Contact Cardiology Imaging Diagnoses Shortness of breath Procedures Transthoracic Echo Complete W Doppler/CF Kyle Robles MD [address] [place] [address] Phone: tel: fax: [facility] Medical [facility] [address] [place] [address] [place] [phone] Phone: tel: fax: Referral ID Status Reason Start Date Expiration Date Visits Re quested Visits Authorized [id number] Closed 09/23/2019 04/03/2021 1 1 Encounter Details Date Type Department Care Team (Latest Contact Info) Description 09/28/2019 3:00 PM CDT Ancillary Procedure [facility] Medical [facility]iology [address] [place] [address] [place] [phone] Shortness of breath Social History Tobacco Use Types Packs/Day Years Used Date Smoking Tobacco: Former Comments No Sex and Gender Information Value Date Recorded Sex Assigned at Not on file 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 Gender Identity Female 01/22/2024 8:47 PM CDT Sexual Orientation Straight 01/22/2024 8: 47 PM CDT documented as of this encounter Plan of Treatment Not on file documented as of this encounter Procedures Procedure Name Priority Date/Time Associated Diagnosis Comments TRANSTHORACIC ECHO (TTE) COMPLETE W DOPPLER/CF Routine 09/28/2019 1:31 PM CDT Shortness of breath documented in this encounter Results * Transthoracic Echo Complete W Doppler/CF (09/28/2019 1:31 PM CDT) Anatomical Region Laterality Modality Ultrasound 09/28/2019 1:31 PM CDT Narrative 09/28/2019 5:45 PM CDT [facility] Cardiology [address] [facility] [address], [place] [address] [address] [facility] [address], [place] [address] P:[phone] P:[phone] Echocardiographic Report Patient Name: KLAUDIA PIERCE L : 1955 Study Date: 09/28/2019 1:31:52 PM Gender: F Tech: Location: [place] Ref.Provider: SOURAV Height(Cm): 163 BSA: 2.2 Weight(Kg): 119.75 Heart Rate: 73 BP: 141/78 Quality: Good Order Provider: Kyle ROBLES Procedures: Echocardiographic Report: Transthoracic echocardiogram with complete 2D, M-Mode, and color Doppler examination. Indications: Shortness of breath. Measurements: 2D/M Mode Doppler Measurement Value Normal Range Measurement Value Normal Range EF Mod 71 ??AV Mean PG 4 mmHg EF MM 54 [ 55 - 70 ] % AV Peak Alex 1.38 m/s LVIDd MM 4.35 [ 3.90 - 5.30 ] cm AV Peak PG 8 mmHg LVIDs MM 3.15 [ 2.30 - 3.90 ] cm AV VTI 0.27 cm LVPWd MM 1.20 [ 0.60 - 1.00 ] cm LVOT Peak Alex 0.80 [ 0.70 - 1.10 ] m/s IVSd MM 1.20 [ 0.60 - 0.90 ] cm LVOT VTI 0.21 cm LA Dimension MM 4.05 [ 2.70 - 3.80 ] cm MV E Peak Alex 0.70 [ 0.60 - 1.30 ] m/s AoR Diam MM 3.30 [ 2.60 - 3.70 ] cm MV A Peak Alex 0.84 [ 0.40 - 0.80 ] m/s LA Volume Index 18.00 [ 16.00 - 28.00 ] cc/m2 MV Decel Time 225 [ 150 - 200 ] msec ACS MM 1.65 cm PV Peak Alex 0.96 [ 0.40 - 0.80 ] m/s TR Peak Alex 2.31 [ 0.40 - 0.80 ] m/s TR Peak PG 21 mmHg RVSP 29.00 mmHg E' 0.10 E/E' 7 Findings: Interpretation Site: Exam was interpreted at [facility]. Left Ventricle: Normal left ventricular systolic function. No focal wall motion abnormalities. Normal left ventricular size. Mild concentric left ventricular hypertrophy. Normal left ventricular size. Normal global left ventricular systolic function. Normal left ventricular diastolic function. Ejection fraction is measured at 71 %. Right Ventricle: Normal right ventricular size. Normal right ventricular systolic function. Left Atrium: The left atrium is normal in size. Normal left atrial pressure based on pulmonary vein inflow. Right Atrium: The right atrium is normal in size. Atrial Septum: Normal atrial septum. Mitral Valve: Trivial regurgitation of the mitral valve. Aortic Valve: Normal appearance of the aortic valve. Tricuspid Valve: Normal right ventricular systolic pressure. Estimated peak RVSP is 29 mmHg. Trivial regurgitation in the tricuspid valve. Pulmonic Valve: Normal appearance of the pulmonic valve. Pericardium: Normal pericardium with no significant pericardial effusion. Aorta: Normal aortic root. Sinus of Valsalva is normal. Sinotubular junction is normal. Ascending aorta is normal. Aortic arch is normal. Descending aorta is normal. IVC: Normal size and normal respiratory collapse consistent with normal right atrial pressure (<5 mmHg). Pulmonary Artery: Normal pulmonary artery size. Conclusions: Normal global left ventricular systolic function. No focal wall motion abnormalities. Normal left ventricular size. Mild concentric left ventricular hypertrophy. Normal left ventricular diastolic function. Ejection fraction is measured at 71 %. No significant valve disease. Normal estimated pulmonary pressure. Normal sinus rhythm. Electronically Signed By: Alix Nava MD, [facility] 2019-09-28 17:45:49 CDT Procedure Note Alix Nava MD - 09/28/2019 [facility] Cardiology [address], [place] [address] [address] [facility] [address], [place] [address] P:[phone] P:[phone] Echocardiographic Report Patient Name: KLAUDIA PIERCE L : 1955 Study Date: 09/28/2019 1:31:52 PM Gender: F Tech: Location: [place] Ref.Provider: SOURAV Height(Cm): 163 BSA: 2.2 Weight(Kg): 119.75 Heart Rate: 73 BP: 141/78 Quality: Good Order Provider: Kyle ROBLES Procedures: Echocardiographic Report: Transthoracic echocardiogram with complete 2D, M-Mode, and color Dopplerexamination. Indications: Shortness of breath. Measurements: 2D/M Mode Doppler Measurement Value Normal Range Measurement Value Normal Range EF Mod 71 AV Mean PG 4 mmHg EF MM 54 [ 55 - 70 ] % AV Peak Alex 1.38 m/s LVIDd MM 4.35 [ 3.90 - 5.30 ] cm AV Peak PG 8 mmHg LVIDs MM 3.15 [ 2.30 - 3.90 ] cm AV VTI 0.27 cm LVPWd MM 1.20 [ 0.60 - 1.00 ] cm LVOT Peak Alex 0.80 [ 0.70 - 1.10 ] m/s IVSd MM 1.20 [ 0.60 - 0.90 ] cm LVOT VTI 0.21 cm LA Dimension MM 4.05 [ 2.70 - 3.80 ] cm MV E Peak Alex 0.70 [ 0.60 - 1.30 ]m/s AoR Diam MM 3.30 [ 2.60 - 3.70 ] cm MV A Peak Alex 0.84 [ 0.40 - 0.80 ]m/s LA Volume Index 18.00 [ 16.00 - 28.00 ] cc/m2 MV Decel Time 225 [ 150 -200 ] msec ACS MM 1.65 cm PV Peak Alex 0.96 [ 0.40 - 0.80 ] m/s TR Peak Alex 2.31 [ 0.40 - 0.80 ] m/s TR Peak PG 21 mmHg RVSP 29.00 mmHg E' 0.10 E/E' 7 Findings: Interpretation Site: Exam was interpreted at [facility] [place]. Left Ventricle: Normal left ventricular systolic function. No focal wall motionabnormalities. Normal left ventricular size. Mild concentric left ventricular hypertrophy.Normal left ventricular size. Normal global left ventricular systolic function. Normalleft ventricular diastolic function. Ejection fraction is measured at 71 %. Right Ventricle: Normal right ventricular size. Normal right ventricular systolicfunction. Left Atrium: The left atrium is normal in size. Normal left atrial pressure based onpulmonary vein inflow. Right Atrium: The right atrium is normal in size. Atrial Septum: Normal atrial septum. Mitral Valve: Trivial regurgitation of the mitral valve. Aortic Valve: Normal appearance of the aortic valve. Tricuspid Valve: Normal right ventricular systolic pressure. Estimated peak RVSP is 29mmHg. Trivial regurgitation in the tricuspid valve. Pulmonic Valve: Normal appearance of the pulmonic valve. Pericardium: Normal pericardium with no significant pericardial effusion. Aorta: Normal aortic root. Sinus of Valsalva is normal. Sinotubular junction isnormal. Ascending aorta is normal. Aortic arch is normal. Descending aorta isnormal. IVC: Normal size and normal respiratory collapse consistent with normal rightatrial pressure (<5 mmHg). Pulmonary Artery: Normal pulmonary artery size. Conclusions: Normal global left ventricular systolic function. No focal wall motionabnormalities. Normal left ventricular size. Mild concentric left ventricularhypertrophy. Normal left ventricular diastolic function. Ejection fraction is measured at 71 %. No significant valve disease. Normal estimated pulmonary pressure. Normal sinus rhythm. Electronically Signed By: Alix Nava MD, [facility] 2019-09-28 17:45:49 CDT Kyle Robles MD CV ECHO PROCEDURES Final Result documented in this encounter Visit Diagnoses Diagnosis Shortness of breath documented in this encounter Care Teams Senior Clinical Data Analyst Relationship Specialty Start Date End Date Kyle Robles MD [address] [place] [address] PCP - General Family Medicine 07/30/18 03/25/22 documented as of this encounter
--- OUTSIDE RECORDS SUMMARY | 2024-05-12 20:15 | XMS_ITS | Encounter Summary ---
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 ??There will be no report generated by a [facility] Radiologist. Narrative [facility] - 03/07/2020 11:21 AM CDT EXAMINATION: ??Images For Reference Purposes Only Link Harley MD IMG XR PROCEDURES Final Re sult [facility] documented in this encounter Visit Diagnoses Not on filedocumented in this encounter Care Teams Dope Firer Relationship Specialty Start Date End Date Kyle Robles MD [address] [place] [address] PCP - General Family Medicine 07/30/18 03/25/22 documented as of this encounter
--- OUTSIDE RECORDS SUMMARY | 2024-05-12 20:15 | XMS_ITS | Encounter Summary ---
Author Organization [facility] Address [address] [facility] [address] [place] [address] Care Team Providers Care Magician/Illusionist Name Role Phone Kyle Robles MD Primary Care Provider [phone] Reason for Visit * Cardiology (Routine) - Closed Specialty Diagnoses / Procedures Referred By Contac t Referred To Contact Diagnoses Shortness of breath Procedures Echo Exercise Stress Test Only Kyle Robles MD [address] [place] [address] Phone: tel: fax: [facility] Referral ID Status Reason Start Date Expiration Date Visits Re quested Visits Authorized [id number] Closed 09/23/2019 04/03/2021 1 1 Encounter Details Date Type Department Care Team (Latest Contact Info) Description 10/22/2019 10:15 AM CDT Ancillary Procedure [facility] [address] [place] [address] Shortness of breath Social History Tobacco Use Types Packs/Day Years Used Date Smoking Tobacco: Former Comments No Sex and Gender Information Value Date Recorded Sex Assigned at Not on file Legal Sex Female 1:06 AM TREE KILLER Gender Identity Female 01/22/2024 8:47 PM CDT Sexual Orientation Straight 01/22/2024 8: 47 PM CDT documented as of this encounter Last Filed Vital Signs Vital Sign Reading Time Taken Comments Blood Pressure - - Pulse - - Temperature 36.4 ??C (97.5 ??F) 10/22/2019 10:26 AM C DT Respiratory Rate - - Oxygen Saturation - - Inhaled Oxygen Concentration - - Weight - - Height - - Body Mass Index - - documented in this encounter Plan of Treatment Not on file documented as of this encounter Procedures Procedure Name Priority Date/Time Associated Diagnosis Comments STRESS ECHO EXERCISE WO DOPPLER/CF W CONTRAST Routine 10/22/2019 12:20 PM CDT Shortness of breath documented in this encounter Results * STRESS ECHO EXERCISE WO DOPPLER/CF W CONTRAST (10/22/2019 12:20 PM CDT) Anatomical Region Laterality Modality Ultrasound 10/22/2019 10:2 1 AM CDT Narrative 10/22/2019 12:24 PM CDT [facility] Cardiology [address] [facility] [address], [place] [address] [address] [facility] [address], [place] [address] P:[phone] P:[phone] Echocardiographic Report Patient Name: KLAUDIA PIERCE : 1955 Study Date: 10/22/2019 10:21:01 AM Gender: F Tech: Location: [place] Ref.Provider: SOURAV Height(Cm): 163 BSA: 2.2 Weight(Kg): 119.75 Heart Rate: 96 BP: 124/74 Quality: Definity contrast agent used to enhance endocardial border definition Order Provider: Kyle ROBLES Procedures: Stress Echo Report: Treadmill stress echocardiogram with Definity contrast. Indications: Shortness of breath, Medications: Losartan, Singular, Omeprazole, Synthroid, Cymbalta, Lipitor, Metformin, Prozac, Zyrtec, and Stress test monitored by: Poly Malcolm RN, BSN. Findings: Stress Echo: Protocol - Migue Protocol. Exercise Time - 3.35 min. Baseline Heart Rate - 96. Peak Heart Rate - 149. Predicted Maximal Heart Rate - 155. 85% MPHR - 132. Baseline BP - 124/74. Peak BP - 168/72. Rate Pressure Product - 68080. METS Achieved - 4.60. Percent Predicted Maximal HR Achieved - 96 %. Interpretation Site: Exam was interpreted at [facility]. Performance: Below average exercise functional capacity. Hemodynamic Response: Normal blood pressure response. Arrhythmia: No exercise induced arrhythmias. Termination: Fatigue. Resting ECG: Normal EKG. Exercise ECG: Non-diagnostic ST-T wave changes with exercise. Resting LV Function: Normal left ventricular size, normal systolic function, normal wall thickness with no segmental wall motion abnormalities at rest. Definity contrast agent used to visually enhance endocardial wall motion and contractility. Lot Number [id number]. Post Stress LV Function: Post exercise left ventricular global systolic contractility is hyperdynamic, no segmental wall motion abnormalities, and chamber size is smaller. Definity contrast agent used to visually enhance endocardial wall motion and contractility. Conclusions: Protocol - Migue Protocol. Exercise Time - 3.35 min. Baseline Heart Rate - 96. Peak Heart Rate - 149. Predicted Maximal Heart Rate - 155. 85% MPHR - 132. Baseline BP - 124/74. Peak BP - 168/72. Rate Pressure Product - 74536. METS Achieved - 4.60. Percent Predicted Maximal HR Achieved - 96 %. Normal EKG. Non-diagnostic ST-T wave changes with exercise. Normal left ventricular size, normal systolic function, normal wall thickness with no segmental wall motion abnormalities at rest. Definity contrast agent used to visually enhance endocardial wall motion and contractility. Lot Number [id number]. Post exercise left ventricular global systolic contractility is hyperdynamic, no segmental wall motion abnormalities, and chamber size is smaller. Definity contrast agent used to visually enhance endocardial wall motion and contractility. Stress echocardiogram negative for inducible ischemia at MPHR: 149 %. Electronically Signed By: Kei Black MD, [facility] 2019-10-22 12:24:27 CDT Procedure Note Kei Black MD - 10/22/2019 [facility] Cardiology [address] [facility] [address], [place] [address] [address] [facility] [address], [place] [address] P:[phone] P:[phone] Echocardiographic Report Patient Name: KLAUDIA PIERCE : 1955 Study Date: 10/22/2019 10:21:01 AM Gender: F Tech: Location: [place] Ref.Provider: SOURAV Height(Cm): 163 BSA: 2.2 Weight(Kg): 119.75 Heart Rate: 96 BP: 124/74 Quality: Definity contrast agent used to enhance endocardial borderdefinition Order Provider: Kyle ROBLES Procedures: Stress Echo Report: Treadmill stress echocardiogram with Definity contrast. Indications: Shortness of breath, Medications: Losartan, Singular, Omeprazole,Synthroid, Cymbalta, Lipitor, Metformin, Prozac, Zyrtec, and Stress test monitored by: Charna RN, BSN. Findings: Stress Echo: Protocol - Migue Protocol. Exercise Time - 3.35 min. Baseline Heart Rate -96. Peak Heart Rate - 149. Predicted Maximal Heart Rate - 155. 85% MPHR - 132. BaselineBP - 124/74. Peak BP - 168/72. Rate Pressure Product - 11460. METS Achieved - 4.60.Percent Predicted Maximal HR Achieved - 96 %. Interpretation Site: Exam was interpreted at [facility]. Performance: Below average exercise functional capacity. Hemodynamic Response: Normal blood pressure response. Arrhythmia: No exercise induced arrhythmias. Termination: Fatigue. Resting ECG: Normal EKG. Exercise ECG: Non-diagnostic ST-T wave changes with exercise. Resting LV Function: Normal left ventricular size, normal systolic function, normal wallthickness with no segmental wall motion abnormalities at rest. Definity contrast agent usedto visually enhance endocardial wall motion and contractility. Lot Number [id number]. Post Stress LV Function: Post exercise left ventricular global systolic contractility ishyperdynamic, no segmental wall motion abnormalities, and chamber size is smaller. Definitycontrast agent used to visually enhance endocardial wall motion and contractility. Conclusions: Protocol - Migue Protocol. Exercise Time - 3.35 min. Baseline Heart Rate -96. Peak Heart Rate - 149. Predicted Maximal Heart Rate - 155. 85% MPHR - 132. BaselineBP - 124/74. Peak BP - 168/72. Rate Pressure Product - 23647. METS Achieved - 4.60.Percent Predicted Maximal HR Achieved - 96 %. Normal EKG. Non-diagnostic ST-T wave changes with exercise. Normal left ventricular size, normal systolic function, normal wallthickness with no segmental wall motion abnormalities at rest. Definity contrast agent usedto visually enhance endocardial wall motion and contractility. Lot Number [id number]. Post exercise left ventricular global systolic contractility ishyperdynamic, no segmental wall motion abnormalities, and chamber size is smaller. Definitycontrast agent used to visually enhance endocardial wall motion and contractility. Stress echocardiogram negative for inducible ischemia at MPHR: 149 %. Electronically Signed By: Kei Black MD, [facility] 2019-10-22 12:24:27 CDT Kyle Robles MD CV ECHO PROCEDURES Final Result documented in this encounter Visit Diagnoses Diagnosis Shortness of breath documented in this encounter Administered Medications Inactive Administered Medications - up to 3 most recent administrations Medication Order MAR Action Action Date Dose Rate Site perflutren lipid (DEFINITY) 1.5 mL in sodium chloride 0.9% 10 mL syringe 1-10 mL, intravenous, Once in imaging, contrast, Starting on Steff 10/22/19 at 1038, For 1 dose Given 10/22/2019 11:57 AM CDT 2 mL documented in this encounter Orders Medications Ordered That Giovani ht Not Have Been Administered Count Last Ordered Date First Ordered Date perflutren lipid (DEFINITY) 1.5 mL in sodium chloride 0.9% 10 mL syringe 1 10/22/2019 documented in this encounter Care Teams Magician/Illusionist Relationship Specialty Start Date End Date Kyle Robles MD [address] [place] [address] PCP - General Family Medicine 07/30/18 03/25/22 documented as of this encounter
--- OUTSIDE RECORDS SUMMARY | 2024-05-12 20:15 | XMS_ITS | Encounter Summary ---
Author Organization [facility] Facility Care Team Providers Care Calendering Machine Operator Name Role Phone Unavailable Primary Care Provider Unavailabl e Encounter Details Date Type Department Care Team (Late st Contact Info) Description 09/27/2010 - 05/26/2011 11:59 PM SPORTS MARKETING COORDINATOR Hospital Encounter [facility] Kei Pedraza MD [address] [address] Malignant neoplasm of upper-outer quadrant of female breast (HCC) Social History Tobacco Use Types Packs/Day Years Used Date Smoking Tobacco: Never Assessed Comments Unknown Sex and Gender Information Value Date Recorded Sex Assigned at Not on file Legal Sex Female 1:06 AM SPORTS MARKETING COORDINATOR Gender Identity Female 01/22/2024 8:47 PM CDT Sexual Orientation Straight 01/22/2024 8: 47 PM CDT documented as of this encounter Plan of Treatment Not on file documented as of this encounter Visit Diagnoses Diagnosis Malignant neoplasm of upper-outer quadrant of female breast (HCC) Malignant neoplasm of upper-outer quadrant of female breast documented in this encounter
--- OUTSIDE RECORDS SUMMARY | 2024-05-12 20:15 | XMS_ITS | Encounter Summary ---
Author Organization [facility] Facility Care Team Providers Care Newspaper Distributor Supervisor Name Role Phone Unavailable Primary Care Provider Unavailabl e Encounter Details Date Type Department Care Team (Late st Contact Info) Description 06/20/2010 - 05/26/2011 11:59 PM BOARD MILL SUPERVISOR Hospital Encounter [facility] Naida Barrow MD [address] [facility] [address] [place] [address] Social History Tobacco Use Types Packs/Day Years Used Date Smoking Tobacco: Never Assessed Comments Unknown Sex and Gender Information Value Date Recorded Sex Assigned at Not on file Legal Sex Female 1:06 AM BOARD MILL SUPERVISOR Gender Identity Female 01/22/2024 8:47 PM CDT Sexual Orientation Straight 01/22/2024 8: 47 PM CDT documented as of this encounter Plan of Treatment Not on file documented as of this encounter Visit Diagnoses Not on filedocumented in this encounter
--- OUTSIDE RECORDS SUMMARY | 2024-05-12 20:15 | XMS_ITS | Encounter Summary ---
Author Organization [facility] Facility Care Team Providers Care Windows Systems Admin Name Role Phone Unavailable Primary Care Provider Unavailabl e Encounter Details Date Type Department Care Team (Late st Contact Info) Description 08/27/2012 - 05/26/2013 11:59 PM GANG LEADER Hospital Encounter [facility] Kei Pedraza MD [address] [place] [address] Malignant neoplasm of other specified sites of female breast Social History Tobacco Use Types Packs/Day Years Used Date Smoking Tobacco: Former Comments Unknown Sex and Gender Information Value Date Recorded Sex Assigned at Not on file Legal Sex Female 1:06 AM GANG LEADER Gender Identity Female 01/22/2024 8:47 PM CDT Sexual Orientation Straight 01/22/2024 8: 47 PM CDT documented as of this encounter Plan of Treatment Not on file documented as of this encounter Procedures Procedure Name Priority Date/Time Associated Diagnosis Comments DISCHARGE LABORATORY CUMULATIVE REPORT Routine 05/27/2013 12:00 AM GANG LEADER BLOOD CELL COUNT Routine 08/28/2012 10:0 6 AM CDT SERUM CA 15-3 AG Routine 08/28/2012 10:0 5 AM CDT PLASMA COMPREHENSIVE METABOLIC PANEL Routine 08/28/2012 10:05 AM CDT documented in this encounter Results * Discharge Laboratory Cumulative Report (05/27/2013 12:00 AM GANG LEADER) 05/27/2013 Narrative HISTORICAL RESULTS - 08/28/2012 3:30 PM CDT ?[facility] ?Department of Laboratories ? [address] [facility] [place] ?[place], [place] [address] Patient Name: ?KLAUDIA PIERCE Med Rec Number: ??[id number] Fin Number: ?[id number] Date: ?1955 Sex/Age: ? Female 57 years Admit Date: ?08/27/2012 Discharge Date: ??05/27/2013 Doctor: ?Kei Ortega Facility: ?[facility] Location: ?BCC Chart Printed: ?? 08/28/2012 ??15:30 ?* Abnormal ?? C Critical ?? f Footnote ?? ^ Corrected ?? L Low ?? H High ?i Interp Data ?? @ Reference Lab ? Chart Type: Periodic ? CHEMISTRY ?Other Chemistry ?Test: ? CA 15-3 ?Reference: ??[0.0-32.0] ?Units: ?units/mL 08/28/2012 ??10:05:00 ?12.0 Historical Provider LAB BLOOD ORDERABLES Kemi schneider Result HISTORICAL RESULTS * (ABNORMAL) Blood cell count [CBC] panel, 7 CAM (08/28/2012 10:06 AM CDT) WBC 5.5 3.8 - 9.8 K/cumm HISTORICAL RESULTS RBC 4.26 3.90 - 5.00 M/cumm HISTORICAL RESULTS Hgb 12.5 12.1 - 15.1 g/dl HISTORICAL RESULTS Hct 36.6 36.1 - 44.3 % HISTORICAL RESULTS MCV 85.9 80.0 - 97.6 fl HISTORICAL RESULTS MCH 29.4 26.7 - 33.7 pg HISTORICAL RESULTS MCHC 34.2 32.7 - 35.5 g/dl HISTORICAL RESULTS Rdw 15.2(H) 11.8 - 14.6 SD HISTORICAL RESULTS Platelets 184 140 - 440 K/cumm HISTORICAL RESULTS MPV 7.7 6.8 - 10.4 fl HISTORICAL RESULTS Neutrophils 56.9 38.7 - 74.5 % HISTORICAL RESULTS Lymphocytes 28.2 20.0 - 54.3 % HISTORICAL RESULTS Monos 6.9 4.3 - 13.5 % HISTORICAL RESULTS Eosinophils 7.6(H) 0.0 - 6.0 % HISTORICAL RESULTS Basophils 0.4 0.0 - 3.0 % HISTORICAL RESULTS Neutrophils, abs 3.1 1.8 - 6.6 K/cumm HISTORICAL RESULTS Lymphocytes, abs 1.5 1.2 - 3.3 K/cumm HISTORICAL RESULTS Monocytes, absolute 0.4 0.2 - 1.2 K/cumm HISTORICAL RESULTS Eosinophils, abs 0.4 0.0 - 0.5 K/cumm HISTORICAL RESULTS Basophils, abs 0.0 0.0 - 0.2 K/cumm HISTORICAL RESULTS Blood specimen (specimen) 08/28/2012 10:06 AM CDT Kei Ortega MD LAB BLOOD ORDERABLES Kemi l Result Performing Organization Address City/[facility] Co de Phone Number HISTORICAL RESULTS * Serum CA 15-3 ag (08/28/2012 10:05 AM CDT) CA 15-3 ag 12.0 0.0 - 32.0 Units/ml HISTORICAL RESULTS Serum 08/28/2012 10:0 5 AM CDT Kei Ortega MD LAB BLOOD ORDERABLES Kemi l Result Performing Organization Address [facility] de Phone Number HISTORICAL RESULTS * (ABNORMAL) Plasma comprehensive metabolic panel (08/28/2012 10:05 AM CDT) Sodium 144 135 - 145 mmol/L HISTORICAL RESULTS K, pl 4.0 3.3 - 4.9 mmol/L HISTORICAL RESULTS Chloride 106 97 - 110 mmol/L HISTORICAL RESULTS CO2 34(H) 22 - 32 mmol/L HISTORICAL RESULTS A. gap 4 0 - 16 mmol/L HISTORICAL RESULTS Glucose 118 65 - 199 mg/dl HISTORICAL RESULTS BUN 16 8 - 25 mg/dl HISTORICAL RESULTS Creatinine 0.93 0.60 - 1.10 mg/dl HISTORICAL RESULTS Calcium 9.3 8.6 - 10.3 mg/dl HISTORICAL RESULTS Protein, pl 6.8 6.5 - 8.5 g/dl HISTORICAL RESULTS Alb 4.1 3.6 - 5.0 g/dl HISTORICAL RESULTS Bilirubin 0.3 0.3 - 1.1 mg/dl HISTORICAL RESULTS Alk phos 74 38 - 126 Units/L HISTORICAL RESULTS AST 28 11 - 47 Units/L HISTORICAL RESULTS ALT 46 7 - 53 Units/L HISTORICAL RESULTS Plasma 08/28/2012 10:0 5 AM CDT Kei Ortega MD LAB BLOOD ORDERABLES Kemi l Result Performing Organization Address [facility] de Phone Number HISTORICAL RESULTS documented in this encounter Visit Diagnoses Diagnosis Malignant neoplasm of other specified sites of female breast documented in this encounter
--- OUTSIDE RECORDS SUMMARY | 2024-05-12 20:15 | XMS_ITS | Encounter Summary ---
Author Organization [facility] Address [address] [place] [address] Phone Care Team Providers Care Supervisor Rolling Room Name Role Phone Kyle Robles MD Primary Care Provider [phone] Reason for Visit * Reason Comments Follow-up Encounter Details Date Type Department Care Team (Late st Contact Info) Description 08/05/2019 10:30 AM CDT Office Visit [facility] Surgery [address] [facility] 5th [address] [place] [id number] Ila Can, [facility] [address] [place] [address] History of right breast cancer (Primary Dx) Social History Tobacco Use Types Packs/Day Years Used Date Smoking Tobacco: Former Comments No Sex and Gender Information Value Date Recorded Sex Assigned at Not on file Legal Sex Female 1:06 AM CARE SUPPORT REPRESENTATIVE Gender Identity Female 01/22/2024 8:47 PM CDT Sexual Orientation Straight 01/22/2024 8: 47 PM CDT documented as of this encounter Last Filed Vital Signs Vital Sign Reading Time Taken Comments Blood Pressure - - Pulse - - Temperature - - Respiratory Rate - - Oxygen Saturation - - Inhaled Oxygen Concentration - - Weight 119.7 kg (264 lb) 08/05/2019 10:37 AM CDT Height 162.6 cm (5' 4 ) 08/05/2019 10:37 AM CDT Body Mass Index 45.32 08/05/2019 10:37 AM CDT documented in this encounter Progress Notes * Ila CanJerry, KINDERGARTEN PREP TEACHER - 08/05/2019 10:30 AM CDT DEPARTMENT OF SURGERY - [facility] [address] [place] [address] [place] [phone] ??(PHONE)???[phone] (FAX) NAME:?Gasper Pierce :?1955 DATE:?08/05/19 ?? CHIEF COMPLAINT: Follow-up for right breast cancer. ?? HISTORY OF ??PRESENT ILLNESS: ??I saw Gasper Pierce for yearly follow-up. She had undergone routine imaging in April of 2000 with a had noted an abnormality in her right breast. On 05/06/2006 sheunderwent image guided biopsy demonstrating invasive ductal carcinoma. She then underwent neoadjuvant chemotherapy of FEC followed by Taxotere. 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 She then completed adjuvant radiation therapy was placed on anastrozole and ultimately was converted to tamoxifen. The tamoxifen was then discontinued due to severe hot flashes. Currently she is doing well and notes no palpable findings in her breast self-examination. She statesthat she has lost about 27 pounds doing water aerobics. History reviewed. No pertinent past medical history. Past Surgical History: Procedure Laterality Date ??? BREAST LUMPECTOMY Right Breast Lumpectomy - (Added by TW Conv) ??? MT TOTAL ABDOM HYSTERECTOMY Hysterectomy - (Added by TW Conv) Social History Socioeconomic History ??? Marital status: Spouse name: None ??? Number of children: None ??? Years of education: None ??? Highest education level: None Occupational History ??? None Social Needs ??? Financial resource strain: None ??? Food insecurity Worry: None Inability: None ??? Transportation needs Medical: None Non-medical: None Tobacco Use ??? Smoking status: Former Smoker Substance and Sexual Activity ??? Alcohol use: None ??? Drug use: None ??? Sexual activity: None Lifestyle ??? Physical activity Days per week: None Minutes per session: None ??? Stress: None Relationships ??? Social connections Talks on phone: None Gets together: None Attends protestant service: None Active member of club or organization: None Attends meetings of clubs or organizations: None Relationship status: None ??? Intimate partner violence Fear of current or ex partner: None Emotionally abused: None Physically abused: None Forced sexual activity: None Other Topics Concern ??? None Social History Narrative ??? None Family History Problem Relation Age of Onset ??? Prostate cancer Father Prostate ca - (Added by TW Conv) Prior to Admission medications Medication Sig [...] Allergies ?? PHYSICAL EXAMINATION: GENERAL: ??Well-developed, well-nourished 64 y.o. female in no apparent distress. EYES: [...] the findings. ? Scott ??Rosanne Allen M.D. vial gauger Cosigned by Scott Allen MD at 08/05/2019 6:28 PM CDT documented in this encounter Plan of Treatment Not on file documented as of this encounter Visit Diagnoses Diagnosis History of right breast cancer- Primary documented in this encounter Historical Medications * This list may reflect changes made after this encounter. hydroCHLOROthiazi de (HYDRODIURIL) 25 mg tablet Take 1 tablet (25 mg total) by mouth daily pen needle, diabetic (Novofine 32) 32 gauge x 1/4 needle Novofine 32 32 gauge x 1/4 needle INJ OZEMPIC ONCE WEEKLY UTD 06/15/19 22 albuterol sulfate (ProAir RespiClick) 90 mcg/actuation aerosol powdr breath activated ProAir RespiClick 90 mcg/actuation breath activated 06/15/19 22 ALPRAZolam (XANAX) 0.25 mg tablet TK 1 T PO BID 07/16/2019 06/15/19 22 budesonide-formot Mario (Symbicort) 160-4.5 mcg/actuation inhaler Symbicort 160 mcg-4.5 mcg/actuation HFA aerosol inhaler 06/15/19 22 dexAMETHasone (DECADRON) 1 mg tablet dexamethasone 1 mg tablet TK 1 T PO HS FOR 1 DAY PRN 10/29/20 20 exenatide microspheres (Bydureon BCise) 2 mg/0.85 mL auto-injector Bydureon BCise 2 mg/0.85 mL subcutaneous auto-injector 06/15/19 22 FLUoxetine (FLUoxetine) 10 mg tablet/capsule 0 22 Accu-Chek Fastclix Lancet Drum misc USE DIRECTED TO TEST SUGARS TWICE DAILY 06/10/2019 06/15/19 22 losartan (COZAAR) 100 mg tablet Take 100 mg by mouth daily 06/11/2019 03/26/20 22 semaglutide (Ozempic) 0.25 mg or 0.5 mg(2 mg/1.5 mL) pen injector 0.5 mg 06/15/19 22 tamoxifen (NOLVADEX) 10 mg tablet Take by mouth 2 (two) times a day 06/15/19 22 tiotropium bromide (SPIRIVA RESPIMAT) 2.5 mcg/actuation inhaler Spiriva Respimat 2.5 mcg/actuation solution for inhalation 06/15/19 22 added in this encounter Care Teams Supervisor Rolling Room Relationship Specialty Start Date End Date Kyle Robles MD [address] [place] [address] PCP - General Family Medicine 07/30/18 03/25/22 documented as of this encounter
--- OUTSIDE RECORDS SUMMARY | 2024-05-12 20:16 | XMS_ITS | Encounter Summary ---
Author Organization [facility] Facility Care Team Providers Care Manager Of Procurement Name Role Phone Unavailable Primary Care Provider Unavailabl e Encounter Details Date Type Department Care Team (Late st Contact Info) Description 09/02/2007 - 05/26/2008 11:59 PM TEACHER COUNSELOR Hospital Encounter [facility] Naida Barrow MD [address] [facility] [address] [place] [address] Social History Tobacco Use Types Packs/Day Years Used Date Smoking Tobacco: Never Assessed Comments Unknown Sex and Gender Information Value Date Recorded Sex Assigned at Not on file Legal Sex Female 1:06 AM TEACHER COUNSELOR Gender Identity Female 01/22/2024 8:47 PM CDT Sexual Orientation Straight 01/22/2024 8: 47 PM CDT documented as of this encounter Plan of Treatment Not on file documented as of this encounter Visit Diagnoses Not on filedocumented in this encounter
--- OUTSIDE RECORDS SUMMARY | 2024-05-12 20:16 | XMS_ITS | Encounter Summary ---
Author Organization [facility] Facility Care Team Providers Care Fundraising Coordinator Name Role Phone Unavailable Primary Care Provider Unavailabl e Encounter Details Date Type Department Care Team (Late st Contact Info) Description 10/16/2006 - 05/26/2007 11:59 PM BLENDING TANK TENDER HELPER Hospital Encounter [facility] Social History Tobacco Use Types Packs/Day Years Used Date Smoking Tobacco: Never Assessed Comments Unknown Sex and Gender Information Value Date Recorded Sex Assigned at Not on file Legal Sex Female 1:06 AM BLENDING TANK TENDER HELPER Gender Identity Female 01/22/2024 8:47 PM CDT Sexual Orientation Straight 01/22/2024 8: 47 PM CDT documented as of this encounter Plan of Treatment Not on file documented as of this encounter Visit Diagnoses Not on filedocumented in this encounter
--- OUTSIDE RECORDS SUMMARY | 2024-05-12 20:16 | XMS_ITS | Encounter Summary ---
Author Organization [facility] Facility Care Team Providers Care Brush Washer Name Role Phone Unavailable Primary Care Provider Unavailabl e Encounter Details Date Type Department Care Team (Late st Contact Info) Description 05/08/2007 - 05/08/2007 11:59 PM EXTERNAL GRINDER Hospital Encounter [facility] Scott Kimble MD [address] [place] [address] Other follow-up examination Social History Tobacco Use Types Packs/Day Years Used Date Smoking Tobacco: Never Assessed Comments Unknown Sex and Gender Information Value Date Recorded Sex Assigned at Not on file Legal Sex Female 1:06 AM EXTERNAL GRINDER Gender Identity Female 01/22/2024 8:47 PM CDT Sexual Orientation Straight 01/22/2024 8: 47 PM CDT documented as of this encounter Plan of Treatment Not on file documented as of this encounter Visit Diagnoses Diagnosis Other follow-up examination documented in this encounter
--- OUTSIDE RECORDS SUMMARY | 2024-05-12 20:16 | XMS_ITS | Encounter Summary ---
Author Organization [facility] Facility Care Team Providers Care Breaker Up Machine Operator Name Role Phone Unavailable Primary Care Provider Unavailabl e Encounter Details Date Type Department Care Team (Late st Contact Info) Description 07/05/2006 - 05/26/2007 11:59 PM NEUROSCIENCE SPECIALIST Hospital Encounter [facility] Naida Barrow MD [address] [facility] [address] [place] [address] Malignant neoplasm of breast (female) (HCC) Social History Tobacco Use Types Packs/Day Years Used Date Smoking Tobacco: Never Assessed Comments Unknown Sex and Gender Information Value Date Recorded Sex Assigned at Not on file Legal Sex Female 1:06 AM NEUROSCIENCE SPECIALIST Gender Identity Female 01/22/2024 8:47 PM CDT Sexual Orientation Straight 01/22/2024 8: 47 PM CDT documented as of this encounter Plan of Treatment Not on file documented as of this encounter Visit Diagnoses Diagnosis Malignant neoplasm of breast (female) (HCC) Malignant neoplasm of breast (female), unspecified site documented in this encounter
--- OUTSIDE RECORDS SUMMARY | 2024-05-12 20:16 | XMS_ITS | Encounter Summary ---
Author Organization [facility] Facility Care Team Providers Care Telex Operator Name Role Phone Unavailable Primary Care Provider Unavailabl e Encounter Details Date Type Department Care Team (Late st Contact Info) Description 10/03/2006 1:40 PM CDT - 10/03/2006 4:00 PM CDT Hospital Encounter [facility] Merari Duckworth Social History Tobacco Use Types Packs/Day Years Used Date Smoking Tobacco: Never Assessed Comments Unknown Sex and Gender Information Value Date Recorded Sex Assigned at Not on file Legal Sex Female 1:06 AM LAMINATION TECHNICIAN Gender Identity Female 01/22/2024 8:47 PM CDT Sexual Orientation Straight 01/22/2024 8: 47 PM CDT documented as of this encounter Plan of Treatment Not on file documented as of this encounter Visit Diagnoses Not on filedocumented in this encounter
--- OUTSIDE RECORDS SUMMARY | 2024-05-12 20:16 | XMS_ITS | Encounter Summary ---
Author Organization [facility] Facility Care Team Providers Care It Project Manager Name Role Phone Unavailable Primary Care Provider Unavailabl e Encounter Details Date Type Department Care Team (Late st Contact Info) Description 09/12/2007 - 05/26/2008 11:59 PM SENIOR PAINTER Hospital Encounter [facility] Naida Barrow MD [address] [facility] [address] [place] [address] Dysphagia Social History Tobacco Use Types Packs/Day Years Used Date Smoking Tobacco: Never Assessed Comments Unknown Sex and Gender Information Value Date Recorded Sex Assigned at Not on file Legal Sex Female 1:06 AM SENIOR PAINTER Gender Identity Female 01/22/2024 8:47 PM CDT Sexual Orientation Straight 01/22/2024 8: 47 PM CDT documented as of this encounter Plan of Treatment Not on file documented as of this encounter Visit Diagnoses Diagnosis Dysphagia documented in this encounter
--- OUTSIDE RECORDS SUMMARY | 2024-05-12 20:16 | XMS_ITS | Encounter Summary ---
Author Organization [facility] Facility Care Team Providers Care Compact Assembler Name Role Phone Unavailable Primary Care Provider Unavailabl e Encounter Details Date Type Department Care Team (Late st Contact Info) Description 05/11/2008 - 05/11/2008 11:59 PM FAMILY CONSULTANT Hospital Encounter [facility] Kei Pedraza MD [address] [address] Personal history of malignant neoplasm of breast Social History Tobacco Use Types Packs/Day Years Used Date Smoking Tobacco: Never Assessed Comments Unknown Sex and Gender Information Value Date Recorded Sex Assigned at Not on file Legal Sex Female 1:06 AM FAMILY CONSULTANT Gender Identity Female 01/22/2024 8:47 PM CDT Sexual Orientation Straight 01/22/2024 8: 47 PM CDT documented as of this encounter Plan of Treatment Not on file documented as of this encounter Visit Diagnoses Diagnosis Personal history of malignant neoplasm of breast documented in this encounter
--- OUTSIDE RECORDS SUMMARY | 2024-05-12 20:16 | XMS_ITS | Encounter Summary ---
Author Organization [facility] Facility Care Team Providers Care Post Office Clerk Name Role Phone Unavailable Primary Care Provider Unavailabl e Encounter Details Date Type Department Care Team (Late st Contact Info) Description 10/16/2006 8:02 AM CDT - 10/17/2006 12:32 PM CDT Hospital Encounter [facility] Merari Duckworth Social History Tobacco Use Types Packs/Day Years Used Date Smoking Tobacco: Never Assessed Comments Unknown Sex and Gender Information Value Date Recorded Sex Assigned at Not on file Legal Sex Female 1:06 AM ASSISTANT BANQUET MANAGER Gender Identity Female 01/22/2024 8:47 PM CDT Sexual Orientation Straight 01/22/2024 8: 47 PM CDT documented as of this encounter Plan of Treatment Not on file documented as of this encounter Visit Diagnoses Not on filedocumented in this encounter
--- OUTSIDE RECORDS SUMMARY | 2024-05-12 20:16 | XMS_ITS | Encounter Summary ---
Author Organization [facility] Facility Care Team Providers Care Manufacturing Automation Engineer Name Role Phone Unavailable Primary Care Provider Unavailabl e Encounter Details Date Type Department Care Team (Late st Contact Info) Description 12/11/2006 - 12/11/2006 11:59 PM CDT [facility] [address] [place] [address] Social History Tobacco Use Types Packs/Day Years Used Date Smoking Tobacco: Never Assessed Comments Unknown Sex and Gender Information Value Date Recorded Sex Assigned at Not on file Legal Sex Female 1:06 AM WAX CUTTER Gender Identity Female 01/22/2024 8:47 PM CDT Sexual Orientation Straight 01/22/2024 8: 47 PM CDT documented as of this encounter Plan of Treatment Not on file documented as of this encounter Visit Diagnoses Not on filedocumented in this encounter
--- OUTSIDE RECORDS SUMMARY | 2024-05-12 20:16 | XMS_ITS | Encounter Summary ---
Author Organization [facility] Facility Care Team Providers Care Culinary Instructor Name Role Phone Unavailable Primary Care Provider Unavailabl e Encounter Details Date Type Department Care Team (Late st Contact Info) Description 10/03/2006 - 10/03/2006 11:59 PM CDT Hospital En[facility] Social History Tobacco Use Types Packs/Day Years Used Date Smoking Tobacco: Never Assessed Comments Unknown Sex and Gender Information Value Date Recorded Sex Assigned at Not on file Legal Sex Female 1:06 AM PRODUCT DESIGN ENGINEER Gender Identity Female 01/22/2024 8:47 PM CDT Sexual Orientation Straight 01/22/2024 8: 47 PM CDT documented as of this encounter Plan of Treatment Not on file documented as of this encounter Visit Diagnoses Not on filedocumented in this encounter
--- OUTSIDE RECORDS SUMMARY | 2024-05-12 20:16 | XMS_ITS | Encounter Summary ---
Author Organization [facility] Facility Care Team Providers Care Plywood Layup Line Core Layer Name Role Phone Unavailable Primary Care Provider Unavailabl e Encounter Details Date Type Department Care Team (Late st Contact Info) Description 11/13/2006 - 11/13/2006 11:59 PM CDT Hospital En[facility] Social History Tobacco Use Types Packs/Day Years Used Date Smoking Tobacco: Never Assessed Comments Unknown Sex and Gender Information Value Date Recorded Sex Assigned at Not on file Legal Sex Female 1:06 AM SALES FACILITATOR Gender Identity Female 01/22/2024 8:47 PM CDT Sexual Orientation Straight 01/22/2024 8: 47 PM CDT documented as of this encounter Plan of Treatment Not on file documented as of this encounter Visit Diagnoses Not on filedocumented in this encounter
--- OUTSIDE RECORDS SUMMARY | 2024-05-12 20:16 | XMS_ITS | Encounter Summary ---
Author Organization [facility] Facility Care Team Providers Care Senior Human Resources Representative Name Role Phone Unavailable Primary Care Provider Unavailabl e Encounter Details Date Type Department Care Team (Late st Contact Info) Description 09/12/2007 - 09/12/2007 11:59 PM CDT Hospital Encounter [facility] Naida Barrow MD [address] [facility] [address] [place] [address] Social History Tobacco Use Types Packs/Day Years Used Date Smoking Tobacco: Never Assessed Comments Unknown Sex and Gender Information Value Date Recorded Sex Assigned at Not on file Legal Sex Female 1:06 AM MASTER COASTWISE YACHT Gender Identity Female 01/22/2024 8:47 PM CDT Sexual Orientation Straight 01/22/2024 8: 47 PM CDT documented as of this encounter Plan of Treatment Not on file documented as of this encounter Visit Diagnoses Not on filedocumented in this encounter
--- OUTSIDE RECORDS SUMMARY | 2024-05-12 20:18 | XMS_ITS | Encounter Summary ---
Author Organization [facility] Address [address] [place] [address] Care Team Providers Care Director Social Name Role Phone Mitch Robles MD Primary Care Provider [phone] Reason for Visit * Reason Comments Fall pt fell left hand wa s wedged under a dock swelling noted states she also hit her mouth and knee but those feel ok Encounter Details Date Type Department Care Team (Late st Contact Info) Description 10/05/2009 7:14 PM CDT - 10/05/2009 9:27 PM CDT Emergency [facility] Emergency Department [address] [place] [address] Tiff Bueno MD [address] [place] [address] Contusion of Hand Discharge Disposition: Home or Self Care Social History Tobacco Use Types Packs/Day Years Used Date Smoking Tobacco: Never Assessed Sex and Gender Information Value Date Recorded Sex Assigned at Not on file Gender Identity Not on file Sexual Orientation Not on file documented as of this encounter Last Filed Vital Signs Vital Sign Reading Time Taken Comments Blood Pressure 162/82 10/05/2009 9:18 PM CDT Pulse 80 10/05/2009 9:18 PM CDT Temperature 36.8 ??C (98.2 ??F) 10/05/2009 7:10 PM CD T Respiratory Rate 18 10/05/2009 9:18 PM CDT Oxygen Saturation 97% 10/05/2009 7:10 PM CDT Inhaled Oxygen Concentration - - Weight 122.5 kg (270 lb) 10/05/2009 8:51 PM CDT Height 160 cm (5' 3 ) 10/05/2009 8:51 PM CDT Body Mass Index 47.83 10/05/2009 8:51 PM CDT documented in this encounter Discharge Instructions * Discharge Instructions* Tiff Bueno MD - 10/05/2009 8:49 PM CDT Rest, ice, elevate, immobilize, sling * Attachments The following attachments cannot be sent through Care Everywhere. * BRUISES: AFTER YOUR VISIT (THAI) documented in this encounter Medications at Time of Discharge Medication Sig Dispensed Refills Start Date End Date tamoxifen (NOLVADEX) 10 mg Oral tablet Take by mouth 2 times daily. triamterene-hydrochlorothi azide (MAXZIDE 25) 18.75-12.5 mg Oral Tab Take 1 Tab by mouth daily. hydrocodone-acetaminophen (LORTAB) 5-500 mg Oral tablet Take 1 Tab by mouth every 4 hours as needed for Pain. 20 Tab 0 10/05/2009 documented as of this encounter ED Notes * Anthony Lincoln - 10/06/2009 9:00 AM CDT * Christian Urena, RN - 10/05/2009 9:25 PM CDT Patient states pain slightly improved to 6/10. Immobilizer, ice compress and sling in place. Deniesnew pain or numbness. Patient discharged to home viaambulatory with steady gait with family. Patient states feeling better. Discharge information and education provided to patient. Questions answered, understanding of discharge instruction verbalized. Printed copy given. * Christian Urena, RN - 10/05/2009 8:52 PM CDT Hand negative for fracture per xray. Patient updated. Patient medicated for pain. PCT preparing to splint left hand. * Tiff Bueno MD - 10/05/2009 8:41 PM CDT Images from the original note were not included. HISTORY OF PRESENT ILLNESS Gasper Pierce, a 54 y.o. female presents to the ED with a Chief Complaint of Fall Patient is a 54 y.o. female presenting with fall. The history is provided by the patient. Fall The accident occurred 1 to 2 hours ago. The fall occurred while walking and while recreating/playing. She fell from a height of 3 to 5 ft. She landed on grass. There was no blood loss. The pain is moderate. There was no entrapment after the fall. There was no alcohol use involved in the accident. Pertinent negatives include no visual change, no fever, no abdominal pain, no vomiting, no headaches and no tingling. The symptoms are aggravated by activity. REVIEW OF SYSTEMS Review of Systems Constitutional: Negative for fever and chills. Eyes: Negative for blurred vision and double vision. Respiratory: Negative for cough and hemoptysis. Cardiovascular: Negative for chest pain, palpitations and orthopnea. Gastrointestinal: Negative for vomiting and abdominal pain. Genitourinary: Negative for dysuria and urgency. Skin: Negative for rash. Neurological: Negative for dizziness, tingling and headaches. All other systems reviewed and are negative. PAST MEDICAL HISTORY REVIEWED Past Medical History Diagnosis Date ??? Breast Ca ??? Hep A w/ Coma Past Surgical History Procedure Date ??? Hx breast lumpectomy right No family history on file. History Social History Main Topics ??? Tobacco Use: Not on file ??? Alcohol Use: Not on file ??? Drug Use: Not on file ??? Sexually Active: Not on file ALLERGIES Review of patient's allergies indicates no known allergies. HOME MEDICATIONS Patient's Home Medications New Prescriptions for this Encounter HYDROCODONE-ACETAMINOPHEN (LORTAB) 5-500 MG ORAL TABLET Take 1 Tab by mouth every 4 hours as neededfor Pain. Current Home Medications TAMOXIFEN (NOLVADEX) 10 MG ORAL TABLET Take by mouth 2 times daily. TRIAMTERENE-HYDROCHLOROTHIAZIDE (MAXZIDE 25) 18.75-12.5 MG ORAL TAB Take 1 Tab by mouth daily. Medications Modified during this Encounter Medications Discontinued during this Encounter PHYSICAL EXAM Initial Vitals BP 10/05/091909 140/88 mmHg Pulse 10/05/091909 94 Resp 10/05/091909 20 Temp 10/05/091909 98.2 ??F (36.8 ??C) Temp src 10/05/091909 Oral SpO2 10/05/091909 97 % Physical Exam Nursing note and vitals reviewed. Constitutional: She appears well-developed and well-nourished. No distress. HENT: Head: Normocephalic and atraumatic. Eyes: Pupils are equal, round, and reactive to light. Cardiovascular: Normal rate, regular rhythm and normal heart sounds. No murmur heard. Pulmonary/Chest: Effort normal. No respiratory distress. Abdominal: Soft. Musculoskeletal: She exhibits edema and tenderness. Left hand: She exhibits tenderness and swelling. Hands: Neurological: She is alert. Skin: Skin is warm and dry. Mild abrasion back left hand Coding DIAGNOSTICS LAB: RADIOLOGY: XR HAND 3+ VW LEFT (Results Pending) No fracture EKG: PROCEDURES MEDICAL DECISION MAKING AND PLAN OF CARE Last vitals BP 140/88 Pulse 94 Temp(Src) 98.2 ??F (36.8 ??C) (Oral) Resp 20 SpO2 97% CLINICAL IMPRESSION Encounter Diagnoses Code Name Primary? 923.20A Contusion of Hand CASE DISCUSSED PATIENT COUNSELING Diagnostics reviewed and questions answered. Diagnosis, treatment options and plan of care discussed with understanding verbalized. DISPOSITION, EDUCATION AND MEDICATION RECONCILIATION Medications reconciled. See after visit summary for patient education on discharged patients. * Christian Urena, RN - 10/05/2009 7:52 PM CDT Patient ambulatory to xray. * Christian Urena, RN - 10/05/2009 7:47 PM CDT Patient to ED for left hand injury r/t trip fall tonight ~1830 when walking on dock. Hand crushed between two wooden decks of boat dock; one stationary and the other in motion. Large hematoma noted to top of hand. Ice compress in place. Patient able to move fingers with pain. +PMS. Cap refill WNL. Other minor abrasions noted to left upper lip and left knee. Denies complaints to those areas. Denies LOC, no blood thinners. No bleeding noted. documented in this encounter Plan of Treatment Not on file documented as of this encounter Procedures Procedure Name Priority Date/Time Associated Diagnosis Comments XR HAND 3+ VW LEFT Stat 10/05/2009 7: 53 PM CDT documented in this encounter Results * XR HAND 3+ VW LEFT (10/05/2009 7:53 PM CDT) Anatomical Region Laterality Modality Wrist / Hand Computed Radiogr aphy 10/05/2009 7:45 PM CDT Impressions 10/06/2009 12:55 AM CDT IMPRESSION: No osseous abnormality. Narrative 10/06/2009 12:55 AM CDT LEFT HAND, 3 VIEWS, 10/05/2009 HISTORY: Fall, pain. FINDINGS: ??No fracture, dislocation or abnormal bone destruction is identified. Soft tissue swelling is noted on the dorsum of the hand. Procedure Note Cedric Mckeon MD - 10/06/2009 LEFT HAND, 3 VIEWS, 10/05/2009 HISTORY: Fall, pain. FINDINGS: No fracture, dislocation or abnormal bone destruction is identified. Soft tissue swelling is noted on the dorsum of the hand. IMPRESSION IMPRESSION: No osseous abnormality. Tiff Bueno MD DIAGNOSTIC IMAGING O RDERABLES documented in this encounter Visit Diagnoses Diagnosis Contusion of hand Contusion of hand(s) documented in this encounter Administered Medications Inactive Administered Medications - up to 3 most recent administrations Medication Order MAR Action Action Date Dose Rate Site hydrocodone-acetaminophen (NORCO) 5-325 mg per tablet 2 Tab 2 Tablet, Oral, ONE TIME ONLY, 1 dose, On Sat10/05/09 at 2045, Routine Given 10/05/2009 8:51 PM CDT 2 Tablets documented in this encounter Active and Recently Administered Medications Times are shown in CDT. Scheduled Medication Order 10/03/2009 10/04/2009 10/05/2009 hydrocodone-acetaminophen (NORCO) 5-325 mg per tablet 2 Tab (COMPLETED) 2 Tablet, Oral, ONE TIME ONLY, 1 dose, On Sat10/05/09 at 204, Routine 2050 (Given - Provid er: Christian Urena, ERAN) documented in this encounter Care Teams Director Social Relationship Specialty Start Date End Date Mitch Robles MD [address] [place] [address] PCP - General Family Practice 10/05/09 documented as of this encounter
--- OUTSIDE RECORDS SUMMARY | 2024-05-12 20:18 | XMS_ITS | Clinical Summary ---
Author Organization [facility] Address [address] [place] [address] Phone Care Team Providers Care Shuttleless Loom Weaver Name Role Phone Mitch Robles MD Primary Care Provider [phone] Allergies No known active allergies Medications Medication Sig Dispensed Refills Start Date End Date Status tamoxifen (NOLVADEX) 10 mg Oral tablet Take by mouth 2 times daily. Active triamterene-hydrochlor othiazide (MAXZIDE 25) 18.75-12.5 mg Oral Tab Take 1 Tab by mouth daily. Active hydrocodone-acetaminop hen (LORTAB) 5-500 mg Oral tablet Take 1 Tab by mouth every 4 hours as needed for Pain. 20 Tab 0 10/05/2009 Active Social History Tobacco Use Types Packs/Day Years Used Date Smoking Tobacco: Never Assessed Sex and Gender Information Value Date Recorded Sex Assigned at Not on file Gender Identity Not on file Sexual Orientation Not on file Last Filed Vital Signs Vital Sign Reading [...] Mass Index 47.83 10/05/2009 8:51 PM CDT Plan of Treatment Health Maintenance Due Date Last Done Comments DTAP/TDAP/TD VACCINES (1 - Tdap) 1973 BREAST CANCER SCREENING 1994 COLORECTAL SCREENING 1999 Colorectal Cancer Screening 1999 FIT-DNA Q 3 years 1999 FIT/FOBT Q 1 year 1999 Flex Sig/CT Colonography Q 5 years 1999 ZOSTER VACCINE (1 of 2) 01/15/2004 OSTEOPOROSIS SCREENING 2019 PNEUMOCOCCAL VACCINE 65+ YEARS (1 of 1 - PCV) 01/15/20 19 INFLUENZA VACCINE (#1) 2023 RSV VACCINE (60+ or ) (1 - 1-dose 75+ series) 2029 Care Teams Shuttleless Loom Weaver Relationship Specialty Start Date End Date Mitch Robels MD [address] [place] [address] PCP - General Family Practice 10/05/09
--- OUTSIDE RECORDS SUMMARY | 2024-05-12 20:18 | XMS_ITS | Continuity of Care Document ---
Author Organization [facility] Address [address] [place] [address] [address] [place] [address] Phone Care Team Providers Care Saw Straightener Name Role Phone Arnoldo Matias Unavailable Unavailable Advance Directives Directive Yes / No Effective Date File Name No Information Encounters Encounter Description Practice Location Reason(s) For Visit Diagnoses Date Provider Providers Copied on Encounter [facility], [id number] [place] [address] [address], [place], [place], [id number], [place] tel:[phone] SEC [facility] No Information May-0 9-200 5 Doisy Edward. [address] [facility] , [address], [place], [address], [place]. tel:[phone] Family History Family Member Type Diagnosis Age At Onset No Information Payers Payer name Insurance type Covered alliance party ID Authoriza tion(s) No Information Social History Type Description Quantity Date Captured Comments Sex Female Smoking Status No Information Chief Complaint And Reason For Visit No Information Reason For Referral Reason For Referral No Information History Of Present Illness Encounter Date Complaint History Of Prese nt Illness No Information Functional Status Date Functional Assessmen t No Information Instructions Date Instruction Additional Infor mation No Information Assessments Type Assessment Date No Information Patient Care Teams Name Effective Dates (start - stop) Status Members No Information
--- OUTSIDE RECORDS SUMMARY | 2024-05-12 20:23 | XMS_ITS ---
Author Organization Unknown Address [address] [place] [phone] Phone Care Team Providers Care Options Advisor Name Role Phone RIKI Banerjee Attending Unavailable Results RAPID DETECT SARS-CoV-2 - Co llect Date/Time: 04/17/2022 11:25 [facility] ID: [id number] [address] [place] [address], [phone] LOINC: 01835-2 Test Value Unit Reference Range Code Code System Flag RAPID COVID Ag NEGATIVE NORMAL: NEGATIVE FLU A & B;DIRECT OPTICAL+ - Collect Date/Time: 04/17/2022 11:25 [facility] ID: [id number] [address] [place] [address], [id number] LOINC: 58173-1 Test Value Unit Reference Range Code Code System Flag INFLUENZA A NOT DETECTED NORMAL:NOT DETECTED 73781-6 VU NC INFLUENZA B NOT DETECTED NORMAL:NOT DETECTED 49824-4 VU NC SEND TO ? NO STREP A SCREEN - Collect Humphrey e/Time: 04/17/2022 11:25 [facility] ID: [id number] [address] [place] [address], [phone] LOINC: 59695-6 Test Value Unit Reference Range Code Code System Flag STREP A SCREEN NEGATIVE NORMAL: NEGATIVE GROUP A STREP CONFIRMATION C ULTURE - Collect Date/Time: 04/17/2022 11:25 [facility] ID: [id number] [address] [place] [address], [id number] LOINC: 13503-6 Test Value Unit Reference Range Code Code System Flag SEND TO IFC? [place] [address]-6 LOINC SEND TO ? 38292-8 LOINC Beta Strep Gp A Culture Negative 01420-0 LOINC Social History Type Status Start Date End Date Code Code Syst em Smoking History Never smoker (Never Smoked) 958390130 SNOMED CT Sex Female Hospital Discharge Instructions [...] Sys tem Acute upper respiratory infection 04/17/2022 3739187 5 SNOMED-CT Personal Care Team Section Performer Name Performer Role Active Date Inactive Da te
--- OUTSIDE RECORDS SUMMARY | 2024-05-12 20:24 | XMS_ITS | Continuity of Care Document ---
Author Organization [facility] Address [address] [place] [address] [address] [place] [address] Phone Care Team Providers Care Insole Coverer Name Role Phone Arnoldo Matias Unavailable Unavailable Advance Directives Directive Yes / No Effective Date File Name No Information Encounters Encounter Description Practice Location Reason(s) For Visit Diagnoses Date Provider Providers Copied on Encounter [facility], [id number] [place] [address] [address], [place], [place], [id number], [place] tel:[phone] SEC [facility] No Information May-0 9-200 5 Doisy Edward. [address] [facility] , [address], [place], [address], [place]. tel:[phone] Family History Family Member Type Diagnosis Age [...]
== END 2024-05-09 07:03 | disposition home or self-care (01) ==
LOC: ANHED 06:52
PROVIDERS: Emergency Provider Student in an Organized Health Care Education/Training Program; PCP Internal Medicine
DX: S93.401A Sprain of unspecified ligament of right ankle, initial encounter (principal); V03.10XA Pedestrian on foot injured in collision with car, pick-up truck or van in traffic accident, initial encounter; Z85.3 Personal history of malignant neoplasm of breast; E78.5 Hyperlipidemia, unspecified
CPT/HCPCS: 73600; 99283; A9270

== ENCOUNTER 2024-11-16 09:16 | Outpatient (CLI) | payer MEDICARE, SELFPAY ==
[2024-11-16 13:03] LABS: Anion Gap 11 mmol/L (4-12); Blood Urea Nitrogen 29 mg/dL (7-17); Calcium 9.6 mg/dL (8.4-10.2); Carbon Dioxide 29 mmol/L (22-30); Chloride 100 mmol/L (98-107); Estimated Glomerular Filt Rate 48; Glucose 107 mg/dL (65-110); Potassium 3.9 mmol/L (3.4-5.0); Sodium 140 mmol/L (137-145)
[2024-11-16 14:58] LABS: Creatinine Urine 142.6 mg/dL
[2024-11-16 15:03] LABS: MALB Creatinine Ratio < 4.2 mg/g (0-30); Microalbumin Urine Random < 6.0 mg/L (0-16.7)
== END 2024-11-16 09:17 | disposition home or self-care (01) ==
PROVIDERS: PCP Internal Medicine; Visit Provider Nurse Practitioner
DX: E11.9 Type 2 diabetes mellitus without complications (principal)
CPT/HCPCS: 36415; 80048; 82043; 83036

== ENCOUNTER 2025-05-25 09:49 | Outpatient (CLI) | payer MEDICARE, SELFPAY ==
--- OUTSIDE RECORDS SUMMARY | 2023-12-17 11:30 | XMS_ITS ---
Author Organization [facility] ([address]) Address [address] [place] [address] Care Team Providers Care Aircraft Engine Specialist Name Role Phone Verito Carter Unavailable [phone] REASON FOR VISIT MINK RANCHER Asthma Encounters Encounter Location Date Provider Diagnosis [facility] [address] [place] [address] 12/17/2023 Verito Carter Plan Of Treatment No Information Progress Notes * Abigail PIERCEOB:1955 (70 yo F)Acc No.[id number]:12/17/2023 Progress Notes Patient: Gasper GUERRERO Provider: Chriss Carter MD :1955 A ge:68 Y S ex:Female Date:12/17/2023 Address:[address] [place], [place] [id number] Subjective: * Chief Complaints: * 1 . MINK RANCHER Asthma. 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
--- OUTSIDE RECORDS SUMMARY | 2025-05-25 10:12 | XMS_ITS | Clinical Summary ---
Author Organization [facility] Address [address] [place] [address] Care Team Providers Care Clothing Patternmaker Name Role Phone Kristopher Pierre DO Primary Care Provider [phone] Allergies No known active allergies Medications atorvastatin (LIPITOR) 10 mg tabletIndicatio ns:hyperlipidem ia Take 1 tablet (10 mg total) by mouth nightly [address] (CYMBALTA) 60 mg capsuleIndicati ons:Anxiety with Depression Take 1 capsule (60 mg total) by mouth a auxiliary before breakfast 9 Active SYNTHROID 50 mcg tabletIndicatio ns:hypothyroidi sm Take 1 tablet (50 mcg total) by mouth a auxiliary before breakfast 9 Active metFORMIN (FORTAMET) 1,000 mg 24 hr tabletIndicatio ns:type 2 diabetes mellitus Take 500 mg by mouth daily with breakfast 9 Active omeprazole (PriLOSEC) 40 mg capsuleIndicati ons:Treatment of Non-Bleeding Gastric Disorder Take 1 capsule (40 mg total) by mouth a auxiliary before breakfast 9 Active hydroCHLOROthia zide (HYDRODIURIL) 25 mg tabletIndicatio ns:hypertension Take 1 tablet (25 mg total) by mouth a auxiliary before breakfast Active cetirizine (ZyrTEC) 10 mg tabletIndicatio ns:Allergic Conjunctivitis, Allergic Rhinitis Take 1 tablet (10 mg total) by mouth a auxiliary before breakfast Active vit B complex 100 combo no.2 100 mg tablet extended releaseIndicati ons:supplement Take 1 tablet by mouth a auxiliary before breakfast Active calcium carbonate/vitam in D3 (CALTRATE 600 PLUS D ORAL)Indication s:supplement Take 1,000 mg by mouth a auxiliary before breakfast Active traMADoL (ULTRAM) 50 mg tabletIndicatio ns:Pain Take 1 tablet (50 mg total) by mouth every 8 (eight) hours as needed for pain 0 Active multivitamin capsuleIndicati ons:Vitamin Deficiency Prevention Take 1 capsule by mouth a auxiliary before breakfast Active irbesartan (AVAPRO) 300 mg tabletIndicatio ns:hypertension Take 1 tablet (300 mg total) by mouth a auxiliary before breakfast Active albuterol HFA (PROVENTIL HFA,VENTOLIN HFA,PROAIR HFA) 90 mcg/actuation inhalerIndicati ons:Acute Asthma Attack,Bronchos pasm Prevention 2 puffs every 4 (four) hours as needed for wheezing or shortness of breath 2 Active Accu-Chek Guide test strips strip USE NEW STRIP ONCE DAILY TO CHECK BLOOD SUGAR 3 Active Accu-Chek Fastclix Lancet Drum misc USE STRIP TO CHECK GLUCOSE THREE TIMES DAILY 3 Active Mounjaro 12.5 mg/0.5 mL pen injectorIndicat ions:type 2 diabetes mellitus Inject 0.5 mL (12.5 mg total) under the skin once a week Tuesdays 3 Active Breo Ellipta 200-25 mcg/dose diskus inhalerIndicati ons:Maintenance Therapy for Asthma Inhale 1 puff a auxiliary before breakfast Active HYDROcodone-don taminophen (NORCO) 5-325 mg per tabletIndicatio ns:Pain Take 1 tablet by mouth every 4 (four) hours as needed for pain 5 tablet 5 Active Invokana 300 mg tablet 2 04/29/20 25 Discontinu ed(Therapy completed) benzonatate (TESSALON) 200 mg capsule 2 04/29/20 25 Discontinu ed(Therapy completed) FLUoxetine (PROzac) 10 mg tablet/capsuleI ndications:Anxi ety with Depression Take 1 tablet/capsul e (10 mg total) by mouth a auxiliary before breakfast 04/29/20 25 Discontinu ed(Therapy completed) Active Problems Problem Noted Date Diagnosed Date Acute ankle pain 02/03/2025 Acute asthmatic bronchitis 02/03/2025 Bilateral hand pain 02/03/2025 Carpal tunnel syndrome 02/03/2025 Chronic kidney disease 02/03/2025 Chronic pain with drug dependence 02/03/2025 Decreased calculated GFR 02/03/2025 Decreased hearing of both ears 02/03/2025 Dyspnea on exertion 02/03/2025 Esophageal reflux 02/03/2025 Esophageal web 02/03/2025 Vitamin D deficiency, unspecified 02/03/2025 Tachycardia 02/03/2025 Seborrheic keratosis 02/03/2025 Sciatica 02/03/2025 Wound of foot 02/03/2025 Otitis media 02/03/2025 Other specified depressive episodes 02/03/2025 ARA on CPAP 02/03/2025 Obesity, unspecified 02/03/2025 Muscle cramps 02/03/2025 Malignant neoplasm of unspec ified site of right female breast 02/03/2025 Low back pain 02/03/2025 Hyperlipidemia due to type 2 diabetes mellitus 0 02/03/2025 Hyperlipidemia 02/03/2025 Head injury 02/03/2025 Foot drop, right 02/03/2025 Fall 02/03/2025 Osteoarthritis of knee 02/19/2023 Seronegative inflammatory arthritis 05/01/2022 Assessment & Plan (05/01/2022 8:56 AM SPEEDER TENDER): Patient presents for 1st follow-up of likely new diagnosis of seronegative arthritis. X-rays were completed but results were not received prior to appointment today. We have called [facility] to have records faxed over. [...] 05/01/2022 Assessment & Plan (05/01/2022 8:56 AM SPEEDER TENDER): Advised stretching exercises and range of motion of bilateral hands. Elevated sed rate 05/01/2022 Assessment & Plan (05/01/2022 8:56 AM SPEEDER TENDER): Suspect related to inflammatory arthritis as above. We will trend this with disease/treatment over time. Dyslipidemia 08/21/2021 Essential hypertension 08/21/2021 Hypothyroidism 08/21/2021 Type 2 diabetes mellitus without complication Intervertebral disc disorder with radiculopathy of lumbar region 03/07/2020 Fatigue 04/13/2019 Weight gain 04/13/2019 History of right breast cancer 07/30/2018 Encounters Date Type Department Care Team Description 05/11/2025 7:30 AM SPEEDER TENDER - 05/11/2025 8:41 AM SPEEDER TENDER Surgery [facility] ([facility]) [address] [place] [address] Margarita Mckeon MD Right RELEASE CARPAL TUNNEL 05/11/2025 7:23 AM SPEEDER TENDER Anesthesia Event [facility] ([facility]) [address] [place] [address] Apolinar Mccoy MD McKenzie, Kerry A., NP 05/11/2025 5:15 AM SPEEDER TENDER - 05/11/2025 9:08 AM SPEEDER TENDER Hospital Encounter [facility] ([facility]) [address] [place] [address] Margarita Mckeon MD Carpal tunnel syndrome of right wrist (Primary Dx) Discharge Disposition: Discharge to home or self care 03/25/2025 1:20 PM CDT Office Visit [facility] Medicine Orthopaedic Surgery [address] [facility] 6th [place] [address] [place] [address] Margarita Mckeon MD Carpal tunnel syndrome, bilateral (Primary Dx); Cubital tunnel syndrome, left 03/09/2025 2:45 PM CDT Ancillary Procedure [facility] [address] [facility] 2[address] [place] [address] Bilateral hand numbness 03/09/2025 2:00 PM CDT Procedure visit [facility] Orthopaedic Surgery [address] [facility] 2[address] [place] [address] Vinayak Miranda MD Bilateral hand numbness (Primary Dx) from Last 3 Months Immunizations Immunization Administration Dates Next Due Influenza, Quadrivalent, Hig h Dose, Preservative Free, Intrr 04/11/2022,03/10/2021 Influenza, Quadrivalent, Rec ombinant, Egg Free, Preservative Free, Intramuscular 03/14/2020,03/05/2019 Influenza, Quadrivalent, Spl it, Pediatric, Preservative Free, Intramuscular 03/12/2018 Influenza, Trivalent, Preservative Free, Intramu scular 03/15/2016,05/02/2015 Pneumococcal Polysaccharide PPV23 07/31/2019 Tdap 10/20/2018 ZOSTER Recombinant 02/27/2022 Surgical History Surgery Date Site/Laterality Comments BREAST LUMPECTOMY 05/27/2006 - 05/26/2007 Right Breast Lumpectomy - (Added by TW Conv) [place] TOTAL ABDOMINAL HYSTERECT W/WO RMVL TUBE OVARY 05/27/1989 - 05/26/1990 Hysterectomy - (Added by TW Conv) SECTION 1980, 1985, 1988 HYSTERECTOMY 05/27/1989 - 05/26/1990 CHOLECYSTECTOMY 05/27/2009 - 05/26/2010 REPLACEMENT TOTAL KNEE 05/27/2011 - 05/26/2012 Medical History Medical History Date Comments Asthma Cancer (HCC) Depression Type 2 diabetes mellitus Infectious viral hepatitis Hypertension 1989 Hyperthyroidism Low back pain Peripheral neuropathy Hypercholesteremia Obesity Sleep apnea Family History Medical History Relation Name Comments Arthritis Brother Yury Jasmyn Diabetes Brother Yury Kovarik Heart disease Brother Yury Baumanvaramalia Hypertension Brother Yury Kovaramalia Arthritis Father Jeff Mitulvaramalia Cancer Father Jeff Vines Diabetes Father Jeff Jasmyn Gout Father Jeff Jasmyn Hearing loss Father Jeff Mitulvaramalia Heart disease Father Jeff Mitulvaramalia Hypertension Father Jeff Jasmyn Prostate cancer Father Jeff Jasmyn Prostate ca - (Added by TW Conv) Rheumatic fever Father Jeff Jasmyn Heart disease Maternal Grandfather Gregg Vines Hypertension Maternal Grandfather Gregg Vines Stroke Maternal Grandfather Gregg Jasmyn Early Mother Shayla Vines Heart disease Paternal Grandfather Melodie Gong Anesthesia problems Neg Hx Relation Name Status Comments Brother Yury Vines Father Jeff Vines Maternal Grandfather Gregg Vines Mother Shayla Vines Paternal Grandfather Melodie Gong Social History Tobacco Use Types Packs/Day Years Used Date Smoking Tobacco: Former Cigarettes 0.3 8 1 972 - 1979 Smokeless Tobacco: Never Tobacco Cessation:Counseling Given: Not Answered Alcohol Use Standard Drinks/Week Comments Yes 1 (1 standard drink = 0.6 oz pur e alcohol) AUDIT-C Answer Date Recorded Q1: How often do you have a drink containing alc ohol? 2-4 times a month 05/11/2025 Q2: How many drinks containi ng alcohol do you have on a typical day when you are drinking? 1 or 2 05/11/2025 Q3: How often do you have si x or more drinks on one occasion? Never 05/11/2025 Personal Safety Answer Date Recorded Have you ever been in or are you currently in a harmful physical or emotional relationship or is someone making you feel afraid or unsafe? Denies 05/11/2025 Comments No Sex and Gender Information Value Date Recorded Sex Assigned at Not on file Legal Sex Female 1:06 AM SPEEDER TENDER Gender Identity Female 01/22/2024 8:47 PM CDT Sexual Orientation Straight 01/22/2024 8: 47 PM CDT Last Filed Vital Signs Vital Sign Reading Time Taken Comments Blood Pressure 127/72 05/11/2025 8:30 AM SPEEDER TENDER Pulse 78 05/11/2025 8:30 AM SPEEDER TENDER Temperature 36.6 C (97.9 F) 05/11/2025 8:00 AM SPEEDER TENDER Respiratory Rate 14 05/11/2025 8:30 AM SPEEDER TENDER Oxygen Saturation 97% 05/11/2025 8:30 AM SPEEDER TENDER Inhaled Oxygen Concentration - - Weight 110.2 kg (243 lb) 05/11/2025 5:50 AM SPEEDER TENDER Height 160 cm (5' 3) 05/11/2025 5:50 AM SPEEDER TENDER Body Mass Index 43.05 05/11/2025 5:50 AM SPEEDER TENDER Plan of Treatment Health Maintenance Due Date Last Done Comments Albumin Creatinine Ratio, Urine 1954 Colon Cancer Screening-Colonoscopy 1954 Depression Screening 1954 Hemoglobin A1C 1954 Hepatitis C Screening 1954 Osteoporosis Screening-Bone Density Scan 1954 eGFR 1954 Dilated Eye Exam 1954 Foot Exam 1954 Lipid Panel 1954 Hepatitis B Screening 01/15/1972 Well Visit 65+ 2019 Covid-19 Vaccine (5 - 2024-2 6 season) 2025 10/09/2021, 04/11/2021, 08/17/2020, Additional history exists Influenza Vaccine (#1) 2025 , 03/10/2021, 03/14/2020, Additional history exists Breast Cancer Screening-Mammogram 09/28/2025 09/28/2024, 07/29/2023, 12/22/2021, Additional history exists Fall Risk Assessment 05/11/2026 05/11/2025 DTaP/Tdap/Td Vaccine (5 - Td or Tdap) 08/06/2033 08/07/2023, 10/20/2018, 12/04/2016, Additional history exists Pneumococcal vaccine 65+ Completed 07/31/2019, 09/2015 Zoster Vaccine Completed 06/06/2022, 02/27/2022 Goals Goal Patient Goal Type Associated Problems Recent Progress Patient-Stated? Author CCM Chronic Pain Care Plan Chronic Care Management No change(06/2019 10:31 AM SPEEDER TENDER) No Amna Dao, RN Note: Problem: Chronic Pain Goals: 1. Minimize further functional decline 2. Maximize quality of life 3. Control pain Strategies: - Activity/exercise program recommendation - Conservative stepwise pain medicine strategy with multi-disciplinary approach - Recommend healthy lifestyle strategies and compensatory methods as needed Autogenerated Goal Care Plan Autogenerated Problem No Ramirez Casiano Procedures Procedure Name Priority Date/Time Associated Diagnosis Comments POCT GLUCOSE DEVICE Routine 05/11/2025 8:12 AM SPEEDER TENDER RELEASE CARPAL TUNNEL 05/11/2025 7:26 AM SPEEDER TENDER Carpal tunnel syndrome of right wrist Case Notes 03/29/25 Message sent to office staff to complete missing pathology field. NB10/30/25 Message sent to office staff to complete missing pathology field. NB Special Needs ancef POCT GLUCOSE DEVICE Routine 05/11/2025 7:25 AM SPEEDER TENDER PAIN BLOCK Routine 05/11/2025 5:46 AM SPEEDER TENDER POCUS SOFT TISSUE OF THE UPPER OR LOWER EXTREMITY Schedule Routine, Read Routine (OP Routine) 03/09/2025 2:44 PM CDT Bilateral hand numbness SCREENING MAMMOGRAM BILATERAL W JAMES Schedule Routine, Read Routine (OP Routine) 09/28/2024 10:59 AM CDT Screening mammogram, encounter for from Last 3 Months or Most Recently Relevant to Health Maintenance Results * POCT glucose (05/11/2025 8:12 AM SPEEDER TENDER) Glucose, POC 117 70 - 199 mg/dL Blood 05/11/2025 8:12 AM SPEEDER TENDER 05/11/2025 8:12 AM SPEEDER TENDER Margarita Mckeon MD LAB POCT ORDERABLES - DE VICE Final Result Performing Organization Address City/[facility]/ZIP Co de Phone Number [facility] [place] [place] [address] * POCT glucose (05/11/2025 7:25 AM SPEEDER TENDER) Glucose, POC 109 70 - 199 mg/dL Blood 05/11/2025 7:25 AM SPEEDER TENDER 05/11/2025 7:25 AM SPEEDER TENDER Margarita Mckeon MD LAB POCT ORDERABLES - DE VICE Final Result Performing Organization Address City/[facility]/ZIP Co de Phone Number [facility] [place] [address] * POCUS Soft Tissue of the Upper or Lower Extremity (03/09/2025 2:44 PM CDT) Narrative RAD_PACS_POCUS_[facility] - 03/09/2025 2:44 PM CDT This procedure was performed and interpreted by the provider. Please refer to the provider's procedure/OR operative note for results. Vinayak Miranda MD POCUS ORDERABLES Final Resu lt RAD_PACS_POCUS_[facility] * Screening Mammogram Bilateral W James (09/28/2024 10:59 AM CDT) Anatomical Region Laterality Modality Breast Bilateral Mammography Narrative 09/29/2024 12:50 PM CDT Mammogram Technique: Bilateral Digital Breast Tomosynthesis, Bilateral C-view 2D Screening mammogram. Views obtained: bilateral craniocaudal and bilateral mediolateral oblique. Computer Aided Detection was performed. Mammogram Findings: The present examination has been compared to prior imaging studies performed at [facility] on 10/17/2020, 12/22/2021 and 07/29/2023. There are scattered areas of fibroglandular density. There are post breast conservation therapy changes in the right breast. There is no suspicious abnormality in either breast. Impression: There is no mammographic evidence of malignancy. Annual screening mammography is recommended. OVERALL FINAL ASSESSMENT: BI-RADS CATEGORY 2: Benign. Procedure Note Ayesha Che MD - 09/29/2024 Mammogram Technique: Bilateral Digital Breast Tomosynthesis, Bilateral C-view 2D Screening mammogram. Views obtained: bilateral craniocaudal and bilateral mediolateral oblique. Computer Aided Detection was performed. Mammogram Findings: The present examination has been compared to prior imaging studies performed at [facility] on 10/17/2020, 12/22/2021 and 07/29/2023. There are scattered areas of fibroglandular density. There are post breast conservation therapy changes in the right breast. There is no suspicious abnormality in either breast. Impression: There is no mammographic evidence of malignancy. Annual screening mammography is recommended. OVERALL FINAL ASSESSMENT: BI-RADS CATEGORY 2: Benign. us Self Screening Mammogram IMG MAMMO PROCEDURES Fi nal Result from Last 3 Months or Most Recently Relevant to Health Maintenance Additional Health Concerns Active Problems Noted Date Diagnosed Date Autogenerated Problem 03/29/2025 Insurance MEDICARE [employer] [facility] MEDICARE [facility] MEDICARE SUPPLEMENT MEDICARE [facility] MEDICARE SUPPLEMENT Care Teams Clothing Patternmaker Relationship Specialty Start Date End Date Kristopher Pierre DO PCP - General Internal Medicine 03/26/22
--- OUTSIDE RECORDS SUMMARY | 2025-05-25 10:12 | XMS_ITS | Patient Health Record ---
Author Organization [facility] ([address]) Address [address] [place] [address] Care Team Providers Care Home Demonstration Agent Name Role Phone EmmaVerito Unavailable [phone] Reason For Referral No Information Plan Of Treatment No Information Insurance Providers Payer Name Payer Address Payer Phone Subscriber Number Group Number Insured Name Patient Relationship to Insured Coverage Start Date Coverage End Date [employer] (Medicare) Attention Claims [address] [place] [address] [id number] Gasper Pierce Self - patient is the insured [facility] [address] [address] [place] [address] [id number] Gasper Pierce Self - patient is the insured
--- OUTSIDE RECORDS SUMMARY | 2025-05-25 10:12 | XMS_ITS ---
Author Organization [facility] Address [address] [place] [address] Care Team Providers Care Wreath And Garland Maker Hand Name Role Phone Kristopher Pierre DO Primary Care Provider +1- [phone] Active Problems Problem Noted Date Diagnosed Date [...] 05/01/2022 Assessment & Plan (05/01/2022 8:56 AM HEADING SAW OPERATOR): Patient presents for 1st follow-up of likely [...] 05/01/2022 Assessment & Plan (05/01/2022 8:56 AM HEADING SAW OPERATOR): Advised stretching exercises and range of motion of bilateral hands. Elevated sed rate 05/01/2022 Assessment & Plan (05/01/2022 8:56 AM HEADING SAW OPERATOR): Suspect related to inflammatory arthritis as above. We will trend this with disease/treatment over time. Dyslipidemia 08/21/2021 Essential hypertension 08/21/2021 Hypothyroidism 08/21/2021 Type 2 diabetes mellitus without complication Intervertebral disc disorder with radiculopathy of lumbar region 03/07/2020 Fatigue 04/13/2019 Weight gain 04/13/2019 History of right breast cancer 07/30/2018 Current Treatment and Therapy Plans No current plan information found. Past Treatment and Therapy Plans No past plan information found. Lifetime Dose Tracking * Chemical Lifetime Dose Automatic Entry Manual Entr y Fluoro Time 1.383 minutes 1.383 minutes 0 minutes Air kerma at the reference point (Ka,r) 26.32 mGy 2 6.32 mGy 0 mGy
--- OUTSIDE RECORDS SUMMARY | 2025-05-25 10:12 | XMS_ITS | Clinical Summary ---
Author Organization [facility] Address [address] [place] [address] Phone Care Team Providers Care Sorting Supervisor Name Role Phone Mitch Robles MD Primary Care Provider +1- [phone] Allergies No known active allergies Medications tamoxifen (NOLVADEX) 10 mg Oral tablet Take by mouth 2 times daily. Active triamterene-hydr ochlorothiazide (MAXZIDE 25) 18.75-12.5 mg Oral Tab Take 1 Tab by mouth daily. Active hydrocodone-acet aminophen (LORTAB) 5-500 mg Oral tablet Take 1 Tab by mouth every 4 hours as needed for Pain. 20 Tab 0 10/05/2009 Active Social History Tobacco Use Types Packs/Day Years Used Date Smoking Tobacco: Never Assessed Comments Unknown Sex and Gender Information Value Date Recorded Sex Assigned at Not on file Legal Sex Female 5:53 AM CRIMINAL RECORDS TECHNICIAN Gender Identity Not on file Sexual Orientation Not on file Last Filed Vital Signs Vital Sign Reading Time Taken Comments Blood Pressure 162/82 10/05/2009 9:18 PM CDT Pulse 80 10/05/2009 9:18 PM CDT Temperature 36.8 C (98.2 F) 10/05/2009 7:10 PM CDT Respiratory Rate 18 10/05/2009 9:18 PM CDT Oxygen Saturation 97% 10/05/2009 7:10 PM CDT Inhaled Oxygen Concentration - - Weight 122.5 kg (270 lb) 10/05/2009 8:51 PM CDT Height 160 cm (5' 3) 10/05/2009 8:51 PM CDT Body Mass Index 47.83 10/05/2009 8:51 PM CDT Plan of Treatment Health Maintenance Due Date Last Done Comments DTAP/TDAP/TD VACCINES (1 - Tdap) 1973 BREAST CANCER SCREENING 1994 COLORECTAL SCREENING 1999 Colorectal Cancer Screening 1999 FIT-DNA Q 3 years 1999 FIT/FOBT Q 1 year 1999 Flex Sig/CT Colonography Q 5 years 1999 PNEUMOCOCCAL VACCINE 50+ YEARS (1 of 1 - PCV) 01/15/20 04 ZOSTER VACCINE (1 of 2) 01/15/2004 OSTEOPOROSIS SCREENING 2019 INFLUENZA VACCINE (#1) 2024 RSV VACCINE (60+ or ) (1 - 1-dose 75+ series) 2029 Care Teams Sorting Supervisor Relationship Specialty Start Date End Date Mitch Robles MD [address] [place] [phone] PCP - General Family Practice 10/05/09
[2025-05-25 18:31] LABS: Alanine Aminotransferase 24 U/L (6-35); Albumin Level 4.3 g/dL (3.5-5.1); Alkaline Phosphatase 115 U/L (38-126); Anion Gap 7 mmol/L (4-12); Aspartate Amino Transferase 31 U/L (14-36); Bilirubin,Total 0.5 mg/dL (0.2-1.3); Blood Urea Nitrogen 20 mg/dL (7-17); Calcium 9.8 mg/dL (8.4-10.2); Carbon Dioxide 30 mmol/L (22-30); Chloride 103 mmol/L (98-107); Estimated Glomerular Filt Rate 51; Glucose 120 mg/dL (65-110); Potassium 4.0 mmol/L (3.4-5.0); Sodium 140 mmol/L (137-145); Total Protein 7.4 g/dL (6.3-8.2)
[2025-05-25 18:39] LABS: Hemoglobin A1C 6.1 % (<5.7)
[2025-05-26 11:08] LABS: Albumin 3.8 g/dL (2.9-4.4); Alpha-1-Globulin 0.3 g/dL (0.0-0.4); Alpha-2-Globulin 0.9 g/dL (0.4-1.0); Gamma Globulin 0.9 g/dL (0.4-1.8)
[2025-05-26 15:09] LABS: ANA by IFA Rfx Titer/Pattern Negative (.)
[2025-05-28 13:08] LABS: Albumin, U 40.5 % (.); Alpha-1-Globulin, U 4.8 % (.); Alpha-2-Globulin, U 17.4 % (.); Beta Globulin, U 26.4 % (.); Gamma Globulin, U 11.0 % (.)
== END 2025-05-25 09:50 | disposition home or self-care (01) ==
LOC: ANHGOSHLAB 09:50
PROVIDERS: PCP Internal Medicine; Visit Provider Nurse Practitioner
DX: R94.4 Abnormal results of kidney function studies (principal); E11.9 Type 2 diabetes mellitus without complications
CPT/HCPCS: 36415; 80053; 83036; 84155; 84156; 84165; 84166; 86038